=== PATIENT | female | born 1940 | race Two or more races ===

== ENCOUNTER 2017-12-07 19:03 | Inpatient (IN) | payer MEDICARE, MEDICAID ==
[~2017-12-07] VITALS: Ht 162.6 cm; Wt 59.0 kg
[~2017-12-07 19:03] MED LIST: CARVEDILOL3.125 MG ORAL; FUROSEMIDE20 M1 ORAL; GLIPIZIDE5 MG ORAL
[2017-12-07 19:20] VITALS: BP 110/51
[2017-12-07] MEDS ORDERED: D5NS 1,000 ML IV SCH (19:30)
[2017-12-07 20:34] LABS: HEMATOCRIT 32.3 % (37.0-47.0); HEMOGLOBIN 10.1 G/DL (12.0-16.0); MEAN CORPUSCULAR VOLUME 85 FL (80-99); PLATELET COUNT 178 K/UL (150-450); RED BLOOD COUNT 3.79 M/UL (4.20-5.40); WHITE BLOOD COUNT 10.1 K/UL (4.8-10.8)
[2017-12-07 20:54] LABS: APPEARANCE,URINE CLEAR; BILIRUBIN, URINE NEGATIVE (NEGATIVE); GLUCOSE, URINE (UA) NEGATIVE (NEGATIVE); KETONES,URINE NEGATIVE (NEGATIVE); LEUKOCYTE ESTERASE ,URINE 2+ (NEGATIVE); NITRITE,URINE POSITIVE (NEGATIVE); PH,URINE 5 (4.5-8.0); PROTEIN,URINE 2+ (NEGATIVE); UROBILINOGEN,URINE NORMAL MG/DL (0.0-1.0)
[2017-12-07 20:57] LABS: ANION GAP 8 mmol/L (5-15); BLOOD UREA NITROGEN 48 mg/dL (7-18); CALCIUM 8.5 MG/DL (8.5-10.1); CARBON DIOXIDE 26 MMOL/L (21-32); CHLORIDE 105 MMOL/L (98-107); CREATININE 2.2 MG/DL (0.55-1.30); POTASSIUM 5.8 MMOL/L (3.5-5.1); SODIUM 138 MMOL/L (136-145)
[2017-12-07 21:00] LABS: COLOR,URINE YELLOW
[2017-12-07 21:05] VITALS: BP 118/71
[2017-12-07 21:09] LABS: ALANINE AMINOTRANSFERASE 41 U/L (12-78); ALBUMIN 2.4 G/DL (3.4-5.0); ALBUMIN/GLOBULIN RATIO 0.7 (1.0-2.7); ALKALINE PHOSPHATASE 217 U/L (46-116); ASPARTATE AMINO TRANSFERASE 36 U/L (15-37); BILIRUBIN,TOTAL 1.3 MG/DL (0.2-1.0)
[2017-12-07 21:10] LABS: BILIRUBIN,DIRECT 0.4 MG/DL (0.0-0.3); CKMB 2.2 NG/ML (0.0-3.6)
[2017-12-07] MEDS ORDERED: D5 1/2NS 1,000 ML IV SCH (22:00)
[2017-12-07] MEDS ORDERED: Sodium Polystyrene Sulfonate 15gm Powder ORAL ONE (22:00)
[2017-12-07] MEDS ORDERED: Morphine Sulfate 2mg/ml Inj IVP PRN (22:00)
[2017-12-07] MEDS ORDERED: Nitroglycerin Subl 0.4mg tab SL PRN (22:00)
[2017-12-07] MEDS ORDERED: Albuterol/Ipratropium 3ml neb HHN PRN (22:00)
[2017-12-07] MEDS ORDERED: Enalaprilat 2.5mg/2ml Inj IV PRN (22:00)
[2017-12-07] MEDS ORDERED: dilTIAZem HCl 25mg/5ml Inj IV PRN (22:00)
[2017-12-07] MEDS ORDERED: Miralax 17gm pkt ORAL PRN (22:00)
--- NOTE | 2017-12-07 22:34 | Emergency Room Report ---
History of Present Illness General Chief Complaint: Altered Level of Consciousness Source: Patient Present Illness HPI 77-year-old female presents ED for evaluation. Patient brought in by EMS. Noted to be altered 1 day. Accu-Chek was low. Given glucose in the field. Patient is a diabetic. Accu-Chek in triage improved. Patient also noted have crackles and rales. Notes cough productive with yellowish phlegm. Denies chest pain or shortness of breath. Denies fevers or chills. No other aggravating or relieving factors. Denies any other associated symptoms Allergies: Coded Allergies: No Known Allergies (Unverified , 12/07/17) Patient History Past Medical History: DM, HTN, CAD Past Surgical History: none Pertinent Family History: none Social History: Denies: smoking, alcohol use, drug use Last Menstrual Period: n/a Now: No Immunizations: UTD Reviewed Nursing Documentation: PMH: Agreed, PSxH: Agreed Nursing Documentation-PMH Hx Cardiac Problems: Yes - 5 bypass surgeries Hx Hypertension: Yes Hx Diabetes: Yes Review of Systems All Other Systems: negative except mentioned in HPI Physical Exam Vital Signs Date Time Temp Pulse Resp B/P (MAP) Pulse Ox O2 Delivery O2 Flow Rate FiO2 12/07/17 18:57 97.5 67 18 103/29 85 Room Air 97.5 12/07/17 19:20 3.0 Sp02 EP Interpretation: reviewed, normal General Appearance: no apparent distress, alert, GCS 15, non-toxic, thin Head: normocephalic, atraumatic Eyes: bilateral eye normal inspection, bilateral eye PERRL ENT: hearing grossly normal, normal pharynx, no angioedema, normal voice Neck: full range of motion, supple/symm/no masses Respiratory: chest non-tender, crackles, speaking full sentences Cardiovascular #1: regular rate, rhythm, no edema Cardiovascular #2: 2+ carotid (R), 2+ carotid (L), 2+ radial (R), 2+ radial (L) , 2+ dorsalis pedis (R), 2+ dorsalis pedis (L) Gastrointestinal: normal bowel sounds, non tender, soft, non-distended, no guarding, no rebound Rectal: deferred Genitourinary: normal inspection, no CVA tenderness Musculoskeletal: back normal, gait/station normal, normal range of motion, non- tender Neurologic: alert, oriented x3, responsive, motor strength/tone normal, sensory intact, speech normal Psychiatric: judgement/insight normal, memory normal, mood/affect normal, no suicidal/homicidal ideation Reflexes: 3+ bicep (R), 3+ bicep (L), 3+ tricep (R), 3+ tricep (L), 3+ knee (R) , 3+ knee (L) Skin: normal color, no rash, warm/dry, well hydrated Lymphatic: no adenopathy Medical Decision Making Diagnostic Impression: Primary Impression: Pneumonia Qualified Codes: J18.1 - Lobar pneumonia, unspecified organism Additional Impressions: CHF (congestive heart failure) Qualified Codes: I50.9 - Heart failure, unspecified Hypoglycemia Renal insufficiency UTI (urinary tract infection) Qualified Codes: N39.0 - Urinary tract infection, site not specified ER Course Hospital Course 77-year-old F presenting to ED with respiratory distress, cough and crackles, accucheck low in field Differential diagnoses include: Pneumonia, CHF exacerbation, pneumothorax, fluid overload Clinical course Patient placed on stretcher. On secured entrance monitor. After initial history and physical, I ordered labs, IV fluids, EKG, chest x-ray, blood cultures, UA. Patient placed on nasal cannula with O2 saturation improving Labs -no leukocytosis, hemoglobin/hematocrit stable, BUN/Cr elevated, K 5.8, BNP elevated, trop minimally elevated UA + bacteria EKG - NSR, no acute ischemic changes interpreted by me CXR - cardiomegaly, chf, LLL infiltrate Patient on D5 IV fluids. Given Lasix. given kayexelate Given antibiotics. Case discussed with Dr. Peralta and he agreed to the patient to his service for further care and support I feel this is a highly complex case requiring extensive working including EKG/ Rhythm strip, Xray/CT/US, Blood/urine lab work, repeat exams while in ED, and administration of strong opiates/narcotics for pain control, admission to hospital or close patient follow up. Diagnosis - pneumonia, CHF, hypoglycemia, renal insufficiency, UTI Patient admitted to telemetry in serious condition Labs Test 12/07/17 19:38 12/07/17 20:30 White Blood Count 10.1 K/UL (4.8-10.8) Red Blood Count 3.79 M/UL (4.20-5.40) Hemoglobin 10.1 G/DL (12.0-16.0) Hematocrit 32.3 % (37.0-47.0) Mean Corpuscular Volume 85 FL (80-99) Mean Corpuscular Hemoglobin 26.6 PG (27.0-31.0) Mean Corpuscular Hemoglobin Concent 31.2 G/DL (32.0-36.0) Red Cell Distribution Width 16.0 % (11.6-14.8) Platelet Count 178 K/UL (150-450) Mean Platelet Volume 7.8 FL (6.5-10.1) Neutrophils (%) (Auto) % (45.0-75.0) Lymphocytes (%) (Auto) % (20.0-45.0) Monocytes (%) (Auto) % (1.0-10.0) Eosinophils (%) (Auto) % (0.0-3.0) Basophils (%) (Auto) % (0.0-2.0) Differential Total Cells Counted 100 Neutrophils % (Manual) 89 % (45-75) Lymphocytes % (Manual) 3 % (20-45) Monocytes % (Manual) 7 % (1-10) Eosinophils % (Manual) 0 % (0-3) Basophils % (Manual) 0 % (0-2) Band Neutrophils 1 % (0-8) Platelet Estimate Adequate Platelet Morphology Normal Hypochromasia 1+ Anisocytosis 1+ Sodium Level 138 MMOL/L (136-145) Potassium Level 5.8 MMOL/L (3.5-5.1) Chloride Level 105 MMOL/L (98-107) Carbon Dioxide Level 26 MMOL/L (21-32) Anion Gap 8 mmol/L (5-15) Blood Urea Nitrogen 48 mg/dL (7-18) Creatinine 2.2 MG/DL (0.55-1.30) Estimat Glomerular Filtration Rate mL/min (>60) Glucose Level 112 MG/DL (74-106) Lactic Acid Level 1.40 mmol/L (0.66-2.22) Calcium Level 8.5 MG/DL (8.5-10.1) Magnesium Level 2.2 MG/DL (1.8-2.4) Total Bilirubin 1.3 MG/DL (0.2-1.0) Direct Bilirubin 0.4 MG/DL (0.0-0.3) Aspartate Amino Transf (AST/SGOT) 36 U/L (15-37) Alanine Aminotransferase (ALT/SGPT) 41 U/L (12-78) Alkaline Phosphatase 217 U/L (46-116) Total Creatine Kinase 77 U/L (26-308) Creatine Kinase MB 2.2 NG/ML (0.0-3.6) Creatine Kinase MB Relative Index 2.8 Troponin I 0.154 ng/mL (0.000-0.056) Pro-B-Type Natriuretic Peptide 84640 pg/mL (0-125) Total Protein 5.9 G/DL (6.4-8.2) Albumin 2.4 G/DL (3.4-5.0) Globulin 3.5 g/dL Albumin/Globulin Ratio 0.7 (1.0-2.7) Acetone Level Negative (NEGATIVE) Urine Color Yellow Urine Appearance Clear Urine pH 5 (4.5-8.0) Urine Specific [place] 1.015 (1.005-1.035) Urine Protein 2+ (NEGATIVE) Urine Glucose (UA) Negative (NEGATIVE) Urine Ketones Negative (NEGATIVE) Urine Occult Blood 2+ (NEGATIVE) Urine Nitrite Positive (NEGATIVE) Urine Bilirubin Negative (NEGATIVE) Urine Urobilinogen Normal MG/DL (0.0-1.0) Urine Leukocyte Esterase 2+ (NEGATIVE) Urine RBC 5-10 /HPF (0 - 2) Urine WBC 2-4 /HPF (0 - 2) Urine Squamous Epithelial Cells Few /LPF (NONE/OCC) Urine Transitional Epithelial Cells /LPF (NONE) Urine Amorphous Sediment Few /LPF (NONE) Urine Bacteria Few /HPF (NONE) EKG Diagnostic Results Rate: normal Rhythm: NSR ST Segments: no acute changes ASA given to the pt in ED: Yes Rhythm Strip Diag. Results EP Interpretation: yes Rhythm: NSR, no PVC's, no ectopy Chest X-Ray Diagnostic Results Chest X-Ray Diagnostic Results : Chest X-Ray Ordered: Yes # of Views/Limited/Complete: 1 View Indication: Shortness of Breath EP Interpretation: Yes Interpretation: no pneumothorax, other - cardiomegaly. sternotomy wires. LLL infiltrate Impression: Other - chf/pna Electronically Signed by: Electronically signed by Boaz Nance MD Last Vital Signs Date Time Temp Pulse Resp B/P (MAP) Pulse Ox O2 Delivery O2 Flow Rate FiO2 12/07/17 19:20 97.6 70 17 110/51 94 Nasal Cannula 3.0 97.6 Status: improved Disposition: ADMITTED INPATIENT Condition: Serious Referrals: NOT CHOSEN JULIANO/,REFERRING (PCP) BOAZ NANCE M.D. Dec 07, 2017 22:34
[2017-12-07] MEDS ORDERED: Aspirin Baby 81mg ORAL ONE (22:45)
[2017-12-07 23:10] VITALS: BP 115/72
[2017-12-08] VITALS (7 sets, daily range): BP systolic 99–152; BP diastolic 52–71
[2017-12-08] MEDS ORDERED: Aspirin Baby 81mg ONE (00:42)
[2017-12-08] MEDS: NovoLOG Insulin Flexpen SUBQ SCH ×4 (06:30→21:00)
[2017-12-08] MEDS ORDERED: Aspirin Baby 81mg ORAL SCH (09:00)
[2017-12-08] MEDS ORDERED: Heparin 5000 units/ml inj SUBQ SCH (09:00)
[2017-12-08 10:15] LABS: HEMATOCRIT 29.1 % (37.0-47.0); HEMOGLOBIN 9.2 G/DL (12.0-16.0); MEAN CORPUSCULAR VOLUME 84 FL (80-99); PLATELET COUNT 175 K/UL (150-450); RED BLOOD COUNT 3.47 M/UL (4.20-5.40); RED CELL DISTRIBUTION WIDTH 15.7 % (11.6-14.8); WHITE BLOOD COUNT 11.2 K/UL (4.8-10.8)
--- NOTE | 2017-12-08 10:33 | Diagnostic Imaging Report ---
Indication: Cough Technique: One view of the chest Comparison: none Findings: Dense consolidation is seen in the left midlung. There is probably some pleural fluid on the left. There is generalized interstitial congestion. There is probably a small right pleural effusion. The heart is borderline enlarged. There are median sternotomy sutures and a valve prosthesis Impression: Dense left midlung consolidation and probable pleural fluid Generalized interstitial congestion Probable small right pleural effusion Cardiomegaly Other findings as noted
[2017-12-08 10:34] LABS: INR 1.1 (0.9-1.1)
[2017-12-08 10:45] LABS: CHOLESTEROL 71 MG/DL (< 200); HDL CHOLESTEROL 43 MG/DL (40-60); LACTATE DEHYDROGENASE 227 U/L (81-234); TRIGLYCERIDES 33 MG/DL (30-150)
[2017-12-08 11:04] LABS: % IRON SATURATION 5 % (15-50); IRON 13 ug/dL (50-175); TOTAL IRON BINDING CAPACITY 256 ug/dL (250-450)
[2017-12-08] MEDS ORDERED: Promethazine/Codeine 5ml UD ORAL PRN ×2 (11:30→23:30)
--- NOTE | 2017-12-08 11:34 | History and Physical ---
History of Present Illness General Date patient seen: Dec 08, 2017 Reason for Hospitalization: Altered Level of Consciousness Present Illness HPI 77-year-old female with hx of CAD, Dementia, DM presented ED for evaluation of being altered 1 day. Pts accu-Chek was low. She was giiven glucose in the field. .Patient also noted have crackles and rales during evaluation in ER. She also has cough productive with yellowish phlegm. Her CXR showed large LLL infiltrate. Denies chest pain or shortness of breath. Denies fevers or chills. No other aggravating or relieving factors. Denies any other associated symptoms. She is admitted to telemetry for acute encephalopathy most likely caused by Glipizide and concurrent bronchitis. Allergies: Coded Allergies: No Known Allergies (Unverified , 12/07/17) Medication History Scheduled Carvedilol* (Carvedilol*), 3.125 MG ORAL EVERY 12 HOURS, (Reported) Furosemide* (Lasix*), Unknown Dose ORAL DAILY, (Reported) Glipizide* (Glipizide*), 5 MG ORAL BIDAC, (Reported) Patient History Healthcare decision maker Resuscitation status Full Code Advanced Directive on File No Past Medical/Surgical History Past Medical/Surgical History: (1) Diabetes mellitus Review of Systems All Other Systems: negative except mentioned in HPI Physical Exam General Appearance: cachetic Lines, tubes and drains: peripheral HEENT: normocephalic Neck: non-tender Respiratory/Chest: chest wall non-tender, rhonchi - left, rhonchi - right Breasts: no masses Cardiovascular/Chest: normal rate Abdomen: normal bowel sounds, non tender Genitourinary/Rectal: normal genital exam Extremities: normal range of motion 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0 97.6 12/07/17 18:57 97.5 67 18 103/29 85 Room Air 97.5 Intake and Output 12/07/17 12/08/17 19:00 07:00 Intake Total 700 ml Output Total 8 ml Balance 692 ml IV Total 700 ml Stool Total 8 ml # Voids 2 # Bowel Movements 2 Laboratory Tests Test 12/07/17 19:38 12/07/17 20:30 12/08/17 02:30 12/08/17 09:55 White Blood Count 10.1 K/UL (4.8-10.8) 11.2 K/UL (4.8-10.8) H Red Blood Count 3.79 M/UL (4.20-5.40) L 3.47 M/UL (4.20-5.40) L Hemoglobin 10.1 G/DL (12.0-16.0) L 9.2 G/DL (12.0-16.0) L Hematocrit 32.3 % (37.0-47.0) L 29.1 % (37.0-47.0) L Mean Corpuscular Volume 85 FL (80-99) 84 FL (80-99) Mean Corpuscular Hemoglobin 26.6 PG (27.0-31.0) L 26.5 PG (27.0-31.0) L Mean Corpuscular Hemoglobin Concent 31.2 G/DL (32.0-36.0) L 31.5 G/DL (32.0-36.0) L Red Cell Distribution Width 16.0 % (11.6-14.8) H 15.7 % (11.6-14.8) H Platelet Count 178 K/UL (150-450) 175 K/UL (150-450) Mean Platelet Volume 7.8 FL (6.5-10.1) 8.6 FL (6.5-10.1) Neutrophils (%) (Auto) % (45.0-75.0) % (45.0-75.0) Lymphocytes (%) (Auto) % (20.0-45.0) % (20.0-45.0) Monocytes (%) (Auto) % (1.0-10.0) % (1.0-10.0) Eosinophils (%) (Auto) % (0.0-3.0) % (0.0-3.0) Basophils (%) (Auto) % (0.0-2.0) % (0.0-2.0) Differential Total Cells Counted 100 100 Neutrophils % (Manual) 89 % (45-75) H 88 % (45-75) H Lymphocytes % (Manual) 3 % (20-45) L 5 % (20-45) L Monocytes % (Manual) 7 % (1-10) 5 % (1-10) Eosinophils % (Manual) 0 % (0-3) 0 % (0-3) Basophils % (Manual) 0 % (0-2) 0 % (0-2) Band Neutrophils 1 % (0-8) 2 % (0-8) Platelet Estimate Adequate Adequate Platelet Morphology Normal Normal Hypochromasia 1+ 1+ Anisocytosis 1+ 1+ Sodium Level 138 MMOL/L (136-145) Potassium Level 5.8 MMOL/L (3.5-5.1) H Chloride Level 105 MMOL/L (98-107) Carbon Dioxide Level 26 MMOL/L (21-32) Anion Gap 8 mmol/L (5-15) Blood Urea Nitrogen 48 mg/dL (7-18) H Creatinine 2.2 MG/DL (0.55-1.30) H Estimat Glomerular Filtration Rate mL/min (>60) Glucose Level 112 MG/DL (74-106) H Lactic Acid Level 1.40 mmol/L (0.66-2.22) Calcium Level 8.5 MG/DL (8.5-10.1) Magnesium Level 2.2 MG/DL (1.8-2.4) Total Bilirubin 1.3 MG/DL (0.2-1.0) H Direct Bilirubin 0.4 MG/DL (0.0-0.3) H Aspartate Amino Transf (AST/SGOT) 36 U/L (15-37) Alanine Aminotransferase (ALT/SGPT) 41 U/L (12-78) Alkaline Phosphatase 217 U/L (46-116) H Total Creatine Kinase 77 U/L (26-308) Creatine Kinase MB 2.2 NG/ML (0.0-3.6) Creatine Kinase MB Relative Index 2.8 Troponin I 0.154 ng/mL (0.000-0.056) 0.108 ng/mL (0.000-0.056) Pro-B-Type Natriuretic Peptide 05982 pg/mL (0-125) H Total Protein 5.9 G/DL (6.4-8.2) L Albumin 2.4 G/DL (3.4-5.0) L Globulin 3.5 g/dL Albumin/Globulin Ratio 0.7 (1.0-2.7) L Acetone Level Negative (NEGATIVE) Urine Color Yellow Urine Appearance Clear Urine pH 5 (4.5-8.0) Urine Specific [place] 1.015 (1.005-1.035) Urine Protein 2+ (NEGATIVE) H Urine Glucose (UA) Negative (NEGATIVE) Urine Ketones Negative (NEGATIVE) Urine Occult Blood 2+ (NEGATIVE) H Urine Nitrite Positive (NEGATIVE) H Urine Bilirubin Negative (NEGATIVE) Urine Urobilinogen Normal MG/DL (0.0-1.0) Urine Leukocyte Esterase 2+ (NEGATIVE) H Urine RBC 5-10 /HPF (0 - 2) H Urine WBC 2-4 /HPF (0 - 2) Urine Squamous Epithelial Cells Few /LPF (NONE/OCC) Urine Transitional Epithelial Cells /LPF (NONE) Urine Amorphous Sediment Few /LPF (NONE) H Urine Bacteria Few /HPF (NONE) Stool Occult Blood Pending Erythrocyte Sedimentation Rate 41 MM/HR (0-30) H Reticulocyte Count Pending Prothrombin Time 11.7 SEC (9.30-11.50) H Prothromb Time International Ratio 1.1 (0.9-1.1) Activated Partial Thromboplast Time 29 SEC (23-33) Iron Level 13 ug/dL (50-175) L Total Iron Binding Capacity 256 ug/dL (250-450) Percent Iron Saturation 5 % (15-50) L Unsaturated Iron Binding 243 ug/dL (112-346) Lactate Dehydrogenase 227 U/L (81-234) C-Reactive Protein, Quantitative 10.8 mg/dL (0.00-0.90) H Triglycerides Level 33 MG/DL (30-150) Cholesterol Level 71 MG/DL (< 200) LDL Cholesterol 29 mg/dL (<100) HDL Cholesterol 43 MG/DL (40-60) Cholesterol/HDL Ratio 1.7 (3.3-4.4) L Vitamin B12 Level 669 PG/ML (193-986) Folate 14.5 NG/ML (8.6-58.9) Thyroid Stimulating Hormone (TSH) 4.045 uiU/mL (0.358-3.740) Microbiology Date/Time Source Procedure Growth Status 12/07/17 20:25 Nasal Nares Influenza Types A,B Antigen (ROYA) - Final Complete Height (Feet): 5 Height (Inches): 4.00 Weight (Pounds): 136 Medications Current Medications Medications (Trade) Dose Ordered Sig/Maribel Route PRN Reason Start Time Stop Time Status Last Admin Dose Admin Acetaminophen (Tylenol) 650 mg Q4H PRN ORAL T>100.5 12/07/17 22:00 01/06/18 21:59 Albuterol/ Ipratropium (Albuterol/ Ipratropium) 3 ml Q4H PRN HHN Shortness of Breath 12/07/17 22:00 12/12/17 21:59 Aspirin (ASA) 162 mg DAILY ORAL 12/08/17 09:00 01/07/18 08:59 12/08/17 09:54 Carvedilol (Coreg) 3.125 mg EVERY 12 HOURS ORAL 12/08/17 09:00 01/07/18 08:59 12/08/17 09:54 Dextrose (Dextrose 50%) STAT PRN IV Hypoglycemia 12/07/17 22:00 01/06/18 21:59 Dextrose/Sodium Chloride 1,000 ml @ 50 mls/hr Q20H IV 12/07/17 22:00 01/06/18 21:59 12/08/17 01:24 Diltiazem HCl (Cardizem) 10 mg EVERY HOUR PRN IV heart rate more than 120, 12/07/17 22:00 01/06/18 21:59 Enalaprilat (Vasotec) 2.5 mg EVERY 6 HOURS PRN IV sbp more than 160 12/07/17 22:00 01/06/18 21:59 Heparin Sodium (Porcine) (Heparin 5000 units/ml) 5,000 units EVERY 12 HOURS SUBQ 12/08/17 09:00 01/07/18 08:59 12/08/17 09:58 Insulin Aspart (NovoLOG) BEFORE MEALS AND HS SUBQ 12/08/17 06:30 01/07/18 06:29 Morphine Sulfate (Morphine Sulfate) 2 mg Q4H PRN IVP severe Pain (Pain Scale 7-10) 12/07/17 22:00 12/14/17 21:59 Nitroglycerin (Ntg) 0.4 mg Q5MIN X 3 DOSES PRN SL Prn Chest Pain 12/07/17 22:00 01/06/18 21:59 Ondansetron HCl (Zofran) 4 mg Q6H PRN IVP Nausea & Vomiting 12/07/17 22:00 01/06/18 21:59 12/08/17 10:39 Polyethylene Glycol (Miralax) 17 gm DAILYPRN PRN ORAL Constipation 12/07/17 22:00 01/06/18 21:59 Temazepam (Restoril) 15 mg HSPRN PRN ORAL Insomnia 12/07/17 22:00 12/14/17 21:59 Assessment/Plan Problem List: (1) Encephalopathy acute ICD Codes: G93.40 - Encephalopathy, unspecified SNOMED: 76593406, 344621243 (2) Pneumonia ICD Codes: J18.9 - Pneumonia, unspecified organism SNOMED: 655312949, [id number] Qualifiers: Qualified Codes: J18.1 - Lobar pneumonia, unspecified organism (3) Hypoglycemia ICD Codes: E16.2 - Hypoglycemia, unspecified SNOMED: 668678617 (4) Diabetes mellitus ICD Codes: E11.9 - Type 2 diabetes mellitus without complications SNOMED: 32609090 Assessment/Plan iv abx check sputum cxr in a few days sliding scale endo to see the pt hold glipizide chest pt titrate fio2 to sat of 92%. Jessica Peralta MD Dec 08, 2017 11:34
[2017-12-08 12:27] LABS: ANION GAP 8 mmol/L (5-15); BLOOD UREA NITROGEN 53 mg/dL (7-18); CALCIUM 8.1 MG/DL (8.5-10.1); CARBON DIOXIDE 26 MMOL/L (21-32); CHLORIDE 105 MMOL/L (98-107); CREATININE 2.2 MG/DL (0.55-1.30); POTASSIUM 4.3 MMOL/L (3.5-5.1); SODIUM 139 MMOL/L (136-145)
--- NOTE | 2017-12-08 13:05 | Cardiology Progress Note ---
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 Cassidy serial enzyme and ekg echo diuretic resume recent med form [facility] restart on eliquis for strok prevention bp med was on diovan 160 mg dialy resuem if ok with renal old cxr show lll at [facility] as well as pelurual effusion bilat ecotrin statin [id number] Objective Last 24 Hour Vital Signs Date Time Temp Pulse Resp B/P (MAP) Pulse Ox O2 Delivery O2 Flow Rate FiO2 12/08/17 12:00 98.1 72 20 111/60 95 Nasal Cannula 3.0 98.1 12/08/17 09:54 73 152/54 12/08/17 08:00 73 12/08/17 08:00 97.0 71 22 152/54 95 Nasal Cannula 3.0 97.0 12/08/17 04:00 64 12/08/17 04:00 96.6 67 22 130/59 98 Nasal Cannula 3.0 96.6 12/08/17 02:15 97.8 68 16 116/71 100 Nasal Cannula 3.0 97.8 12/08/17 01:15 97.8 68 16 116/71 100 Nasal Cannula 3.0 97.8 12/07/17 23:10 97.6 72 17 115/72 100 Nasal Cannula 3.0 97.6 12/07/17 21:05 97.8 69 16 118/71 99 Nasal Cannula 3.0 97.8 12/07/17 19:20 97.6 70 17 110/51 94 Nasal Cannula 3.0 97.6 12/07/17 18:57 97.5 67 18 103/29 85 Room Air 97.5 Intake and Output 12/07/17 12/08/17 19:00 07:00 Intake Total 700 ml Output Total 8 ml Balance 692 ml IV Total 700 ml Stool Total 8 ml # Voids 2 # Bowel Movements 2 Laboratory Tests Test 12/07/17 19:38 12/07/17 20:30 12/08/17 02:30 12/08/17 09:55 White Blood Count 10.1 K/UL (4.8-10.8) 11.2 K/UL (4.8-10.8) H Red Blood Count 3.79 M/UL (4.20-5.40) L 3.47 M/UL (4.20-5.40) L Hemoglobin 10.1 G/DL (12.0-16.0) L 9.2 G/DL (12.0-16.0) L Hematocrit 32.3 % (37.0-47.0) L 29.1 % (37.0-47.0) L Mean Corpuscular Volume 85 FL (80-99) 84 FL (80-99) Mean Corpuscular Hemoglobin 26.6 PG (27.0-31.0) L 26.5 PG (27.0-31.0) L Mean Corpuscular Hemoglobin Concent 31.2 G/DL (32.0-36.0) L 31.5 G/DL (32.0-36.0) L Red Cell Distribution Width 16.0 % (11.6-14.8) H 15.7 % (11.6-14.8) H Platelet Count 178 K/UL (150-450) 175 K/UL (150-450) Mean Platelet Volume 7.8 FL (6.5-10.1) 8.6 FL (6.5-10.1) Neutrophils (%) (Auto) % (45.0-75.0) % (45.0-75.0) Lymphocytes (%) (Auto) % (20.0-45.0) % (20.0-45.0) Monocytes (%) (Auto) % (1.0-10.0) % (1.0-10.0) Eosinophils (%) (Auto) % (0.0-3.0) % (0.0-3.0) Basophils (%) (Auto) % (0.0-2.0) % (0.0-2.0) Differential Total Cells Counted 100 100 Neutrophils % (Manual) 89 % (45-75) H 88 % (45-75) H Lymphocytes % (Manual) 3 % (20-45) L 5 % (20-45) L Monocytes % (Manual) 7 % (1-10) 5 % (1-10) Eosinophils % (Manual) 0 % (0-3) 0 % (0-3) Basophils % (Manual) 0 % (0-2) 0 % (0-2) Band Neutrophils 1 % (0-8) 2 % (0-8) Platelet Estimate Adequate Adequate Platelet Morphology Normal Normal Hypochromasia 1+ 1+ Anisocytosis 1+ 1+ Sodium Level 138 MMOL/L (136-145) 139 MMOL/L (136-145) Potassium Level 5.8 MMOL/L (3.5-5.1) H 4.3 MMOL/L (3.5-5.1) Chloride Level 105 MMOL/L (98-107) 105 MMOL/L (98-107) Carbon Dioxide Level 26 MMOL/L (21-32) 26 MMOL/L (21-32) Anion Gap 8 mmol/L (5-15) 8 mmol/L (5-15) Blood Urea Nitrogen 48 mg/dL (7-18) H 53 mg/dL (7-18) H Creatinine 2.2 MG/DL (0.55-1.30) H 2.2 MG/DL (0.55-1.30) H Estimat Glomerular Filtration Rate mL/min (>60) mL/min (>60) Glucose Level 112 MG/DL (74-106) H 87 MG/DL (74-106) Lactic Acid Level 1.40 mmol/L (0.66-2.22) Calcium Level 8.5 MG/DL (8.5-10.1) 8.1 MG/DL (8.5-10.1) L Magnesium Level 2.2 MG/DL (1.8-2.4) Total Bilirubin 1.3 MG/DL (0.2-1.0) H Direct Bilirubin 0.4 MG/DL (0.0-0.3) H Aspartate Amino Transf (AST/SGOT) 36 U/L (15-37) Alanine Aminotransferase (ALT/SGPT) 41 U/L (12-78) Alkaline Phosphatase 217 U/L (46-116) H Total Creatine Kinase 77 U/L (26-308) Creatine Kinase MB 2.2 NG/ML (0.0-3.6) Creatine Kinase MB Relative Index 2.8 Troponin I 0.154 ng/mL (0.000-0.056) 0.108 ng/mL (0.000-0.056) Pro-B-Type Natriuretic Peptide 24161 pg/mL (0-125) H Total Protein 5.9 G/DL (6.4-8.2) L Albumin 2.4 G/DL (3.4-5.0) L Globulin 3.5 g/dL Albumin/Globulin Ratio 0.7 (1.0-2.7) L Acetone Level Negative (NEGATIVE) Urine Color Yellow Urine Appearance Clear Urine pH 5 (4.5-8.0) Urine Specific [place] 1.015 (1.005-1.035) Urine Protein 2+ (NEGATIVE) H Urine Glucose (UA) Negative (NEGATIVE) Urine Ketones Negative (NEGATIVE) Urine Occult Blood 2+ (NEGATIVE) H Urine Nitrite Positive (NEGATIVE) H Urine Bilirubin Negative (NEGATIVE) Urine Urobilinogen Normal MG/DL (0.0-1.0) Urine Leukocyte Esterase 2+ (NEGATIVE) H Urine RBC 5-10 /HPF (0 - 2) H Urine WBC 2-4 /HPF (0 - 2) Urine Squamous Epithelial Cells Few /LPF (NONE/OCC) Urine Transitional Epithelial Cells /LPF (NONE) Urine Amorphous Sediment Few /LPF (NONE) H Urine Bacteria Few /HPF (NONE) Stool Occult Blood Negative (NEGATIVE) Erythrocyte Sedimentation Rate 41 MM/HR (0-30) H Reticulocyte Count 1.7 % (0.0-2.0) Prothrombin Time 11.7 SEC (9.30-11.50) H Prothromb Time International Ratio 1.1 (0.9-1.1) Activated Partial Thromboplast Time 29 SEC (23-33) Iron Level 13 ug/dL (50-175) L Total Iron Binding Capacity 256 ug/dL (250-450) Percent Iron Saturation 5 % (15-50) L Unsaturated Iron Binding 243 ug/dL (112-346) Lactate Dehydrogenase 227 U/L (81-234) C-Reactive Protein, Quantitative 10.8 mg/dL (0.00-0.90) H Triglycerides Level 33 MG/DL (30-150) Cholesterol Level 71 MG/DL (< 200) LDL Cholesterol 29 mg/dL (<100) HDL Cholesterol 43 MG/DL (40-60) Cholesterol/HDL Ratio 1.7 (3.3-4.4) L Vitamin B12 Level 669 PG/ML (193-986) Folate 14.5 NG/ML (8.6-58.9) Thyroid Stimulating Hormone (TSH) 4.045 uiU/mL (0.358-3.740) Microbiology Date/Time Source Procedure Growth Status 12/07/17 20:25 Nasal Nares Influenza Types A,B Antigen (ROYA) - Final Complete YESICA MEDRANO Dec 08, 2017 13:05
[2017-12-08] MEDS ORDERED: Eliquis 2.5mg tablet ORAL SCH (14:30)
--- NOTE | 2017-12-08 14:57 | Cardiology Report ---
APPROVED REPORT EXAM: Two-dimensional and M-mode echocardiogram with Doppler and color Doppler. INDICATION LV function M-Mode DIMENSIONS IVSd1.4 (0.7-1.1cm)Left Atrium (MM)3.8 (1.6-4.0cm) LVDd3.7 (3.5-5.6cm)Aortic Root2.9 (2.0-3.7cm) PWd1.7 (0.7-1.1cm)Aortic Cusp Exc.1.9 (1.5-2.0cm) LVDs2.2 (2.5-4.0cm) PWs2.0 cm Normal left ventricular chamber size, systolic function and wall motion. Left ventricular ejection fraction estimated to be 55 %. Moderate left ventricular hypertrophy by 2-D. Diastolic septal flattening suggests RV volume overload. Trivial posterior pericardial effusion. Large posterior pleural effusion. Mild bi-atrial enlargement. Moderate right ventricular enlargement. Moderate focal aortic valve sclerosis with adequate cusp excursion. Heavily thickened mitral valve leaflets with reduced excursion suggestive of Mitral stenosis. Heavy mitral annulus and aortic root calcification. Pulmonic valve not well visualized. Normal tricuspid valve structure. IVC dilated at 2.6 cm without physiologic collapse suggestive of RA pressure 20 mmHg. A color flow and spectral Doppler study was performed and revealed: Mild aortic regurgitation. Mild mitral regurgitation. Mitral P1/2 time of 98 cm/s is compatible with a mitral valve area of 2.2 cm2 suggestive of moderate mitral stenosis. Peak mitral valve diastolic gradient of 18 mmHg and a mean gradient of 5 mmHg. Mitral inflow velocities indicates possible pseudo normalization pattern implying moderately elevated left atrial pressure (Grade II ). Moderate tricuspid regurgitation. Tricuspid systolic velocities suggests peak right ventricular systolic pressure of 72 mmHg, consistent with severe pulmonary hypertension. Moderate pulmonic regurgitation present.
[2017-12-08] MEDS: Eliquis 2.5mg tablet ORAL SCH ×2 (15:04→21:14)
--- NOTE | 2017-12-08 15:16 | Diagnostic Imaging Report ---
Clinical Indication: Cough Technique: Spiral acquisitions obtained through the chest. No IV contrast utilized, for referring physician request. Multiplanar reconstructions generated. Total dose length product 659.06 mGycm. CTDIvol(s) 19 mGy. Dose reduction achieved using automated exposure control Comparison: Chest radiograph dated 12/07/2017. No comparison chest CTs Findings: There is a large right pleural effusion. There is compressive atelectasis of much of the inferior right lower lobe. A cystic space is seen in the right upper lobe. There is thickening of versus fluid within the inferior major fissure on the right. The right middle lobe is unremarkable except for minimal atelectasis adjacent to the major fissure. There is a moderate-sized left pleural effusion. There is compressive atelectasis of much of the left lower lobe, particularly in the hilar region. There is also some perihilar consolidation. Fluid is seen within the major fissure. There is compressive atelectasis of much of the inferior lingula. There is a 7 mm masslike opacity in the left upper lobe the level of the aortic arch, image 14 series 5. There is mild interstitial congestion within the left upper lobe. The heart is enlarged. No definite pericardial effusion. There is evidence of prior CABG. There is also a mitral valve prosthesis. No mediastinal or hilar mass or adenopathy. No axillary or chest wall mass or adenopathy. Visualized portions of the thyroid appear unremarkable. There is generalized edema of the chest wall and especially the upper abdominal wall, less extensive edema of the mediastinum Included upper abdominal anatomy demonstrates hepatomegaly. There is a small amount of ascites fluid. There is a compression fracture deformity of the T10 vertebral body, mostly involving the inferior endplate but also the anterior wall Impression: Large right pleural effusion. Resultant compressive atelectasis of much of the right lower lobe Moderate left-sided pleural effusion, with compressive atelectasis of portions of the left lower lobe. There is also perihilar consolidation which may indicate pneumonia. There is also compressive atelectasis of much of the inferior lingula Mild interstitial congestion in the left upper lobe 7 mm masslike opacity in the left upper lobe at the level of the aortic arch. Most likely some focal edema or consolidation, but neoplasm also a possibility. Cardiomegaly. Evidence of prior CABG and mitral valve repair Evidence of anasarca elsewhere, with chest and abdominal wall edema, small amount of ascites T10 vertebral body compression fracture deformity. Age indeterminate. Consider MRI for further evaluation if this is considered clinically significant Hepatomegaly The CT scanner at [facility] is accredited by the [employer] and the scans are performed using protocols designed to limit radiation exposure to as low as reasonably achievable to attain images of sufficient resolution adequate for diagnostic evaluation.
--- NOTE | 2017-12-08 17:38 | Cardiology Report ---
APPROVED REPORT EKG Measurement Heart [id number] Normal sinus rhythm Right bundle branch block T wave abnormality, consider inferior ischemia Abnormal ECG
[2017-12-08] MEDS ORDERED: Haloperidol 5mg/ml Inj IM PRN (19:00)
--- NOTE | 2017-12-08 19:45 | Consultation ---
DATE OF CONSULTATION: 12/08/2017 CARDIOLOGY CONSULTATION CONSULTING PHYSICIAN: Elliott Vasquez M.D. REFERRING PHYSICIAN: Abiola Peralta M.D. REASON FOR REFERRAL: Possible congestive heart failure. HISTORY OF PRESENT ILLNESS: This is a 77-year-old female, who is usually followed at [facility], whose records I have had a chance to review. The information is obtained from the patient directly as well as those records reviewed. She indicates she has been having some shortness of breath and her legs have been bleeding and is the reason why she came into the hospital. She has had shortness of breath for some time now. She has had leg swelling for approximately two months. She has shortness of breath on exertion especially when she climbs her stairs, she has to stop three times in the middle of the stairway because of the shortness of breath. She has been coughing and causing some sputum production. There is no PND. She uses one pillow. She states she is not dizzy or lightheaded on standing and she denies any palpitations. She denies any pain, pressure or tightness in her chest. PAST MEDICAL HISTORY: Obtained from review of the [facility] data indicate that she has a history of possible upper GI bleeding, anemia, hypertension, atrial flutter on chronic anticoagulation with Eliquis, history of CVA, coronary artery disease status post coronary bypass grafting x5, and diabetes mellitus. [facility] chart also indicates hyperlipidemia, hypertension, sarcoidosis, liver disease, mitral valve replacement with closure left atrial appendage in 2010 by for severe mitral regurgitation. ALLERGIES: Levaquin as well as sulfa. SOCIAL HISTORY: She denies any smoking or drinking alcoholic beverages. She lives at home. REVIEW OF SYSTEMS: GASTROINTESTINAL: She has had some diarrhea, otherwise negative. GENITOURINARY: Negative. PULMONARY: Positive coughing and sputum production. CONSTITUTIONAL: Negative. NEUROLOGIC: She denies. PHYSICAL EXAMINATION: GENERAL: Shows to be elderly female, hard of hearing. NECK: Supple. There is jugular venous distention. No abdominojugular reflux. LUNGS: Noted bilateral crackles. CARDIAC: Regular rate and rhythm. No heaves or thrills. There is a faint holosystolic regurgitant murmur noted. ABDOMEN: Soft, obese. Positive bowel sounds. EXTREMITIES: There is 2+ to 3+ edema of the lower extremities noted bilaterally. NEUROLOGICAL: She is awake, alert, responsive, and in no apparent respiratory distress. LABORATORY AND DIAGNOSTIC DATA: She has got a white count of 11.2 with hemoglobin 9.2 and platelet count of 175. Sodium is 139, potassium 4.3, chloride 105, bicarbonate 26, BUN of 53, creatinine 2.2 and a glucose of 87. Calcium 8.1. Troponin 0.154, subsequent 0.108. CRP is 10. Total cholesterol is 71 with a LDL of 43. TSH of 4.045. B12 of 612. Her INR is 1.1 and a PTT of 29. Urinalysis is positive for nitrites, 2 to 4 wbc's. Toxicology screen, acetone level is negative. Influenza negative titers. A chest x-ray performed shows a dense right left middle lung consolidation, probable pleural effusion, generalized interstitial congestion, probable small right pleural effusion and cardiomegaly. EKG shows basically right bundle-branch conduction defect with secondary T-wave abnormalities in V1 through V4 and in direct comparison with the EKG performed last at [facility] on 09/17/2017 appears relatively unchanged. She appears to be in sinus at this time. ASSESSMENT AND PLAN: 1. Left lower lobe consolidation. 2. Chronic renal insufficiency. 3. Coronary artery disease status post coronary bypass grafting. 4. Diabetes mellitus. 5. Hypertension. 6. Hyperlipidemia. 7. History of cerebrovascular accident. 8. Reported history of sarcoidosis. 9. History of liver disease. 10. History of severe mitral regurgitation status post mitral valve repair and left atrial appendage closure by in 2015. This patient was seen in cardiac consultation. The patient does indicate, she has some sputum, so there is probably an element of infection because of her lung findings. She has had a chest x-ray that was performed last in 08/2017 at [facility] that showed bilateral pleural effusions and left lung atelectasis or infiltrate being noted at that time. So the question is whether this is the same process atelectasis or infection or something other than that. I would continue her on diuretics. She was on aspirin as well as Eliquis 2.5 mg twice a day as well as Coreg 25 mg twice a day back in August when she was last at [facility] and she was taken off of Lasix at that time. Elliott Vasquez M.D. DR: SOULEYMANE JOB#: [id number] CC:
[2017-12-08] MEDS ORDERED: Carvedilol 12.5mg tab ORAL SCH (21:00)
[2017-12-08] MEDS ORDERED: Atorvastatin 80mg tab ORAL SCH (21:00)
[2017-12-08] MEDS ORDERED: Theophylline ER 100mg ORAL SCH (21:00)
[2017-12-08] MEDS ORDERED: Nitroglycerin Subl 0.4mg tab SL PRN (23:30)
[2017-12-09] VITALS (24 sets, daily range): BP systolic 91–126; BP diastolic 42–65
[2017-12-09] MEDS ORDERED: Enalaprilat 2.5mg/2ml Inj IV PRN
[2017-12-09] MEDS ORDERED: dilTIAZem HCl 25mg/5ml Inj IV PRN
[2017-12-09] MEDS: Morphine Sulfate 2mg/ml Inj IVP PRN ×2 (01:30→06:21)
[2017-12-09] MEDS ORDERED: Albuterol/Ipratropium 3ml neb HHN PRN (02:00)
[2017-12-09 04:19] LABS: HEMATOCRIT 26.3 % (37.0-47.0); HEMOGLOBIN 8.5 G/DL (12.0-16.0); MEAN CORPUSCULAR VOLUME 84 FL (80-99); PLATELET COUNT 157 K/UL (150-450); RED BLOOD COUNT 3.13 M/UL (4.20-5.40); RED CELL DISTRIBUTION WIDTH 15.6 % (11.6-14.8); WHITE BLOOD COUNT 6.4 K/UL (4.8-10.8)
[2017-12-09 05:09] LABS: ALANINE AMINOTRANSFERASE 53 U/L (12-78); ALBUMIN 1.8 G/DL (3.4-5.0); ALBUMIN/GLOBULIN RATIO 0.6 (1.0-2.7); ALKALINE PHOSPHATASE 218 U/L (46-116); ANION GAP 12 mmol/L (5-15); ASPARTATE AMINO TRANSFERASE 58 U/L (15-37); BILIRUBIN,TOTAL 0.9 MG/DL (0.2-1.0); BLOOD UREA NITROGEN 59 mg/dL (7-18); CALCIUM 7.5 MG/DL (8.5-10.1); CARBON DIOXIDE 24 MMOL/L (21-32); CHLORIDE 102 MMOL/L (98-107); CREATININE 2.6 MG/DL (0.55-1.30); PHOSPHORUS 6.7 MG/DL (2.5-4.9); POTASSIUM 4.1 MMOL/L (3.5-5.1); SODIUM 138 MMOL/L (136-145)
[2017-12-09] MEDS: NovoLOG Insulin Flexpen SUBQ SCH ×4 (06:30→21:00)
[2017-12-09] MEDS: Eliquis 2.5mg tablet ORAL SCH ×2 (09:00→11:13)
[2017-12-09] MEDS: Theophylline ER 100mg ORAL SCH ×2 (09:00→21:50)
[2017-12-09] MEDS: Aspirin Baby 81mg ORAL SCH (09:00)
[2017-12-09] MEDS ORDERED: Carvedilol 12.5mg tab ORAL SCH (09:00)
[2017-12-09] MEDS ORDERED: Aspirin Baby 81mg ORAL SCH (09:00)
--- NOTE | 2017-12-09 09:47 | Diagnostic Imaging Report ---
Indication: Abnormal renal function tests Technique: Grayscale and duplex images of the kidneys, retroperitoneum, and bladder were obtained. Comparison: none Findings: Right kidney measures 10.6 cm in length. Left kidney measures 10.3 cm in length. Both kidneys demonstrate normal echogenicity. No hydronephrosis. In the interpolar region of the right kidney, there is a nonshadowing 8 x 14 mm echogenic structure. The left kidney demonstrates a 7 mm lower pole cyst. Normal inferior vena cava. Bladder demonstrates a volume of 192 mL. Patient was unable to void. There is a small amount of ascites fluid. There is also a right pleural effusion Impression: Negative for hydronephrosis Echogenic lesion in the interpolar region of the right kidney. 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 Consider CT for further evaluation Incidental findings small left renal cyst Note the patient was unable to void at a bladder volume of 192 mL.
--- NOTE | 2017-12-09 10:25 | Pulmonolgy Critical Care Note ---
Critical Care - Asmt/Plan Problems: (1) Acute respiratory failure (2) Pleural effusion Assessment/Plan: will get US of chest for paracentesis, neuro evaluation. 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 - Objective Last 24 Hour Vital Signs Date Time Temp Pulse Resp B/P (MAP) Pulse Ox O2 Delivery O2 Flow Rate FiO2 12/09/17 10:00 66 20 116/55 95 Bi-pap 30 12/09/17 09:16 61 20 95 Facial 30 12/09/17 09:00 90 111/51 12/09/17 09:00 65 20 111/51 95 Bi-pap 35 12/09/17 08:00 62 12/09/17 08:00 99.0 62 19 102/49 96 Bi-pap 35 99.0 12/09/17 07:00 62 21 109/49 95 Bi-pap 40 12/09/17 06:58 99.0 12/09/17 06:40 Bi-pap 35 12/09/17 06:40 63 20 96 Facial 35 12/09/17 06:40 98 Bi-pap 35 12/09/17 06:21 99.0 12/09/17 06:00 62 21 111/60 95 Bi-pap 40 12/09/17 05:10 90 14 98 Facial 40 12/09/17 05:00 91 21 115/54 97 Bi-pap 40 12/09/17 04:00 96 12/09/17 04:00 99.0 96 21 110/57 97 Bi-pap 40 99.0 12/09/17 03:30 96 19 92 Facial 40 12/09/17 03:00 96 21 103/55 97 Bi-pap 40 12/09/17 02:00 65 23 100/45 99 Bi-pap 40 12/09/17 01:30 99.5 12/09/17 01:30 64 25 92 Facial 40 12/09/17 01:00 67 25 123/61 98 Bi-pap 40 12/09/17 00:02 66 28 98 Facial 40 12/09/17 00:00 67 25 103/55 98 Bi-pap 12/09/17 00:00 64 12/08/17 23:00 99.0 67 25 99/52 90 Venturi Mask 15.0 100 99.0 12/08/17 23:00 67 12/08/17 21:14 78 121/65 12/08/17 20:00 99.5 131 24 119/62 97 Room Air 99.5 12/08/17 20:00 82 12/08/17 16:00 78 12/08/17 15:45 97.3 76 20 121/65 94 Nasal Cannula 3.0 97.3 12/08/17 12:00 98.1 72 20 111/60 95 Nasal Cannula 3.0 98.1 12/08/17 12:00 71 Status: somnolent Condition: critical HEENT: atraumatic Lungs: rales, rhonchi Heart: HR/BP stable, HR/BP unstable Abdomen: non-tender, active bowel sounds Extremities: no C/C/E, edema Micro: Microbiology Date/Time Source Procedure Growth Status 12/07/17 19:55 Blood Blood Culture - Preliminary NO GROWTH AFTER 24 HOURS Resulted 12/07/17 19:40 Blood Blood Culture - Preliminary NO GROWTH AFTER 24 HOURS Resulted 12/07/17 20:25 Nasal Nares Influenza Types A,B Antigen (ROYA) - Final Complete Accucheck: 87 Critical Care - Subjective ICU Day: 2 Interval Events: pt transferred to icu b/o respiratory failure last night. she was started on BIPAP. she has been confused and lethargic. FI02: 30 Sputum Amount: Small I&O: Intake and Output 12/08/17 12/09/17 19:00 07:00 Intake Total 420 ml Output Total 450 ml 410 ml Balance -30 ml -410 ml Intake Oral 120 ml IV Total 300 ml Output Urine Total 450 ml 410 ml # Bowel Movements 2 CXR: pending Labs: Laboratory Tests Test 12/08/17 22:06 12/09/17 01:30 12/09/17 03:40 Arterial Blood pH 7.272 (7.350-7.450) Arterial Blood Partial Pressure CO2 56.2 mmHg (35.0-45.0) *H Arterial Blood Partial Pressure O2 189.2 mmHg (75.0-100.0) H Arterial Blood HCO3 25.3 mmol/L (22.0-26.0) Arterial Blood Oxygen Saturation 98.3 % (92.0-98.0) H Arterial Blood Base Excess -1.9 [place] Test Positive Urine Eosinophils None seen Urine Random Sodium 32 mmol/L (20-110) Urine Potassium Timed 45 mmol/L (12-62) White Blood Count 6.4 K/UL (4.8-10.8) Red Blood Count 3.13 M/UL (4.20-5.40) L Hemoglobin 8.5 G/DL (12.0-16.0) L Hematocrit 26.3 % (37.0-47.0) L Mean Corpuscular Volume 84 FL (80-99) Mean Corpuscular Hemoglobin 27.2 PG (27.0-31.0) Mean Corpuscular Hemoglobin Concent 32.4 G/DL (32.0-36.0) Red Cell Distribution Width 15.6 % (11.6-14.8) H Platelet Count 157 K/UL (150-450) Mean Platelet Volume 8.3 FL (6.5-10.1) Neutrophils (%) (Auto) % (45.0-75.0) Lymphocytes (%) (Auto) % (20.0-45.0) Monocytes (%) (Auto) % (1.0-10.0) Eosinophils (%) (Auto) % (0.0-3.0) Basophils (%) (Auto) % (0.0-2.0) Differential Total Cells Counted 100 Neutrophils % (Manual) 81 % (45-75) H Lymphocytes % (Manual) 14 % (20-45) L Monocytes % (Manual) 5 % (1-10) Eosinophils % (Manual) 0 % (0-3) Basophils % (Manual) 0 % (0-2) Band Neutrophils 0 % (0-8) Platelet Estimate Adequate Platelet Morphology Normal Hypochromasia 1+ Anisocytosis 1+ Erythrocyte Sedimentation Rate 26 MM/HR (0-30) Sodium Level 138 MMOL/L (136-145) Potassium Level 4.1 MMOL/L (3.5-5.1) Chloride Level 102 MMOL/L (98-107) Carbon Dioxide Level 24 MMOL/L (21-32) Anion Gap 12 mmol/L (5-15) Blood Urea Nitrogen 59 mg/dL (7-18) H Creatinine 2.6 MG/DL (0.55-1.30) H Estimat Glomerular Filtration Rate mL/min (>60) Glucose Level 53 MG/DL (74-106) L Calcium Level 7.5 MG/DL (8.5-10.1) L Phosphorus Level 6.7 MG/DL (2.5-4.9) H Magnesium Level 2.0 MG/DL (1.8-2.4) Total Bilirubin 0.9 MG/DL (0.2-1.0) Aspartate Amino Transf (AST/SGOT) 58 U/L (15-37) H Alanine Aminotransferase (ALT/SGPT) 53 U/L (12-78) Alkaline Phosphatase 218 U/L (46-116) H Troponin I 0.382 ng/mL (0.000-0.056) Total Protein 5.0 G/DL (6.4-8.2) L Albumin 1.8 G/DL (3.4-5.0) L Globulin 3.2 g/dL Albumin/Globulin Ratio 0.6 (1.0-2.7) L Jessica Peralta MD Dec 09, 2017 10:25
--- NOTE | 2017-12-09 11:26 | Consultation ---
History of Present Illness General Date patient seen: Dec 09, 2017 Time patient seen: 10:48 Chief Complaint: Altered Level of Consciousness Present Illness HPI 77 y/o F with hx of CVA, HTN, sarcoidosis, severe MR s/p MVR w/ left atrial appendage closure 2010, liver disease, GIB, Aflutter on Eliquis, Dm2, CAD s/p CABG x5, HLD presents to ED on 12/07 with SOB, Leg edema, MORAN, productive cough. EMS noted patient to have hypoglycemia and given glucose in the field. Denies PND, CP, dizziness/lightheadeness, f/c Patient intially admitted for CHF. while in hospital she decompensated and need to be transferred to the ICU and found to have Large pleural effusion. she has been afebrile, no leukocytosis. Allergies: Coded Allergies: LEVOFLOXACIN (Verified Allergy, Unknown, 12/09/17) SULFA (SULFONAMIDE ANTIBIOTICS) (Verified Allergy, Unknown, 12/09/17) Medication History Scheduled Carvedilol* (Carvedilol*), 3.125 MG ORAL EVERY 12 HOURS, (Reported) Furosemide* (Lasix*), Unknown Dose ORAL DAILY, (Reported) Glipizide* (Glipizide*), 5 MG ORAL BIDAC, (Reported) Patient History Healthcare decision maker Resuscitation status Full Code Advanced Directive on File No Patient History Narrative Pmhx: as above Shx: She denies any smoking or drinking alcoholic beverages. She lives at home. Fhx: non contributory Review of Systems ROS Narrative unable to obtain given mentation Physical Exam Physical Exam Narrative HEENT: atraumatic Lungs: rales, rhonchi Heart: HR/BP stable, HR/BP unstable Abdomen: non-tender, active bowel sounds Extremities: no C/C/E, edema Last 24 Hour Vital Signs Date Time Temp Pulse Resp B/P (MAP) Pulse Ox O2 Delivery O2 Flow Rate FiO2 12/09/17 10:00 66 20 116/55 95 Bi-pap 30 12/09/17 09:16 61 20 95 Facial 30 12/09/17 09:00 90 111/51 12/09/17 09:00 65 20 111/51 95 Bi-pap 35 12/09/17 08:00 62 12/09/17 08:00 99.0 62 19 102/49 96 Bi-pap 35 99.0 12/09/17 07:00 62 21 109/49 95 Bi-pap 40 12/09/17 06:58 99.0 12/09/17 06:40 Bi-pap 35 12/09/17 06:40 63 20 96 Facial 35 12/09/17 06:40 98 Bi-pap 35 12/09/17 06:21 99.0 12/09/17 06:00 62 21 111/60 95 Bi-pap 40 12/09/17 05:10 90 14 98 Facial 40 12/09/17 05:00 91 21 115/54 97 Bi-pap 40 12/09/17 04:00 96 12/09/17 04:00 99.0 96 21 110/57 97 Bi-pap 40 99.0 12/09/17 03:30 96 19 92 Facial 40 12/09/17 03:00 96 21 103/55 97 Bi-pap 40 12/09/17 02:00 65 23 100/45 99 Bi-pap 40 12/09/17 01:30 99.5 12/09/17 01:30 64 25 92 Facial 40 12/09/17 01:00 67 25 123/61 98 Bi-pap 40 12/09/17 00:02 66 28 98 Facial 40 12/09/17 00:00 67 25 103/55 98 Bi-pap 12/09/17 00:00 64 12/08/17 23:00 99.0 67 25 99/52 90 Venturi Mask 15.0 100 99.0 12/08/17 23:00 67 12/08/17 21:14 78 121/65 12/08/17 20:00 99.5 131 24 119/62 97 Room Air 99.5 12/08/17 20:00 82 12/08/17 16:00 78 12/08/17 15:45 97.3 76 20 121/65 94 Nasal Cannula 3.0 97.3 12/08/17 12:00 98.1 72 20 111/60 95 Nasal Cannula 3.0 98.1 12/08/17 12:00 71 Intake and Output 12/08/17 12/09/17 19:00 07:00 Intake Total 420 ml Output Total 450 ml 410 ml Balance -30 ml -410 ml Intake Oral 120 ml IV Total 300 ml Output Urine Total 450 ml 410 ml # Bowel Movements 2 Laboratory Tests Test 12/08/17 22:06 12/09/17 01:30 12/09/17 03:40 12/09/17 09:48 Arterial Blood pH 7.272 (7.350-7.450) 7.338 (7.350-7.450) Arterial Blood Partial Pressure CO2 56.2 mmHg (35.0-45.0) *H 46.9 mmHg (35.0-45.0) H Arterial Blood Partial Pressure O2 189.2 mmHg (75.0-100.0) H 70.3 mmHg (75.0-100.0) L Arterial Blood HCO3 25.3 mmol/L (22.0-26.0) 24.6 mmol/L (22.0-26.0) Arterial Blood Oxygen Saturation 98.3 % (92.0-98.0) H 91.6 % (92.0-98.0) L Arterial Blood Base Excess -1.9 -1.3 [place] Test Positive Positive Urine Eosinophils None seen Urine Random Sodium 32 mmol/L (20-110) Urine Potassium Timed 45 mmol/L (12-62) White Blood Count 6.4 K/UL (4.8-10.8) Red Blood Count 3.13 M/UL (4.20-5.40) L Hemoglobin 8.5 G/DL (12.0-16.0) L Hematocrit 26.3 % (37.0-47.0) L Mean Corpuscular Volume 84 FL (80-99) Mean Corpuscular Hemoglobin 27.2 PG (27.0-31.0) Mean Corpuscular Hemoglobin Concent 32.4 G/DL (32.0-36.0) Red Cell Distribution Width 15.6 % (11.6-14.8) H Platelet Count 157 K/UL (150-450) Mean Platelet Volume 8.3 FL (6.5-10.1) Neutrophils (%) (Auto) % (45.0-75.0) Lymphocytes (%) (Auto) % (20.0-45.0) Monocytes (%) (Auto) % (1.0-10.0) Eosinophils (%) (Auto) % (0.0-3.0) Basophils (%) (Auto) % (0.0-2.0) Differential Total Cells Counted 100 Neutrophils % (Manual) 81 % (45-75) H Lymphocytes % (Manual) 14 % (20-45) L Monocytes % (Manual) 5 % (1-10) Eosinophils % (Manual) 0 % (0-3) Basophils % (Manual) 0 % (0-2) Band Neutrophils 0 % (0-8) Platelet Estimate Adequate Platelet Morphology Normal Hypochromasia 1+ Anisocytosis 1+ Erythrocyte Sedimentation Rate 26 MM/HR (0-30) Sodium Level 138 MMOL/L (136-145) Potassium Level 4.1 MMOL/L (3.5-5.1) Chloride Level 102 MMOL/L (98-107) Carbon Dioxide Level 24 MMOL/L (21-32) Anion Gap 12 mmol/L (5-15) Blood Urea Nitrogen 59 mg/dL (7-18) H Creatinine 2.6 MG/DL (0.55-1.30) H Estimat Glomerular Filtration Rate mL/min (>60) Glucose Level 53 MG/DL (74-106) L Calcium Level 7.5 MG/DL (8.5-10.1) L Phosphorus Level 6.7 MG/DL (2.5-4.9) H Magnesium Level 2.0 MG/DL (1.8-2.4) Total Bilirubin 0.9 MG/DL (0.2-1.0) Aspartate Amino Transf (AST/SGOT) 58 U/L (15-37) H Alanine Aminotransferase (ALT/SGPT) 53 U/L (12-78) Alkaline Phosphatase 218 U/L (46-116) H Troponin I 0.382 ng/mL (0.000-0.056) Total Protein 5.0 G/DL (6.4-8.2) L Albumin 1.8 G/DL (3.4-5.0) L Globulin 3.2 g/dL Albumin/Globulin Ratio 0.6 (1.0-2.7) L Height (Feet): 5 Height (Inches): 4.00 Weight (Pounds): 138 Medications Current Medications Medications (Trade) Dose Ordered Sig/Maribel Route PRN Reason Start Time Stop Time Status Last Admin Dose Admin Acetaminophen (Tylenol) 650 mg Q4H PRN ORAL T>100.5 12/09/17 02:00 01/06/18 21:59 Albuterol/ Ipratropium (Albuterol/ Ipratropium) 3 ml Q4H PRN HHN Shortness of Breath 12/09/17 02:00 12/12/17 21:59 Apixaban (Eliquis) 2.5 mg BID ORAL 12/09/17 09:00 01/07/18 14:29 Aspirin (ASA) 81 mg DAILY ORAL 12/09/17 09:00 01/08/18 08:59 Atorvastatin Calcium (Lipitor) 80 mg BEDTIME ORAL 12/09/17 21:00 01/07/18 20:59 Carvedilol (Coreg) 25 mg EVERY 12 HOURS ORAL 12/09/17 09:00 01/07/18 20:59 Dextrose (Dextrose 50%) STAT PRN IV Hypoglycemia 12/09/17 22:00 01/06/18 21:59 Diltiazem HCl (Cardizem) 10 mg EVERY HOUR PRN IV heart rate more than 120, 12/09/17 00:00 01/06/18 21:59 Enalaprilat (Vasotec) 2.5 mg EVERY 6 HOURS PRN IV sbp more than 160 12/09/17 00:00 01/06/18 21:59 Ferrous Sulfate (Feosol) 325 mg Q12HR ORAL 12/09/17 09:00 01/08/18 08:59 Insulin Aspart (NovoLOG) BEFORE MEALS AND HS SUBQ 12/09/17 06:30 01/07/18 06:29 Morphine Sulfate (Morphine Sulfate) 2 mg Q4H PRN IVP severe Pain (Pain Scale 7-10) 12/09/17 02:00 12/14/17 21:59 12/09/17 06:21 Nitroglycerin (Ntg) 0.4 mg Q5MIN X 3 DOSES PRN SL Prn Chest Pain 12/08/17 23:30 01/06/18 21:59 Ondansetron HCl (Zofran) 4 mg Q6H PRN IVP Nausea & Vomiting 12/09/17 04:00 01/06/18 21:59 Polyethylene Glycol (Miralax) 17 gm DAILYPRN PRN ORAL Constipation 12/09/17 22:00 01/06/18 21:59 Promethazine HCl/ Codeine (Phenergan with Codeine) 5 ml Q4H PRN ORAL For Cough 12/08/17 23:30 01/07/18 11:29 Risperidone (RisperDAL) 1 mg Q6H PRN ORAL Agitation 12/09/17 01:00 01/07/18 18:59 Temazepam (Restoril) 15 mg HSPRN PRN ORAL Insomnia 12/09/17 22:00 12/14/17 21:59 Theophylline (Howie-Dur) 100 mg EVERY 12 HOURS ORAL 12/09/17 09:00 01/07/18 20:59 Assessment/Plan Assessment/Plan Abx: Levaquin 12/08 x1 Assessment: Acute hypoxic/hypercapenic respiratory failure- on Bipap R>L pleural effusion- possibly multifactorial due to CHF and PNA -CT chest: Large right pleural effusion. Resultant compressive atelectasis of much of the right lower lobe. Moderate left-sided pleural effusion, with compressive atelectasis of portions of the left lower lobe. There is also perihilar consolidation which may indicate pneumonia. There is also compressive atelectasis of much of the inferior lingula. Mild interstitial congestion in the left upper lobe. 7 mm masslike opacity in the left upper lobe at the level of the aortic arch. Most likely some focal edema or consolidation, but neoplasm also a possibility. Cardiomegaly. Evidence of prior CABG and mitral valve repair. Evidence of anasarca elsewhere, with chest and abdominal wall edema, small amount of ascites. T10 vertebral body compression fracture deformity. Age indeterminate. Consider MRI for further evaluation if this is considered clinically significant. Hepatomegaly -CXR 12/07: Dense left midlung consolidation and probable pleural fluid. Generalized interstitial congestion. Probable small right pleural effusion. Cardiomegaly -Influenza sc neg -Bcx NTD -sp cx p -CRP 10.8 Leukocytosis, resolved -afebrile Renal insufficiency -REnal US: Negative for hydronephrosis. Echogenic lesion in the interpolar region of the right kidney. 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 Consider CT for further evaluation CVA HTN sarcoidosis severe MR s/p MVR w/ left atrial appendage closure 2010 liver disease GIB Aflutter on Eliquis Dm2 CAD s/p CABG x5 HLD Plan: -Start empiric IV Vanco and Unasyn pending cultures -For thoracentesis -fluid analysis, fungal, AFB, bacterial MTP PCR -obtain sputum cx, COcci ab, CrAg, 1,3b-d glucan, legionella ag urine -f/u cx -Monitor CBC/CMP, temperatures Thank you for this consultation. Will continue to follow along with you. Discussed with Leatha Funez M.D. Dec 09, 2017 11:26
[2017-12-09 11:36] LABS: INR 1.1 (0.9-1.1)
--- NOTE | 2017-12-09 12:22 | Diagnostic Imaging Report ---
Indication: Dyspnea Technique: One view of the chest Comparison: 12/07/2017 Findings: The heart remains enlarged. Extensive consolidation and pleural fluid are again demonstrated in the left mid and lower lung, unchanged or perhaps slightly increased. Small amount of pleural fluid is seen at the right lung base. There is generalized interstitial congestion which appears similar. There is evidence for prior CABG and valve repair Impression: Stable slightly worse left mid and lower lung infiltrates, atelectasis, and pleural fluid Stable probable small right pleural effusion Stable interstitial edema Other findings as noted
--- NOTE | 2017-12-09 12:44 | Consultation ---
History of Present Illness General Date patient seen: Dec 08, 2017 Chief Complaint: Altered Level of Consciousness Present Illness HPI 77-year-old female with hx of CAD, Dementia, DM presented ED for evaluation of being altered. the pt was seen on 12/08 and was agitated injection was ordered and the pt was disorganized and confused. the pt attempting to come out of bed and was not re-directable. Allergies: Coded Allergies: LEVOFLOXACIN (Verified Allergy, Unknown, 12/09/17) SULFA (SULFONAMIDE ANTIBIOTICS) (Verified Allergy, Unknown, 12/09/17) Medication History Scheduled Carvedilol* (Carvedilol*), 3.125 MG ORAL EVERY 12 HOURS, (Reported) Furosemide* (Lasix*), Unknown Dose ORAL DAILY, (Reported) Glipizide* (Glipizide*), 5 MG ORAL BIDAC, (Reported) Patient History Healthcare decision maker Resuscitation status Full Code Advanced Directive on File No Physical Exam Last 24 Hour Vital Signs Date Time Temp Pulse Resp B/P (MAP) Pulse Ox O2 Delivery O2 Flow Rate FiO2 12/09/17 11:00 96 19 116/59 96 Bi-pap 30 12/09/17 10:00 66 20 116/55 95 Bi-pap 30 12/09/17 09:16 61 20 95 Facial 30 12/09/17 09:00 90 111/51 12/09/17 09:00 65 20 111/51 95 Bi-pap 35 12/09/17 08:00 62 12/09/17 08:00 99.0 62 19 102/49 96 Bi-pap 35 99.0 12/09/17 07:00 62 21 109/49 95 Bi-pap 40 12/09/17 06:58 99.0 12/09/17 06:40 Bi-pap 35 12/09/17 06:40 63 20 96 Facial 35 12/09/17 06:40 98 Bi-pap 35 12/09/17 06:21 99.0 12/09/17 06:00 62 21 111/60 95 Bi-pap 40 12/09/17 05:10 90 14 98 Facial 40 12/09/17 05:00 91 21 115/54 97 Bi-pap 40 12/09/17 04:00 96 12/09/17 04:00 99.0 96 21 110/57 97 Bi-pap 40 99.0 12/09/17 03:30 96 19 92 Facial 40 12/09/17 03:00 96 21 103/55 97 Bi-pap 40 12/09/17 02:00 65 23 100/45 99 Bi-pap 40 12/09/17 01:30 99.5 12/09/17 01:30 64 25 92 Facial 40 12/09/17 01:00 67 25 123/61 98 Bi-pap 40 12/09/17 00:02 66 28 98 Facial 40 12/09/17 00:00 67 25 103/55 98 Bi-pap 12/09/17 00:00 64 12/08/17 23:00 99.0 67 25 99/52 90 Venturi Mask 15.0 100 99.0 12/08/17 23:00 67 12/08/17 21:14 78 121/65 12/08/17 20:00 99.5 131 24 119/62 97 Room Air 99.5 12/08/17 20:00 82 12/08/17 16:00 78 12/08/17 15:45 97.3 76 20 121/65 94 Nasal Cannula 3.0 97.3 Intake and Output 12/08/17 12/09/17 19:00 07:00 Intake Total 420 ml Output Total 450 ml 410 ml Balance -30 ml -410 ml Intake Oral 120 ml IV Total 300 ml Output Urine Total 450 ml 410 ml # Bowel Movements 2 Laboratory Tests Test 12/08/17 22:06 12/09/17 01:30 12/09/17 03:40 12/09/17 09:48 Arterial Blood pH 7.272 (7.350-7.450) 7.338 (7.350-7.450) Arterial Blood Partial Pressure CO2 56.2 mmHg (35.0-45.0) *H 46.9 mmHg (35.0-45.0) H Arterial Blood Partial Pressure O2 189.2 mmHg (75.0-100.0) H 70.3 mmHg (75.0-100.0) L Arterial Blood HCO3 25.3 mmol/L (22.0-26.0) 24.6 mmol/L (22.0-26.0) Arterial Blood Oxygen Saturation 98.3 % (92.0-98.0) H 91.6 % (92.0-98.0) L Arterial Blood Base Excess -1.9 -1.3 [place] Test Positive Positive Urine Eosinophils None seen Urine Random Sodium 32 mmol/L (20-110) Urine Potassium Timed 45 mmol/L (12-62) White Blood Count 6.4 K/UL (4.8-10.8) Red Blood Count 3.13 M/UL (4.20-5.40) L Hemoglobin 8.5 G/DL (12.0-16.0) L Hematocrit 26.3 % (37.0-47.0) L Mean Corpuscular Volume 84 FL (80-99) Mean Corpuscular Hemoglobin 27.2 PG (27.0-31.0) Mean Corpuscular Hemoglobin Concent 32.4 G/DL (32.0-36.0) Red Cell Distribution Width 15.6 % (11.6-14.8) H Platelet Count 157 K/UL (150-450) Mean Platelet Volume 8.3 FL (6.5-10.1) Neutrophils (%) (Auto) % (45.0-75.0) Lymphocytes (%) (Auto) % (20.0-45.0) Monocytes (%) (Auto) % (1.0-10.0) Eosinophils (%) (Auto) % (0.0-3.0) Basophils (%) (Auto) % (0.0-2.0) Differential Total Cells Counted 100 Neutrophils % (Manual) 81 % (45-75) H Lymphocytes % (Manual) 14 % (20-45) L Monocytes % (Manual) 5 % (1-10) Eosinophils % (Manual) 0 % (0-3) Basophils % (Manual) 0 % (0-2) Band Neutrophils 0 % (0-8) Platelet Estimate Adequate Platelet Morphology Normal Hypochromasia 1+ Anisocytosis 1+ Erythrocyte Sedimentation Rate 26 MM/HR (0-30) Sodium Level 138 MMOL/L (136-145) Potassium Level 4.1 MMOL/L (3.5-5.1) Chloride Level 102 MMOL/L (98-107) Carbon Dioxide Level 24 MMOL/L (21-32) Anion Gap 12 mmol/L (5-15) Blood Urea Nitrogen 59 mg/dL (7-18) H Creatinine 2.6 MG/DL (0.55-1.30) H Estimat Glomerular Filtration Rate mL/min (>60) Glucose Level 53 MG/DL (74-106) L Calcium Level 7.5 MG/DL (8.5-10.1) L Phosphorus Level 6.7 MG/DL (2.5-4.9) H Magnesium Level 2.0 MG/DL (1.8-2.4) Total Bilirubin 0.9 MG/DL (0.2-1.0) Aspartate Amino Transf (AST/SGOT) 58 U/L (15-37) H Alanine Aminotransferase (ALT/SGPT) 53 U/L (12-78) Alkaline Phosphatase 218 U/L (46-116) H Troponin I 0.382 ng/mL (0.000-0.056) Total Protein 5.0 G/DL (6.4-8.2) L Albumin 1.8 G/DL (3.4-5.0) L Globulin 3.2 g/dL Albumin/Globulin Ratio 0.6 (1.0-2.7) L Test 12/09/17 10:50 Prothrombin Time 11.5 SEC (9.30-11.50) Prothromb Time International Ratio 1.1 (0.9-1.1) Activated Partial Thromboplast Time 34 SEC (23-33) H Height (Feet): 5 Height (Inches): 4.00 Weight (Pounds): 138 Medications Current Medications Medications (Trade) Dose Ordered Sig/Maribel Route PRN Reason Start Time Stop Time Status Last Admin Dose Admin Acetaminophen (Tylenol) 650 mg Q4H PRN ORAL T>100.5 12/09/17 02:00 01/06/18 21:59 Albuterol/ Ipratropium (Albuterol/ Ipratropium) 3 ml Q4H PRN HHN Shortness of Breath 12/09/17 02:00 12/12/17 21:59 Ampicillin Sodium/ Sulbactam Sodium 3 gm/Sodium Chloride 110 ml @ 220 mls/hr Q12HR IVPB 12/09/17 13:00 12/16/17 12:59 Apixaban (Eliquis) 2.5 mg BID ORAL 12/09/17 09:00 01/07/18 14:29 Aspirin (ASA) 81 mg DAILY ORAL 12/09/17 09:00 01/08/18 08:59 Atorvastatin Calcium (Lipitor) 80 mg BEDTIME ORAL 12/09/17 21:00 01/07/18 20:59 Carvedilol (Coreg) 25 mg EVERY 12 HOURS ORAL 12/09/17 09:00 01/07/18 20:59 Dextrose (Dextrose 50%) STAT PRN IV Hypoglycemia 12/09/17 22:00 01/06/18 21:59 Diltiazem HCl (Cardizem) 10 mg EVERY HOUR PRN IV heart rate more than 120, 12/09/17 00:00 01/06/18 21:59 Enalaprilat (Vasotec) 2.5 mg EVERY 6 HOURS PRN IV sbp more than 160 12/09/17 00:00 01/06/18 21:59 Ferrous Sulfate (Feosol) 325 mg Q12HR ORAL 12/09/17 09:00 01/08/18 08:59 Insulin Aspart (NovoLOG) BEFORE MEALS AND HS SUBQ 12/09/17 06:30 01/07/18 06:29 Morphine Sulfate (Morphine Sulfate) 2 mg Q4H PRN IVP severe Pain (Pain Scale 7-10) 12/09/17 02:00 12/14/17 21:59 12/09/17 06:21 Nitroglycerin (Ntg) 0.4 mg Q5MIN X 3 DOSES PRN SL Prn Chest Pain 12/08/17 23:30 01/06/18 21:59 Ondansetron HCl (Zofran) 4 mg Q6H PRN IVP Nausea & Vomiting 12/09/17 04:00 01/06/18 21:59 Polyethylene Glycol (Miralax) 17 gm DAILYPRN PRN ORAL Constipation 12/09/17 22:00 01/06/18 21:59 Promethazine HCl/ Codeine (Phenergan with Codeine) 5 ml Q4H PRN ORAL For Cough 12/08/17 23:30 01/07/18 11:29 Risperidone (RisperDAL) 1 mg Q6H PRN ORAL Agitation 12/09/17 01:00 01/07/18 18:59 Temazepam (Restoril) 15 mg HSPRN PRN ORAL Insomnia 12/09/17 22:00 12/14/17 21:59 Theophylline (Howie-Dur) 100 mg EVERY 12 HOURS ORAL 12/09/17 09:00 01/07/18 20:59 Vancomycin HCl (Vanco rx to dose) 1 ea DAILY PRN MISC Per rx protocol 12/09/17 11:30 01/08/18 11:29 Vancomycin HCl/ Dextrose 250 ml @ 166.667 mls/hr ONCE ONCE IVPB 12/09/17 13:30 12/09/17 14:59 Zaynab Araya M.D. Dec 09, 2017 12:44
[2017-12-09] MEDS ORDERED: Vancomycin 1250mg/D5W 250ml IVPB ONE (13:30)
[2017-12-09] MEDS: Ampicillin/Sulbactam Sod 3 GM in NS 110 ML IVPB SCH ×2 (13:52→21:49)
--- NOTE | 2017-12-09 14:15 | Consultation ---
DATE OF CONSULTATION: 12/08/2017 NOTE: POOR AUDIO HEMATOLOGY/ONCOLOGY CONSULTATION CONSULTING PHYSICIAN: Abdirashid Solorzano M.D. REQUESTING PHYSICIAN: Jessica Peralta M.D. REASON FOR CONSULTATION: Evaluation of anemia. IDENTIFYING DATA: Dear Dr. Peralta, The patient is a pleasant 77-year-old female with past medical history significant for dementia, diabetes mellitus, CAD, presents altered mental status . Accu-Cheks noted to be low. The patient was noted to have crackles and rales on exam with cough productive of yellowish phlegm. Chest x-ray showed left lower lobe pneumonia, infiltrate. The patient was started on antibiotics. ID Service has been consulted as well as Cardiology team for possible CHF. The patient has a history of anemia, history of CVA, atrial fibrillation, on chronic anticoagulation with Eliquis with CABG grafting, history of . Hematology was consulted for further evaluation of the patient's anemia. At this time, B12 is 669. Workup ordered as well. TIBC 256. INR of 1. PAST MEDICAL HISTORY: Possible upper GI bleeding, anemia, hypertension, chronic anticoagulation with Eliquis, atrial flutter, CVA, coronary artery disease, status post CABG grafting x5. [facility] chart reviewed by Dr. Vasquez, hypertension with closure of left atrial appendage in 2010. ALLERGIES: No known allergies. MEDICATIONS: , Lipitor, Isordil, apixaban, , and albuterol. SOCIAL HISTORY: No alcohol, tobacco, or illicit drug use. REVIEW OF SYSTEMS: CONSTITUTIONAL: No fevers, chills, or night sweats. SKIN: No rashes, bumps, or itching. HEENT: No headache, hearing or vision changes. BREASTS: No lumps, pain, or discharge. PULMONARY: cough, sputum, and shortness of breath. GASTROINTESTINAL: No nausea, vomiting, or diarrhea. GENITOURINARY: No dysuria, frequency, or urgency. MUSCULOSKELETAL: No joint swelling, muscle pain, or trauma. PHYSICAL EXAMINATION: VITAL SIGNS: Reviewed. GENERAL: No distress. PULMONARY: Decreased breath sounds. Some crackles heard. CARDIOVASCULAR: Regular rate. A 2 to 3 holosystolic murmur. ABDOMEN: Soft, nontender, and nondistended. EXTREMITIES: Show 2 to 3+ edema. NEUROLOGIC: Basically nonfocal, responsive. LABORATORY AND DIAGNOSTIC DATA: WBC 11.2, hemoglobin 9.2, hematocrit 29, and platelet count 175,000. Chemistry, BUN of 53, creatinine 2.2. TIBC of 256. Troponin 0.108. ASSESSMENT AND RECOMMENDATION: 1. Anemia due to underlying chronic disease. Continue to closely monitor for improvement. The patient may have evidence of iron deficiency and at this time . 2. Anemia of iron deficiency. TIBC is elevated. Begin the patient on ferrous sulfate. Evaluated the patient 3. Anemia due to gastrointestinal bleed GI Service as needed. 4. Severe mitral regurgitation, status post mitral valve repair in 2015. Continue the patient on Eliquis. as well as Coreg as needed. 5. ____04:18 continue to closely monitor. 6. Leukocytosis, likely secondary to infectious process. ESR 41. Continue to closely monitor. 7. Prothrombin time coagulopathy. Closely monitor for improvement and currently prothrombin time elevated, on Eliquis. Continue at this time. 8. Hypoglycemia . sugar, found unresponsive at home. D10 given. I appreciate the consultation. Abdirashid Solorzano M.D. DR: TIESHA JOB#: [id number] CC:
--- NOTE | 2017-12-09 15:01 | Consultation ---
Consult Note Consult Note asked to eval for renal failure 77-year-old female presents ED for evaluation. Patient brought in by EMS. Noted to be altered 1 day. Accu-Chek was low. Given glucose in the field. Patient is a diabetic. Accu-Chek in triage improved. Patient also noted have crackles and rales. Notes cough productive with yellowish phlegm. Denies chest pain or shortness of breath. Denies fevers or chills. No other aggravating or relieving factors. Denies any other associated symptoms Past Medical History: DM, HTN, CAD Hx Cardiac Problems: Yes - 5 bypass surgeries Hx Hypertension: Yes Hx Diabetes: Yes currently in ICU on BIPAP Assessment/Plan CKD with acute component : Cr up to 2.6 CABG X 5 DMII Hyperlipidemia HTN CVA Sarcoidosis Liver disease, HypoAlbuminemia Anemia hs of Severe MR s/p mitral valve repair with FIONA closure [address] Cassidy Plan: Avoid Nephrotoxics- Optimize cardiac status Monitor renal parameters Urine for eos 24 h urine protein DANIAL PA Dec 09, 2017 15:01
--- NOTE | 2017-12-09 15:07 | Cardiology Report ---
APPROVED REPORT EKG Measurement Heart [id number] Suspect arm lead reversal, interpretation assumes no reversal Sinus rhythm with 1st degree AV block Right bundle branch block T wave abnormality, consider inferior ischemia Abnormal ECG
[2017-12-09] MEDS ORDERED: Morphine Sulfate 2mg/ml Inj IVP PRN (15:15)
[2017-12-09] MEDS ORDERED: Iron Sucrose 200 MG in NS 50 ML IV ONE (16:30)
[2017-12-09] MEDS ORDERED: Iron Sucrose 200 MG in NS 110 ML IV ONE (16:30)
--- NOTE | 2017-12-09 19:55 | Cardiology Progress Note ---
Assessment/Plan Assessment/Plan 1. Left lower lobe consolidation. 2. Chronic renal insufficiency. 3. Coronary artery disease status post coronary bypass grafting. 4. Diabetes mellitus. 5. Hypertension. 6. Hyperlipidemia. 7. History of cerebrovascular accident. 8. Reported history of sarcoidosis. 9. History of liver disease. 10. History of severe mitral regurgitation status post mitral valve repair and left atrial appendage closure by Dr. martinez in 2016. 11. Moderte mitral stenosis adn mitral regurgitation 12. Moderate TR 13. Significant pulm htn 14. diastolic heart failure ? move to icu due to ams adn respiratory issues bs was now maintain on bipap until just now had pleural effusion on her echo yest diuretic given bp borderline will dc any antihypertensive for now ef has been normal venous dupelx of le d/w rn on several occasions diurtic as bp and renal fucntion allow cxr noted ekg noted Subjective Cardiovascular: Denies: chest pain, lightheadedness, palpitations Respiratory: Reports: cough, shortness of breath Gastrointestinal/Abdominal: Denies: abdominal pain Genitourinary: Denies: burning Objective Last 24 Hour Vital Signs Date Time Temp Pulse Resp B/P (MAP) Pulse Ox O2 Delivery O2 Flow Rate FiO2 12/09/17 19:02 63 18 94 10.0 45 12/09/17 19:00 68 20 110/52 93 Venturi Mask 10.0 45 12/09/17 18:59 Venturi Mask 10.0 45 12/09/17 18:58 95 Venturi Mask 10.0 45 12/09/17 18:00 66 20 91/42 92 Venturi Mask 10.0 45 12/09/17 17:00 65 18 99/50 96 Venturi Mask 10.0 45 12/09/17 16:41 66 16 98 10.0 45 12/09/17 16:00 97.8 62 18 122/58 96 Venturi Mask 10.0 45 97.8 12/09/17 16:00 72 12/09/17 15:00 66 19 126/58 96 Venturi Mask 10.0 45 12/09/17 14:36 64 20 97 10.0 45 12/09/17 14:00 64 19 110/54 96 Venturi Mask 10.0 45 12/09/17 13:00 65 20 115/54 96 Bi-pap 30 12/09/17 12:46 89 20 95 10.0 45 12/09/17 12:00 96 12/09/17 12:00 97.8 64 20 119/65 97 Venturi Mask 45 97.8 12/09/17 11:00 96 19 116/59 96 Bi-pap 30 12/09/17 10:36 70 20 96 10.0 45 12/09/17 10:00 66 20 116/55 95 Bi-pap 30 12/09/17 09:16 61 20 95 Facial 30 12/09/17 09:00 90 111/51 12/09/17 09:00 65 20 111/51 95 Bi-pap 35 12/09/17 08:00 62 12/09/17 08:00 99.0 62 19 102/49 96 Bi-pap 35 99.0 12/09/17 07:00 62 21 109/49 95 Bi-pap 40 12/09/17 06:58 99.0 12/09/17 06:40 Bi-pap 35 12/09/17 06:40 63 20 96 Facial 35 12/09/17 06:40 98 Bi-pap 35 12/09/17 06:21 99.0 12/09/17 06:00 62 21 111/60 95 Bi-pap 40 12/09/17 05:10 90 14 98 Facial 40 12/09/17 05:00 91 21 115/54 97 Bi-pap 40 12/09/17 04:00 96 12/09/17 04:00 99.0 96 21 110/57 97 Bi-pap 40 99.0 12/09/17 03:30 96 19 92 Facial 40 12/09/17 03:00 96 21 103/55 97 Bi-pap 40 12/09/17 02:00 65 23 100/45 99 Bi-pap 40 12/09/17 01:30 99.5 12/09/17 01:30 64 25 92 Facial 40 12/09/17 01:00 67 25 123/61 98 Bi-pap 40 12/09/17 00:02 66 28 98 Facial 40 12/09/17 00:00 67 25 103/55 98 Bi-pap 12/09/17 00:00 64 12/08/17 23:00 99.0 67 25 99/52 90 Venturi Mask 15.0 100 99.0 12/08/17 23:00 67 12/08/17 21:14 78 121/65 12/08/17 20:00 99.5 131 24 119/62 97 Room Air 99.5 12/08/17 20:00 82 General Appearance: other - arousable Cardiovascular: normal rate Respiratory/Chest: crackles/rales Abdomen: normal bowel sounds, non tender, soft Extremities: no swelling Intake and Output 12/08/17 12/09/17 19:00 07:00 Intake Total 420 ml Output Total 450 ml 410 ml Balance -30 ml -410 ml Intake Oral 120 ml IV Total 300 ml Output Urine Total 450 ml 410 ml # Bowel Movements 2 Laboratory Tests Test 12/08/17 22:06 12/09/17 01:30 12/09/17 03:40 12/09/17 09:48 Arterial Blood pH 7.272 (7.350-7.450) 7.338 (7.350-7.450) Arterial Blood Partial Pressure CO2 56.2 mmHg (35.0-45.0) *H 46.9 mmHg (35.0-45.0) H Arterial Blood Partial Pressure O2 189.2 mmHg (75.0-100.0) H 70.3 mmHg (75.0-100.0) L Arterial Blood HCO3 25.3 mmol/L (22.0-26.0) 24.6 mmol/L (22.0-26.0) Arterial Blood Oxygen Saturation 98.3 % (92.0-98.0) H 91.6 % (92.0-98.0) L Arterial Blood Base Excess -1.9 -1.3 [place] Test Positive Positive Urine Eosinophils None seen Urine Random Sodium 32 mmol/L (20-110) Urine Potassium Timed 45 mmol/L (12-62) White Blood Count 6.4 K/UL (4.8-10.8) Red Blood Count 3.13 M/UL (4.20-5.40) L Hemoglobin 8.5 G/DL (12.0-16.0) L Hematocrit 26.3 % (37.0-47.0) L Mean Corpuscular Volume 84 FL (80-99) Mean Corpuscular Hemoglobin 27.2 PG (27.0-31.0) Mean Corpuscular Hemoglobin Concent 32.4 G/DL (32.0-36.0) Red Cell Distribution Width 15.6 % (11.6-14.8) H Platelet Count 157 K/UL (150-450) Mean Platelet Volume 8.3 FL (6.5-10.1) Neutrophils (%) (Auto) % (45.0-75.0) Lymphocytes (%) (Auto) % (20.0-45.0) Monocytes (%) (Auto) % (1.0-10.0) Eosinophils (%) (Auto) % (0.0-3.0) Basophils (%) (Auto) % (0.0-2.0) Differential Total Cells Counted 100 Neutrophils % (Manual) 81 % (45-75) H Lymphocytes % (Manual) 14 % (20-45) L Monocytes % (Manual) 5 % (1-10) Eosinophils % (Manual) 0 % (0-3) Basophils % (Manual) 0 % (0-2) Band Neutrophils 0 % (0-8) Platelet Estimate Adequate Platelet Morphology Normal Hypochromasia 1+ Anisocytosis 1+ Erythrocyte Sedimentation Rate 26 MM/HR (0-30) Sodium Level 138 MMOL/L (136-145) Potassium Level 4.1 MMOL/L (3.5-5.1) Chloride Level 102 MMOL/L (98-107) Carbon Dioxide Level 24 MMOL/L (21-32) Anion Gap 12 mmol/L (5-15) Blood Urea Nitrogen 59 mg/dL (7-18) H Creatinine 2.6 MG/DL (0.55-1.30) H Estimat Glomerular Filtration Rate mL/min (>60) Glucose Level 53 MG/DL (74-106) L Hemoglobin A1c 8.8 % (4.3-6.0) H Calcium Level 7.5 MG/DL (8.5-10.1) L Phosphorus Level 6.7 MG/DL (2.5-4.9) H Magnesium Level 2.0 MG/DL (1.8-2.4) Ferritin 131 NG/ML (8-388) Total Bilirubin 0.9 MG/DL (0.2-1.0) Aspartate Amino Transf (AST/SGOT) 58 U/L (15-37) H Alanine Aminotransferase (ALT/SGPT) 53 U/L (12-78) Alkaline Phosphatase 218 U/L (46-116) H Troponin I 0.382 ng/mL (0.000-0.056) Total Protein 5.0 G/DL (6.4-8.2) L Albumin 1.8 G/DL (3.4-5.0) L Globulin 3.2 g/dL Albumin/Globulin Ratio 0.6 (1.0-2.7) L Test 12/09/17 10:50 Prothrombin Time 11.5 SEC (9.30-11.50) Prothromb Time International Ratio 1.1 (0.9-1.1) Activated Partial Thromboplast Time 34 SEC (23-33) H Microbiology Date/Time Source Procedure Growth Status 12/07/17 19:55 Blood Blood Culture - Preliminary NO GROWTH AFTER 24 HOURS Resulted 12/07/17 19:40 Blood Blood Culture - Preliminary NO GROWTH AFTER 24 HOURS Resulted 12/07/17 20:25 Nasal Nares Influenza Types A,B Antigen (ROYA) - Final Complete YESICA MEDRANO Dec 09, 2017 19:55
[2017-12-09] MEDS ORDERED: Atorvastatin 80mg tab ORAL SCH (21:00)
[2017-12-09] MEDS ORDERED: Haloperidol 5mg/ml Inj IM PRN (21:30)
--- NOTE | 2017-12-09 21:30 | General Progress Note ---
Assessment/Plan Status: not improved, unchanged Assessment/Plan encephalopathy dementia with behavioural disturbance the pt lacks capacity to make decisions -seroquel -haldol prn Subjective Date patient seen: Dec 09, 2017 Neurologic/Psychiatric: Reports: anxiety Allergies: Coded Allergies: LEVOFLOXACIN (Verified Allergy, Unknown, 12/09/17) SULFA (SULFONAMIDE ANTIBIOTICS) (Verified Allergy, Unknown, 12/09/17) Subjective the pt is agitated and confused Objective Last 24 Hour Vital Signs Date Time Temp Pulse Resp B/P (MAP) Pulse Ox O2 Delivery O2 Flow Rate FiO2 12/09/17 21:12 67 17 95 Facial 30 12/09/17 21:08 63 24 94 10.0 45 12/09/17 20:00 98.1 99 20 95/48 93 Venturi Mask 10.0 45 98.1 12/09/17 19:02 63 18 94 10.0 45 12/09/17 19:00 68 20 110/52 93 Venturi Mask 10.0 45 12/09/17 18:59 Venturi Mask 10.0 45 12/09/17 18:58 95 Venturi Mask 10.0 45 12/09/17 18:00 66 20 91/42 92 Venturi Mask 10.0 45 12/09/17 17:00 65 18 99/50 96 Venturi Mask 10.0 45 12/09/17 16:41 66 16 98 10.0 45 12/09/17 16:00 97.8 62 18 122/58 96 Venturi Mask 10.0 45 97.8 12/09/17 16:00 72 12/09/17 15:00 66 19 126/58 96 Venturi Mask 10.0 45 12/09/17 14:36 64 20 97 10.0 45 12/09/17 14:00 64 19 110/54 96 Venturi Mask 10.0 45 12/09/17 13:00 65 20 115/54 96 Bi-pap 30 12/09/17 12:46 89 20 95 10.0 45 12/09/17 12:00 96 12/09/17 12:00 97.8 64 20 119/65 97 Venturi Mask 45 97.8 12/09/17 11:00 96 19 116/59 96 Bi-pap 30 12/09/17 10:36 70 20 96 10.0 45 12/09/17 10:00 66 20 116/55 95 Bi-pap 30 12/09/17 09:16 61 20 95 Facial 30 12/09/17 09:00 90 111/51 12/09/17 09:00 65 20 111/51 95 Bi-pap 35 12/09/17 08:00 62 12/09/17 08:00 99.0 62 19 102/49 96 Bi-pap 35 99.0 12/09/17 07:00 62 21 109/49 95 Bi-pap 40 12/09/17 06:58 99.0 12/09/17 06:40 Bi-pap 35 12/09/17 06:40 63 20 96 Facial 35 12/09/17 06:40 98 Bi-pap 35 12/09/17 06:21 99.0 12/09/17 06:00 62 21 111/60 95 Bi-pap 40 12/09/17 05:10 90 14 98 Facial 40 12/09/17 05:00 91 21 115/54 97 Bi-pap 40 12/09/17 04:00 96 12/09/17 04:00 99.0 96 21 110/57 97 Bi-pap 40 99.0 12/09/17 03:30 96 19 92 Facial 40 12/09/17 03:00 96 21 103/55 97 Bi-pap 40 12/09/17 02:00 65 23 100/45 99 Bi-pap 40 12/09/17 01:30 99.5 12/09/17 01:30 64 25 92 Facial 40 12/09/17 01:00 67 25 123/61 98 Bi-pap 40 12/09/17 00:02 66 28 98 Facial 40 12/09/17 00:00 67 25 103/55 98 Bi-pap 12/09/17 00:00 64 12/08/17 23:00 99.0 67 25 99/52 90 Venturi Mask 15.0 100 99.0 12/08/17 23:00 67 Intake and Output 12/08/17 12/09/17 19:00 07:00 Intake Total 420 ml Output Total 450 ml 410 ml Balance -30 ml -410 ml Intake Oral 120 ml IV Total 300 ml Output Urine Total 450 ml 410 ml # Bowel Movements 2 Laboratory Tests 12/08/17 22:06: Arterial Blood pH 7.272L, Arterial Blood Partial Pressure CO2 56.2*H, Arterial Blood Partial Pressure O2 189.2H, Arterial Blood HCO3 25.3, Arterial Blood Oxygen Saturation 98.3H, Arterial Blood Base Excess -1.9, [place] Test Positive 12/09/17 01:30: Urine Eosinophils None seen, Urine Random Sodium 32, Urine Potassium Timed 45 12/09/17 03:40: White Blood Count 6.4, Red Blood Count 3.13L, Hemoglobin 8.5L, Hematocrit 26.3L , Mean Corpuscular Volume 84, Mean Corpuscular Hemoglobin 27.2, Mean Corpuscular Hemoglobin Concent 32.4, Red Cell Distribution Width 15.6H, Platelet Count 157, Mean Platelet Volume 8.3, Neutrophils (%) (Auto) , Lymphocytes (%) (Auto) , Monocytes (%) (Auto) , Eosinophils (%) (Auto) , Basophils (%) (Auto) , Differential Total Cells Counted 100, Neutrophils % ( Manual) 81H, Lymphocytes % (Manual) 14L, Monocytes % (Manual) 5, Eosinophils % ( Manual) 0, Basophils % (Manual) 0, Band Neutrophils 0, Platelet Estimate Adequate, Platelet Morphology Normal, Hypochromasia 1+, Anisocytosis 1+, Erythrocyte Sedimentation Rate 26, Sodium Level 138, Potassium Level 4.1, Chloride Level 102, Carbon Dioxide Level 24, Anion Gap 12, Blood Urea Nitrogen 59H, Creatinine 2.6H, Estimat Glomerular Filtration Rate , Glucose Level 53L, Hemoglobin A1c 8.8H, Calcium Level 7.5L, Phosphorus Level 6.7H, Magnesium Level 2.0, Ferritin 131, Total Bilirubin 0.9, Aspartate Amino Transf (AST/SGOT) 58H, Alanine Aminotransferase (ALT/SGPT) 53, Alkaline Phosphatase 218H, Troponin I 0.382H, Total Protein 5.0L, Albumin 1.8L, Globulin 3.2, Albumin/Globulin Ratio 0.6L 12/09/17 09:48: Arterial Blood pH 7.338L, Arterial Blood Partial Pressure CO2 46.9H, Arterial Blood Partial Pressure O2 70.3L, Arterial Blood HCO3 24.6, Arterial Blood Oxygen Saturation 91.6L, Arterial Blood Base Excess -1.3, [place] Test Positive 12/09/17 10:50: Prothrombin Time 11.5, Prothromb Time International Ratio 1.1, Activated Partial Thromboplast Time 34H Height (Feet): 5 Height (Inches): 4.00 Weight (Pounds): 138 General Appearance: WD/WN, no apparent distress, alert, confused, agitated Zaynab Araya M.D. Dec 09, 2017 21:30
[2017-12-09] MEDS ORDERED: Miralax 17gm pkt ORAL PRN (22:00)
[2017-12-10] VITALS (24 sets, daily range): BP systolic 88–134; BP diastolic 39–97
[2017-12-10 04:35] LABS: HEMATOCRIT 27.5 % (37.0-47.0); HEMOGLOBIN 8.8 G/DL (12.0-16.0); MEAN CORPUSCULAR VOLUME 84 FL (80-99); PLATELET COUNT 164 K/UL (150-450); RED BLOOD COUNT 3.26 M/UL (4.20-5.40); RED CELL DISTRIBUTION WIDTH 15.7 % (11.6-14.8); WHITE BLOOD COUNT 8.6 K/UL (4.8-10.8)
[2017-12-10 04:57] LABS: INR 1.1 (0.9-1.1)
[2017-12-10 05:12] LABS: ALANINE AMINOTRANSFERASE 47 U/L (12-78); ALBUMIN 1.6 G/DL (3.4-5.0); ALBUMIN/GLOBULIN RATIO 0.5 (1.0-2.7); ALKALINE PHOSPHATASE 171 U/L (46-116); ANION GAP 11 mmol/L (5-15); ASPARTATE AMINO TRANSFERASE 45 U/L (15-37); BILIRUBIN,TOTAL 0.8 MG/DL (0.2-1.0); BLOOD UREA NITROGEN 68 mg/dL (7-18); CALCIUM 6.9 MG/DL (8.5-10.1); CARBON DIOXIDE 26 MMOL/L (21-32); CHLORIDE 103 MMOL/L (98-107); PHOSPHORUS 7.4 MG/DL (2.5-4.9); SODIUM 140 MMOL/L (136-145)
[2017-12-10 05:55] LABS: % IRON SATURATION 32 % (15-50); IRON 66 ug/dL (50-175); TOTAL IRON BINDING CAPACITY 205 ug/dL (250-450)
[2017-12-10 05:57] LABS: LACTATE DEHYDROGENASE 276 U/L (81-234)
[2017-12-10] MEDS: NovoLOG Insulin Flexpen SUBQ SCH ×4 (06:30→21:55)
--- NOTE | 2017-12-10 07:43 | Wound Care Consultation ---
Wound Assessment Wound Assessment #1: Wound Number: 1 Wound Present on Admission: Yes New Wound: No Status Change of Wound: No Wound Location Body Site Modif: left, lower, posterior Wound Location Body Site: leg Wound Type: lesion-etiology unknown Mell Test: Does not Mell Wound Thickness: Full Thickness Wound Length: 7.5 Wound Width: 6.5 Wound Depth: utd Percent of Wound Black/Brown: 100 Wound Drainage Description: Serosanguineous Wound Drainage Amount: Moderate Wound Drainage Odor: Mild Odor Tissue Surrounding Wound: Indurated - erythemic Wound General Appearance: Blackened, Necrotic Wound Assessment #2: Wound Number: 2 Wound Present on Admission: Yes New Wound: No Status Change of Wound: No Wound Location Body Site Modif: right, lateral Wound Location Body Site: leg Wound Type: lesion-etiology unknown - scattered Mell Test: Does not Mell Wound Thickness: Full Thickness Percent of Wound Black/Brown: 100 Wound Drainage Description: Serosanguineous Wound Drainage Amount: Moderate Wound Drainage Odor: None/Absent Tissue Surrounding Wound: Indurated - erythemic Wound General Appearance: Blackened, Necrotic Wound Comment #1 Left posterior lower leg and right lateral lower leg with necrotic open wound. Etiology unknown. Recommendation -Local wound care as ordered -Keep clean and dry -Offload both heels -Heel protector on both heels -Optimize nutrition -Arterial/venous duplex study -Assess and f/u with MD for any changes KIRK HUA RN Dec 10, 2017 07:43
[2017-12-10] MEDS: Aspirin Baby 81mg ORAL SCH (08:20)
[2017-12-10] MEDS: Eliquis 2.5mg tablet ORAL SCH ×2 (08:21→17:30)
[2017-12-10] MEDS: Theophylline ER 100mg ORAL SCH (08:35)
[2017-12-10] MEDS: Ampicillin/Sulbactam Sod 3 GM in NS 110 ML IVPB SCH ×2 (08:39→21:53)
--- NOTE | 2017-12-10 09:04 | Diagnostic Imaging Report ---
Indication: Dyspnea Technique: One view of the chest Comparison: 12/09/2017 Findings: Interstitial and airspace edema versus infiltrate appear slightly increased the previous study. Left-sided pleural fluid persists. The heart remains enlarged. Postsurgical changes of the chest are again noted Impression: Increasing bilateral interstitial and airspace edema versus infiltrates, over one day
--- NOTE | 2017-12-10 11:10 | Infectious Diseases Prog Note ---
Assessment/Plan Assessment/Plan Assessment: Acute hypoxic/hypercapenic respiratory failure- on Bipap R>L pleural effusion- possibly multifactorial due to CHF and PNA -CT chest: Large right pleural effusion. Resultant compressive atelectasis of much of the right lower lobe. Moderate left-sided pleural effusion, with compressive atelectasis of portions of the left lower lobe. There is also perihilar consolidation which may indicate pneumonia. There is also compressive atelectasis of much of the inferior lingula. Mild interstitial congestion in the left upper lobe. 7 mm masslike opacity in the left upper lobe at the level of the aortic arch. Most likely some focal edema or consolidation, but neoplasm also a possibility. Cardiomegaly. Evidence of prior CABG and mitral valve repair. Evidence of anasarca elsewhere, with chest and abdominal wall edema, small amount of ascites. T10 vertebral body compression fracture deformity. Age indeterminate. Consider MRI for further evaluation if this is considered clinically significant. Hepatomegaly -CXR 12/07: Dense left midlung consolidation and probable pleural fluid. Generalized interstitial congestion. Probable small right pleural effusion. Cardiomegaly -Influenza sc neg -Bcx NTD -sp cx p -CRP 10.8 Leukocytosis, resolved -afebrile Renal insufficiency, worsening -REnal US: Negative for hydronephrosis. Echogenic lesion in the interpolar region of the right kidney. 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 Consider CT for further evaluation Prolonged QTc CVA HTN sarcoidosis severe MR s/p MVR w/ left atrial appendage closure 2010 liver disease GIB Aflutter on Eliquis Dm2 CAD s/p CABG x5 HLD Plan: -Continue empiric IV Vanco and Unasyn #2 pending cultures -12/08 SP Levaquin x1 -For thoracentesis -fluid analysis, fungal, AFB, bacterial MTP PCR -f/u sputum cx, COcci ab, CrAg, 1,3b-d glucan, legionella ag urine -f/u cx -Monitor CBC/CMP, temperatures Thank you for this consultation. Will continue to follow along with you. Discussed with RN. Subjective Allergies: Coded Allergies: LEVOFLOXACIN (Verified Allergy, Unknown, 12/09/17) SULFA (SULFONAMIDE ANTIBIOTICS) (Verified Allergy, Unknown, 12/09/17) Subjective afebrile no leukocytosis remains on bipap US pending for thoracentesis Objective Vital Signs Last 24 Hour Vital Signs Date Time Temp Pulse Resp B/P (MAP) Pulse Ox O2 Delivery O2 Flow Rate FiO2 12/10/17 09:08 67 16 97 30 12/10/17 09:00 66 16 114/46 98 Bi-pap 30 12/10/17 08:00 98.0 65 16 112/45 98 Bi-pap 30 98.0 12/10/17 08:00 66 12/10/17 07:10 Bi-pap 30 12/10/17 07:10 97 Bi-pap 30 12/10/17 07:10 71 22 98 Facial 30 12/10/17 07:00 65 16 100/45 98 Bi-pap 30 12/10/17 06:00 65 16 104/41 98 Bi-pap 30 12/10/17 05:28 65 17 98 Facial 30 12/10/17 05:00 64 13 98/42 96 Bi-pap 30 12/10/17 04:00 66 12/10/17 04:00 97.8 64 19 100/39 95 Bi-pap 30 97.8 12/10/17 03:42 62 19 97 Facial 30 12/10/17 03:00 63 21 96/41 97 Bi-pap 30 12/10/17 02:00 64 19 88/47 94 Bi-pap 30 12/10/17 01:00 66 18 92/45 95 Bi-pap 30 12/10/17 00:48 67 17 100 Facial 30 12/10/17 00:00 64 18 97/54 95 Bi-pap 30 12/10/17 00:00 66 12/09/17 23:22 66 14 94 Facial 30 12/09/17 23:00 67 18 100/54 97 Bi-pap 30 12/09/17 22:00 65 18 91/47 95 Bi-pap 30 12/09/17 21:12 67 17 95 Facial 30 12/09/17 21:08 63 24 94 10.0 45 12/09/17 21:00 63 20 98/44 93 Venturi Mask 10.0 45 12/09/17 20:00 65 12/09/17 20:00 98.1 99 20 95/48 93 Venturi Mask 10.0 45 98.1 12/09/17 19:02 63 18 94 10.0 45 12/09/17 19:00 68 20 110/52 93 Venturi Mask 10.0 45 12/09/17 18:59 Venturi Mask 10.0 45 12/09/17 18:58 95 Venturi Mask 10.0 45 12/09/17 18:00 66 20 91/42 92 Venturi Mask 10.0 45 12/09/17 17:00 65 18 99/50 96 Venturi Mask 10.0 45 12/09/17 16:41 66 16 98 10.0 45 12/09/17 16:00 97.8 62 18 122/58 96 Venturi Mask 10.0 45 97.8 12/09/17 16:00 72 12/09/17 15:00 66 19 126/58 96 Venturi Mask 10.0 45 12/09/17 14:36 64 20 97 10.0 45 12/09/17 14:00 64 19 110/54 96 Venturi Mask 10.0 45 12/09/17 13:00 65 20 115/54 96 Bi-pap 30 12/09/17 12:46 89 20 95 10.0 45 12/09/17 12:00 96 12/09/17 12:00 97.8 64 20 119/65 97 Venturi Mask 45 97.8 Height (Feet): 5 Height (Inches): 4.00 Weight (Pounds): 137 Objective HEENT: atraumatic Lungs: rales, rhonchi Heart: HR/BP stable, HR/BP unstable Abdomen: non-tender, active bowel sounds Extremities: no C/C/E, edema Microbiology Date/Time Source Procedure Growth Status 12/07/17 19:55 Blood Blood Culture - Preliminary NO GROWTH AFTER 48 HOURS Resulted 12/07/17 19:40 Blood Blood Culture - Preliminary NO GROWTH AFTER 48 HOURS Resulted 12/07/17 20:25 Nasal Nares Influenza Types A,B Antigen (ROYA) - Final Complete Laboratory Tests Test 12/10/17 04:00 12/10/17 04:15 Arterial Blood pH 7.322 (7.350-7.450) Arterial Blood Partial Pressure CO2 51.4 mmHg (35.0-45.0) H Arterial Blood Partial Pressure O2 87.0 mmHg (75.0-100.0) Arterial Blood HCO3 26.0 mmol/L (22.0-26.0) Arterial Blood Oxygen Saturation 95.3 % (92.0-98.0) Arterial Blood Base Excess -0.4 [place] Test Positive White Blood Count 8.6 K/UL (4.8-10.8) Red Blood Count 3.26 M/UL (4.20-5.40) L Hemoglobin 8.8 G/DL (12.0-16.0) L Hematocrit 27.5 % (37.0-47.0) L Mean Corpuscular Volume 84 FL (80-99) Mean Corpuscular Hemoglobin 26.9 PG (27.0-31.0) L Mean Corpuscular Hemoglobin Concent 31.9 G/DL (32.0-36.0) L Red Cell Distribution Width 15.7 % (11.6-14.8) H Platelet Count 164 K/UL (150-450) Mean Platelet Volume 7.4 FL (6.5-10.1) Neutrophils (%) (Auto) % (45.0-75.0) Lymphocytes (%) (Auto) % (20.0-45.0) Monocytes (%) (Auto) % (1.0-10.0) Eosinophils (%) (Auto) % (0.0-3.0) Basophils (%) (Auto) % (0.0-2.0) Differential Total Cells Counted 100 Neutrophils % (Manual) 93 % (45-75) H Lymphocytes % (Manual) 5 % (20-45) L Monocytes % (Manual) 2 % (1-10) Eosinophils % (Manual) 0 % (0-3) Basophils % (Manual) 0 % (0-2) Band Neutrophils 0 % (0-8) Platelet Estimate Adequate Platelet Morphology Normal Hypochromasia 1+ Anisocytosis 1+ Erythrocyte Sedimentation Rate 24 MM/HR (0-30) Reticulocyte Count 0.4 % (0.0-2.0) Prothrombin Time 11.5 SEC (9.30-11.50) Prothromb Time International Ratio 1.1 (0.9-1.1) Activated Partial Thromboplast Time 38 SEC (23-33) H Sodium Level 140 MMOL/L (136-145) Potassium Level 4.0 MMOL/L (3.5-5.1) Chloride Level 103 MMOL/L (98-107) Carbon Dioxide Level 26 MMOL/L (21-32) Anion Gap 11 mmol/L (5-15) Blood Urea Nitrogen 68 mg/dL (7-18) H Creatinine 3.0 MG/DL (0.55-1.30) H Estimat Glomerular Filtration Rate mL/min (>60) Glucose Level 52 MG/DL (74-106) L Uric Acid 9.1 MG/DL (2.6-7.2) H Calcium Level 6.9 MG/DL (8.5-10.1) L Phosphorus Level 7.4 MG/DL (2.5-4.9) H Magnesium Level 2.0 MG/DL (1.8-2.4) Iron Level 66 ug/dL (50-175) Total Iron Binding Capacity 205 ug/dL (250-450) L Percent Iron Saturation 32 % (15-50) Unsaturated Iron Binding 139 ug/dL (112-346) Total Bilirubin 0.8 MG/DL (0.2-1.0) Aspartate Amino Transf (AST/SGOT) 45 U/L (15-37) H Alanine Aminotransferase (ALT/SGPT) 47 U/L (12-78) Alkaline Phosphatase 171 U/L (46-116) H Lactate Dehydrogenase 276 U/L (81-234) H C-Reactive Protein, Quantitative 11.6 mg/dL (0.00-0.90) H Pro-B-Type Natriuretic Peptide 96094 pg/mL (0-125) H Total Protein 5.0 G/DL (6.4-8.2) L Albumin 1.6 G/DL (3.4-5.0) L Globulin 3.4 g/dL Albumin/Globulin Ratio 0.5 (1.0-2.7) L Vitamin B12 Level 637 PG/ML (193-986) Folate 13.2 NG/ML (8.6-58.9) Coccidioides Antibody (Comp Fix) Pending Cryptococcus Antigen Pending Current Medications Medications (Trade) Dose Ordered Sig/Maribel Route PRN Reason Start Time Stop Time Status Last Admin Dose Admin Acetaminophen (Tylenol) 650 mg Q4H PRN ORAL T>100.5 12/09/17 02:00 01/06/18 21:59 Albuterol/ Ipratropium (Albuterol/ Ipratropium) 3 ml Q4H PRN HHN Shortness of Breath 12/09/17 02:00 12/12/17 21:59 Ampicillin Sodium/ Sulbactam Sodium 3 gm/Sodium Chloride 110 ml @ 220 mls/hr Q12HR IVPB 12/09/17 13:00 12/16/17 12:59 12/10/17 08:39 Apixaban (Eliquis) 2.5 mg BID ORAL 12/09/17 09:00 01/07/18 14:29 Aspirin (ASA) 81 mg DAILY ORAL 12/09/17 09:00 01/08/18 08:59 Atorvastatin Calcium (Lipitor) 80 mg BEDTIME ORAL 12/09/17 21:00 01/07/18 20:59 12/09/17 21:49 Dextrose (Dextrose 50%) STAT PRN IV Hypoglycemia 12/09/17 12:55 01/08/18 12:54 12/10/17 05:40 Diltiazem HCl (Cardizem) 10 mg EVERY HOUR PRN IV heart rate more than 120, 12/09/17 00:00 01/06/18 21:59 Haloperidol Lactate (Haldol) 5 mg Q6H PRN IM Agitation 12/09/17 21:30 01/08/18 21:29 Insulin Aspart (NovoLOG) BEFORE MEALS AND HS SUBQ 12/09/17 06:30 01/07/18 06:29 Morphine Sulfate (Morphine Sulfate) 1 mg Q4H PRN IVP PAIN 4-10 12/09/17 15:15 12/16/17 15:14 12/09/17 15:27 Nitroglycerin (Ntg) 0.4 mg Q5MIN X 3 DOSES PRN SL Prn Chest Pain 12/08/17 23:30 01/06/18 21:59 Ondansetron HCl (Zofran) 4 mg Q6H PRN IVP Nausea & Vomiting 12/09/17 04:00 01/06/18 21:59 Pantoprazole (Protonix) 40 mg DAILY ORAL 12/09/17 15:15 01/08/18 15:14 12/10/17 08:35 Polyethylene Glycol (Miralax) 17 gm DAILYPRN PRN ORAL Constipation 12/09/17 22:00 01/06/18 21:59 Promethazine HCl/ Codeine (Phenergan with Codeine) 5 ml Q4H PRN ORAL For Cough 12/08/17 23:30 01/07/18 11:29 Quetiapine Fumarate (SEROquel) 25 mg Q4H PRN ORAL For Anxiety 12/09/17 21:30 01/08/18 21:29 Temazepam (Restoril) 15 mg HSPRN PRN ORAL Insomnia 12/09/17 22:00 12/14/17 21:59 Theophylline (Howie-Dur) 100 mg EVERY 12 HOURS ORAL 12/09/17 09:00 01/07/18 20:59 12/10/17 08:35 Vancomycin HCl (Vanco rx to dose) 1 ea DAILY PRN MISC Per rx protocol 12/09/17 11:30 01/08/18 11:29 Leatha Sanchez M.D. Dec 10, 2017 11:10
--- NOTE | 2017-12-10 11:10 | Pulmonolgy Critical Care Note ---
Critical Care - Asmt/Plan Problems: (1) Acute respiratory failure (2) Pleural effusion (3) ATN (acute tubular necrosis) (4) CAD (coronary artery disease) (5) S/P CABG x 5 Assessment/Plan: will get US of chest for paracentesis, neuro evaluation. Respiratory: monitor respiratory rate, adjust FIO2, CXR Cardiac: other - start lasix drip and later dopamin drip when picc line is available Infectious Disease: check cultures, continue antibiotics Gastrointestinal: continue feedings/current rate Endocrine: monitor blood sugar, continue sliding scale insulin Hematologic: monitor H/H, transfuse if hgb<8.5 Neurologic: PRN Ativan, PRN Morphine, keep patient comfortable Affect: PRN ativan Prophylaxis: Protonix Disposition: keep in ICU Notes Reviewed: program support clerk, renal Discussed with: nurses, consultants, protective services case workermanager inspection - Objective Last 24 Hour Vital Signs Date Time Temp Pulse Resp B/P (MAP) Pulse Ox O2 Delivery O2 Flow Rate FiO2 12/10/17 09:08 67 16 97 30 12/10/17 09:00 66 16 114/46 98 Bi-pap 30 12/10/17 08:00 98.0 65 16 112/45 98 Bi-pap 30 98.0 12/10/17 08:00 66 12/10/17 07:10 Bi-pap 30 12/10/17 07:10 97 Bi-pap 30 12/10/17 07:10 71 22 98 Facial 30 12/10/17 07:00 65 16 100/45 98 Bi-pap 30 12/10/17 06:00 65 16 104/41 98 Bi-pap 30 12/10/17 05:28 65 17 98 Facial 30 12/10/17 05:00 64 13 98/42 96 Bi-pap 30 12/10/17 04:00 66 12/10/17 04:00 97.8 64 19 100/39 95 Bi-pap 30 97.8 12/10/17 03:42 62 19 97 Facial 30 12/10/17 03:00 63 21 96/41 97 Bi-pap 30 12/10/17 02:00 64 19 88/47 94 Bi-pap 30 12/10/17 01:00 66 18 92/45 95 Bi-pap 30 12/10/17 00:48 67 17 100 Facial 30 12/10/17 00:00 64 18 97/54 95 Bi-pap 30 12/10/17 00:00 66 12/09/17 23:22 66 14 94 Facial 30 12/09/17 23:00 67 18 100/54 97 Bi-pap 30 12/09/17 22:00 65 18 91/47 95 Bi-pap 30 12/09/17 21:12 67 17 95 Facial 30 12/09/17 21:08 63 24 94 10.0 45 12/09/17 21:00 63 20 98/44 93 Venturi Mask 10.0 45 12/09/17 20:00 65 12/09/17 20:00 98.1 99 20 95/48 93 Venturi Mask 10.0 45 98.1 12/09/17 19:02 63 18 94 10.0 45 12/09/17 19:00 68 20 110/52 93 Venturi Mask 10.0 45 12/09/17 18:59 Venturi Mask 10.0 45 12/09/17 18:58 95 Venturi Mask 10.0 45 12/09/17 18:00 66 20 91/42 92 Venturi Mask 10.0 45 12/09/17 17:00 65 18 99/50 96 Venturi Mask 10.0 45 12/09/17 16:41 66 16 98 10.0 45 12/09/17 16:00 97.8 62 18 122/58 96 Venturi Mask 10.0 45 97.8 12/09/17 16:00 72 12/09/17 15:00 66 19 126/58 96 Venturi Mask 10.0 45 12/09/17 14:36 64 20 97 10.0 45 12/09/17 14:00 64 19 110/54 96 Venturi Mask 10.0 45 12/09/17 13:00 65 20 115/54 96 Bi-pap 30 12/09/17 12:46 89 20 95 10.0 45 12/09/17 12:00 96 12/09/17 12:00 97.8 64 20 119/65 97 Venturi Mask 45 97.8 Status: awake Condition: grave Neck: full ROM Lungs: rales, rhonchi Heart: HR/BP stable Abdomen: soft, non-tender Extremities: no C/C/E Decubiti: location, stage Micro: Microbiology Date/Time Source Procedure Growth Status 12/07/17 19:55 Blood Blood Culture - Preliminary NO GROWTH AFTER 48 HOURS Resulted 12/07/17 19:40 Blood Blood Culture - Preliminary NO GROWTH AFTER 48 HOURS Resulted 12/07/17 20:25 Nasal Nares Influenza Types A,B Antigen (ROYA) - Final Complete Accucheck: 58 Critical Care - Subjective ROS Limited/Unobtainable: Yes ICU Day: 3 Intubation Day: on BIPAP Condition: critical EKG Rhythm: Sinus Rhythm FI02: 30 Sputum Amount: Small Fluids: KVO I&O: Intake and Output 12/09/17 12/10/17 19:00 07:00 Intake Total 110 ml Output Total 410 ml 760 ml Balance -410 ml -650 ml IV Total 110 ml Output Urine Total 410 ml 760 ml CXR: pulmonary edema Labs: Laboratory Tests Test 12/10/17 04:00 12/10/17 04:15 Arterial Blood pH 7.322 (7.350-7.450) Arterial Blood Partial Pressure CO2 51.4 mmHg (35.0-45.0) H Arterial Blood Partial Pressure O2 87.0 mmHg (75.0-100.0) Arterial Blood HCO3 26.0 mmol/L (22.0-26.0) Arterial Blood Oxygen Saturation 95.3 % (92.0-98.0) Arterial Blood Base Excess -0.4 [place] Test Positive White Blood Count 8.6 K/UL (4.8-10.8) Red Blood Count 3.26 M/UL (4.20-5.40) L Hemoglobin 8.8 G/DL (12.0-16.0) L Hematocrit 27.5 % (37.0-47.0) L Mean Corpuscular Volume 84 FL (80-99) Mean Corpuscular Hemoglobin 26.9 PG (27.0-31.0) L Mean Corpuscular Hemoglobin Concent 31.9 G/DL (32.0-36.0) L Red Cell Distribution Width 15.7 % (11.6-14.8) H Platelet Count 164 K/UL (150-450) Mean Platelet Volume 7.4 FL (6.5-10.1) Neutrophils (%) (Auto) % (45.0-75.0) Lymphocytes (%) (Auto) % (20.0-45.0) Monocytes (%) (Auto) % (1.0-10.0) Eosinophils (%) (Auto) % (0.0-3.0) Basophils (%) (Auto) % (0.0-2.0) Differential Total Cells Counted 100 Neutrophils % (Manual) 93 % (45-75) H Lymphocytes % (Manual) 5 % (20-45) L Monocytes % (Manual) 2 % (1-10) Eosinophils % (Manual) 0 % (0-3) Basophils % (Manual) 0 % (0-2) Band Neutrophils 0 % (0-8) Platelet Estimate Adequate Platelet Morphology Normal Hypochromasia 1+ Anisocytosis 1+ Erythrocyte Sedimentation Rate 24 MM/HR (0-30) Reticulocyte Count 0.4 % (0.0-2.0) Prothrombin Time 11.5 SEC (9.30-11.50) Prothromb Time International Ratio 1.1 (0.9-1.1) Activated Partial Thromboplast Time 38 SEC (23-33) H Sodium Level 140 MMOL/L (136-145) Potassium Level 4.0 MMOL/L (3.5-5.1) Chloride Level 103 MMOL/L (98-107) Carbon Dioxide Level 26 MMOL/L (21-32) Anion Gap 11 mmol/L (5-15) Blood Urea Nitrogen 68 mg/dL (7-18) H Creatinine 3.0 MG/DL (0.55-1.30) H Estimat Glomerular Filtration Rate mL/min (>60) Glucose Level 52 MG/DL (74-106) L Uric Acid 9.1 MG/DL (2.6-7.2) H Calcium Level 6.9 MG/DL (8.5-10.1) L Phosphorus Level 7.4 MG/DL (2.5-4.9) H Magnesium Level 2.0 MG/DL (1.8-2.4) Iron Level 66 ug/dL (50-175) Total Iron Binding Capacity 205 ug/dL (250-450) L Percent Iron Saturation 32 % (15-50) Unsaturated Iron Binding 139 ug/dL (112-346) Total Bilirubin 0.8 MG/DL (0.2-1.0) Aspartate Amino Transf (AST/SGOT) 45 U/L (15-37) H Alanine Aminotransferase (ALT/SGPT) 47 U/L (12-78) Alkaline Phosphatase 171 U/L (46-116) H Lactate Dehydrogenase 276 U/L (81-234) H C-Reactive Protein, Quantitative 11.6 mg/dL (0.00-0.90) H Pro-B-Type Natriuretic Peptide 66557 pg/mL (0-125) H Total Protein 5.0 G/DL (6.4-8.2) L Albumin 1.6 G/DL (3.4-5.0) L Globulin 3.4 g/dL Albumin/Globulin Ratio 0.5 (1.0-2.7) L Vitamin B12 Level 637 PG/ML (193-986) Folate 13.2 NG/ML (8.6-58.9) Coccidioides Antibody (Comp Fix) Pending Cryptococcus Antigen Pending Jessica Peralta MD Dec 10, 2017 11:09
[2017-12-10] MEDS ORDERED: DOPamine 400mg/250ml 250 ML IV SCH (11:15)
--- NOTE | 2017-12-10 11:49 | General Progress Note ---
Assessment/Plan Status: stable Assessment/Plan encephalopathy dementia with behavioral disturbance the pt lacks capacity to make decisions -seroquel -haldol prn Subjective Date patient seen: Dec 10, 2017 Neurologic/Psychiatric: Reports: anxiety, depressed, emotional problems Allergies: Coded Allergies: LEVOFLOXACIN (Verified Allergy, Unknown, 12/09/17) SULFA (SULFONAMIDE ANTIBIOTICS) (Verified Allergy, Unknown, 12/09/17) Subjective the pt is calmer and less agitated. No behavioral issues. Objective Last 24 Hour Vital Signs Date Time Temp Pulse Resp B/P (MAP) Pulse Ox O2 Delivery O2 Flow Rate FiO2 12/10/17 11:09 68 20 98 10.0 45 12/10/17 11:00 67 16 120/50 98 Bi-pap 30 12/10/17 10:00 68 16 116/48 98 Bi-pap 30 12/10/17 09:08 67 16 97 30 12/10/17 09:00 66 16 114/46 98 Bi-pap 30 12/10/17 08:00 98.0 65 16 112/45 98 Bi-pap 30 98.0 12/10/17 08:00 66 12/10/17 07:10 Bi-pap 30 12/10/17 07:10 97 Bi-pap 30 12/10/17 07:10 71 22 98 Facial 30 12/10/17 07:00 65 16 100/45 98 Bi-pap 30 12/10/17 06:00 65 16 104/41 98 Bi-pap 30 12/10/17 05:28 65 17 98 Facial 30 12/10/17 05:00 64 13 98/42 96 Bi-pap 30 12/10/17 04:00 66 12/10/17 04:00 97.8 64 19 100/39 95 Bi-pap 30 97.8 12/10/17 03:42 62 19 97 Facial 30 12/10/17 03:00 63 21 96/41 97 Bi-pap 30 12/10/17 02:00 64 19 88/47 94 Bi-pap 30 12/10/17 01:00 66 18 92/45 95 Bi-pap 30 12/10/17 00:48 67 17 100 Facial 30 12/10/17 00:00 64 18 97/54 95 Bi-pap 30 12/10/17 00:00 66 12/09/17 23:22 66 14 94 Facial 30 12/09/17 23:00 67 18 100/54 97 Bi-pap 30 12/09/17 22:00 65 18 91/47 95 Bi-pap 30 12/09/17 21:12 67 17 95 Facial 30 12/09/17 21:08 63 24 94 10.0 45 12/09/17 21:00 63 20 98/44 93 Venturi Mask 10.0 45 12/09/17 20:00 65 12/09/17 20:00 98.1 99 20 95/48 93 Venturi Mask 10.0 45 98.1 12/09/17 19:02 63 18 94 10.0 45 12/09/17 19:00 68 20 110/52 93 Venturi Mask 10.0 45 12/09/17 18:59 Venturi Mask 10.0 45 12/09/17 18:58 95 Venturi Mask 10.0 45 12/09/17 18:00 66 20 91/42 92 Venturi Mask 10.0 45 12/09/17 17:00 65 18 99/50 96 Venturi Mask 10.0 45 12/09/17 16:41 66 16 98 10.0 45 12/09/17 16:00 97.8 62 18 122/58 96 Venturi Mask 10.0 45 97.8 12/09/17 16:00 72 12/09/17 15:00 66 19 126/58 96 Venturi Mask 10.0 45 12/09/17 14:36 64 20 97 10.0 45 12/09/17 14:00 64 19 110/54 96 Venturi Mask 10.0 45 12/09/17 13:00 65 20 115/54 96 Bi-pap 30 12/09/17 12:46 89 20 95 10.0 45 12/09/17 12:00 96 12/09/17 12:00 97.8 64 20 119/65 97 Venturi Mask 45 97.8 Intake and Output 12/09/17 12/10/17 19:00 07:00 Intake Total 110 ml Output Total 410 ml 760 ml Balance -410 ml -650 ml IV Total 110 ml Output Urine Total 410 ml 760 ml Laboratory Tests 12/10/17 04:00: Arterial Blood pH 7.322L, Arterial Blood Partial Pressure CO2 51.4H, Arterial Blood Partial Pressure O2 87.0, Arterial Blood HCO3 26.0, Arterial Blood Oxygen Saturation 95.3, Arterial Blood Base Excess -0.4, [place] Test Positive 12/10/17 04:15: White Blood Count 8.6, Red Blood Count 3.26L, Hemoglobin 8.8L, Hematocrit 27.5L , Mean Corpuscular Volume 84, Mean Corpuscular Hemoglobin 26.9L, Mean Corpuscular Hemoglobin Concent 31.9L, Red Cell Distribution Width 15.7H, Platelet Count 164, Mean Platelet Volume 7.4, Neutrophils (%) (Auto) , Lymphocytes (%) (Auto) , Monocytes (%) (Auto) , Eosinophils (%) (Auto) , Basophils (%) (Auto) , Differential Total Cells Counted 100, Neutrophils % ( Manual) 93H, Lymphocytes % (Manual) 5L, Monocytes % (Manual) 2, Eosinophils % ( Manual) 0, Basophils % (Manual) 0, Band Neutrophils 0, Platelet Estimate Adequate, Platelet Morphology Normal, Hypochromasia 1+, Anisocytosis 1+, Erythrocyte Sedimentation Rate 24, Reticulocyte Count 0.4, Prothrombin Time 11.5 , Prothromb Time International Ratio 1.1, Activated Partial Thromboplast Time 38H, Sodium Level 140, Potassium Level 4.0, Chloride Level 103, Carbon Dioxide Level 26, Anion Gap 11, Blood Urea Nitrogen 68H, Creatinine 3.0H, Estimat Glomerular Filtration Rate , Glucose Level 52L, Uric Acid 9.1H, Calcium Level 6.9L, Phosphorus Level 7.4H, Magnesium Level 2.0, Iron Level 66, Total Iron Binding Capacity 205L, Percent Iron Saturation 32, Unsaturated Iron Binding 139 , Total Bilirubin 0.8, Aspartate Amino Transf (AST/SGOT) 45H, Alanine Aminotransferase (ALT/SGPT) 47, Alkaline Phosphatase 171H, Lactate Dehydrogenase 276H, C-Reactive Protein, Quantitative 11.6H, Pro-B-Type Natriuretic Peptide 64178D, Total Protein 5.0L, Albumin 1.6L, Globulin 3.4, Albumin/Globulin Ratio 0.5L, Vitamin B12 Level 637, Folate 13.2, Coccidioides Antibody (Comp Fix) [Pending], Cryptococcus Antigen [Pending] Height (Feet): 5 Height (Inches): 4.00 Weight (Pounds): 137 General Appearance: no apparent distress, lethargic, confused - the pts behaviors more managable Zaynab Araya M.D. Dec 10, 2017 11:49
--- NOTE | 2017-12-10 12:06 | Nephrology Progress Note ---
Assessment/Plan Problem List: (1) Acute respiratory failure (2) ATN (acute tubular necrosis) (3) CAD (coronary artery disease) (4) Pleural effusion (5) Diabetes mellitus Assessment CKD with acute component : Cr up to 3 Acute respiratory failure CABG X 5 DMII Hyperlipidemia HTN CVA Sarcoidosis Liver disease, HypoAlbuminemia Anemia hs of Severe MR s/p mitral valve repair with FIONA closure [address] Cassidy Plan Plan: Avoid Nephrotoxics- Optimize cardiac & Pulmonary status Monitor renal parameters Urine for eos 24 h urine protein discussed with RN Subjective ROS Limited/Unobtainable: No Constitutional: Reports: malaise, weakness Objective Objective Last 24 Hour Vital Signs Date Time Temp Pulse Resp B/P (MAP) Pulse Ox O2 Delivery O2 Flow Rate FiO2 12/10/17 11:09 68 20 98 10.0 45 12/10/17 11:00 67 16 120/50 98 Bi-pap 30 12/10/17 10:00 68 16 116/48 98 Bi-pap 30 12/10/17 09:08 67 16 97 30 12/10/17 09:00 66 16 114/46 98 Bi-pap 30 12/10/17 08:00 98.0 65 16 112/45 98 Bi-pap 30 98.0 12/10/17 08:00 66 12/10/17 07:10 Bi-pap 30 12/10/17 07:10 97 Bi-pap 30 12/10/17 07:10 71 22 98 Facial 30 12/10/17 07:00 65 16 100/45 98 Bi-pap 30 12/10/17 06:00 65 16 104/41 98 Bi-pap 30 12/10/17 05:28 65 17 98 Facial 30 12/10/17 05:00 64 13 98/42 96 Bi-pap 30 12/10/17 04:00 66 12/10/17 04:00 97.8 64 19 100/39 95 Bi-pap 30 97.8 12/10/17 03:42 62 19 97 Facial 30 12/10/17 03:00 63 21 96/41 97 Bi-pap 30 12/10/17 02:00 64 19 88/47 94 Bi-pap 30 12/10/17 01:00 66 18 92/45 95 Bi-pap 30 12/10/17 00:48 67 17 100 Facial 30 3/15/18 00:00 64 18 97/54 95 Bi-pap 30 12/10/17 00:00 66 12/09/17 23:22 66 14 94 Facial 30 12/09/17 23:00 67 18 100/54 97 Bi-pap 30 12/09/17 22:00 65 18 91/47 95 Bi-pap 30 12/09/17 21:12 67 17 95 Facial 30 12/09/17 21:08 63 24 94 10.0 45 12/09/17 21:00 63 20 98/44 93 Venturi Mask 10.0 45 12/09/17 20:00 65 12/09/17 20:00 98.1 99 20 95/48 93 Venturi Mask 10.0 45 98.1 12/09/17 19:02 63 18 94 10.0 45 12/09/17 19:00 68 20 110/52 93 Venturi Mask 10.0 45 12/09/17 18:59 Venturi Mask 10.0 45 12/09/17 18:58 95 Venturi Mask 10.0 45 12/09/17 18:00 66 20 91/42 92 Venturi Mask 10.0 45 12/09/17 17:00 65 18 99/50 96 Venturi Mask 10.0 45 12/09/17 16:41 66 16 98 10.0 45 12/09/17 16:00 97.8 62 18 122/58 96 Venturi Mask 10.0 45 97.8 12/09/17 16:00 72 12/09/17 15:00 66 19 126/58 96 Venturi Mask 10.0 45 12/09/17 14:36 64 20 97 10.0 45 12/09/17 14:00 64 19 110/54 96 Venturi Mask 10.0 45 12/09/17 13:00 65 20 115/54 96 Bi-pap 30 12/09/17 12:46 89 20 95 10.0 45 Intake and Output 12/09/17 12/10/17 19:00 07:00 Intake Total 110 ml Output Total 410 ml 760 ml Balance -410 ml -650 ml IV Total 110 ml Output Urine Total 410 ml 760 ml Laboratory Tests 12/10/17 04:00: Arterial Blood pH 7.322L, Arterial Blood Partial Pressure CO2 51.4H, Arterial Blood Partial Pressure O2 87.0, Arterial Blood HCO3 26.0, Arterial Blood Oxygen Saturation 95.3, Arterial Blood Base Excess -0.4, [place] Test Positive 12/10/17 04:15: White Blood Count 8.6, Red Blood Count 3.26L, Hemoglobin 8.8L, Hematocrit 27.5L , Mean Corpuscular Volume 84, Mean Corpuscular Hemoglobin 26.9L, Mean Corpuscular Hemoglobin Concent 31.9L, Red Cell Distribution Width 15.7H, Platelet Count 164, Mean Platelet Volume 7.4, Neutrophils (%) (Auto) , Lymphocytes (%) (Auto) , Monocytes (%) (Auto) , Eosinophils (%) (Auto) , Basophils (%) (Auto) , Differential Total Cells Counted 100, Neutrophils % ( Manual) 93H, Lymphocytes % (Manual) 5L, Monocytes % (Manual) 2, Eosinophils % ( Manual) 0, Basophils % (Manual) 0, Band Neutrophils 0, Platelet Estimate Adequate, Platelet Morphology Normal, Hypochromasia 1+, Anisocytosis 1+, Erythrocyte Sedimentation Rate 24, Reticulocyte Count 0.4, Prothrombin Time 11.5 , Prothromb Time International Ratio 1.1, Activated Partial Thromboplast Time 38H, Sodium Level 140, Potassium Level 4.0, Chloride Level 103, Carbon Dioxide Level 26, Anion Gap 11, Blood Urea Nitrogen 68H, Creatinine 3.0H, Estimat Glomerular Filtration Rate , Glucose Level 52L, Uric Acid 9.1H, Calcium Level 6.9L, Phosphorus Level 7.4H, Magnesium Level 2.0, Iron Level 66, Total Iron Binding Capacity 205L, Percent Iron Saturation 32, Unsaturated Iron Binding 139 , Total Bilirubin 0.8, Aspartate Amino Transf (AST/SGOT) 45H, Alanine Aminotransferase (ALT/SGPT) 47, Alkaline Phosphatase 171H, Lactate Dehydrogenase 276H, C-Reactive Protein, Quantitative 11.6H, Pro-B-Type Natriuretic Peptide 07392I, Total Protein 5.0L, Albumin 1.6L, Globulin 3.4, Albumin/Globulin Ratio 0.5L, Vitamin B12 Level 637, Folate 13.2, Coccidioides Antibody (Comp Fix) [Pending], Cryptococcus Antigen [Pending] Height (Feet): 5 Height (Inches): 4.00 Weight (Pounds): 137 General Appearance: mild distress EENT: other - on BIPAP Cardiovascular: normal rate Respiratory/Chest: decreased breath sounds Abdomen: distended FOULADIAN,DANIAL Dec 10, 2017 12:06
--- NOTE | 2017-12-10 13:32 | General Progress Note ---
Assessment/Plan Assessment/Plan #. Anemia due to underlying chronic disease. --> Continue to closely monitor for improvement. The patient may have evidence of iron deficiency and at this time --> Anemia workup reviewed. Iron 66, TIBC 306, Ferritin 131, Vit B12 637, Folate 13.2 #. Anemia of iron deficiency. TIBC is elevated. Begin the patient on ferrous sulfate. #. Anemia due to gastrointestinal bleed consider GI Service as needed. #. Severe mitral regurgitation, status post mitral valve repair in 2016. --> Continue the patient on Eliquis. as well as Coreg as needed. #. Leukocytosis, likely secondary to infectious process. ESR 41. --> Continue to closely monitor. #. Prothrombin time coagulopathy. --> Closely monitor for improvement and currently prothrombin time elevated, on Eliquis. Continue at this time. 3. Hypoglycemia. Low blood sugar, found unresponsive at home. D10 given. Subjective Date patient seen: Dec 09, 2017 Constitutional: Denies: no symptoms, chills, diaphoresis, fever, malaise, weakness, other HEENT: Denies: no symptoms, eye pain, blurred vision, tearing, double vision, ear pain, ear discharge, nose pain, nose congestion, throat pain, throat swelling, mouth pain, mouth swelling, other Cardiovascular: Denies: no symptoms, chest pain, edema, irregular heart rate, lightheadedness, palpitations, syncope, other Respiratory: Denies: no symptoms, cough, orthopnea, shortness of breath, SOB with excertion, SOB at rest, sputum, stridor, wheezing, other Gastrointestinal/Abdominal: Denies: no symptoms, abdomen distended, abdominal pain, black stools, tarry stools, blood in stool, constipated, diarrhea, difficulty swallowing, nausea, poor appetite, poor fluid intake, rectal bleeding , vomiting, other Genitourinary: Denies: no symptoms, burning, discharge, frequency, flank pain, hematuria, incontinence, pain, urgency, other Neurologic/Psychiatric: Denies: no symptoms, anxiety, depressed, emotional problems, headache, numbness, paresthesia, pre-existing deficit, seizure, tingling, tremors, weakness, other Hematologic/Lymphatic: Reports: anemia Allergies: Coded Allergies: LEVOFLOXACIN (Verified Allergy, Unknown, 12/09/17) SULFA (SULFONAMIDE ANTIBIOTICS) (Verified Allergy, Unknown, 12/09/17) Subjective NAD. No fever or chills. Objective Last 24 Hour Vital Signs Date Time Temp Pulse Resp B/P (MAP) Pulse Ox O2 Delivery O2 Flow Rate FiO2 12/10/17 11:09 68 20 98 10.0 45 12/10/17 11:00 67 16 120/50 98 Bi-pap 30 12/10/17 10:00 68 16 116/48 98 Bi-pap 30 12/10/17 09:08 67 16 97 30 12/10/17 09:00 66 16 114/46 98 Bi-pap 30 12/10/17 08:00 98.0 65 16 112/45 98 Bi-pap 30 98.0 12/10/17 08:00 66 12/10/17 07:10 Bi-pap 30 12/10/17 07:10 97 Bi-pap 30 12/10/17 07:10 71 22 98 Facial 30 12/10/17 07:00 65 16 100/45 98 Bi-pap 30 12/10/17 06:00 65 16 104/41 98 Bi-pap 30 12/10/17 05:28 65 17 98 Facial 30 12/10/17 05:00 64 13 98/42 96 Bi-pap 30 12/10/17 04:00 66 12/10/17 04:00 97.8 64 19 100/39 95 Bi-pap 30 97.8 12/10/17 03:42 62 19 97 Facial 30 12/10/17 03:00 63 21 96/41 97 Bi-pap 30 12/10/17 02:00 64 19 88/47 94 Bi-pap 30 12/10/17 01:00 66 18 92/45 95 Bi-pap 30 12/10/17 00:48 67 17 100 Facial 30 12/10/17 00:00 64 18 97/54 95 Bi-pap 30 12/10/17 00:00 66 12/09/17 23:22 66 14 94 Facial 30 12/09/17 23:00 67 18 100/54 97 Bi-pap 30 12/09/17 22:00 65 18 91/47 95 Bi-pap 30 12/09/17 21:12 67 17 95 Facial 30 12/09/17 21:08 63 24 94 10.0 45 12/09/17 21:00 63 20 98/44 93 Venturi Mask 10.0 45 12/09/17 20:00 65 12/09/17 20:00 98.1 99 20 95/48 93 Venturi Mask 10.0 45 98.1 12/09/17 19:02 63 18 94 10.0 45 12/09/17 19:00 68 20 110/52 93 Venturi Mask 10.0 45 12/09/17 18:59 Venturi Mask 10.0 45 12/09/17 18:58 95 Venturi Mask 10.0 45 12/09/17 18:00 66 20 91/42 92 Venturi Mask 10.0 45 12/09/17 17:00 65 18 99/50 96 Venturi Mask 10.0 45 12/09/17 16:41 66 16 98 10.0 45 12/09/17 16:00 97.8 62 18 122/58 96 Venturi Mask 10.0 45 97.8 12/09/17 16:00 72 12/09/17 15:00 66 19 126/58 96 Venturi Mask 10.0 45 12/09/17 14:36 64 20 97 10.0 45 12/09/17 14:00 64 19 110/54 96 Venturi Mask 10.0 45 Intake and Output 12/09/17 12/10/17 19:00 07:00 Intake Total 110 ml Output Total 410 ml 760 ml Balance -410 ml -650 ml IV Total 110 ml Output Urine Total 410 ml 760 ml Laboratory Tests 12/10/17 04:00: Arterial Blood pH 7.322L, Arterial Blood Partial Pressure CO2 51.4H, Arterial Blood Partial Pressure O2 87.0, Arterial Blood HCO3 26.0, Arterial Blood Oxygen Saturation 95.3, Arterial Blood Base Excess -0.4, [place] Test Positive 12/10/17 04:15: White Blood Count 8.6, Red Blood Count 3.26L, Hemoglobin 8.8L, Hematocrit 27.5L , Mean Corpuscular Volume 84, Mean Corpuscular Hemoglobin 26.9L, Mean Corpuscular Hemoglobin Concent 31.9L, Red Cell Distribution Width 15.7H, Platelet Count 164, Mean Platelet Volume 7.4, Neutrophils (%) (Auto) , Lymphocytes (%) (Auto) , Monocytes (%) (Auto) , Eosinophils (%) (Auto) , Basophils (%) (Auto) , Differential Total Cells Counted 100, Neutrophils % ( Manual) 93H, Lymphocytes % (Manual) 5L, Monocytes % (Manual) 2, Eosinophils % ( Manual) 0, Basophils % (Manual) 0, Band Neutrophils 0, Other Cell Type Pathologist comment, Platelet Estimate Adequate, Platelet Morphology Normal, Hypochromasia 1+, Anisocytosis 1+, Erythrocyte Sedimentation Rate 24, Reticulocyte Count 0.4, Prothrombin Time 11.5, Prothromb Time International Ratio 1.1, Activated Partial Thromboplast Time 38H, Sodium Level 140, Potassium Level 4.0, Chloride Level 103, Carbon Dioxide Level 26, Anion Gap 11, Blood Urea Nitrogen 68H, Creatinine 3.0H, Estimat Glomerular Filtration Rate , Glucose Level 52L, Uric Acid 9.1H, Calcium Level 6.9L, Phosphorus Level 7.4H, Magnesium Level 2.0, Iron Level 66, Total Iron Binding Capacity 205L, Percent Iron Saturation 32, Unsaturated Iron Binding 139, Total Bilirubin 0.8, Aspartate Amino Transf (AST/SGOT) 45H, Alanine Aminotransferase (ALT/SGPT) 47, Alkaline Phosphatase 171H, Lactate Dehydrogenase 276H, C-Reactive Protein, Quantitative 11.8H, Pro-B-Type Natriuretic Peptide 62385R, Total Protein 5.0L, Albumin 1.6L, Globulin 3.4, Albumin/Globulin Ratio 0.5L, Vitamin B12 Level 637, Folate 13.2, Coccidioides Antibody (Comp Fix) [Pending], Cryptococcus Antigen [ Pending] Height (Feet): 5 Height (Inches): 4.00 Weight (Pounds): 137 Abdirashid Solorzano Dec 10, 2017 13:32
[2017-12-10] MEDS ORDERED: Heparin 2000 units/Ns 1000ml IV PRN (14:15)
[2017-12-10] MEDS ORDERED: Lidocaine 1% Plain 30 ml INJ PRN (14:15)
--- NOTE | 2017-12-10 15:17 | Diagnostic Imaging Report ---
Indication: Status post thoracentesis Technique: One view of the chest Comparison: 4 hours earlier Findings: Improved aeration of the right lung status post thoracentesis. No evidence of residual pleural fluid. No evidence of pneumothorax. Left pleural effusion/thickening persists. Interstitial congestive changes persist. The heart is upper limits normal size. Again demonstrated is evidence of prior cardiac surgery Impression: Resolved right pleural effusion, postthoracentesis. No radiographically evident complication
--- NOTE | 2017-12-10 15:19 | Diagnostic Imaging Report ---
Indications: Pleural effusion Technique: Procedure performed at bedside. Ultrasound used to localize optimal puncture site. Sterile prepping and draping right chest. Local anesthesia with 1% lidocaine. Under real-time ultrasound guidance, puncture pleural space using thoracentesis needle. Stylet removed. Catheter placed to vacuum bottle suction. Total 500 milliliters of blood-tinged fluid aspirated. Patient tolerated procedure well, without immediate complication. Findings: Followup sonography demonstrates complete resolution of pleural fluid. Impression: Successful ultrasound-guided thoracentesis, yielding 500 milliliters of blood-tinged fluid
--- NOTE | 2017-12-10 18:37 | Cardiology Progress Note ---
Assessment/Plan Assessment/Plan 1. Left lower lobe consolidation. 2. Chronic renal insufficiency. 3. Coronary artery disease status post coronary bypass grafting. 4. Diabetes mellitus. 5. Hypertension. 6. Hyperlipidemia. 7. History of cerebrovascular accident. 8. Reported history of sarcoidosis. 9. History of liver disease. 10. History of severe mitral regurgitation status post mitral valve repair and left atrial appendage closure by Dr. martinez in 2016. 11. Moderte mitral stenosis adn mitral regurgitation 12. Moderate TR 13. Significant pulm htn 14. diastolic heart failure ? still in icu due to ams adn res maintain on bipap as needed had pleural effusion on her echo yest s/p thoracenteiss diuretic iv bp better will dc any antihypertensive for now ef has been normal venous dupelx of le d/w rn diurtic as bp and renal fucntion allow cxr noted improved effusion ekg noted Subjective Cardiovascular: Denies: chest pain, lightheadedness, syncope Respiratory: Reports: shortness of breath Gastrointestinal/Abdominal: Denies: abdominal pain Genitourinary: Denies: burning Objective Last 24 Hour Vital Signs Date Time Temp Pulse Resp B/P (MAP) Pulse Ox O2 Delivery O2 Flow Rate FiO2 12/10/17 17:00 82 20 123/55 96 Nasal Cannula 3.0 12/10/17 16:34 80 18 97 3.0 12/10/17 16:00 80 12/10/17 16:00 97.2 81 19 111/97 98 Nasal Cannula 3.0 97.2 12/10/17 15:00 76 23 121/44 98 Nasal Cannula 3.0 12/10/17 15:00 77 18 93/44 98 Nasal Cannula 3.0 12/10/17 14:58 68 18 95 3.0 12/10/17 14:00 76 23 121/44 98 Nasal Cannula 3.0 12/10/17 13:28 66 20 98 3.0 12/10/17 13:00 77 20 134/66 98 Nasal Cannula 3.0 12/10/17 12:00 75 12/10/17 12:00 97.5 72 24 125/47 98 Nasal Cannula 3.0 97.5 12/10/17 12:00 72 12/10/17 11:15 120/56 12/10/17 11:09 68 20 98 10.0 45 12/10/17 11:00 67 16 120/50 98 Bi-pap 30 12/10/17 10:00 68 16 116/48 98 Bi-pap 30 12/10/17 09:08 67 16 97 30 12/10/17 09:00 66 16 114/46 98 Bi-pap 30 12/10/17 08:00 98.0 65 16 112/45 98 Bi-pap 30 98.0 12/10/17 08:00 66 12/10/17 07:10 Bi-pap 30 12/10/17 07:10 97 Bi-pap 30 12/10/17 07:10 71 22 98 Facial 30 12/10/17 07:00 65 16 100/45 98 Bi-pap 30 12/10/17 06:00 65 16 104/41 98 Bi-pap 30 12/10/17 05:28 65 17 98 Facial 30 12/10/17 05:00 64 13 98/42 96 Bi-pap 30 12/10/17 04:00 66 12/10/17 04:00 97.8 64 19 100/39 95 Bi-pap 30 97.8 12/10/17 03:42 62 19 97 Facial 30 12/10/17 03:00 63 21 96/41 97 Bi-pap 30 12/10/17 02:00 64 19 88/47 94 Bi-pap 30 12/10/17 01:00 66 18 92/45 95 Bi-pap 30 12/10/17 00:48 67 17 100 Facial 30 12/10/17 00:00 64 18 97/54 95 Bi-pap 30 12/10/17 00:00 66 12/09/17 23:22 66 14 94 Facial 30 12/09/17 23:00 67 18 100/54 97 Bi-pap 30 12/09/17 22:00 65 18 91/47 95 Bi-pap 30 12/09/17 21:12 67 17 95 Facial 30 12/09/17 21:08 63 24 94 10.0 45 12/09/17 21:00 63 20 98/44 93 Venturi Mask 10.0 45 12/09/17 20:00 65 12/09/17 20:00 98.1 99 20 95/48 93 Venturi Mask 10.0 45 98.1 12/09/17 19:02 63 18 94 10.0 45 12/09/17 19:00 68 20 110/52 93 Venturi Mask 10.0 45 12/09/17 18:59 Venturi Mask 10.0 45 12/09/17 18:58 95 Venturi Mask 10.0 45 General Appearance: no apparent distress Cardiovascular: normal rate, tachycardia Respiratory/Chest: lungs clear Abdomen: normal bowel sounds, non tender Extremities: no swelling Intake and Output 12/09/17 12/10/17 19:00 07:00 Intake Total 110 ml Output Total 410 ml 760 ml Balance -410 ml -650 ml IV Total 110 ml Output Urine Total 410 ml 760 ml Laboratory Tests Test 12/10/17 04:00 12/10/17 04:15 12/10/17 12:00 Arterial Blood pH 7.322 (7.350-7.450) Arterial Blood Partial Pressure CO2 51.4 mmHg (35.0-45.0) H Arterial Blood Partial Pressure O2 87.0 mmHg (75.0-100.0) Arterial Blood HCO3 26.0 mmol/L (22.0-26.0) Arterial Blood Oxygen Saturation 95.3 % (92.0-98.0) Arterial Blood Base Excess -0.4 [place] Test Positive White Blood Count 8.6 K/UL (4.8-10.8) Red Blood Count 3.26 M/UL (4.20-5.40) L Hemoglobin 8.8 G/DL (12.0-16.0) L Hematocrit 27.5 % (37.0-47.0) L Mean Corpuscular Volume 84 FL (80-99) Mean Corpuscular Hemoglobin 26.9 PG (27.0-31.0) L Mean Corpuscular Hemoglobin Concent 31.9 G/DL (32.0-36.0) L Red Cell Distribution Width 15.7 % (11.6-14.8) H Platelet Count 164 K/UL (150-450) Mean Platelet Volume 7.4 FL (6.5-10.1) Neutrophils (%) (Auto) % (45.0-75.0) Lymphocytes (%) (Auto) % (20.0-45.0) Monocytes (%) (Auto) % (1.0-10.0) Eosinophils (%) (Auto) % (0.0-3.0) Basophils (%) (Auto) % (0.0-2.0) Differential Total Cells Counted 100 Neutrophils % (Manual) 93 % (45-75) H Lymphocytes % (Manual) 5 % (20-45) L Monocytes % (Manual) 2 % (1-10) Eosinophils % (Manual) 0 % (0-3) Basophils % (Manual) 0 % (0-2) Band Neutrophils 0 % (0-8) Other Cell Type Pathologist comment Platelet Estimate Adequate Platelet Morphology Normal Hypochromasia 1+ Anisocytosis 1+ Erythrocyte Sedimentation Rate 24 MM/HR (0-30) Reticulocyte Count 0.4 % (0.0-2.0) Prothrombin Time 11.5 SEC (9.30-11.50) Prothromb Time International Ratio 1.1 (0.9-1.1) Activated Partial Thromboplast Time 38 SEC (23-33) H Sodium Level 140 MMOL/L (136-145) Potassium Level 4.0 MMOL/L (3.5-5.1) Chloride Level 103 MMOL/L (98-107) Carbon Dioxide Level 26 MMOL/L (21-32) Anion Gap 11 mmol/L (5-15) Blood Urea Nitrogen 68 mg/dL (7-18) H Creatinine 3.0 MG/DL (0.55-1.30) H Estimat Glomerular Filtration Rate mL/min (>60) Glucose Level 52 MG/DL (74-106) L Uric Acid 9.1 MG/DL (2.6-7.2) H Calcium Level 6.9 MG/DL (8.5-10.1) L Phosphorus Level 7.4 MG/DL (2.5-4.9) H Magnesium Level 2.0 MG/DL (1.8-2.4) Iron Level 66 ug/dL (50-175) Total Iron Binding Capacity 205 ug/dL (250-450) L Percent Iron Saturation 32 % (15-50) Unsaturated Iron Binding 139 ug/dL (112-346) Total Bilirubin 0.8 MG/DL (0.2-1.0) Aspartate Amino Transf (AST/SGOT) 45 U/L (15-37) H Alanine Aminotransferase (ALT/SGPT) 47 U/L (12-78) Alkaline Phosphatase 171 U/L (46-116) H Lactate Dehydrogenase 276 U/L (81-234) H C-Reactive Protein, Quantitative 11.8 mg/dL (0.00-0.90) H Pro-B-Type Natriuretic Peptide 00877 pg/mL (0-125) H Total Protein 5.0 G/DL (6.4-8.2) L Albumin 1.6 G/DL (3.4-5.0) L Globulin 3.4 g/dL Albumin/Globulin Ratio 0.5 (1.0-2.7) L Vitamin B12 Level 637 PG/ML (193-986) Folate 13.2 NG/ML (8.6-58.9) Coccidioides Antibody (Comp Fix) Pending Cryptococcus Antigen Pending Body Fluid Source Pending Body Fluid Volume Pending Body Fluid Appearance Pending Body Fluid RBC Pending Body Fluid Total Nucleated Cells Pending Body Fluid Polynuclear WBCs (%) Pending Body Fluid Mononuclear WBCs (%) Pending Body Fluid Mesothelial Cells (%) Pending Microbiology Date/Time Source Procedure Growth Status 12/07/17 19:55 Blood Blood Culture - Preliminary NO GROWTH AFTER 48 HOURS Resulted 12/07/17 19:40 Blood Blood Culture - Preliminary NO GROWTH AFTER 48 HOURS Resulted 12/09/17 05:30 Sputum Gram Stain - Final Resulted 12/09/17 05:30 Sputum Sputum Culture Pending Resulted 12/07/17 20:25 Nasal Nares Influenza Types A,B Antigen (ROYA) - Final Complete YESICA MEDRANO Dec 10, 2017 18:36
[2017-12-11] VITALS (12 sets, daily range): BP systolic 103–154; BP diastolic 47–82
[2017-12-11] MEDS: NovoLOG Insulin Flexpen SUBQ SCH ×4 (05:09→20:57)
[2017-12-11 06:05] LABS: HEMATOCRIT 26.3 % (37.0-47.0); HEMOGLOBIN 8.6 G/DL (12.0-16.0); MEAN CORPUSCULAR VOLUME 83 FL (80-99); PLATELET COUNT 156 K/UL (150-450); RED BLOOD COUNT 3.17 M/UL (4.20-5.40); RED CELL DISTRIBUTION WIDTH 15.5 % (11.6-14.8); WHITE BLOOD COUNT 6.6 K/UL (4.8-10.8)
[2017-12-11 06:27] LABS: ALANINE AMINOTRANSFERASE 44 U/L (12-78); ALBUMIN 1.7 G/DL (3.4-5.0); ALBUMIN/GLOBULIN RATIO 0.5 (1.0-2.7); ALKALINE PHOSPHATASE 170 U/L (46-116); ANION GAP 11 mmol/L (5-15); ASPARTATE AMINO TRANSFERASE 43 U/L (15-37); BILIRUBIN,TOTAL 0.7 MG/DL (0.2-1.0); BLOOD UREA NITROGEN 70 mg/dL (7-18); CALCIUM 6.8 MG/DL (8.5-10.1); CARBON DIOXIDE 25 MMOL/L (21-32); CHLORIDE 102 MMOL/L (98-107); CREATININE 3.3 MG/DL (0.55-1.30); POTASSIUM 3.8 MMOL/L (3.5-5.1); SODIUM 138 MMOL/L (136-145)
[2017-12-11 06:28] LABS: PHOSPHORUS 5.5 MG/DL (2.5-4.9)
--- NOTE | 2017-12-11 07:00 | General Progress Note ---
Assessment/Plan Problem List: (1) Diabetes mellitus ICD Codes: E11.9 - Type 2 diabetes mellitus without complications SNOMED: 54983779 (2) Encephalopathy acute ICD Codes: G93.40 - Encephalopathy, unspecified SNOMED: 49911222, 211222772 (3) Renal insufficiency ICD Codes: N28.9 - Disorder of kidney and ureter, unspecified SNOMED: 285341929, 884550141 (4) CHF (congestive heart failure) ICD Codes: I50.9 - Heart failure, unspecified SNOMED: 41647596 Qualifiers: Qualified Codes: I50.9 - Heart failure, unspecified (5) Pleural effusion ICD Codes: J90 - Pleural effusion, not elsewhere classified SNOMED: 51884201 Assessment/Plan hypoglycemia due to Glipizide - a long acting JEONG BG values improving continue supportive care - BG monitoring w/o insulin coverage Subjective ROS Limited/Unobtainable: Yes Allergies: Coded Allergies: LEVOFLOXACIN (Verified Allergy, Unknown, 12/09/17) SULFA (SULFONAMIDE ANTIBIOTICS) (Verified Allergy, Unknown, 12/09/17) Subjective events noted interval notes reviewed Objective Last 24 Hour Vital Signs Date Time Temp Pulse Resp B/P (MAP) Pulse Ox O2 Delivery O2 Flow Rate FiO2 12/11/17 06:00 69 26 117/57 99 Nasal Cannula 3.0 12/11/17 05:16 70 20 97 3.0 12/11/17 05:00 92 23 125/55 97 Nasal Cannula 3.0 12/11/17 04:00 98.5 68 21 133/61 92 Nasal Cannula 3.0 98.5 12/11/17 04:00 70 12/11/17 03:13 71 21 96 3.0 12/11/17 03:00 69 20 119/54 95 Nasal Cannula 3.0 12/11/17 02:00 74 26 115/52 96 Nasal Cannula 3.0 12/11/17 01:09 99.2 12/11/17 01:00 78 27 103/47 96 Nasal Cannula 3.0 12/11/17 00:57 100 24 95 3.0 12/11/17 00:00 82 12/11/17 00:00 72 23 105/49 95 Nasal Cannula 3.0 12/10/17 23:47 99.9 12/10/17 23:04 86 22 95 3.0 12/10/17 23:00 101 23 117/55 95 Nasal Cannula 3.0 12/10/17 22:00 82 23 110/48 95 Nasal Cannula 3.0 12/10/17 21:00 82 23 110/48 95 Nasal Cannula 3.0 12/10/17 20:49 84 20 96 3.0 12/10/17 20:00 99.3 82 27 126/51 96 Nasal Cannula 3.0 99.3 12/10/17 20:00 82 12/10/17 19:29 84 22 Nasal Cannula 3.0 32 12/10/17 19:28 Nasal Cannula 3.0 32 12/10/17 19:27 94 Nasal Cannula 3.0 32 12/10/17 19:00 85 23 116/46 95 Nasal Cannula 3.0 12/10/17 18:00 84 25 125/47 95 Nasal Cannula 3.0 12/10/17 17:00 82 20 123/55 96 Nasal Cannula 3.0 12/10/17 16:34 80 18 97 3.0 12/10/17 16:00 80 12/10/17 16:00 97.2 81 19 111/97 98 Nasal Cannula 3.0 97.2 12/10/17 15:00 76 23 121/44 98 Nasal Cannula 3.0 12/10/17 15:00 77 18 93/44 98 Nasal Cannula 3.0 12/10/17 14:58 68 18 95 3.0 12/10/17 14:00 76 23 121/44 98 Nasal Cannula 3.0 12/10/17 13:28 66 20 98 3.0 12/10/17 13:00 77 20 134/66 98 Nasal Cannula 3.0 12/10/17 12:00 75 12/10/17 12:00 97.5 72 24 125/47 98 Nasal Cannula 3.0 97.5 12/10/17 12:00 72 12/10/17 11:15 120/56 12/10/17 11:09 68 20 98 10.0 45 12/10/17 11:00 67 16 120/50 98 Bi-pap 30 12/10/17 10:00 68 16 116/48 98 Bi-pap 30 12/10/17 09:08 67 16 97 30 12/10/17 09:00 66 16 114/46 98 Bi-pap 30 12/10/17 08:00 98.0 65 16 112/45 98 Bi-pap 30 98.0 12/10/17 08:00 66 12/10/17 07:10 Bi-pap 30 12/10/17 07:10 97 Bi-pap 30 12/10/17 07:10 71 22 98 Facial 30 12/10/17 07:00 65 16 100/45 98 Bi-pap 30 Intake and Output 12/10/17 12/11/17 19:00 07:00 Intake Total 622 ml 331 ml Output Total 4360 ml 2150 ml Balance -3738 ml -1819 ml Intake Oral 600 ml 100 ml IV Total 22 ml 231 ml Output Urine Total 310 ml 350 ml Other 4050 ml 1800 ml # Bowel Movements 7 Laboratory Tests 12/10/17 12:00: Body Fluid Source Thoracentesis, Body Fluid Volume 28, Body Fluid Appearance Bloody, Body Fl[place] [address], Body Fluid Total Nucleated Cells 123, Body Fluid Polynuclear WBCs (%) 10, Body Fluid Mononuclear WBCs (%) 78, Body Fluid Mesothelial Cells (%) 12 12/11/17 00:00: Stool Occult Blood [Pending] 12/11/17 04:05: White Blood Count 6.6, Red Blood Count 3.17L, Hemoglobin 8.6L, Hematocrit 26.3L , Mean Corpuscular Volume 83, Mean Corpuscular Hemoglobin 27.1, Mean Corpuscular Hemoglobin Concent 32.6, Red Cell Distribution Width 15.5H, Platelet Count 156, Mean Platelet Volume 7.6, Neutrophils (%) (Auto) , Lymphocytes (%) (Auto) , Monocytes (%) (Auto) , Eosinophils (%) (Auto) , Basophils (%) (Auto) , Sodium Level 138, Potassium Level 3.8, Chloride Level 102 , Carbon Dioxide Level 25, Anion Gap 11, Blood Urea Nitrogen 70H, Creatinine 3.3H, Estimat Glomerular Filtration Rate , Glucose Level 148H, Uric Acid [ Pending], Calcium Level 6.8L, Phosphorus Level 5.5H, Magnesium Level 2.1, Total Bilirubin 0.7, Aspartate Amino Transf (AST/SGOT) 43H, Alanine Aminotransferase ( ALT/SGPT) 44, Alkaline Phosphatase 170H, Pro-B-Type Natriuretic Peptide [Pending ], Total Protein 5.3L, Albumin 1.7L, Globulin 3.6, Albumin/Globulin Ratio 0.5L, Random Vancomycin Level 11.9 Height (Feet): 5 Height (Inches): 4.00 Weight (Pounds): 125 General Appearance: lethargic Neck: normal alignment Cardiovascular: normal rate Respiratory/Chest: lungs clear Abdomen: normal bowel sounds Objective Current Medications Medications (Trade) Dose Ordered Sig/Maribel Route PRN Reason Start Time Stop Time Status Last Admin Dose Admin Acetaminophen (Tylenol) 650 mg Q4H PRN ORAL T>100.5 12/09/17 02:00 01/06/18 21:59 12/10/17 23:47 Albuterol/ Ipratropium (Albuterol/ Ipratropium) 3 ml Q4H PRN HHN Shortness of Breath 12/09/17 02:00 12/12/17 21:59 Ampicillin Sodium/ Sulbactam Sodium 3 gm/Sodium Chloride 110 ml @ 220 mls/hr Q12HR IVPB 12/09/17 13:00 12/16/17 12:59 12/10/17 21:53 Apixaban (Eliquis) 2.5 mg BID ORAL 12/09/17 09:00 01/07/18 14:29 12/10/17 17:30 Aspirin (ASA) 81 mg DAILY ORAL 12/09/17 09:00 01/08/18 08:59 Dextrose (Dextrose 50%) STAT PRN IV Hypoglycemia 12/09/17 12:55 01/08/18 12:54 12/10/17 05:40 Diltiazem HCl (Cardizem) 10 mg EVERY HOUR PRN IV heart rate more than 120, 12/09/17 00:00 01/06/18 21:59 Dopamine HCl/ Dextrose 250 ml @ 0 mls/hr Q24H IV 12/10/17 11:15 01/09/18 11:14 Furosemide 100 mg/ Dextrose 110 ml @ 11 mls/hr Q10H IV 12/10/17 12:30 01/09/18 12:29 12/10/17 22:56 Haloperidol Lactate (Haldol) 5 mg Q6H PRN IM Agitation 12/09/17 21:30 01/08/18 21:29 Insulin Aspart (NovoLOG) BEFORE MEALS AND HS SUBQ 12/09/17 06:30 01/07/18 06:29 12/11/17 05:09 Morphine Sulfate (Morphine Sulfate) 1 mg Q4H PRN IVP PAIN 4-10 12/09/17 15:15 12/16/17 15:14 12/09/17 15:27 Nitroglycerin (Ntg) 0.4 mg Q5MIN X 3 DOSES PRN SL Prn Chest Pain 12/08/17 23:30 01/06/18 21:59 Ondansetron HCl (Zofran) 4 mg Q6H PRN IVP Nausea & Vomiting 12/09/17 04:00 01/06/18 21:59 Pantoprazole (Protonix) 40 mg DAILY ORAL 12/09/17 15:15 01/08/18 15:14 12/10/17 08:35 Polyethylene Glycol (Miralax) 17 gm DAILYPRN PRN ORAL Constipation 12/09/17 22:00 01/06/18 21:59 Promethazine HCl/ Codeine (Phenergan with Codeine) 5 ml Q4H PRN ORAL For Cough 12/08/17 23:30 01/07/18 11:29 Quetiapine Fumarate (SEROquel) 25 mg Q4H PRN ORAL For Anxiety 12/09/17 21:30 01/08/18 21:29 Temazepam (Restoril) 15 mg HSPRN PRN ORAL Insomnia 12/09/17 22:00 12/14/17 21:59 Vancomycin HCl (Vanco rx to dose) 1 ea DAILY PRN MISC Per rx protocol 12/09/17 11:30 01/08/18 11:29 Item Value Date Time Bedside Blood Glucose 163 mg/dl H 12/11/17 0630 Bedside Blood Glucose 178 mg/dl H 12/10/17 2155 Bedside Blood Glucose 186 mg/dl H 12/10/17 1728 Bedside Blood Glucose 88 mg/dl 12/10/17 1200 Bedside Blood Glucose 58 mg/dl L 12/10/17 0630 GRAHAM CASE 16, 2018 06:59
[2017-12-11] MEDS ORDERED: Promethazine/Codeine 5ml UD ORAL PRN (08:00)
[2017-12-11] MEDS ORDERED: Miralax 17gm pkt ORAL PRN (08:00)
[2017-12-11] MEDS ORDERED: Morphine Sulfate 2mg/ml Inj IVP PRN (08:00)
[2017-12-11] MEDS ORDERED: Albuterol/Ipratropium 3ml neb HHN PRN (08:00)
[2017-12-11] MEDS ORDERED: dilTIAZem HCl 25mg/5ml Inj IV PRN (08:00)
[2017-12-11] MEDS ORDERED: Nitroglycerin Subl 0.4mg tab SL PRN (08:00)
[2017-12-11] MEDS: Eliquis 2.5mg tablet ORAL SCH ×2 (08:56→18:00)
[2017-12-11] MEDS: Aspirin Baby 81mg ORAL SCH (08:56)
[2017-12-11] MEDS ORDERED: Ampicillin/Sulbactam Sod 3 GM in NS 110 ML IVPB SCH (09:00)
[2017-12-11] MEDS ORDERED: Vancomycin 750mg/NS 250ml IVPB ONE (09:30)
[2017-12-11] MEDS ORDERED: Vancomycin 750mg/NS 250ml 250 ML IVPB ONE (09:30)
--- NOTE | 2017-12-11 10:33 | Diagnostic Imaging Report ---
Indication: Shortness of breath Technique: One view of the chest Comparison: 12/10/2017 Findings: Slightly less optimal inspiration currently. Left pleural effusion and bilateral generalized interstitial edema persist. The heart remains enlarged. Impression: Essentially unchanged over one day, findings as noted
[2017-12-11] MEDS ORDERED: DOPamine 400mg/250ml 250 ML IV SCH (11:15)
--- NOTE | 2017-12-11 12:13 | Pulmonology Progress Note ---
Assessment/Plan Problems: (1) Encephalopathy acute (2) Pneumonia (3) Hypoglycemia (4) Diabetes mellitus (5) Lung mass (6) S/P CABG x 5 Assessment/Plan dc lasix drip hold off to dopamin drip thoracentesis, removed 500 cc/ bloody effusion, continue abx check cultures check electroltyes Subjective ROS Limited/Unobtainable: No Constitutional: Reports: no symptoms HEENT: Repors: no symptoms Allergies: Coded Allergies: LEVOFLOXACIN (Verified Allergy, Unknown, 12/09/17) SULFA (SULFONAMIDE ANTIBIOTICS) (Verified Allergy, Unknown, 12/09/17) Objective Last 24 Hour Vital Signs Date Time Temp Pulse Resp B/P (MAP) Pulse Ox O2 Delivery O2 Flow Rate FiO2 12/11/17 09:46 95 3.0 12/11/17 07:59 74 12/11/17 07:40 98.7 69 21 124/69 95 Nasal Cannula 3.0 98.7 12/11/17 07:24 74 18 94 3.0 12/11/17 07:24 Nasal Cannula 3.0 32 12/11/17 07:24 94 Nasal Cannula 3.0 32 12/11/17 07:00 70 23 105/61 97 Nasal Cannula 3.0 12/11/17 06:00 69 26 117/57 99 Nasal Cannula 3.0 12/11/17 05:16 70 20 97 3.0 12/11/17 05:00 92 23 125/55 97 Nasal Cannula 3.0 12/11/17 04:00 98.5 68 21 133/61 92 Nasal Cannula 3.0 98.5 12/11/17 04:00 70 12/11/17 03:13 71 21 96 3.0 12/11/17 03:00 69 20 119/54 95 Nasal Cannula 3.0 12/11/17 02:00 74 26 115/52 96 Nasal Cannula 3.0 12/11/17 01:09 99.2 12/11/17 01:00 78 27 103/47 96 Nasal Cannula 3.0 12/11/17 00:57 100 24 95 3.0 12/11/17 00:00 82 12/11/17 00:00 72 23 105/49 95 Nasal Cannula 3.0 12/10/17 23:47 99.9 12/10/17 23:04 86 22 95 3.0 12/10/17 23:00 101 23 117/55 95 Nasal Cannula 3.0 12/10/17 22:00 82 23 110/48 95 Nasal Cannula 3.0 12/10/17 21:00 82 23 110/48 95 Nasal Cannula 3.0 12/10/17 20:49 84 20 96 3.0 12/10/17 20:00 99.3 82 27 126/51 96 Nasal Cannula 3.0 99.3 12/10/17 20:00 82 12/10/17 19:29 84 22 Nasal Cannula 3.0 32 12/10/17 19:28 Nasal Cannula 3.0 32 12/10/17 19:27 94 Nasal Cannula 3.0 32 12/10/17 19:00 85 23 116/46 95 Nasal Cannula 3.0 12/10/17 18:00 84 25 125/47 95 Nasal Cannula 3.0 12/10/17 17:00 82 20 123/55 96 Nasal Cannula 3.0 12/10/17 16:34 80 18 97 3.0 12/10/17 16:00 80 12/10/17 16:00 97.2 81 19 111/97 98 Nasal Cannula 3.0 97.2 12/10/17 15:00 76 23 121/44 98 Nasal Cannula 3.0 12/10/17 15:00 77 18 93/44 98 Nasal Cannula 3.0 12/10/17 14:58 68 18 95 3.0 12/10/17 14:00 76 23 121/44 98 Nasal Cannula 3.0 12/10/17 13:28 66 20 98 3.0 12/10/17 13:00 77 20 134/66 98 Nasal Cannula 3.0 Intake and Output 12/10/17 12/11/17 19:00 07:00 Intake Total 622 ml 342 ml Output Total 4360 ml 2180 ml Balance -3738 ml -1838 ml Intake Oral 600 ml 100 ml IV Total 22 ml 242 ml Output Urine Total 310 ml 380 ml Other 4050 ml 1800 ml # Bowel Movements 7 General Appearance: WD/WN HEENT: normocephalic, atraumatic Respiratory/Chest: chest wall non-tender, lungs clear Breasts: no masses Cardiovascular: normal peripheral pulses, regular rhythm, regularly irregular Abdomen: normal bowel sounds, no organomegaly Genitourinary: normal external genitalia Extremities: no clubbing Skin: no rash, no lesions Neurologic/Psychiatric: no motor/sensory deficits, abnormal gait Microbiology Date/Time Source Procedure Growth Status 12/10/17 12:00 Ascities Fluid Gram Stain Pending Resulted 12/10/17 12:00 Ascities Fluid Body Fluid Culture - Preliminary NO GROWTH Resulted 12/09/17 05:30 Sputum Gram Stain - Final Complete 12/09/17 05:30 Sputum Sputum Culture - Final NORMAL UPPER RESPIRATORY MONCHO PRESENT Complete Laboratory Tests 12/11/17 00:00: Stool Occult Blood [Pending] 12/11/17 04:00: Arterial Blood pH 7.366, Arterial Blood Partial Pressure CO2 41.8, Arterial Blood Partial Pressure O2 90.4, Arterial Blood HCO3 23.4, Arterial Blood Oxygen Saturation 95.9, Arterial Blood Base Excess -1.8, [place] Test Positive 12/11/17 04:05: White Blood Count 6.6, Red Blood Count 3.17L, Hemoglobin 8.6L, Hematocrit 26.3L , Mean Corpuscular Volume 83, Mean Corpuscular Hemoglobin 27.1, Mean Corpuscular Hemoglobin Concent 32.6, Red Cell Distribution Width 15.5H, Platelet Count 156, Mean Platelet Volume 7.6, Neutrophils (%) (Auto) , Lymphocytes (%) (Auto) , Monocytes (%) (Auto) , Eosinophils (%) (Auto) , Basophils (%) (Auto) , Sodium Level 138, Potassium Level 3.8, Chloride Level 102 , Carbon Dioxide Level 25, Anion Gap 11, Blood Urea Nitrogen 70H, Creatinine 3.3H, Estimat Glomerular Filtration Rate , Glucose Level 148H, Uric Acid 9.9H, Calcium Level 6.8L, Phosphorus Level 5.5H, Magnesium Level 2.1, Total Bilirubin 0.7, Aspartate Amino Transf (AST/SGOT) 43H, Alanine Aminotransferase (ALT/SGPT) 44, Alkaline Phosphatase 170H, Pro-B-Type Natriuretic Peptide > 84211M, Total Protein 5.3L, Albumin 1.7L, Globulin 3.6, Albumin/Globulin Ratio 0.5L, Random Vancomycin Level 11.9 Current Medications Medications (Trade) Dose Ordered Sig/Maribel Route PRN Reason Start Time Stop Time Status Last Admin Dose Admin Acetaminophen (Tylenol) 650 mg Q4H PRN ORAL T>100.5 12/11/17 08:00 01/06/18 07:59 Albuterol/ Ipratropium (Albuterol/ Ipratropium) 3 ml Q4H PRN HHN Shortness of Breath 12/11/17 08:00 12/12/17 07:59 Ampicillin Sodium/ Sulbactam Sodium 3 gm/Sodium Chloride 110 ml @ 220 mls/hr Q12HR IVPB 12/11/17 09:00 12/16/17 12:59 12/11/17 08:55 Apixaban (Eliquis) 2.5 mg BID ORAL 12/11/17 09:00 01/07/18 14:29 12/11/17 08:56 Aspirin (ASA) 81 mg DAILY ORAL 12/11/17 09:00 01/08/18 08:59 12/11/17 08:56 Dextrose (Dextrose 50%) STAT PRN IV Hypoglycemia 12/11/17 08:00 01/08/18 07:59 Diltiazem HCl (Cardizem) 10 mg EVERY HOUR PRN IV heart rate more than 120 BPM 12/11/17 08:00 01/06/18 21:59 Furosemide 100 mg/ Dextrose 110 ml @ 11 mls/hr Q10H IV 12/11/17 09:00 01/09/18 08:59 12/11/17 09:35 Haloperidol Lactate (Haldol) 5 mg Q6H PRN IM Agitation 12/11/17 08:00 01/08/18 07:59 Insulin Aspart (NovoLOG) BEFORE MEALS AND HS SUBQ 12/11/17 11:30 01/07/18 06:29 12/11/17 11:45 Morphine Sulfate (Morphine Sulfate) 1 mg Q4H PRN IVP PAIN 4-10 12/11/17 08:00 12/16/17 07:59 Nitroglycerin (Ntg) 0.4 mg Q5MIN X 3 DOSES PRN SL Prn Chest Pain 12/11/17 08:00 01/06/18 07:59 Ondansetron HCl (Zofran) 4 mg Q6H PRN IVP Nausea & Vomiting 12/11/17 08:00 01/06/18 07:59 Pantoprazole (Protonix) 40 mg DAILY ORAL 12/11/17 09:00 01/08/18 15:14 12/11/17 08:56 Polyethylene Glycol (Miralax) 17 gm DAILYPRN PRN ORAL Constipation 12/11/17 08:00 01/06/18 07:59 Promethazine HCl/ Codeine (Phenergan with Codeine) 5 ml Q4H PRN ORAL For Cough 12/11/17 08:00 01/07/18 07:59 Quetiapine Fumarate (SEROquel) 25 mg Q4H PRN ORAL For Anxiety 12/11/17 08:00 01/08/18 07:59 12/11/17 11:57 Temazepam (Restoril) 15 mg HSPRN PRN ORAL Insomnia 12/11/17 21:00 12/14/17 20:59 Vancomycin HCl (Vanco rx to dose) 1 ea DAILY PRN MISC Per rx protocol 12/11/17 08:00 01/10/18 07:59 Jessica Peralta MD Dec 11, 2017 12:13
--- NOTE | 2017-12-11 13:08 | General Progress Note ---
Assessment/Plan Assessment/Plan #. Anemia due to underlying chronic disease. --> Continue to closely monitor for improvement. The patient may have evidence of iron deficiency and at this time --> Anemia workup reviewed. Iron 66, TIBC 306, Ferritin 131, Vit B12 637, Folate 13.2 --> Transfuse if hgb <7, prbc not needed at this time. #. Anemia of iron deficiency. --> TIBC is elevated. Begin the patient on ferrous sulfate. --> Monitor. #. Anemia due to gastrointestinal bleed consider GI Service as needed. #. Severe mitral regurgitation, status post mitral valve repair in 2016. --> Continue the patient on Eliquis. as well as Coreg as needed. #. Leukocytosis, likely secondary to infectious process. ESR 41. --> Continue to closely monitor. #. Prothrombin time coagulopathy. --> Closely monitor for improvement and currently prothrombin time elevated, on Eliquis. Continue at this time. 3. Hypoglycemia. Low blood sugar, found unresponsive at home. D10 given. Subjective Date patient seen: Dec 10, 2017 Constitutional: Denies: no symptoms, chills, diaphoresis, fever, malaise, weakness, other HEENT: Denies: no symptoms, eye pain, blurred vision, tearing, double vision, ear pain, ear discharge, nose pain, nose congestion, throat pain, throat swelling, mouth pain, mouth swelling, other Cardiovascular: Denies: no symptoms, chest pain, edema, irregular heart rate, lightheadedness, palpitations, syncope, other Respiratory: Denies: no symptoms, cough, orthopnea, shortness of breath, SOB with excertion, SOB at rest, sputum, stridor, wheezing, other Gastrointestinal/Abdominal: Denies: no symptoms, abdomen distended, abdominal pain, black stools, tarry stools, blood in stool, constipated, diarrhea, difficulty swallowing, nausea, poor appetite, poor fluid intake, rectal bleeding , vomiting, other Genitourinary: Denies: no symptoms, burning, discharge, frequency, flank pain, hematuria, incontinence, pain, urgency, other Neurologic/Psychiatric: Denies: no symptoms, anxiety, depressed, emotional problems, headache, numbness, paresthesia, pre-existing deficit, seizure, tingling, tremors, weakness, other Hematologic/Lymphatic: Reports: anemia Allergies: Coded Allergies: LEVOFLOXACIN (Verified Allergy, Unknown, 12/09/17) SULFA (SULFONAMIDE ANTIBIOTICS) (Verified Allergy, Unknown, 12/09/17) Subjective NAD. No major events overnight. Objective Last 24 Hour Vital Signs Date Time Temp Pulse Resp B/P (MAP) Pulse Ox O2 Delivery O2 Flow Rate FiO2 12/11/17 12:00 97.0 72 18 136/69 97 Nasal Cannula 3.0 97.0 12/11/17 11:58 73 12/11/17 09:46 95 3.0 12/11/17 07:59 74 12/11/17 07:40 98.7 69 21 124/69 95 Nasal Cannula 3.0 98.7 12/11/17 07:24 74 18 94 3.0 12/11/17 07:24 Nasal Cannula 3.0 32 12/11/17 07:24 94 Nasal Cannula 3.0 32 12/11/17 07:00 70 23 105/61 97 Nasal Cannula 3.0 12/11/17 06:00 69 26 117/57 99 Nasal Cannula 3.0 12/11/17 05:16 70 20 97 3.0 12/11/17 05:00 92 23 125/55 97 Nasal Cannula 3.0 12/11/17 04:00 98.5 68 21 133/61 92 Nasal Cannula 3.0 98.5 12/11/17 04:00 70 12/11/17 03:13 71 21 96 3.0 12/11/17 03:00 69 20 119/54 95 Nasal Cannula 3.0 12/11/17 02:00 74 26 115/52 96 Nasal Cannula 3.0 12/11/17 01:09 99.2 12/11/17 01:00 78 27 103/47 96 Nasal Cannula 3.0 12/11/17 00:57 100 24 95 3.0 12/11/17 00:00 82 12/11/17 00:00 72 23 105/49 95 Nasal Cannula 3.0 12/10/17 23:47 99.9 12/10/17 23:04 86 22 95 3.0 12/10/17 23:00 101 23 117/55 95 Nasal Cannula 3.0 12/10/17 22:00 82 23 110/48 95 Nasal Cannula 3.0 12/10/17 21:00 82 23 110/48 95 Nasal Cannula 3.0 12/10/17 20:49 84 20 96 3.0 12/10/17 20:00 99.3 82 27 126/51 96 Nasal Cannula 3.0 99.3 12/10/17 20:00 82 12/10/17 19:29 84 22 Nasal Cannula 3.0 32 12/10/17 19:28 Nasal Cannula 3.0 32 12/10/17 19:27 94 Nasal Cannula 3.0 32 12/10/17 19:00 85 23 116/46 95 Nasal Cannula 3.0 12/10/17 18:00 84 25 125/47 95 Nasal Cannula 3.0 12/10/17 17:00 82 20 123/55 96 Nasal Cannula 3.0 12/10/17 16:34 80 18 97 3.0 12/10/17 16:00 80 12/10/17 16:00 97.2 81 19 111/97 98 Nasal Cannula 3.0 97.2 12/10/17 15:00 76 23 121/44 98 Nasal Cannula 3.0 12/10/17 15:00 77 18 93/44 98 Nasal Cannula 3.0 12/10/17 14:58 68 18 95 3.0 12/10/17 14:00 76 23 121/44 98 Nasal Cannula 3.0 12/10/17 13:28 66 20 98 3.0 Intake and Output 12/10/17 12/11/17 19:00 07:00 Intake Total 622 ml 342 ml Output Total 4360 ml 2180 ml Balance -3738 ml -1838 ml Intake Oral 600 ml 100 ml IV Total 22 ml 242 ml Output Urine Total 310 ml 380 ml Other 4050 ml 1800 ml # Bowel Movements 7 Laboratory Tests 12/11/17 00:00: Stool Occult Blood Positive 12/11/17 04:00: Arterial Blood pH 7.366, Arterial Blood Partial Pressure CO2 41.8, Arterial Blood Partial Pressure O2 90.4, Arterial Blood HCO3 23.4, Arterial Blood Oxygen Saturation 95.9, Arterial Blood Base Excess -1.8, [place] Test Positive 12/11/17 04:05: White Blood Count 6.6, Red Blood Count 3.17L, Hemoglobin 8.6L, Hematocrit 26.3L , Mean Corpuscular Volume 83, Mean Corpuscular Hemoglobin 27.1, Mean Corpuscular Hemoglobin Concent 32.6, Red Cell Distribution Width 15.5H, Platelet Count 156, Mean Platelet Volume 7.6, Neutrophils (%) (Auto) , Lymphocytes (%) (Auto) , Monocytes (%) (Auto) , Eosinophils (%) (Auto) , Basophils (%) (Auto) , Sodium Level 138, Potassium Level 3.8, Chloride Level 102 , Carbon Dioxide Level 25, Anion Gap 11, Blood Urea Nitrogen 70H, Creatinine 3.3H, Estimat Glomerular Filtration Rate , Glucose Level 148H, Uric Acid 9.9H, Calcium Level 6.8L, Phosphorus Level 5.5H, Magnesium Level 2.1, Total Bilirubin 0.7, Aspartate Amino Transf (AST/SGOT) 43H, Alanine Aminotransferase (ALT/SGPT) 44, Alkaline Phosphatase 170H, Pro-B-Type Natriuretic Peptide > 60946S, Total Protein 5.3L, Albumin 1.7L, Globulin 3.6, Albumin/Globulin Ratio 0.5L, Random Vancomycin Level 11.9 Height (Feet): 5 Height (Inches): 4.00 Weight (Pounds): 125 General Appearance: no apparent distress Abdirashid Solorzano MD Dec 11, 2017 13:07
--- NOTE | 2017-12-11 13:14 | Infectious Diseases Prog Note ---
Assessment/Plan Assessment/Plan Assessment: Acute hypoxic/hypercapenic respiratory failure- off Bipap now > NC R>L pleural effusion- possibly multifactorial due to CHF and PNA -s/p Thoracentesis removal of 500cc blood tinge fluid -WBC 123 (L 10, M 78); cx NTD; LDH protien, pH pending -CT chest: Large right pleural effusion. Resultant compressive atelectasis of much of the right lower lobe. Moderate left-sided pleural effusion, with compressive atelectasis of portions of the left lower lobe. There is also perihilar consolidation which may indicate pneumonia. There is also compressive atelectasis of much of the inferior lingula. Mild interstitial congestion in the left upper lobe. 7 mm masslike opacity in the left upper lobe at the level of the aortic arch. Most likely some focal edema or consolidation, but neoplasm also a possibility. Cardiomegaly. Evidence of prior CABG and mitral valve repair. Evidence of anasarca elsewhere, with chest and abdominal wall edema, small amount of ascites. T10 vertebral body compression fracture deformity. Age indeterminate. Consider MRI for further evaluation if this is considered clinically significant. Hepatomegaly -CXR 12/07: Dense left midlung consolidation and probable pleural fluid. Generalized interstitial congestion. Probable small right pleural effusion. Cardiomegaly -Influenza sc neg -Bcx NTD -sp cx normal malika to date -CRP 10.8 Leukocytosis, resolved -afebrile Renal insufficiency, worsening -REnal US: Negative for hydronephrosis. Echogenic lesion in the interpolar region of the right kidney. 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 Consider CT for further evaluation Prolonged QTc CVA HTN sarcoidosis severe MR s/p MVR w/ left atrial appendage closure 2010 liver disease GIB Aflutter on Eliquis Dm2 CAD s/p CABG x5 HLD Plan: -Continue empiric IV Vanco and Unasyn #3 pending cultures -12/08 SP Levaquin x1 -f/u pleural fluid -fluid analysis, fungal, AFB, bacterial MTB PCR -f/u sputum cx, COcci ab, CrAg, 1,3b-d glucan, legionella ag urine -f/u cx -Monitor CBC/CMP, temperatures Thank you for this consultation. Will continue to follow along with you. Discussed with RN. Subjective Allergies: Coded Allergies: LEVOFLOXACIN (Verified Allergy, Unknown, 12/09/17) SULFA (SULFONAMIDE ANTIBIOTICS) (Verified Allergy, Unknown, 12/09/17) Subjective afebrile no leukocytosis s/p thoracentesis yesterday now on 3l NC Objective Vital Signs Last 24 Hour Vital Signs Date Time Temp Pulse Resp B/P (MAP) Pulse Ox O2 Delivery O2 Flow Rate FiO2 12/11/17 12:00 97.0 72 18 136/69 97 Nasal Cannula 3.0 97.0 12/11/17 11:58 73 12/11/17 09:46 95 3.0 12/11/17 07:59 74 12/11/17 07:40 98.7 69 21 124/69 95 Nasal Cannula 3.0 98.7 12/11/17 07:24 74 18 94 3.0 12/11/17 07:24 Nasal Cannula 3.0 32 12/11/17 07:24 94 Nasal Cannula 3.0 32 12/11/17 07:00 70 23 105/61 97 Nasal Cannula 3.0 12/11/17 06:00 69 26 117/57 99 Nasal Cannula 3.0 12/11/17 05:16 70 20 97 3.0 12/11/17 05:00 92 23 125/55 97 Nasal Cannula 3.0 12/11/17 04:00 98.5 68 21 133/61 92 Nasal Cannula 3.0 98.5 12/11/17 04:00 70 12/11/17 03:13 71 21 96 3.0 12/11/17 03:00 69 20 119/54 95 Nasal Cannula 3.0 12/11/17 02:00 74 26 115/52 96 Nasal Cannula 3.0 12/11/17 01:09 99.2 12/11/17 01:00 78 27 103/47 96 Nasal Cannula 3.0 12/11/17 00:57 100 24 95 3.0 12/11/17 00:00 82 12/11/17 00:00 72 23 105/49 95 Nasal Cannula 3.0 12/10/17 23:47 99.9 12/10/17 23:04 86 22 95 3.0 12/10/17 23:00 101 23 117/55 95 Nasal Cannula 3.0 12/10/17 22:00 82 23 110/48 95 Nasal Cannula 3.0 12/10/17 21:00 82 23 110/48 95 Nasal Cannula 3.0 12/10/17 20:49 84 20 96 3.0 12/10/17 20:00 99.3 82 27 126/51 96 Nasal Cannula 3.0 99.3 12/10/17 20:00 82 12/10/17 19:29 84 22 Nasal Cannula 3.0 32 12/10/17 19:28 Nasal Cannula 3.0 32 12/10/17 19:27 94 Nasal Cannula 3.0 32 12/10/17 19:00 85 23 116/46 95 Nasal Cannula 3.0 12/10/17 18:00 84 25 125/47 95 Nasal Cannula 3.0 12/10/17 17:00 82 20 123/55 96 Nasal Cannula 3.0 12/10/17 16:34 80 18 97 3.0 12/10/17 16:00 80 12/10/17 16:00 97.2 81 19 111/97 98 Nasal Cannula 3.0 97.2 12/10/17 15:00 76 23 121/44 98 Nasal Cannula 3.0 12/10/17 15:00 77 18 93/44 98 Nasal Cannula 3.0 12/10/17 14:58 68 18 95 3.0 12/10/17 14:00 76 23 121/44 98 Nasal Cannula 3.0 12/10/17 13:28 66 20 98 3.0 Height (Feet): 5 Height (Inches): 4.00 Weight (Pounds): 125 Objective HEENT: atraumatic Lungs: rales, rhonchi Heart: HR/BP stable, HR/BP unstable Abdomen: non-tender, active bowel sounds Extremities: no C/C/E, edema Microbiology Date/Time Source Procedure Growth Status 12/10/17 12:00 Ascities Fluid Gram Stain Pending Resulted 12/10/17 12:00 Ascities Fluid Body Fluid Culture - Preliminary NO GROWTH Resulted 12/09/17 05:30 Sputum Gram Stain - Final Complete 12/09/17 05:30 Sputum Sputum Culture - Final NORMAL UPPER RESPIRATORY MALIKA PRESENT Complete Laboratory Tests Test 12/11/17 00:00 12/11/17 04:00 12/11/17 04:05 Stool Occult Blood Positive (NEGATIVE) Arterial Blood pH 7.366 (7.350-7.450) Arterial Blood Partial Pressure CO2 41.8 mmHg (35.0-45.0) Arterial Blood Partial Pressure O2 90.4 mmHg (75.0-100.0) Arterial Blood HCO3 23.4 mmol/L (22.0-26.0) Arterial Blood Oxygen Saturation 95.9 % (92.0-98.0) Arterial Blood Base Excess -1.8 [place] Test Positive White Blood Count 6.6 K/UL (4.8-10.8) Red Blood Count 3.17 M/UL (4.20-5.40) L Hemoglobin 8.6 G/DL (12.0-16.0) L Hematocrit 26.3 % (37.0-47.0) L Mean Corpuscular Volume 83 FL (80-99) Mean Corpuscular Hemoglobin 27.1 PG (27.0-31.0) Mean Corpuscular Hemoglobin Concent 32.6 G/DL (32.0-36.0) Red Cell Distribution Width 15.5 % (11.6-14.8) H Platelet Count 156 K/UL (150-450) Mean Platelet Volume 7.6 FL (6.5-10.1) Neutrophils (%) (Auto) % (45.0-75.0) Lymphocytes (%) (Auto) % (20.0-45.0) Monocytes (%) (Auto) % (1.0-10.0) Eosinophils (%) (Auto) % (0.0-3.0) Basophils (%) (Auto) % (0.0-2.0) Sodium Level 138 MMOL/L (136-145) Potassium Level 3.8 MMOL/L (3.5-5.1) Chloride Level 102 MMOL/L (98-107) Carbon Dioxide Level 25 MMOL/L (21-32) Anion Gap 11 mmol/L (5-15) Blood Urea Nitrogen 70 mg/dL (7-18) H Creatinine 3.3 MG/DL (0.55-1.30) H Estimat Glomerular Filtration Rate mL/min (>60) Glucose Level 148 MG/DL (74-106) H Uric Acid 9.9 MG/DL (2.6-7.2) H Calcium Level 6.8 MG/DL (8.5-10.1) L Phosphorus Level 5.5 MG/DL (2.5-4.9) H Magnesium Level 2.1 MG/DL (1.8-2.4) Total Bilirubin 0.7 MG/DL (0.2-1.0) Aspartate Amino Transf (AST/SGOT) 43 U/L (15-37) H Alanine Aminotransferase (ALT/SGPT) 44 U/L (12-78) Alkaline Phosphatase 170 U/L (46-116) H Pro-B-Type Natriuretic Peptide > 60853 pg/mL (0-125) H Total Protein 5.3 G/DL (6.4-8.2) L Albumin 1.7 G/DL (3.4-5.0) L Globulin 3.6 g/dL Albumin/Globulin Ratio 0.5 (1.0-2.7) L Random Vancomycin Level 11.9 ug/mL Current Medications Medications (Trade) Dose Ordered Sig/Maribel Route PRN Reason Start Time Stop Time Status Last Admin Dose Admin Acetaminophen (Tylenol) 650 mg Q4H PRN ORAL T>100.5 12/11/17 08:00 01/06/18 07:59 Albuterol/ Ipratropium (Albuterol/ Ipratropium) 3 ml Q4H PRN HHN Shortness of Breath 12/11/17 08:00 12/12/17 07:59 Ampicillin Sodium/ Sulbactam Sodium 3 gm/Sodium Chloride 110 ml @ 220 mls/hr Q12HR IVPB 12/11/17 09:00 12/16/17 12:59 12/11/17 08:55 Apixaban (Eliquis) 2.5 mg BID ORAL 12/11/17 09:00 01/07/18 14:29 12/11/17 08:56 Aspirin (ASA) 81 mg DAILY ORAL 12/11/17 09:00 01/08/18 08:59 12/11/17 08:56 Dextrose (Dextrose 50%) STAT PRN IV Hypoglycemia 12/11/17 08:00 01/08/18 07:59 Diltiazem HCl (Cardizem) 10 mg EVERY HOUR PRN IV heart rate more than 120 BPM 12/11/17 08:00 01/06/18 21:59 Haloperidol Lactate (Haldol) 5 mg Q6H PRN IM Agitation 12/11/17 08:00 01/08/18 07:59 Insulin Aspart (NovoLOG) BEFORE MEALS AND HS SUBQ 12/11/17 11:30 01/07/18 06:29 12/11/17 11:45 Morphine Sulfate (Morphine Sulfate) 1 mg Q4H PRN IVP PAIN 4-10 12/11/17 08:00 12/16/17 07:59 Nitroglycerin (Ntg) 0.4 mg Q5MIN X 3 DOSES PRN SL Prn Chest Pain 12/11/17 08:00 01/06/18 07:59 Ondansetron HCl (Zofran) 4 mg Q6H PRN IVP Nausea & Vomiting 12/11/17 08:00 01/06/18 07:59 Pantoprazole (Protonix) 40 mg DAILY ORAL 12/11/17 09:00 01/08/18 15:14 12/11/17 08:56 Polyethylene Glycol (Miralax) 17 gm DAILYPRN PRN ORAL Constipation 12/11/17 08:00 01/06/18 07:59 Promethazine HCl/ Codeine (Phenergan with Codeine) 5 ml Q4H PRN ORAL For Cough 12/11/17 08:00 01/07/18 07:59 Quetiapine Fumarate (SEROquel) 25 mg Q4H PRN ORAL For Anxiety 12/11/17 08:00 01/08/18 07:59 12/11/17 11:57 Temazepam (Restoril) 15 mg HSPRN PRN ORAL Insomnia 12/11/17 21:00 12/14/17 20:59 Vancomycin HCl (Vanco rx to dose) 1 ea DAILY PRN MISC Per rx protocol 12/11/17 08:00 01/10/18 07:59 Leatha Sanchez M.D. Dec 11, 2017 13:14
--- NOTE | 2017-12-11 17:07 | Nephrology Progress Note ---
Assessment/Plan Problem List: (1) Acute respiratory failure (2) ATN (acute tubular necrosis) (3) CAD (coronary artery disease) (4) Pleural effusion (5) Diabetes mellitus Assessment CKD with acute component : Cr up to 3.3 Acute respiratory failure CABG X 5 DMII Hyperlipidemia HTN CVA Sarcoidosis Liver disease, HypoAlbuminemia Anemia hs of Severe MR s/p mitral valve repair with FIONA closure [address] Cassidy Plan Plan: Avoid Nephrotoxics- Optimize cardiac & Pulmonary status Monitor renal parameters Urine for eos 24 h urine protein discussed with RN Subjective ROS Limited/Unobtainable: No Objective Objective Last 24 Hour Vital Signs Date Time Temp Pulse Resp B/P (MAP) Pulse Ox O2 Delivery O2 Flow Rate FiO2 12/11/17 16:50 18 96 Nasal Cannula 2.0 12/11/17 16:00 97.5 71 18 137/67 98 Nasal Cannula 3.0 97.5 12/11/17 15:35 71 12/11/17 12:00 97.0 72 18 136/69 97 Nasal Cannula 3.0 97.0 12/11/17 11:58 73 12/11/17 09:46 95 3.0 12/11/17 07:59 74 12/11/17 07:40 98.7 69 21 124/69 95 Nasal Cannula 3.0 98.7 12/11/17 07:24 74 18 94 3.0 12/11/17 07:24 Nasal Cannula 3.0 32 12/11/17 07:24 94 Nasal Cannula 3.0 32 12/11/17 07:00 70 23 105/61 97 Nasal Cannula 3.0 12/11/17 06:00 69 26 117/57 99 Nasal Cannula 3.0 12/11/17 05:16 70 20 97 3.0 12/11/17 05:00 92 23 125/55 97 Nasal Cannula 3.0 12/11/17 04:00 98.5 68 21 133/61 92 Nasal Cannula 3.0 98.5 12/11/17 04:00 70 12/11/17 03:13 71 21 96 3.0 12/11/17 03:00 69 20 119/54 95 Nasal Cannula 3.0 12/11/17 02:00 74 26 115/52 96 Nasal Cannula 3.0 12/11/17 01:09 99.2 12/11/17 01:00 78 27 103/47 96 Nasal Cannula 3.0 12/11/17 00:57 100 24 95 3.0 12/11/17 00:00 82 12/11/17 00:00 72 23 105/49 95 Nasal Cannula 3.0 12/10/17 23:47 99.9 12/10/17 23:04 86 22 95 3.0 12/10/17 23:00 101 23 117/55 95 Nasal Cannula 3.0 12/10/17 22:00 82 23 110/48 95 Nasal Cannula 3.0 12/10/17 21:00 82 23 110/48 95 Nasal Cannula 3.0 12/10/17 20:49 84 20 96 3.0 12/10/17 20:00 99.3 82 27 126/51 96 Nasal Cannula 3.0 99.3 12/10/17 20:00 82 12/10/17 19:29 84 22 Nasal Cannula 3.0 32 12/10/17 19:28 Nasal Cannula 3.0 32 12/10/17 19:27 94 Nasal Cannula 3.0 32 12/10/17 19:00 85 23 116/46 95 Nasal Cannula 3.0 12/10/17 18:00 84 25 125/47 95 Nasal Cannula 3.0 Intake and Output 12/10/17 12/11/17 19:00 07:00 Intake Total 622 ml 342 ml Output Total 4360 ml 2180 ml Balance -3738 ml -1838 ml Intake Oral 600 ml 100 ml IV Total 22 ml 242 ml Output Urine Total 310 ml 380 ml Other 4050 ml 1800 ml # Bowel Movements 7 Laboratory Tests 12/11/17 00:00: Stool Occult Blood Positive 12/11/17 04:00: Arterial Blood pH 7.366, Arterial Blood Partial Pressure CO2 41.8, Arterial Blood Partial Pressure O2 90.4, Arterial Blood HCO3 23.4, Arterial Blood Oxygen Saturation 95.9, Arterial Blood Base Excess -1.8, [place] Test Positive 12/11/17 04:05: White Blood Count 6.6, Red Blood Count 3.17L, Hemoglobin 8.6L, Hematocrit 26.3L , Mean Corpuscular Volume 83, Mean Corpuscular Hemoglobin 27.1, Mean Corpuscular Hemoglobin Concent 32.6, Red Cell Distribution Width 15.5H, Platelet Count 156, Mean Platelet Volume 7.6, Neutrophils (%) (Auto) , Lymphocytes (%) (Auto) , Monocytes (%) (Auto) , Eosinophils (%) (Auto) , Basophils (%) (Auto) , Sodium Level 138, Potassium Level 3.8, Chloride Level 102 , Carbon Dioxide Level 25, Anion Gap 11, Blood Urea Nitrogen 70H, Creatinine 3.3H, Estimat Glomerular Filtration Rate , Glucose Level 148H, Uric Acid 9.9H, Calcium Level 6.8L, Phosphorus Level 5.5H, Magnesium Level 2.1, Total Bilirubin 0.7, Aspartate Amino Transf (AST/SGOT) 43H, Alanine Aminotransferase (ALT/SGPT) 44, Alkaline Phosphatase 170H, Pro-B-Type Natriuretic Peptide > 29282D, Total Protein 5.3L, Albumin 1.7L, Globulin 3.6, Albumin/Globulin Ratio 0.5L, Random Vancomycin Level 11.9 12/11/17 12:00: Body Fluid Source [Pending], Body Fluid Volume [Pending], Body Fluid pH 8, Body Fluid Total Protein [Pending], Body Fluid Lactate Dehydrogenase [Pending] Height (Feet): 5 Height (Inches): 4.00 Weight (Pounds): 125 General Appearance: no apparent distress, lethargic Cardiovascular: normal rate Respiratory/Chest: decreased breath sounds Abdomen: soft DANIAL PA Dec 11, 2017 17:06
--- NOTE | 2017-12-11 17:11 | Cardiology Progress Note ---
Assessment/Plan Assessment/Plan 1. Left lower lobe consolidation. 2. Chronic renal insufficiency. 3. Coronary artery disease status post coronary bypass grafting. 4. Diabetes mellitus. 5. Hypertension. 6. Hyperlipidemia. 7. History of cerebrovascular accident. 8. Reported history of sarcoidosis. 9. History of liver disease. 10. History of severe mitral regurgitation status post mitral valve repair and left atrial appendage closure by Dr. martinez in 2016. 11. Moderte mitral stenosis adn mitral regurgitation on recent echo 12. Moderate TR 13. Significant pulm htn 14. diastolic heart failure ? on tele s/p thoracentesis diuretic prn bp better off antihypertensive for now ef has been normal venous dupelx of le cxr personally reviewed tele reviewed has left sided crackles specially anteriorly needs a sitter as confused intermittently and tries to get out o bed Subjective Cardiovascular: Denies: chest pain, irregular heart rate, lightheadedness Respiratory: Denies: cough, shortness of breath Gastrointestinal/Abdominal: Denies: abdominal pain Genitourinary: Denies: burning Objective Last 24 Hour Vital Signs Date Time Temp Pulse Resp B/P (MAP) Pulse Ox O2 Delivery O2 Flow Rate FiO2 12/11/17 16:50 18 96 Nasal Cannula 2.0 12/11/17 16:00 97.5 71 18 137/67 98 Nasal Cannula 3.0 97.5 12/11/17 15:35 71 12/11/17 12:00 97.0 72 18 136/69 97 Nasal Cannula 3.0 97.0 12/11/17 11:58 73 12/11/17 09:46 95 3.0 12/11/17 07:59 74 12/11/17 07:40 98.7 69 21 124/69 95 Nasal Cannula 3.0 98.7 12/11/17 07:24 74 18 94 3.0 12/11/17 07:24 Nasal Cannula 3.0 32 12/11/17 07:24 94 Nasal Cannula 3.0 32 12/11/17 07:00 70 23 105/61 97 Nasal Cannula 3.0 12/11/17 06:00 69 26 117/57 99 Nasal Cannula 3.0 12/11/17 05:16 70 20 97 3.0 12/11/17 05:00 92 23 125/55 97 Nasal Cannula 3.0 12/11/17 04:00 98.5 68 21 133/61 92 Nasal Cannula 3.0 98.5 12/11/17 04:00 70 12/11/17 03:13 71 21 96 3.0 12/11/17 03:00 69 20 119/54 95 Nasal Cannula 3.0 12/11/17 02:00 74 26 115/52 96 Nasal Cannula 3.0 12/11/17 01:09 99.2 12/11/17 01:00 78 27 103/47 96 Nasal Cannula 3.0 12/11/17 00:57 100 24 95 3.0 12/11/17 00:00 82 12/11/17 00:00 72 23 105/49 95 Nasal Cannula 3.0 12/10/17 23:47 99.9 12/10/17 23:04 86 22 95 3.0 12/10/17 23:00 101 23 117/55 95 Nasal Cannula 3.0 12/10/17 22:00 82 23 110/48 95 Nasal Cannula 3.0 12/10/17 21:00 82 23 110/48 95 Nasal Cannula 3.0 12/10/17 20:49 84 20 96 3.0 12/10/17 20:00 99.3 82 27 126/51 96 Nasal Cannula 3.0 99.3 12/10/17 20:00 82 12/10/17 19:29 84 22 Nasal Cannula 3.0 32 12/10/17 19:28 Nasal Cannula 3.0 32 12/10/17 19:27 94 Nasal Cannula 3.0 32 12/10/17 19:00 85 23 116/46 95 Nasal Cannula 3.0 12/10/17 18:00 84 25 125/47 95 Nasal Cannula 3.0 General Appearance: alert Neck: supple Cardiovascular: normal rate, regular rhythm Respiratory/Chest: crackles/rales Abdomen: normal bowel sounds, non tender, soft Extremities: trace edema Intake and Output 12/10/17 12/11/17 19:00 07:00 Intake Total 622 ml 342 ml Output Total 4360 ml 2180 ml Balance -3738 ml -1838 ml Intake Oral 600 ml 100 ml IV Total 22 ml 242 ml Output Urine Total 310 ml 380 ml Other 4050 ml 1800 ml # Bowel Movements 7 Laboratory Tests Test 12/11/17 00:00 12/11/17 04:00 12/11/17 04:05 12/11/17 12:00 Stool Occult Blood Positive (NEGATIVE) Arterial Blood pH 7.366 (7.350-7.450) Arterial Blood Partial Pressure CO2 41.8 mmHg (35.0-45.0) Arterial Blood Partial Pressure O2 90.4 mmHg (75.0-100.0) Arterial Blood HCO3 23.4 mmol/L (22.0-26.0) Arterial Blood Oxygen Saturation 95.9 % (92.0-98.0) Arterial Blood Base Excess -1.8 [place] Test Positive White Blood Count 6.6 K/UL (4.8-10.8) Red Blood Count 3.17 M/UL (4.20-5.40) L Hemoglobin 8.6 G/DL (12.0-16.0) L Hematocrit 26.3 % (37.0-47.0) L Mean Corpuscular Volume 83 FL (80-99) Mean Corpuscular Hemoglobin 27.1 PG (27.0-31.0) Mean Corpuscular Hemoglobin Concent 32.6 G/DL (32.0-36.0) Red Cell Distribution Width 15.5 % (11.6-14.8) H Platelet Count 156 K/UL (150-450) Mean Platelet Volume 7.6 FL (6.5-10.1) Neutrophils (%) (Auto) % (45.0-75.0) Lymphocytes (%) (Auto) % (20.0-45.0) Monocytes (%) (Auto) % (1.0-10.0) Eosinophils (%) (Auto) % (0.0-3.0) Basophils (%) (Auto) % (0.0-2.0) Sodium Level 138 MMOL/L (136-145) Potassium Level 3.8 MMOL/L (3.5-5.1) Chloride Level 102 MMOL/L (98-107) Carbon Dioxide Level 25 MMOL/L (21-32) Anion Gap 11 mmol/L (5-15) Blood Urea Nitrogen 70 mg/dL (7-18) H Creatinine 3.3 MG/DL (0.55-1.30) H Estimat Glomerular Filtration Rate mL/min (>60) Glucose Level 148 MG/DL (74-106) H Uric Acid 9.9 MG/DL (2.6-7.2) H Calcium Level 6.8 MG/DL (8.5-10.1) L Phosphorus Level 5.5 MG/DL (2.5-4.9) H Magnesium Level 2.1 MG/DL (1.8-2.4) Total Bilirubin 0.7 MG/DL (0.2-1.0) Aspartate Amino Transf (AST/SGOT) 43 U/L (15-37) H Alanine Aminotransferase (ALT/SGPT) 44 U/L (12-78) Alkaline Phosphatase 170 U/L (46-116) H Pro-B-Type Natriuretic Peptide > 42358 pg/mL (0-125) H Total Protein 5.3 G/DL (6.4-8.2) L Albumin 1.7 G/DL (3.4-5.0) L Globulin 3.6 g/dL Albumin/Globulin Ratio 0.5 (1.0-2.7) L Random Vancomycin Level 11.9 ug/mL Body Fluid Source Pending Body Fluid Volume Pending Body Fluid pH 8 Body Fluid Total Protein Pending Body Fluid Lactate Dehydrogenase Pending Microbiology Date/Time Source Procedure Growth Status 12/10/17 12:00 Ascities Fluid Gram Stain - Final Resulted 12/10/17 12:00 Ascities Fluid Body Fluid Culture - Preliminary NO GROWTH Resulted 12/09/17 05:30 Sputum Gram Stain - Final Complete 12/09/17 05:30 Sputum Sputum Culture - Final NORMAL UPPER RESPIRATORY MONCHO PRESENT Complete YESICA MEDRANO 16, 2018 17:11
--- NOTE | 2017-12-11 17:30 | Cardiology Report ---
APPROVED REPORT EKG Measurement Heart [id number] Normal sinus rhythm Right bundle branch block Possible Lateral infarct, age undetermined Abnormal ECG
--- NOTE | 2017-12-11 21:06 | General Progress Note ---
Assessment/Plan Status: unchanged Assessment/Plan encephalopathy dementia with behavioral disturbance the pt lacks capacity to make decisions -zyprexa -haldol prn Subjective Neurologic/Psychiatric: Reports: anxiety, depressed, emotional problems Allergies: Coded Allergies: LEVOFLOXACIN (Verified Allergy, Unknown, 12/09/17) SULFA (SULFONAMIDE ANTIBIOTICS) (Verified Allergy, Unknown, 12/09/17) Subjective the pt is calmer and less agitated. Objective Last 24 Hour Vital Signs Date Time Temp Pulse Resp B/P (MAP) Pulse Ox O2 Delivery O2 Flow Rate FiO2 12/11/17 20:06 96 Nasal Cannula 3.0 32 12/11/17 20:06 Nasal Cannula 3.0 32 12/11/17 16:50 18 96 Nasal Cannula 2.0 12/11/17 16:00 97.5 71 18 137/67 98 Nasal Cannula 3.0 97.5 12/11/17 15:35 71 12/11/17 12:00 97.0 72 18 136/69 97 Nasal Cannula 3.0 97.0 12/11/17 11:58 73 12/11/17 09:46 95 3.0 12/11/17 07:59 74 12/11/17 07:40 98.7 69 21 124/69 95 Nasal Cannula 3.0 98.7 12/11/17 07:24 74 18 94 3.0 12/11/17 07:24 Nasal Cannula 3.0 32 12/11/17 07:24 94 Nasal Cannula 3.0 32 12/11/17 07:00 70 23 105/61 97 Nasal Cannula 3.0 12/11/17 06:00 69 26 117/57 99 Nasal Cannula 3.0 12/11/17 05:16 70 20 97 3.0 12/11/17 05:00 92 23 125/55 97 Nasal Cannula 3.0 12/11/17 04:00 98.5 68 21 133/61 92 Nasal Cannula 3.0 98.5 12/11/17 04:00 70 12/11/17 03:13 71 21 96 3.0 12/11/17 03:00 69 20 119/54 95 Nasal Cannula 3.0 12/11/17 02:00 74 26 115/52 96 Nasal Cannula 3.0 12/11/17 01:09 99.2 12/11/17 01:00 78 27 103/47 96 Nasal Cannula 3.0 12/11/17 00:57 100 24 95 3.0 12/11/17 00:00 82 12/11/17 00:00 72 23 105/49 95 Nasal Cannula 3.0 12/10/17 23:47 99.9 12/10/17 23:04 86 22 95 3.0 12/10/17 23:00 101 23 117/55 95 Nasal Cannula 3.0 12/10/17 22:00 82 23 110/48 95 Nasal Cannula 3.0 Intake and Output 12/10/17 12/11/17 19:00 07:00 Intake Total 622 ml 342 ml Output Total 4360 ml 2180 ml Balance -3738 ml -1838 ml Intake Oral 600 ml 100 ml IV Total 22 ml 242 ml Output Urine Total 310 ml 380 ml Other 4050 ml 1800 ml # Bowel Movements 7 Laboratory Tests 12/11/17 00:00: Stool Occult Blood Positive 12/11/17 04:00: Arterial Blood pH 7.366, Arterial Blood Partial Pressure CO2 41.8, Arterial Blood Partial Pressure O2 90.4, Arterial Blood HCO3 23.4, Arterial Blood Oxygen Saturation 95.9, Arterial Blood Base Excess -1.8, [place] Test Positive 12/11/17 04:05: White Blood Count 6.6, Red Blood Count 3.17L, Hemoglobin 8.6L, Hematocrit 26.3L , Mean Corpuscular Volume 83, Mean Corpuscular Hemoglobin 27.1, Mean Corpuscular Hemoglobin Concent 32.6, Red Cell Distribution Width 15.5H, Platelet Count 156, Mean Platelet Volume 7.6, Neutrophils (%) (Auto) , Lymphocytes (%) (Auto) , Monocytes (%) (Auto) , Eosinophils (%) (Auto) , Basophils (%) (Auto) , Sodium Level 138, Potassium Level 3.8, Chloride Level 102 , Carbon Dioxide Level 25, Anion Gap 11, Blood Urea Nitrogen 70H, Creatinine 3.3H, Estimat Glomerular Filtration Rate , Glucose Level 148H, Uric Acid 9.9H, Calcium Level 6.8L, Phosphorus Level 5.5H, Magnesium Level 2.1, Total Bilirubin 0.7, Aspartate Amino Transf (AST/SGOT) 43H, Alanine Aminotransferase (ALT/SGPT) 44, Alkaline Phosphatase 170H, Pro-B-Type Natriuretic Peptide > 46936T, Total Protein 5.3L, Albumin 1.7L, Globulin 3.6, Albumin/Globulin Ratio 0.5L, Random Vancomycin Level 11.9 12/11/17 12:00: Body Fluid Source [Pending], Body Fluid Volume [Pending], Body Fluid pH 8, Body Fluid Total Protein [Pending], Body Fluid Lactate Dehydrogenase [Pending] Height (Feet): 5 Height (Inches): 4.00 Weight (Pounds): 125 General Appearance: no apparent distress, alert, confused, agitated Zaynab Araya M.D. Dec 11, 2017 21:06
[2017-12-11] MEDS: Haloperidol 5mg/ml Inj IM PRN (21:55)
[2017-12-12] VITALS (7 sets, daily range): BP systolic 130–166; BP diastolic 65–85
[2017-12-12] MEDS: NovoLOG Insulin Flexpen SUBQ SCH ×4 (06:45→20:55)
[2017-12-12] MEDS: Aspirin Baby 81mg ORAL SCH (08:58)
[2017-12-12] MEDS: OLANZapine 2.5mg tab ORAL SCH ×2 (08:58→17:19)
[2017-12-12] MEDS: Eliquis 2.5mg tablet ORAL SCH ×2 (08:58→17:18)
[2017-12-12] MEDS: Ampicillin/Sulbactam Sod 3 GM in NS 110 ML IVPB SCH (08:58)
[2017-12-12] MEDS ORDERED: NS 275ml ONE (11:25)
--- NOTE | 2017-12-12 12:00 | Nephrology Progress Note ---
Assessment/Plan Problem List: (1) Acute respiratory failure (2) ATN (acute tubular necrosis) (3) CAD (coronary artery disease) (4) Pleural effusion (5) Diabetes mellitus Assessment CKD with acute component : Cr up to 3.3 Acute respiratory failure CABG X 5 DMII Hyperlipidemia HTN CVA Sarcoidosis Liver disease, HypoAlbuminemia Anemia hs of Severe MR s/p mitral valve repair with FIONA closure [address] Cassidy Plan Plan: No labs today Avoid Nephrotoxics- Optimize cardiac & Pulmonary status Monitor renal parameters Urine for eos 24 h urine protein discussed with RN Subjective ROS Limited/Unobtainable: No Constitutional: Reports: malaise, weakness Objective Objective Last 24 Hour Vital Signs Date Time Temp Pulse Resp B/P (MAP) Pulse Ox O2 Delivery O2 Flow Rate FiO2 12/12/17 11:57 97.2 66 22 130/65 96 Nasal Cannula 4.0 97.2 12/12/17 08:55 82 20 Nasal Cannula 4.0 36 12/12/17 08:55 70 134/65 12/12/17 08:55 Nasal Cannula 4.0 36 12/12/17 08:55 95 Nasal Cannula 4.0 36 12/12/17 08:03 97.6 71 22 166/72 92 Nasal Cannula 4.0 97.6 12/12/17 08:00 72 12/12/17 04:33 71 12/12/17 04:00 97.4 102 24 150/85 97 Nasal Cannula 4.0 97.4 12/12/17 00:00 97.6 78 24 138/69 98 Nasal Cannula 4.0 97.6 12/11/17 23:37 77 12/11/17 20:06 96 Nasal Cannula 3.0 32 12/11/17 20:06 78 12/11/17 20:06 Nasal Cannula 3.0 32 12/11/17 20:00 97.7 81 24 154/82 96 Nasal Cannula 3.0 97.7 12/11/17 19:20 87 22 Nasal Cannula 3.0 32 12/11/17 16:50 18 96 Nasal Cannula 2.0 12/11/17 16:00 97.5 71 18 137/67 98 Nasal Cannula 3.0 97.5 12/11/17 15:35 71 12/11/17 12:00 97.0 72 18 136/69 97 Nasal Cannula 3.0 97.0 Intake and Output 3/16/18 3/17/18 19:00 07:00 Intake Total 502.000 ml 50 ml Output Total 750 ml 450 ml Balance -248.000 ml -400 ml Intake Oral 120 ml 50 ml IV Total 382.000 ml Output Urine Total 750 ml 450 ml # Bowel Movements 5 1 Laboratory Tests 12/11/17 12:00: Body Fluid Source [Pending], Body Fluid Volume [Pending], Body Fluid pH 8, Body Fluid Total Protein [Pending], Body Fluid Lactate Dehydrogenase [Pending] Height (Feet): 5 Height (Inches): 4.00 Weight (Pounds): 134 General Appearance: no apparent distress, lethargic Cardiovascular: tachycardia Respiratory/Chest: decreased breath sounds Abdomen: distended DANIAL PA Dec 12, 2017 12:00
--- NOTE | 2017-12-12 12:11 | General Progress Note ---
Assessment/Plan Assessment/Plan #. Anemia due to underlying chronic disease. --> Continue to closely monitor for improvement. The patient may have evidence of iron deficiency and at this time --> Anemia workup reviewed. Iron 66, TIBC 306, Ferritin 131, Vit B12 637, Folate 13.2 --> Transfuse if hgb <7, prbc not needed at this time. Hgb has been stable. #. Anemia of iron deficiency. --> TIBC is elevated. Begin the patient on ferrous sulfate. --> Monitor. #. Anemia due to gastrointestinal bleed consider GI Service as needed. #. Severe mitral regurgitation, status post mitral valve repair in 2016. --> Continue the patient on Eliquis. as well as Coreg as needed. #. Leukocytosis, likely secondary to infectious process. ESR 41. --> Continue to closely monitor. #. Prothrombin time coagulopathy. --> Closely monitor for improvement and currently prothrombin time elevated, on Eliquis. Continue at this time. #. Hypoglycemia. Low blood sugar, found unresponsive at home. D10 given. #. Encephalopathy. Subjective Date patient seen: Dec 11, 2017 Constitutional: Denies: no symptoms, chills, diaphoresis, fever, malaise, weakness, other HEENT: Denies: no symptoms, eye pain, blurred vision, tearing, double vision, ear pain, ear discharge, nose pain, nose congestion, throat pain, throat swelling, mouth pain, mouth swelling, other Cardiovascular: Denies: no symptoms, chest pain, edema, irregular heart rate, lightheadedness, palpitations, syncope, other Respiratory: Denies: no symptoms, cough, orthopnea, shortness of breath, SOB with excertion, SOB at rest, sputum, stridor, wheezing, other Gastrointestinal/Abdominal: Denies: no symptoms, abdomen distended, abdominal pain, black stools, tarry stools, blood in stool, constipated, diarrhea, difficulty swallowing, nausea, poor appetite, poor fluid intake, rectal bleeding , vomiting, other Genitourinary: Denies: no symptoms, burning, discharge, frequency, flank pain, hematuria, incontinence, pain, urgency, other Neurologic/Psychiatric: Denies: no symptoms, anxiety, depressed, emotional problems, headache, numbness, paresthesia, pre-existing deficit, seizure, tingling, tremors, weakness, other Hematologic/Lymphatic: Reports: anemia Allergies: Coded Allergies: LEVOFLOXACIN (Verified Allergy, Unknown, 12/09/17) SULFA (SULFONAMIDE ANTIBIOTICS) (Verified Allergy, Unknown, 12/09/17) Subjective Encephalopathic. No fever or chills. Objective Last 24 Hour Vital Signs Date Time Temp Pulse Resp B/P (MAP) Pulse Ox O2 Delivery O2 Flow Rate FiO2 12/12/17 11:57 97.2 66 22 130/65 96 Nasal Cannula 4.0 97.2 12/12/17 08:55 82 20 Nasal Cannula 4.0 36 12/12/17 08:55 70 134/65 12/12/17 08:55 Nasal Cannula 4.0 36 12/12/17 08:55 95 Nasal Cannula 4.0 36 12/12/17 08:03 97.6 71 22 166/72 92 Nasal Cannula 4.0 97.6 12/12/17 08:00 72 12/12/17 04:33 71 12/12/17 04:00 97.4 102 24 150/85 97 Nasal Cannula 4.0 97.4 12/12/17 00:00 97.6 78 24 138/69 98 Nasal Cannula 4.0 97.6 12/11/17 23:37 77 12/11/17 20:06 96 Nasal Cannula 3.0 32 12/11/17 20:06 78 12/11/17 20:06 Nasal Cannula 3.0 32 12/11/17 20:00 97.7 81 24 154/82 96 Nasal Cannula 3.0 97.7 12/11/17 19:20 87 22 Nasal Cannula 3.0 32 12/11/17 16:50 18 96 Nasal Cannula 2.0 12/11/17 16:00 97.5 71 18 137/67 98 Nasal Cannula 3.0 97.5 12/11/17 15:35 71 Intake and Output 12/11/17 12/12/17 19:00 07:00 Intake Total 502.000 ml 50 ml Output Total 750 ml 450 ml Balance -248.000 ml -400 ml Intake Oral 120 ml 50 ml IV Total 382.000 ml Output Urine Total 750 ml 450 ml # Bowel Movements 5 1 Height (Feet): 5 Height (Inches): 4.00 Weight (Pounds): 134 General Appearance: no apparent distress Respiratory/Chest: decreased breath sounds Abdomen: soft Kleynberg,Abdirashid L. MD Dec 12, 2017 12:11
--- NOTE | 2017-12-12 12:47 | Infectious Diseases Prog Note ---
Assessment/Plan Assessment/Plan A: Acute hypoxic/hypercapenic respiratory failure- off Bipap now > NC R>L pleural effusion- possibly multifactorial due to CHF and PNA -s/p Thoracentesis removal of 500cc blood tinge fluid -WBC 123 (L 10, M 78); cx NTD; LDH protien: 1.3, PH: 8 -CT chest: Large right pleural effusion. Resultant compressive atelectasis of much of the right lower lobe. Moderate left-sided pleural effusion, with compressive atelectasis of portions of the left lower lobe. There is also perihilar consolidation which may indicate pneumonia. There is also compressive atelectasis of much of the inferior lingula. Mild interstitial congestion in the left upper lobe. 7 mm masslike opacity in the left upper lobe at the level of the aortic arch. Most likely some focal edema or consolidation, but neoplasm also a possibility. Cardiomegaly. Evidence of prior CABG and mitral valve repair. Evidence of anasarca elsewhere, with chest and abdominal wall edema, small amount of ascites. T10 vertebral body compression fracture deformity. Age indeterminate. Consider MRI for further evaluation if this is considered clinically significant. Hepatomegaly -CXR 12/07: Dense left midlung consolidation and probable pleural fluid. Generalized interstitial congestion. Probable small right pleural effusion. Cardiomegaly -Influenza sc neg -Bcx NTD -sp cx normal malika to date -CRP 10.8 Leukocytosis, resolved -afebrile Neg : CrAg, Renal insufficiency, worsening -REnal US: Negative for hydronephrosis. Echogenic lesion in the interpolar region of the right kidney. 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 Consider CT for further evaluation Prolonged QTc CVA HTN sarcoidosis severe MR s/p MVR w/ left atrial appendage closure 2010 liver disease GIB Aflutter on Eliquis Dm2 CAD s/p CABG x5 HLD Plan: -Continue empiric IV Vanco and Unasyn # 4 pending cultures -12/08 SP Levaquin x1 -f/u pleural fluid fungal, AFB, bacterial MTB PCR -f/u sputum cx, COcci ab, 1,3b-d glucan, legionella ag urine -f/u cx -Monitor CBC/CMP, temperatures Subjective Allergies: Coded Allergies: LEVOFLOXACIN (Verified Allergy, Unknown, 12/09/17) SULFA (SULFONAMIDE ANTIBIOTICS) (Verified Allergy, Unknown, 12/09/17) Subjective afebrile Objective Vital Signs Last 24 Hour Vital Signs Date Time Temp Pulse Resp B/P (MAP) Pulse Ox O2 Delivery O2 Flow Rate FiO2 12/12/17 11:57 97.2 66 22 130/65 96 Nasal Cannula 4.0 97.2 12/12/17 08:55 82 20 Nasal Cannula 4.0 36 12/12/17 08:55 70 134/65 12/12/17 08:55 Nasal Cannula 4.0 36 12/12/17 08:55 95 Nasal Cannula 4.0 36 12/12/17 08:03 97.6 71 22 166/72 92 Nasal Cannula 4.0 97.6 12/12/17 08:00 72 12/12/17 04:33 71 12/12/17 04:00 97.4 102 24 150/85 97 Nasal Cannula 4.0 97.4 12/12/17 00:00 97.6 78 24 138/69 98 Nasal Cannula 4.0 97.6 12/11/17 23:37 77 12/11/17 20:06 96 Nasal Cannula 3.0 32 12/11/17 20:06 78 12/11/17 20:06 Nasal Cannula 3.0 32 12/11/17 20:00 97.7 81 24 154/82 96 Nasal Cannula 3.0 97.7 12/11/17 19:20 87 22 Nasal Cannula 3.0 32 12/11/17 16:50 18 96 Nasal Cannula 2.0 12/11/17 16:00 97.5 71 18 137/67 98 Nasal Cannula 3.0 97.5 12/11/17 15:35 71 Height (Feet): 5 Height (Inches): 4.00 Weight (Pounds): 134 HEENT: anicteric Respiratory/Chest: no accessory muscle use Cardiovascular: no gallop/murmur Abdomen: no organomegaly Microbiology Date/Time Source Procedure Growth Status 12/10/17 12:00 Ascities Fluid Gram Stain - Final Resulted 12/10/17 12:00 Ascities Fluid Body Fluid Culture - Preliminary NO GROWTH AFTER 48 HOURS Resulted Current Medications Medications (Trade) Dose Ordered Sig/Maribel Route PRN Reason Start Time Stop Time Status Last Admin Dose Admin Acetaminophen (Tylenol) 650 mg Q4H PRN ORAL T>100.5 12/11/17 08:00 01/06/18 07:59 Ampicillin Sodium/ Sulbactam Sodium 3 gm/Sodium Chloride 110 ml @ 220 mls/hr DAILY IVPB 12/12/17 09:00 12/19/17 08:59 12/12/17 08:58 Apixaban (Eliquis) 2.5 mg BID ORAL 12/11/17 09:00 01/07/18 14:29 12/12/17 08:58 Aspirin (ASA) 81 mg DAILY ORAL 12/11/17 09:00 01/08/18 08:59 12/12/17 08:58 Dextrose (Dextrose 50%) STAT PRN IV Hypoglycemia 12/11/17 08:00 01/08/18 07:59 Diltiazem HCl (Cardizem) 10 mg EVERY HOUR PRN IV heart rate more than 120 BPM 12/11/17 08:00 01/06/18 21:59 Haloperidol Lactate (Haldol) 5 mg Q6H PRN IM Agitation 12/11/17 08:00 01/08/18 07:59 12/11/17 21:55 Insulin Aspart (NovoLOG) BEFORE MEALS AND HS SUBQ 12/11/17 11:30 01/07/18 06:29 12/12/17 06:45 Morphine Sulfate (Morphine Sulfate) 1 mg Q4H PRN IVP PAIN 4-10 12/11/17 08:00 12/16/17 07:59 Nitroglycerin (Ntg) 0.4 mg Q5MIN X 3 DOSES PRN SL Prn Chest Pain 12/11/17 08:00 01/06/18 07:59 Olanzapine (ZyPREXA) 2.5 mg BID ORAL 12/12/17 09:00 01/11/18 08:59 12/12/17 08:58 Ondansetron HCl (Zofran) 4 mg Q6H PRN IVP Nausea & Vomiting 12/11/17 08:00 01/06/18 07:59 Pantoprazole (Protonix) 40 mg DAILY ORAL 12/11/17 09:00 01/08/18 15:14 12/12/17 08:58 Polyethylene Glycol (Miralax) 17 gm DAILYPRN PRN ORAL Constipation 12/11/17 08:00 01/06/18 07:59 Promethazine HCl/ Codeine (Phenergan with Codeine) 5 ml Q4H PRN ORAL For Cough 12/11/17 08:00 01/07/18 07:59 Temazepam (Restoril) 15 mg HSPRN PRN ORAL Insomnia 12/11/17 21:00 12/14/17 20:59 12/11/17 21:55 Vancomycin HCl (Vanco rx to dose) 1 ea DAILY PRN MISC Per rx protocol 12/11/17 08:00 01/10/18 07:59 NATALIE DUDLEY M.D. Dec 12, 2017 12:47
--- NOTE | 2017-12-12 14:06 | Pulmonology Progress Note ---
Assessment/Plan Problems: (1) Encephalopathy acute (2) Pneumonia (3) Hypoglycemia (4) Diabetes mellitus (5) Lung mass (6) S/P CABG x 5 Assessment/Plan dc lasix drip hold off to dopamin drip thoracentesis, removed 500 cc/ bloody effusion, creatinine rising continue abx check cultures check electroltyes awaiting pathology of pleural fluid Subjective ROS Limited/Unobtainable: No Constitutional: Reports: no symptoms Respiratory: Reports: no symptoms Allergies: Coded Allergies: LEVOFLOXACIN (Verified Allergy, Unknown, 12/09/17) SULFA (SULFONAMIDE ANTIBIOTICS) (Verified Allergy, Unknown, 12/09/17) Objective Last 24 Hour Vital Signs Date Time Temp Pulse Resp B/P (MAP) Pulse Ox O2 Delivery O2 Flow Rate FiO2 12/12/17 11:57 97.2 66 22 130/65 96 Nasal Cannula 4.0 97.2 12/12/17 11:51 73 12/12/17 08:55 82 20 Nasal Cannula 4.0 36 12/12/17 08:55 70 134/65 12/12/17 08:55 Nasal Cannula 4.0 36 12/12/17 08:55 95 Nasal Cannula 4.0 36 12/12/17 08:03 97.6 71 22 166/72 92 Nasal Cannula 4.0 97.6 12/12/17 08:00 72 12/12/17 04:33 71 12/12/17 04:00 97.4 102 24 150/85 97 Nasal Cannula 4.0 97.4 12/12/17 00:00 97.6 78 24 138/69 98 Nasal Cannula 4.0 97.6 12/11/17 23:37 77 12/11/17 20:06 96 Nasal Cannula 3.0 32 12/11/17 20:06 78 12/11/17 20:06 Nasal Cannula 3.0 32 12/11/17 20:00 97.7 81 24 154/82 96 Nasal Cannula 3.0 97.7 12/11/17 19:20 87 22 Nasal Cannula 3.0 32 12/11/17 16:50 18 96 Nasal Cannula 2.0 12/11/17 16:00 97.5 71 18 137/67 98 Nasal Cannula 3.0 97.5 12/11/17 15:35 71 Intake and Output 12/11/17 12/12/17 19:00 07:00 Intake Total 502.000 ml 50 ml Output Total 750 ml 450 ml Balance -248.000 ml -400 ml Intake Oral 120 ml 50 ml IV Total 382.000 ml Output Urine Total 750 ml 450 ml # Bowel Movements 5 1 Objective General Appearance: cachectic HEENT: normocephalic, atraumatic Respiratory/Chest: chest wall non-tender, + rhonchi Cardiovascular: normal peripheral pulses, normal rate, regular rhythm Abdomen: normal bowel sounds, soft, non tender, no organomegaly Genitourinary: normal external genitalia Extremities: no clubbing Skin: no rash 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 Lymphatic: no neck adenopathy Microbiology Date/Time Source Procedure Growth Status 12/10/17 12:00 Ascities Fluid Gram Stain - Final Resulted 12/10/17 12:00 Ascities Fluid Body Fluid Culture - Preliminary NO GROWTH AFTER 48 HOURS Resulted Current Medications Medications (Trade) Dose Ordered Sig/Maribel Route PRN Reason Start Time Stop Time Status Last Admin Dose Admin Acetaminophen (Tylenol) 650 mg Q4H PRN ORAL T>100.5 12/11/17 08:00 01/06/18 07:59 Ampicillin Sodium/ Sulbactam Sodium 3 gm/Sodium Chloride 110 ml @ 220 mls/hr DAILY IVPB 12/12/17 09:00 12/19/17 08:59 12/12/17 08:58 Apixaban (Eliquis) 2.5 mg BID ORAL 12/11/17 09:00 01/07/18 14:29 12/12/17 08:58 Aspirin (ASA) 81 mg DAILY ORAL 12/11/17 09:00 01/08/18 08:59 12/12/17 08:58 Dextrose (Dextrose 50%) STAT PRN IV Hypoglycemia 12/11/17 08:00 01/08/18 07:59 Diltiazem HCl (Cardizem) 10 mg EVERY HOUR PRN IV heart rate more than 120 BPM 12/11/17 08:00 01/06/18 21:59 Haloperidol Lactate (Haldol) 5 mg Q6H PRN IM Agitation 12/11/17 08:00 01/08/18 07:59 12/11/17 21:55 Insulin Aspart (NovoLOG) BEFORE MEALS AND HS SUBQ 12/11/17 11:30 01/07/18 06:29 12/12/17 06:45 Morphine Sulfate (Morphine Sulfate) 1 mg Q4H PRN IVP PAIN 4-10 12/11/17 08:00 12/16/17 07:59 Nitroglycerin (Ntg) 0.4 mg Q5MIN X 3 DOSES PRN SL Prn Chest Pain 12/11/17 08:00 01/06/18 07:59 Olanzapine (ZyPREXA) 2.5 mg BID ORAL 12/12/17 09:00 01/11/18 08:59 12/12/17 08:58 Ondansetron HCl (Zofran) 4 mg Q6H PRN IVP Nausea & Vomiting 12/11/17 08:00 01/06/18 07:59 Pantoprazole (Protonix) 40 mg DAILY ORAL 12/11/17 09:00 01/08/18 15:14 12/12/17 08:58 Polyethylene Glycol (Miralax) 17 gm DAILYPRN PRN ORAL Constipation 12/11/17 08:00 01/06/18 07:59 Promethazine HCl/ Codeine (Phenergan with Codeine) 5 ml Q4H PRN ORAL For Cough 12/11/17 08:00 01/07/18 07:59 Temazepam (Restoril) 15 mg HSPRN PRN ORAL Insomnia 12/11/17 21:00 12/14/17 20:59 12/11/17 21:55 Vancomycin HCl (Vanco rx to dose) 1 ea DAILY PRN MISC Per rx protocol 12/11/17 08:00 01/10/18 07:59 Jessica Peralta MD Dec 12, 2017 14:06
--- NOTE | 2017-12-12 15:32 | Cardiology Progress Note ---
Assessment/Plan Assessment/Plan respiratory distress, combination of pneumonia, CHF and pulmonary emboli will give Lasix and reassess Subjective Subjective the patient is lethargic, resting in bed, opens her eyes and confused she report feeling better Objective Last 24 Hour Vital Signs Date Time Temp Pulse Resp B/P (MAP) Pulse Ox O2 Delivery O2 Flow Rate FiO2 12/12/17 11:57 97.2 66 22 130/65 96 Nasal Cannula 4.0 97.2 12/12/17 11:51 73 12/12/17 08:55 82 20 Nasal Cannula 4.0 36 12/12/17 08:55 70 134/65 12/12/17 08:55 Nasal Cannula 4.0 36 12/12/17 08:55 95 Nasal Cannula 4.0 36 12/12/17 08:03 97.6 71 22 166/72 92 Nasal Cannula 4.0 97.6 12/12/17 08:00 72 12/12/17 04:33 71 12/12/17 04:00 97.4 102 24 150/85 97 Nasal Cannula 4.0 97.4 12/12/17 00:00 97.6 78 24 138/69 98 Nasal Cannula 4.0 97.6 12/11/17 23:37 77 12/11/17 20:06 96 Nasal Cannula 3.0 32 12/11/17 20:06 78 12/11/17 20:06 Nasal Cannula 3.0 32 12/11/17 20:00 97.7 81 24 154/82 96 Nasal Cannula 3.0 97.7 12/11/17 19:20 87 22 Nasal Cannula 3.0 32 12/11/17 16:50 18 96 Nasal Cannula 2.0 12/11/17 16:00 97.5 71 18 137/67 98 Nasal Cannula 3.0 97.5 12/11/17 15:35 71 General Appearance: moderate distress, lethargic EENT: PERRL/EOMI Neck: JVD Rhythm: NSR Cardiovascular: regularly irregular Respiratory/Chest: crackles/rales - anterioirly, rhonchi - bilaterally Abdomen: non tender, no mass Extremities: other - dfressing over both legs Neurologic: disoriented Intake and Output 12/11/17 12/12/17 19:00 07:00 Intake Total 502.000 ml 50 ml Output Total 750 ml 450 ml Balance -248.000 ml -400 ml Intake Oral 120 ml 50 ml IV Total 382.000 ml Output Urine Total 750 ml 450 ml # Bowel Movements 5 1 Microbiology Date/Time Source Procedure Growth Status 12/10/17 12:00 Ascities Fluid Gram Stain - Final Resulted 12/10/17 12:00 Ascities Fluid Body Fluid Culture - Preliminary NO GROWTH AFTER 48 HOURS Resulted AMINA PINEDA Dec 12, 2017 15:32
[2017-12-13] VITALS (7 sets, daily range): BP systolic 96–149; BP diastolic 49–78
[2017-12-13] MEDS: Haloperidol 5mg/ml Inj IM PRN (00:25)
[2017-12-13 04:25] LABS: BASOPHILS % (AUTO) 0.3 % (0.0-2.0); EOSINOPHILS % (AUTO) 2.4 % (0.0-3.0); HEMATOCRIT 28.7 % (37.0-47.0); HEMOGLOBIN 9.2 G/DL (12.0-16.0); LYMPHOCYTES % (AUTO) 9.7 % (20.0-45.0); MEAN CORPUSCULAR VOLUME 83 FL (80-99); NEUTROPHILS % (AUTO) 83.7 % (45.0-75.0); PLATELET COUNT 163 K/UL (150-450); RED BLOOD COUNT 3.44 M/UL (4.20-5.40); RED CELL DISTRIBUTION WIDTH 15.9 % (11.6-14.8); WHITE BLOOD COUNT 7.1 K/UL (4.8-10.8)
[2017-12-13 04:37] LABS: ALANINE AMINOTRANSFERASE 40 U/L (12-78); ALBUMIN 1.8 G/DL (3.4-5.0); ALBUMIN/GLOBULIN RATIO 0.5 (1.0-2.7); ALKALINE PHOSPHATASE 166 U/L (46-116); ANION GAP 10 mmol/L (5-15); ASPARTATE AMINO TRANSFERASE 34 U/L (15-37); BILIRUBIN,TOTAL 0.6 MG/DL (0.2-1.0); BLOOD UREA NITROGEN 81 mg/dL (7-18); CALCIUM 7.8 MG/DL (8.5-10.1); CARBON DIOXIDE 27 MMOL/L (21-32); CHLORIDE 106 MMOL/L (98-107); CREATININE 4.3 MG/DL (0.55-1.30); POTASSIUM 4.1 MMOL/L (3.5-5.1); SODIUM 142 MMOL/L (136-145)
[2017-12-13 05:11] LABS: PHOSPHORUS 6.7 MG/DL (2.5-4.9)
--- NOTE | 2017-12-13 05:15 | Geriatric Medicine Prog Note ---
DATE: 12/12/2017 LOCATION: 243, bed 2. SUBJECTIVE: The patent feels comfortable her breathing mask. OBJECTIVE: VITAL SIGNS: Blood pressure 144/75, pulse 80, respirations 20, . . Álvaro Corral M.D. DR: GUILLERMINA JOB#: [id number] CC:
[2017-12-13] MEDS: NovoLOG Insulin Flexpen SUBQ SCH ×4 (06:30→21:00)
[2017-12-13] MEDS ORDERED: Vancomycin 750mg/NS 250ml IVPB ONE (08:00)
[2017-12-13] MEDS: Ampicillin/Sulbactam Sod 3 GM in NS 110 ML IVPB SCH (08:18)
[2017-12-13] MEDS: OLANZapine 2.5mg tab ORAL SCH ×2 (08:18→17:23)
[2017-12-13] MEDS: Aspirin Baby 81mg ORAL SCH (08:18)
[2017-12-13] MEDS: Eliquis 2.5mg tablet ORAL SCH (08:18)
--- NOTE | 2017-12-13 10:04 | Diagnostic Imaging Report ---
Indication: Reason For Exam: ABN CHST Technique: Portable AP view of the chest Comparison: 12/11/2018 Findings: Stable cardiomegaly. There is overall worsening of aeration with increasing interstitial opacification/edema and increasing bilateral airspace opacities, most pronounced in the left mid/lower lung. There is likely layering left pleural effusion. No definite pneumothorax is appreciated. Osseous structures appear stable. Impression: Overall worsening of aeration with increasing interstitial and bilateral airspace opacities. Probable increased layering left pleural effusion.
--- NOTE | 2017-12-13 12:13 | Pulmonology Progress Note ---
Assessment/Plan Problems: (1) Encephalopathy acute (2) Pneumonia (3) Hypoglycemia (4) Diabetes mellitus (5) Lung mass (6) S/P CABG x 5 Assessment/Plan start lasix drip of 10 mg/hour thoracentesis, removed 500 cc/ bloody effusion, creatinine rising continue abx check cultures check electroltyes awaiting pathology of pleural fluid Subjective ROS Limited/Unobtainable: No Interval Events: back on bipap Allergies: Coded Allergies: LEVOFLOXACIN (Verified Allergy, Unknown, 12/09/17) SULFA (SULFONAMIDE ANTIBIOTICS) (Verified Allergy, Unknown, 12/09/17) Objective Last 24 Hour Vital Signs Date Time Temp Pulse Resp B/P (MAP) Pulse Ox O2 Delivery O2 Flow Rate FiO2 12/13/17 10:59 65 21 100 Facial 30 12/13/17 09:39 75 16 96 Facial 30 12/13/17 08:00 97.7 78 23 149/76 94 97.7 12/13/17 08:00 77 12/13/17 07:53 76 16 96 Facial 30 12/13/17 07:51 86 20 Bi-pap 35 12/13/17 07:51 96 Bi-pap 35 12/13/17 07:51 Bi-pap 35 12/13/17 05:23 71 22 97 Facial 30 12/13/17 04:00 97.2 71 22 137/62 99 Bi-pap 32 97.2 12/13/17 03:36 71 12/13/17 03:29 76 21 98 Facial 30 12/13/17 01:05 77 22 96 Facial 30 12/13/17 00:00 97.3 83 24 140/78 97 Bi-pap 32 97.3 12/12/17 23:50 79 22 95 Facial 30 12/12/17 23:37 80 12/12/17 21:41 Venturi Mask 8.0 40 12/12/17 21:40 94 Venturi Mask 8.0 40 12/12/17 21:39 82 20 Venturi Mask 8.0 40 12/12/17 20:00 96.8 83 24 162/84 95 Nasal Cannula 4.0 96.8 12/12/17 19:40 83 12/12/17 16:00 96.8 71 22 144/75 92 Nasal Cannula 4.0 96.8 12/12/17 15:49 76 Intake and Output 12/12/17 12/13/17 19:00 07:00 Intake Total 590 ml 170 ml Output Total 300 ml 200 ml Balance 290 ml -30 ml Intake Oral 480 ml 170 ml IV Total 110 ml Output Urine Total 300 ml 200 ml Objective General Appearance: cachectic HEENT: normocephalic, atraumatic Respiratory/Chest: chest wall non-tender, + rhonchi ( loud) Cardiovascular: normal peripheral pulses, normal rate, regular rhythm Abdomen: normal bowel sounds, soft, non tender, no organomegaly Genitourinary: normal external genitalia Extremities: no clubbing Skin: no rash 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 Lymphatic: no neck adenopathy Laboratory Tests 12/13/17 03:35: White Blood Count 7.1, Red Blood Count 3.44L, Hemoglobin 9.2L, Hematocrit 28.7L , Mean Corpuscular Volume 83, Mean Corpuscular Hemoglobin 26.7L, Mean Corpuscular Hemoglobin Concent 32.0, Red Cell Distribution Width 15.9H, Platelet Count 163, Mean Platelet Volume 8.3, Neutrophils (%) (Auto) 83.7H, Lymphocytes (%) (Auto) 9.7L, Monocytes (%) (Auto) 4.0, Eosinophils (%) (Auto) 2.4, Basophils (%) (Auto) 0.3, Sodium Level 142, Potassium Level 4.1, Chloride Level 106, Carbon Dioxide Level 27, Anion Gap 10, Blood Urea Nitrogen 81H, Creatinine 4.3H, Estimat Glomerular Filtration Rate , Glucose Level 87, Calcium Level 7.8L, Phosphorus Level 6.7H, Magnesium Level 2.5H, Total Bilirubin 0.6, Aspartate Amino Transf (AST/SGOT) 34, Alanine Aminotransferase (ALT/SGPT) 40, Alkaline Phosphatase 166H, C-Reactive Protein, Quantitative 5.2H, Pro-B-Type Natriuretic Peptide > 00559C, Total Protein 5.6L, Albumin 1.8L, Globulin 3.8, Albumin/Globulin Ratio 0.5L, Random Vancomycin Level 17.8 12/13/17 09:49: Arterial Blood pH 7.201*L, Arterial Blood Partial Pressure CO2 66.7*H, Arterial Blood Partial Pressure O2 108.7H, Arterial Blood HCO3 25.5, Arterial Blood Oxygen Saturation 98.4H, Arterial Blood Base Excess -3.2, Estevan Test Positive Current Medications Medications (Trade) Dose Ordered Sig/Maribel Route PRN Reason Start Time Stop Time Status Last Admin Dose Admin Acetaminophen (Tylenol) 650 mg Q4H PRN ORAL T>100.5 12/11/17 08:00 01/06/18 07:59 Ampicillin Sodium/ Sulbactam Sodium 3 gm/Sodium Chloride 110 ml @ 220 mls/hr DAILY IVPB 12/12/17 09:00 12/19/17 08:59 12/13/17 08:18 Apixaban (Eliquis) 2.5 mg BID ORAL 12/11/17 09:00 01/07/18 14:29 12/13/17 08:18 Aspirin (ASA) 81 mg DAILY ORAL 12/11/17 09:00 01/08/18 08:59 12/13/17 08:18 Dextrose (Dextrose 50%) STAT PRN IV Hypoglycemia 12/11/17 08:00 01/08/18 07:59 Diltiazem HCl (Cardizem) 10 mg EVERY HOUR PRN IV heart rate more than 120 BPM 12/11/17 08:00 01/06/18 21:59 Haloperidol Lactate (Haldol) 5 mg Q6H PRN IM Agitation 12/11/17 08:00 01/08/18 07:59 12/13/17 00:25 Insulin Aspart (NovoLOG) BEFORE MEALS AND HS SUBQ 12/11/17 11:30 01/07/18 06:29 12/12/17 20:55 Morphine Sulfate (Morphine Sulfate) 1 mg Q4H PRN IVP PAIN 4-10 12/11/17 08:00 12/16/17 07:59 Nitroglycerin (Ntg) 0.4 mg Q5MIN X 3 DOSES PRN SL Prn Chest Pain 12/11/17 08:00 01/06/18 07:59 Olanzapine (ZyPREXA) 2.5 mg BID ORAL 12/12/17 09:00 01/11/18 08:59 12/13/17 08:18 Ondansetron HCl (Zofran) 4 mg Q6H PRN IVP Nausea & Vomiting 12/11/17 08:00 01/06/18 07:59 Pantoprazole (Protonix) 40 mg DAILY ORAL 12/11/17 09:00 4/13/18 15:14 12/13/17 08:18 Polyethylene Glycol (Miralax) 17 gm DAILYPRN PRN ORAL Constipation 12/11/17 08:00 01/06/18 07:59 Promethazine HCl/ Codeine (Phenergan with Codeine) 5 ml Q4H PRN ORAL For Cough 12/11/17 08:00 01/07/18 07:59 12/13/17 08:18 Temazepam (Restoril) 15 mg HSPRN PRN ORAL Insomnia 12/11/17 21:00 12/14/17 20:59 12/12/17 21:59 Vancomycin HCl (Vanco rx to dose) 1 ea DAILY PRN MISC Per rx protocol 12/11/17 08:00 01/10/18 07:59 Jessica Peralta MD Dec 13, 2017 12:13
--- NOTE | 2017-12-13 13:03 | General Progress Note ---
Assessment/Plan Assessment/Plan #. Anemia due to underlying chronic disease. --> Continue to closely monitor for improvement. The patient may have evidence of iron deficiency and at this time --> Anemia workup reviewed. Iron 66, TIBC 306, Ferritin 131, Vit B12 637, Folate 13.2 --> Transfuse if hgb <7, prbc not needed at this time. Hgb has been stable. #. Anemia of iron deficiency. --> TIBC is elevated. Begin the patient on ferrous sulfate. --> Monitor. #. Anemia due to gastrointestinal bleed consider GI Service as needed. --> Trend cbc #. Severe mitral regurgitation, status post mitral valve repair in 2016. --> Continue the patient on Eliquis. as well as Coreg as needed. #. Leukocytosis, likely secondary to infectious process. ESR 41. --> Continue to closely monitor. --> Improved #. Prothrombin time coagulopathy. --> Closely monitor for improvement and currently prothrombin time elevated, on Eliquis. Continue at this time. #. Hypoglycemia. Low blood sugar, found unresponsive at home. D10 given. #. Encephalopathy. Subjective Date patient seen: Dec 12, 2017 Constitutional: Denies: no symptoms, chills, diaphoresis, fever, malaise, weakness, other HEENT: Denies: no symptoms, eye pain, blurred vision, tearing, double vision, ear pain, ear discharge, nose pain, nose congestion, throat pain, throat swelling, mouth pain, mouth swelling, other Cardiovascular: Denies: no symptoms, chest pain, edema, irregular heart rate, lightheadedness, palpitations, syncope, other Respiratory: Denies: no symptoms, cough, orthopnea, shortness of breath, SOB with excertion, SOB at rest, sputum, stridor, wheezing, other Gastrointestinal/Abdominal: Denies: no symptoms, abdomen distended, abdominal pain, black stools, tarry stools, blood in stool, constipated, diarrhea, difficulty swallowing, nausea, poor appetite, poor fluid intake, rectal bleeding , vomiting, other Genitourinary: Denies: no symptoms, burning, discharge, frequency, flank pain, hematuria, incontinence, pain, urgency, other Neurologic/Psychiatric: Denies: no symptoms, anxiety, depressed, emotional problems, headache, numbness, paresthesia, pre-existing deficit, seizure, tingling, tremors, weakness, other Hematologic/Lymphatic: Reports: anemia Allergies: Coded Allergies: LEVOFLOXACIN (Verified Allergy, Unknown, 12/09/17) SULFA (SULFONAMIDE ANTIBIOTICS) (Verified Allergy, Unknown, 12/09/17) Subjective Encephalopathic. Resting in bed. No new events. Objective Last 24 Hour Vital Signs Date Time Temp Pulse Resp B/P (MAP) Pulse Ox O2 Delivery O2 Flow Rate FiO2 12/13/17 12:34 66 17 100 Facial 30 12/13/17 12:00 98.0 68 18 124/63 100 98.0 12/13/17 10:59 65 21 100 Facial 30 12/13/17 09:39 75 16 96 Facial 30 12/13/17 08:00 97.7 78 23 149/76 94 97.7 12/13/17 08:00 77 12/13/17 07:53 76 16 96 Facial 30 12/13/17 07:51 86 20 Bi-pap 35 12/13/17 07:51 96 Bi-pap 35 12/13/17 07:51 Bi-pap 35 12/13/17 05:23 71 22 97 Facial 30 12/13/17 04:00 97.2 71 22 137/62 99 Bi-pap 32 97.2 12/13/17 03:36 71 12/13/17 03:29 76 21 98 Facial 30 12/13/17 01:05 77 22 96 Facial 30 12/13/17 00:00 97.3 83 24 140/78 97 Bi-pap 32 97.3 12/12/17 23:50 79 22 95 Facial 30 12/12/17 23:37 80 12/12/17 21:41 Venturi Mask 8.0 40 12/12/17 21:40 94 Venturi Mask 8.0 40 12/12/17 21:39 82 20 Venturi Mask 8.0 40 12/12/17 20:00 96.8 83 24 162/84 95 Nasal Cannula 4.0 96.8 12/12/17 19:40 83 12/12/17 16:00 96.8 71 22 144/75 92 Nasal Cannula 4.0 96.8 12/12/17 15:49 76 Intake and Output 12/12/17 12/13/17 19:00 07:00 Intake Total 590 ml 170 ml Output Total 300 ml 200 ml Balance 290 ml -30 ml Intake Oral 480 ml 170 ml IV Total 110 ml Output Urine Total 300 ml 200 ml Laboratory Tests 12/13/17 03:35: White Blood Count 7.1, Red Blood Count 3.44L, Hemoglobin 9.2L, Hematocrit 28.7L , Mean Corpuscular Volume 83, Mean Corpuscular Hemoglobin 26.7L, Mean Corpuscular Hemoglobin Concent 32.0, Red Cell Distribution Width 15.9H, Platelet Count 163, Mean Platelet Volume 8.3, Neutrophils (%) (Auto) 83.7H, Lymphocytes (%) (Auto) 9.7L, Monocytes (%) (Auto) 4.0, Eosinophils (%) (Auto) 2.4, Basophils (%) (Auto) 0.3, Sodium Level 142, Potassium Level 4.1, Chloride Level 106, Carbon Dioxide Level 27, Anion Gap 10, Blood Urea Nitrogen 81H, Creatinine 4.3H, Estimat Glomerular Filtration Rate , Glucose Level 87, Calcium Level 7.8L, Phosphorus Level 6.7H, Magnesium Level 2.5H, Total Bilirubin 0.6, Aspartate Amino Transf (AST/SGOT) 34, Alanine Aminotransferase (ALT/SGPT) 40, Alkaline Phosphatase 166H, C-Reactive Protein, Quantitative 5.2H, Pro-B-Type Natriuretic Peptide > 26373P, Total Protein 5.6L, Albumin 1.8L, Globulin 3.8, Albumin/Globulin Ratio 0.5L, Random Vancomycin Level 17.8 12/13/17 09:49: Arterial Blood pH 7.201*L, Arterial Blood Partial Pressure CO2 66.7*H, Arterial Blood Partial Pressure O2 108.7H, Arterial Blood HCO3 25.5, Arterial Blood Oxygen Saturation 98.4H, Arterial Blood Base Excess -3.2, Estevan Test Positive Height (Feet): 5 Height (Inches): 4.00 Weight (Pounds): 136 General Appearance: no apparent distress Respiratory/Chest: decreased breath sounds Abdomen: soft Abdirashid Solorzano MD Dec 13, 2017 13:03
--- NOTE | 2017-12-13 17:28 | Nephrology Progress Note ---
Assessment/Plan Problem List: (1) Acute respiratory failure (2) ATN (acute tubular necrosis) (3) CAD (coronary artery disease) (4) Pleural effusion (5) Diabetes mellitus Assessment CKD with acute component : Cr up to 4.3 Acute respiratory failure CABG X 5 DMII Hyperlipidemia HTN CVA Sarcoidosis Liver disease, HypoAlbuminemia Anemia hs of Severe MR s/p mitral valve repair with FIONA closure [address] Cassidy Plan Plan: likely need dialysis soon will discuss with DPOA Avoid Nephrotoxics- Optimize cardiac & Pulmonary status Monitor renal parameters Urine for eos 24 h urine protein discussed with RN message left for Son [phone] Subjective ROS Limited/Unobtainable: No Constitutional: Reports: malaise, weakness Objective Objective Last 24 Hour Vital Signs Date Time Temp Pulse Resp B/P (MAP) Pulse Ox O2 Delivery O2 Flow Rate FiO2 12/13/17 16:55 69 25 97 Facial 35 12/13/17 16:00 61 12/13/17 15:58 97.4 61 18 109/56 95 97.4 12/13/17 15:00 35 12/13/17 14:42 70 17 95 Facial 35 12/13/17 12:34 66 17 100 Facial 80 12/13/17 12:00 65 12/13/17 12:00 98.0 68 18 124/63 100 98.0 12/13/17 11:00 80 12/13/17 10:59 65 21 100 Facial 100 12/13/17 09:53 98 100 12/13/17 09:39 75 16 96 Facial 30 12/13/17 08:00 97.7 78 23 149/76 94 97.7 12/13/17 08:00 77 12/13/17 07:53 76 16 96 Facial 30 12/13/17 07:51 86 20 Bi-pap 35 12/13/17 07:51 96 Bi-pap 35 12/13/17 07:51 Bi-pap 35 12/13/17 05:23 71 22 97 Facial 30 12/13/17 04:00 97.2 71 22 137/62 99 Bi-pap 32 97.2 12/13/17 03:36 71 12/13/17 03:29 76 21 98 Facial 30 12/13/17 01:05 77 22 96 Facial 30 12/13/17 00:00 97.3 83 24 140/78 97 Bi-pap 32 97.3 12/12/17 23:50 79 22 95 Facial 30 12/12/17 23:37 80 12/12/17 21:41 Venturi Mask 8.0 40 12/12/17 21:40 94 Venturi Mask 8.0 40 12/12/17 21:39 82 20 Venturi Mask 8.0 40 12/12/17 20:00 96.8 83 24 162/84 95 Nasal Cannula 4.0 96.8 12/12/17 19:40 83 Intake and Output 12/12/17 12/13/17 19:00 07:00 Intake Total 590 ml 170 ml Output Total 300 ml 200 ml Balance 290 ml -30 ml Intake Oral 480 ml 170 ml IV Total 110 ml Output Urine Total 300 ml 200 ml Laboratory Tests 12/13/17 03:35: White Blood Count 7.1, Red Blood Count 3.44L, Hemoglobin 9.2L, Hematocrit 28.7L , Mean Corpuscular Volume 83, Mean Corpuscular Hemoglobin 26.7L, Mean Corpuscular Hemoglobin Concent 32.0, Red Cell Distribution Width 15.9H, Platelet Count 163, Mean Platelet Volume 8.3, Neutrophils (%) (Auto) 83.7H, Lymphocytes (%) (Auto) 9.7L, Monocytes (%) (Auto) 4.0, Eosinophils (%) (Auto) 2.4, Basophils (%) (Auto) 0.3, Sodium Level 142, Potassium Level 4.1, Chloride Level 106, Carbon Dioxide Level 27, Anion Gap 10, Blood Urea Nitrogen 81H, Creatinine 4.3H, Estimat Glomerular Filtration Rate , Glucose Level 87, Calcium Level 7.8L, Phosphorus Level 6.7H, Magnesium Level 2.5H, Total Bilirubin 0.6, Aspartate Amino Transf (AST/SGOT) 34, Alanine Aminotransferase (ALT/SGPT) 40, Alkaline Phosphatase 166H, C-Reactive Protein, Quantitative 5.2H, Pro-B-Type Natriuretic Peptide > 26446L, Total Protein 5.6L, Albumin 1.8L, Globulin 3.8, Albumin/Globulin Ratio 0.5L, Random Vancomycin Level 17.8 12/13/17 09:49: Arterial Blood pH 7.201*L, Arterial Blood Partial Pressure CO2 66.7*H, Arterial Blood Partial Pressure O2 108.7H, Arterial Blood HCO3 25.5, Arterial Blood Oxygen Saturation 98.4H, Arterial Blood Base Excess -3.2, [place] Test Positive Height (Feet): 5 Height (Inches): 4.00 Weight (Pounds): 136 EENT: other - BIPAP Cardiovascular: normal rate Respiratory/Chest: decreased breath sounds Abdomen: distended DANIAL PA 18, 2018 17:28
[2017-12-13] MEDS ORDERED: D5 1/2NS 1,000 ML IV SCH (21:00)
--- NOTE | 2017-12-13 21:19 | Cardiology Progress Note ---
Assessment/Plan Assessment/Plan respiratory distress, combination of pneumonia, CHF and pulmonary emboli did not respond to lasix, very concnerning Subjective Subjective tlethargic and restrless, dyspneic Objective Last 24 Hour Vital Signs Date Time Temp Pulse Resp B/P (MAP) Pulse Ox O2 Delivery O2 Flow Rate FiO2 12/13/17 19:27 Bi-pap 35 12/13/17 19:27 95 Bi-pap 35 12/13/17 19:27 85 22 Bi-pap 35 12/13/17 19:01 81 24 98 Facial 35 12/13/17 16:55 69 25 97 Facial 35 12/13/17 16:00 61 12/13/17 15:58 97.4 61 18 109/56 95 97.4 12/13/17 15:00 35 12/13/17 14:42 70 17 95 Facial 35 12/13/17 12:34 66 17 100 Facial 80 12/13/17 12:00 65 12/13/17 12:00 98.0 68 18 124/63 100 98.0 12/13/17 11:00 80 12/13/17 10:59 65 21 100 Facial 100 12/13/17 09:53 98 100 12/13/17 09:39 75 16 96 Facial 30 12/13/17 08:00 97.7 78 23 149/76 94 97.7 12/13/17 08:00 77 12/13/17 07:53 76 16 96 Facial 30 12/13/17 07:51 86 20 Bi-pap 35 12/13/17 07:51 96 Bi-pap 35 12/13/17 07:51 Bi-pap 35 12/13/17 05:23 71 22 97 Facial 30 12/13/17 04:00 97.2 71 22 137/62 99 Bi-pap 32 97.2 12/13/17 03:36 71 12/13/17 03:29 76 21 98 Facial 30 12/13/17 01:05 77 22 96 Facial 30 12/13/17 00:00 97.3 83 24 140/78 97 Bi-pap 32 97.3 12/12/17 23:50 79 22 95 Facial 30 12/12/17 23:37 80 12/12/17 21:41 Venturi Mask 8.0 40 12/12/17 21:40 94 Venturi Mask 8.0 40 12/12/17 21:39 82 20 Venturi Mask 8.0 40 General Appearance: moderate distress, lethargic EENT: PERRL/EOMI Neck: JVD Rhythm: ST Cardiovascular: regular rhythm Respiratory/Chest: crackles/rales - extensive, anterioirly and psoterioirly Abdomen: distended Extremities: other - skin changes Intake and Output 12/12/17 12/13/17 19:00 07:00 Intake Total 590 ml 170 ml Output Total 300 ml 200 ml Balance 290 ml -30 ml Intake Oral 480 ml 170 ml IV Total 110 ml Output Urine Total 300 ml 200 ml Laboratory Tests Test 12/13/17 03:35 12/13/17 09:49 White Blood Count 7.1 K/UL (4.8-10.8) Red Blood Count 3.44 M/UL (4.20-5.40) L Hemoglobin 9.2 G/DL (12.0-16.0) L Hematocrit 28.7 % (37.0-47.0) L Mean Corpuscular Volume 83 FL (80-99) Mean Corpuscular Hemoglobin 26.7 PG (27.0-31.0) L Mean Corpuscular Hemoglobin Concent 32.0 G/DL (32.0-36.0) Red Cell Distribution Width 15.9 % (11.6-14.8) H Platelet Count 163 K/UL (150-450) Mean Platelet Volume 8.3 FL (6.5-10.1) Neutrophils (%) (Auto) 83.7 % (45.0-75.0) H Lymphocytes (%) (Auto) 9.7 % (20.0-45.0) L Monocytes (%) (Auto) 4.0 % (1.0-10.0) Eosinophils (%) (Auto) 2.4 % (0.0-3.0) Basophils (%) (Auto) 0.3 % (0.0-2.0) Sodium Level 142 MMOL/L (136-145) Potassium Level 4.1 MMOL/L (3.5-5.1) Chloride Level 106 MMOL/L (98-107) Carbon Dioxide Level 27 MMOL/L (21-32) Anion Gap 10 mmol/L (5-15) Blood Urea Nitrogen 81 mg/dL (7-18) H Creatinine 4.3 MG/DL (0.55-1.30) H Estimat Glomerular Filtration Rate mL/min (>60) Glucose Level 87 MG/DL (74-106) Calcium Level 7.8 MG/DL (8.5-10.1) L Phosphorus Level 6.7 MG/DL (2.5-4.9) H Magnesium Level 2.5 MG/DL (1.8-2.4) H Total Bilirubin 0.6 MG/DL (0.2-1.0) Aspartate Amino Transf (AST/SGOT) 34 U/L (15-37) Alanine Aminotransferase (ALT/SGPT) 40 U/L (12-78) Alkaline Phosphatase 166 U/L (46-116) H C-Reactive Protein, Quantitative 5.2 mg/dL (0.00-0.90) H Pro-B-Type Natriuretic Peptide > 30974 pg/mL (0-125) H Total Protein 5.6 G/DL (6.4-8.2) L Albumin 1.8 G/DL (3.4-5.0) L Globulin 3.8 g/dL Albumin/Globulin Ratio 0.5 (1.0-2.7) L Random Vancomycin Level 17.8 ug/mL Arterial Blood pH 7.201 (7.350-7.450) Arterial Blood Partial Pressure CO2 66.7 mmHg (35.0-45.0) *H Arterial Blood Partial Pressure O2 108.7 mmHg (75.0-100.0) H Arterial Blood HCO3 25.5 mmol/L (22.0-26.0) Arterial Blood Oxygen Saturation 98.4 % (92.0-98.0) H Arterial Blood Base Excess -3.2 Estevan Test Positive AMINA PINEDA Dec 13, 2017 21:19
--- NOTE | 2017-12-13 22:03 | General Progress Note ---
Assessment/Plan Assessment/Plan encephalopathy dementia with behavioral disturbance the pt lacks capacity to make decisions -zyprexa -haldol prn Subjective Date patient seen: Dec 13, 2017 Allergies: Coded Allergies: LEVOFLOXACIN (Verified Allergy, Unknown, 12/09/17) SULFA (SULFONAMIDE ANTIBIOTICS) (Verified Allergy, Unknown, 12/09/17) Subjective the pt is calmer and less agitated. didnt eat Objective Last 24 Hour Vital Signs Date Time Temp Pulse Resp B/P (MAP) Pulse Ox O2 Delivery O2 Flow Rate FiO2 12/13/17 21:11 72 22 100 Facial 35 12/13/17 19:27 Bi-pap 35 12/13/17 19:27 95 Bi-pap 35 12/13/17 19:27 85 22 Bi-pap 35 12/13/17 19:01 81 24 98 Facial 35 12/13/17 16:55 69 25 97 Facial 35 12/13/17 16:00 61 12/13/17 15:58 97.4 61 18 109/56 95 97.4 12/13/17 15:00 35 12/13/17 14:42 70 17 95 Facial 35 12/13/17 12:34 66 17 100 Facial 80 12/13/17 12:00 65 12/13/17 12:00 98.0 68 18 124/63 100 98.0 12/13/17 11:00 80 12/13/17 10:59 65 21 100 Facial 100 12/13/17 09:53 98 100 12/13/17 09:39 75 16 96 Facial 30 12/13/17 08:00 97.7 78 23 149/76 94 97.7 12/13/17 08:00 77 12/13/17 07:53 76 16 96 Facial 30 12/13/17 07:51 86 20 Bi-pap 35 12/13/17 07:51 96 Bi-pap 35 12/13/17 07:51 Bi-pap 35 12/13/17 05:23 71 22 97 Facial 30 12/13/17 04:00 97.2 71 22 137/62 99 Bi-pap 32 97.2 12/13/17 03:36 71 12/13/17 03:29 76 21 98 Facial 30 12/13/17 01:05 77 22 96 Facial 30 12/13/17 00:00 97.3 83 24 140/78 97 Bi-pap 32 97.3 12/12/17 23:50 79 22 95 Facial 30 12/12/17 23:37 80 Intake and Output 12/12/17 12/13/17 19:00 07:00 Intake Total 590 ml 170 ml Output Total 300 ml 200 ml Balance 290 ml -30 ml Intake Oral 480 ml 170 ml IV Total 110 ml Output Urine Total 300 ml 200 ml Laboratory Tests 12/13/17 03:35: White Blood Count 7.1, Red Blood Count 3.44L, Hemoglobin 9.2L, Hematocrit 28.7L , Mean Corpuscular Volume 83, Mean Corpuscular Hemoglobin 26.7L, Mean Corpuscular Hemoglobin Concent 32.0, Red Cell Distribution Width 15.9H, Platelet Count 163, Mean Platelet Volume 8.3, Neutrophils (%) (Auto) 83.7H, Lymphocytes (%) (Auto) 9.7L, Monocytes (%) (Auto) 4.0, Eosinophils (%) (Auto) 2.4, Basophils (%) (Auto) 0.3, Sodium Level 142, Potassium Level 4.1, Chloride Level 106, Carbon Dioxide Level 27, Anion Gap 10, Blood Urea Nitrogen 81H, Creatinine 4.3H, Estimat Glomerular Filtration Rate , Glucose Level 87, Calcium Level 7.8L, Phosphorus Level 6.7H, Magnesium Level 2.5H, Total Bilirubin 0.6, Aspartate Amino Transf (AST/SGOT) 34, Alanine Aminotransferase (ALT/SGPT) 40, Alkaline Phosphatase 166H, C-Reactive Protein, Quantitative 5.2H, Pro-B-Type Natriuretic Peptide > 89559I, Total Protein 5.6L, Albumin 1.8L, Globulin 3.8, Albumin/Globulin Ratio 0.5L, Random Vancomycin Level 17.8 12/13/17 09:49: Arterial Blood pH 7.201*L, Arterial Blood Partial Pressure CO2 66.7*H, Arterial Blood Partial Pressure O2 108.7H, Arterial Blood HCO3 25.5, Arterial Blood Oxygen Saturation 98.4H, Arterial Blood Base Excess -3.2, Estevan Test Positive Height (Feet): 5 Height (Inches): 4.00 Weight (Pounds): 136 Zaynab Araya M.D. Dec 13, 2017 22:03
--- NOTE | 2017-12-13 22:03 | Psych Consult Progress Note ---
Psych Consult Progress Note Consult 12/12/17 encephalopathy dementia with behavioral disturbance the pt lacks capacity to make decisions -zyprexa -haldol prn Vital Signs Last 24 Hour Vital Signs Date Time Temp Pulse Resp B/P (MAP) Pulse Ox O2 Delivery O2 Flow Rate FiO2 12/13/17 21:11 72 22 100 Facial 35 12/13/17 19:27 Bi-pap 35 12/13/17 19:27 95 Bi-pap 35 12/13/17 19:27 85 22 Bi-pap 35 12/13/17 19:01 81 24 98 Facial 35 12/13/17 16:55 69 25 97 Facial 35 12/13/17 16:00 61 12/13/17 15:58 97.4 61 18 109/56 95 97.4 12/13/17 15:00 35 12/13/17 14:42 70 17 95 Facial 35 12/13/17 12:34 66 17 100 Facial 80 12/13/17 12:00 65 12/13/17 12:00 98.0 68 18 124/63 100 98.0 12/13/17 11:00 80 12/13/17 10:59 65 21 100 Facial 100 12/13/17 09:53 98 100 12/13/17 09:39 75 16 96 Facial 30 12/13/17 08:00 97.7 78 23 149/76 94 97.7 12/13/17 08:00 77 12/13/17 07:53 76 16 96 Facial 30 12/13/17 07:51 86 20 Bi-pap 35 12/13/17 07:51 96 Bi-pap 35 12/13/17 07:51 Bi-pap 35 12/13/17 05:23 71 22 97 Facial 30 12/13/17 04:00 97.2 71 22 137/62 99 Bi-pap 32 97.2 12/13/17 03:36 71 12/13/17 03:29 76 21 98 Facial 30 12/13/17 01:05 77 22 96 Facial 30 12/13/17 00:00 97.3 83 24 140/78 97 Bi-pap 32 97.3 12/12/17 23:50 79 22 95 Facial 30 12/12/17 23:37 80 Labs Laboratory Tests Test 12/13/17 03:35 12/13/17 09:49 White Blood Count 7.1 K/UL (4.8-10.8) Red Blood Count 3.44 M/UL (4.20-5.40) L Hemoglobin 9.2 G/DL (12.0-16.0) L Hematocrit 28.7 % (37.0-47.0) L Mean Corpuscular Volume 83 FL (80-99) Mean Corpuscular Hemoglobin 26.7 PG (27.0-31.0) L Mean Corpuscular Hemoglobin Concent 32.0 G/DL (32.0-36.0) Red Cell Distribution Width 15.9 % (11.6-14.8) H Platelet Count 163 K/UL (150-450) Mean Platelet Volume 8.3 FL (6.5-10.1) Neutrophils (%) (Auto) 83.7 % (45.0-75.0) H Lymphocytes (%) (Auto) 9.7 % (20.0-45.0) L Monocytes (%) (Auto) 4.0 % (1.0-10.0) Eosinophils (%) (Auto) 2.4 % (0.0-3.0) Basophils (%) (Auto) 0.3 % (0.0-2.0) Sodium Level 142 MMOL/L (136-145) Potassium Level 4.1 MMOL/L (3.5-5.1) Chloride Level 106 MMOL/L (98-107) Carbon Dioxide Level 27 MMOL/L (21-32) Anion Gap 10 mmol/L (5-15) Blood Urea Nitrogen 81 mg/dL (7-18) H Creatinine 4.3 MG/DL (0.55-1.30) H Estimat Glomerular Filtration Rate mL/min (>60) Glucose Level 87 MG/DL (74-106) Calcium Level 7.8 MG/DL (8.5-10.1) L Phosphorus Level 6.7 MG/DL (2.5-4.9) H Magnesium Level 2.5 MG/DL (1.8-2.4) H Total Bilirubin 0.6 MG/DL (0.2-1.0) Aspartate Amino Transf (AST/SGOT) 34 U/L (15-37) Alanine Aminotransferase (ALT/SGPT) 40 U/L (12-78) Alkaline Phosphatase 166 U/L (46-116) H C-Reactive Protein, Quantitative 5.2 mg/dL (0.00-0.90) H Pro-B-Type Natriuretic Peptide > 07921 pg/mL (0-125) H Total Protein 5.6 G/DL (6.4-8.2) L Albumin 1.8 G/DL (3.4-5.0) L Globulin 3.8 g/dL Albumin/Globulin Ratio 0.5 (1.0-2.7) L Random Vancomycin Level 17.8 ug/mL Arterial Blood pH 7.201 (7.350-7.450) Arterial Blood Partial Pressure CO2 66.7 mmHg (35.0-45.0) *H Arterial Blood Partial Pressure O2 108.7 mmHg (75.0-100.0) H Arterial Blood HCO3 25.5 mmol/L (22.0-26.0) Arterial Blood Oxygen Saturation 98.4 % (92.0-98.0) H Arterial Blood Base Excess -3.2 [place]an Test Positive Medications Current Medications Medications (Trade) Dose Ordered Sig/Maribel Route PRN Reason Start Time Stop Time Status Last Admin Dose Admin Acetaminophen (Tylenol) 650 mg Q4H PRN ORAL T>100.5 12/11/17 08:00 01/06/18 07:59 Dextrose (Dextrose 50%) STAT PRN IV Hypoglycemia 12/11/17 08:00 01/08/18 07:59 Dextrose/Sodium Chloride 1,000 ml @ 40 mls/hr Q24H IV 12/13/17 21:00 01/12/18 20:59 12/13/17 21:05 Diltiazem HCl (Cardizem) 10 mg EVERY HOUR PRN IV heart rate more than 120 BPM 12/11/17 08:00 01/06/18 21:59 Furosemide 100 mg/ Dextrose 100 ml @ 10 mls/hr Q10H IV 12/13/17 13:00 01/12/18 12:59 12/13/17 13:11 Haloperidol Lactate (Haldol) 5 mg Q6H PRN IM Agitation 12/11/17 08:00 01/08/18 07:59 12/13/17 00:25 Insulin Aspart (NovoLOG) BEFORE MEALS AND HS SUBQ 12/11/17 11:30 01/07/18 06:29 12/12/17 20:55 Metolazone (Zaroxolyn) 5 mg DAILY ORAL 12/13/17 13:00 01/12/18 12:59 Morphine Sulfate (Morphine Sulfate) 1 mg Q4H PRN IVP PAIN 4-10 12/11/17 08:00 12/16/17 07:59 Nitroglycerin (Ntg) 0.4 mg Q5MIN X 3 DOSES PRN SL Prn Chest Pain 12/11/17 08:00 01/06/18 07:59 Olanzapine (ZyPREXA) 2.5 mg BID ORAL 12/12/17 09:00 01/11/18 08:59 12/13/17 08:18 Ondansetron HCl (Zofran) 4 mg Q6H PRN IVP Nausea & Vomiting 12/11/17 08:00 01/06/18 07:59 Pantoprazole (Protonix) 40 mg DAILY ORAL 12/11/17 09:00 01/08/18 15:14 12/13/17 08:18 Polyethylene Glycol (Miralax) 17 gm DAILYPRN PRN ORAL Constipation 12/11/17 08:00 01/06/18 07:59 Promethazine HCl/ Codeine (Phenergan with Codeine) 5 ml Q4H PRN ORAL For Cough 12/11/17 08:00 01/07/18 07:59 12/13/17 08:18 Temazepam (Restoril) 15 mg HSPRN PRN ORAL Insomnia 12/11/17 21:00 12/14/17 20:59 12/12/17 21:59 Problems: Zaynab Araya M.D. Dec 13, 2017 22:03
--- NOTE | 2017-12-13 23:33 | General Progress Note ---
Assessment/Plan Assessment/Plan #. Anemia due to underlying chronic disease. --> Continue to closely monitor for improvement. The patient may have evidence of iron deficiency and at this time --> Anemia workup reviewed. Iron 66, TIBC 306, Ferritin 131, Vit B12 637, Folate 13.2 --> Transfuse if hgb <7, prbc not needed at this time. --> Hemoglobin improved from yesterday. #. Anemia of iron deficiency. --> TIBC is elevated. Begin the patient on ferrous sulfate. --> Monitor. #. Anemia due to gastrointestinal bleed consider GI Service as needed. --> Trend cbc. Hemoglobin has improved. #. Severe mitral regurgitation, status post mitral valve repair in 2016. --> Continue the patient on Eliquis. as well as Coreg as needed. #. Leukocytosis, likely secondary to infectious process. ESR 41. --> Continue to closely monitor. --> Improved #. Prothrombin time coagulopathy. --> Closely monitor for improvement and currently prothrombin time elevated, on Eliquis. Continue at this time. #. Hypoglycemia. Low blood sugar, found unresponsive at home. D10 given. #. Encephalopathy. Subjective Date patient seen: Dec 13, 2017 Constitutional: Denies: no symptoms, chills, diaphoresis, fever, malaise, weakness, other HEENT: Denies: no symptoms, eye pain, blurred vision, tearing, double vision, ear pain, ear discharge, nose pain, nose congestion, throat pain, throat swelling, mouth pain, mouth swelling, other Cardiovascular: Denies: no symptoms, chest pain, edema, irregular heart rate, lightheadedness, palpitations, syncope, other Respiratory: Denies: no symptoms, cough, orthopnea, shortness of breath, SOB with excertion, SOB at rest, sputum, stridor, wheezing, other Gastrointestinal/Abdominal: Denies: no symptoms, abdomen distended, abdominal pain, black stools, tarry stools, blood in stool, constipated, diarrhea, difficulty swallowing, nausea, poor appetite, poor fluid intake, rectal bleeding , vomiting, other Genitourinary: Denies: no symptoms, burning, discharge, frequency, flank pain, hematuria, incontinence, pain, urgency, other Neurologic/Psychiatric: Denies: no symptoms, anxiety, depressed, emotional problems, headache, numbness, paresthesia, pre-existing deficit, seizure, tingling, tremors, weakness, other Hematologic/Lymphatic: Reports: anemia Allergies: Coded Allergies: LEVOFLOXACIN (Verified Allergy, Unknown, 12/09/17) SULFA (SULFONAMIDE ANTIBIOTICS) (Verified Allergy, Unknown, 12/09/17) Subjective Encephalopathic. Hemoglobin improved. On bipap. Objective Last 24 Hour Vital Signs Date Time Temp Pulse Resp B/P (MAP) Pulse Ox O2 Delivery O2 Flow Rate FiO2 12/13/17 21:11 72 22 100 Facial 35 12/13/17 20:00 65 12/13/17 20:00 97.3 65 18 144/72 99 97.3 12/13/17 19:27 Bi-pap 35 12/13/17 19:27 95 Bi-pap 35 12/13/17 19:27 85 22 Bi-pap 35 12/13/17 19:01 81 24 98 Facial 35 12/13/17 16:55 69 25 97 Facial 35 12/13/17 16:00 61 12/13/17 15:58 97.4 61 18 109/56 95 97.4 12/13/17 15:00 35 12/13/17 14:42 70 17 95 Facial 35 12/13/17 12:34 66 17 100 Facial 80 12/13/17 12:00 65 12/13/17 12:00 98.0 68 18 124/63 100 98.0 12/13/17 11:00 80 12/13/17 10:59 65 21 100 Facial 100 12/13/17 09:53 98 100 12/13/17 09:39 75 16 96 Facial 30 12/13/17 08:00 97.7 78 23 149/76 94 97.7 12/13/17 08:00 77 12/13/17 07:53 76 16 96 Facial 30 12/13/17 07:51 86 20 Bi-pap 35 12/13/17 07:51 96 Bi-pap 35 12/13/17 07:51 Bi-pap 35 12/13/17 05:23 71 22 97 Facial 30 12/13/17 04:00 97.2 71 22 137/62 99 Bi-pap 32 97.2 12/13/17 03:36 71 12/13/17 03:29 76 21 98 Facial 30 12/13/17 01:05 77 22 96 Facial 30 12/13/17 00:00 97.3 83 24 140/78 97 Bi-pap 32 97.3 12/12/17 23:50 79 22 95 Facial 30 12/12/17 23:37 80 Intake and Output 12/12/17 12/13/17 19:00 07:00 Intake Total 590 ml 170 ml Output Total 300 ml 200 ml Balance 290 ml -30 ml Intake Oral 480 ml 170 ml IV Total 110 ml Output Urine Total 300 ml 200 ml Laboratory Tests 12/13/17 03:35: White Blood Count 7.1, Red Blood Count 3.44L, Hemoglobin 9.2L, Hematocrit 28.7L , Mean Corpuscular Volume 83, Mean Corpuscular Hemoglobin 26.7L, Mean Corpuscular Hemoglobin Concent 32.0, Red Cell Distribution Width 15.9H, Platelet Count 163, Mean Platelet Volume 8.3, Neutrophils (%) (Auto) 83.7H, Lymphocytes (%) (Auto) 9.7L, Monocytes (%) (Auto) 4.0, Eosinophils (%) (Auto) 2.4, Basophils (%) (Auto) 0.3, Sodium Level 142, Potassium Level 4.1, Chloride Level 106, Carbon Dioxide Level 27, Anion Gap 10, Blood Urea Nitrogen 81H, Creatinine 4.3H, Estimat Glomerular Filtration Rate , Glucose Level 87, Calcium Level 7.8L, Phosphorus Level 6.7H, Magnesium Level 2.5H, Total Bilirubin 0.6, Aspartate Amino Transf (AST/SGOT) 34, Alanine Aminotransferase (ALT/SGPT) 40, Alkaline Phosphatase 166H, C-Reactive Protein, Quantitative 5.2H, Pro-B-Type Natriuretic Peptide > 74026K, Total Protein 5.6L, Albumin 1.8L, Globulin 3.8, Albumin/Globulin Ratio 0.5L, Random Vancomycin Level 17.8 12/13/17 09:49: Arterial Blood pH 7.201*L, Arterial Blood Partial Pressure CO2 66.7*H, Arterial Blood Partial Pressure O2 108.7H, Arterial Blood HCO3 25.5, Arterial Blood Oxygen Saturation 98.4H, Arterial Blood Base Excess -3.2, Estevan Test Positive Height (Feet): 5 Height (Inches): 4.00 Weight (Pounds): 136 General Appearance: no apparent distress Respiratory/Chest: decreased breath sounds Abdomen: soft Abdirashid Solorzano MD Dec 13, 2017 23:33
[2017-12-14] VITALS: BP_SYST 110; BP_SYST 136; BP_DIAS 66; BP_DIAS 70
[2017-12-14] MEDS: Haloperidol 5mg/ml Inj IM PRN (00:10)
[2017-12-14 04:00] VITALS: BP 137/66
[2017-12-14 04:40] LABS: HEMATOCRIT 30.4 % (37.0-47.0); HEMOGLOBIN 9.6 G/DL (12.0-16.0); MEAN CORPUSCULAR VOLUME 84 FL (80-99); PLATELET COUNT 157 K/UL (150-450); RED BLOOD COUNT 3.61 M/UL (4.20-5.40); WHITE BLOOD COUNT 8.2 K/UL (4.8-10.8)
[2017-12-14 04:48] LABS: INR 1.1 (0.9-1.1)
[2017-12-14 04:54] LABS: PHOSPHORUS 7.2 MG/DL (2.5-4.9)
[2017-12-14 04:58] LABS: ALANINE AMINOTRANSFERASE 33 U/L (12-78); ALBUMIN 1.6 G/DL (3.4-5.0); ALBUMIN/GLOBULIN RATIO 0.4 (1.0-2.7); ALKALINE PHOSPHATASE 155 U/L (46-116); ANION GAP 12 mmol/L (5-15); ASPARTATE AMINO TRANSFERASE 25 U/L (15-37); BILIRUBIN,TOTAL 0.7 MG/DL (0.2-1.0); BLOOD UREA NITROGEN 88 mg/dL (7-18); CALCIUM 7.7 MG/DL (8.5-10.1); CARBON DIOXIDE 23 MMOL/L (21-32); CHLORIDE 106 MMOL/L (98-107); CREATININE 4.7 MG/DL (0.55-1.30); POTASSIUM 4.3 MMOL/L (3.5-5.1); SODIUM 141 MMOL/L (136-145)
[2017-12-14] MEDS: NovoLOG Insulin Flexpen SUBQ SCH ×4 (05:14→21:34)
--- NOTE | 2017-12-14 07:13 | General Progress Note ---
Assessment/Plan Problem List: (1) Diabetes mellitus ICD Codes: E11.9 - Type 2 diabetes mellitus without complications SNOMED: 28981179 (2) Encephalopathy acute ICD Codes: G93.40 - Encephalopathy, unspecified SNOMED: 17885937, 979435655 (3) Renal insufficiency ICD Codes: N28.9 - Disorder of kidney and ureter, unspecified SNOMED: 126230538, 241198509 (4) CHF (congestive heart failure) ICD Codes: I50.9 - Heart failure, unspecified SNOMED: 73682548 Qualifiers: Qualified Codes: I50.9 - Heart failure, unspecified (5) Pleural effusion ICD Codes: J90 - Pleural effusion, not elsewhere classified SNOMED: 92441733 Assessment/Plan hypoglycemia due to Glipizide - a long acting JEONG BG values improved - on low normal side continue BG monitoring w/o insulin coverage Subjective ROS Limited/Unobtainable: Yes Allergies: Coded Allergies: LEVOFLOXACIN (Verified Allergy, Unknown, 12/09/17) SULFA (SULFONAMIDE ANTIBIOTICS) (Verified Allergy, Unknown, 12/09/17) Subjective events noted interval notes reviewed on BiPAP sitter at bedside Objective Last 24 Hour Vital Signs Date Time Temp Pulse Resp B/P (MAP) Pulse Ox O2 Delivery O2 Flow Rate FiO2 12/14/17 05:28 71 18 98 Facial 35 12/14/17 04:00 74 12/14/17 04:00 97.0 75 18 137/66 100 97.0 12/14/17 03:16 78 18 97 Facial 35 12/14/17 01:09 74 20 99 Facial 35 12/14/17 00:00 77 12/14/17 00:00 97.0 70 18 136/66 99 97.0 12/13/17 23:14 67 18 98 Facial 35 12/13/17 21:11 72 22 100 Facial 35 12/13/17 20:00 65 12/13/17 20:00 97.3 65 18 144/72 99 97.3 12/13/17 19:27 Bi-pap 35 12/13/17 19:27 95 Bi-pap 35 12/13/17 19:27 85 22 Bi-pap 35 12/13/17 19:01 81 24 98 Facial 35 12/13/17 16:55 69 25 97 Facial 35 12/13/17 16:00 61 12/13/17 15:58 97.4 61 18 109/56 95 97.4 12/13/17 15:00 35 12/13/17 14:42 70 17 95 Facial 35 12/13/17 12:34 66 17 100 Facial 80 12/13/17 12:00 65 12/13/17 12:00 98.0 68 18 124/63 100 98.0 12/13/17 11:00 80 12/13/17 10:59 65 21 100 Facial 100 12/13/17 09:53 98 100 12/13/17 09:39 75 16 96 Facial 30 12/13/17 08:00 97.7 78 23 149/76 94 97.7 12/13/17 08:00 77 12/13/17 07:53 76 16 96 Facial 30 12/13/17 07:51 86 20 Bi-pap 35 12/13/17 07:51 96 Bi-pap 35 12/13/17 07:51 Bi-pap 35 Intake and Output 12/13/17 12/14/17 19:00 07:00 Intake Total 438.000 ml 570 ml Output Total 200 ml 350 ml Balance 238.000 ml 220 ml Intake Oral 20 ml 100 ml IV Total 418.000 ml 470 ml Output Urine Total 200 ml 350 ml # Bowel Movements 1 Laboratory Tests 12/13/17 09:49: Arterial Blood pH 7.201*L, Arterial Blood Partial Pressure CO2 66.7*H, Arterial Blood Partial Pressure O2 108.7H, Arterial Blood HCO3 25.5, Arterial Blood Oxygen Saturation 98.4H, Arterial Blood Base Excess -3.2, [place]ev[place] Test Positive 12/14/17 04:25: White Blood Count 8.2, Red Blood Count 3.61L, Hemoglobin 9.6L, Hematocrit 30.4L , Mean Corpuscular Volume 84, Mean Corpuscular Hemoglobin 26.5L, Mean Corpuscular Hemoglobin Concent 31.6L, Red Cell Distribution Width 16.0H, Platelet Count 157, Mean Platelet Volume 7.3, Neutrophils (%) (Auto) , Lymphocytes (%) (Auto) , Monocytes (%) (Auto) , Eosinophils (%) (Auto) , Basophils (%) (Auto) , Neutrophils % (Manual) [Pending], Lymphocytes % (Manual) [Pending], Platelet Estimate [Pending], Platelet Morphology [Pending], Prothrombin Time 11.4, Prothromb Time International Ratio 1.1, Activated Partial Thromboplast Time 35H, Sodium Level 141, Potassium Level 4.3, Chloride Level 106, Carbon Dioxide Level 23, Anion Gap 12, Blood Urea Nitrogen 88H, Creatinine 4.7H, Estimat Glomerular Filtration Rate , Glucose Level 114H, Uric Acid 11.4H, Calcium Level 7.7L, Phosphorus Level 7.2H, Magnesium Level 2.4, Total Bilirubin 0.7, Gamma Glutamyl Transpeptidase 102H, Aspartate Amino Transf (AST/SGOT) 25, Alanine Aminotransferase (ALT/SGPT) 33, Alkaline Phosphatase 155H , C-Reactive Protein, Quantitative 10.6H, Pro-B-Type Natriuretic Peptide > 63458B, Total Protein 5.5L, Albumin 1.6L, Globulin 3.9, Albumin/Globulin Ratio 0.4L Height (Feet): 5 Height (Inches): 4.00 Weight (Pounds): 147 General Appearance: no apparent distress Neck: normal alignment Cardiovascular: normal rate Respiratory/Chest: lungs clear Abdomen: normal bowel sounds Objective Current Medications Medications (Trade) Dose Ordered Sig/Maribel Route PRN Reason Start Time Stop Time Status Last Admin Dose Admin Acetaminophen (Tylenol) 650 mg Q4H PRN ORAL T>100.5 12/09/17 02:00 01/06/18 21:59 12/10/17 23:47 Albuterol/ Ipratropium (Albuterol/ Ipratropium) 3 ml Q4H PRN HHN Shortness of Breath 12/09/17 02:00 12/12/17 21:59 Ampicillin Sodium/ Sulbactam Sodium 3 gm/Sodium Chloride 110 ml @ 220 mls/hr Q12HR IVPB 12/09/17 13:00 12/16/17 12:59 12/10/17 21:53 Apixaban (Eliquis) 2.5 mg BID ORAL 12/09/17 09:00 01/07/18 14:29 12/10/17 17:30 Aspirin (ASA) 81 mg DAILY ORAL 12/09/17 09:00 01/08/18 08:59 Dextrose (Dextrose 50%) STAT PRN IV Hypoglycemia 12/09/17 12:55 01/08/18 12:54 12/10/17 05:40 Diltiazem HCl (Cardizem) 10 mg EVERY HOUR PRN IV heart rate more than 120, 12/09/17 00:00 01/06/18 21:59 Dopamine HCl/ Dextrose 250 ml @ 0 mls/hr Q24H IV 12/10/17 11:15 01/09/18 11:14 Furosemide 100 mg/ Dextrose 110 ml @ 11 mls/hr Q10H IV 12/10/17 12:30 01/09/18 12:29 12/10/17 22:56 Haloperidol Lactate (Haldol) 5 mg Q6H PRN IM Agitation 12/09/17 21:30 01/08/18 21:29 Insulin Aspart (NovoLOG) BEFORE MEALS AND HS SUBQ 12/09/17 06:30 01/07/18 06:29 12/11/17 05:09 Morphine Sulfate (Morphine Sulfate) 1 mg Q4H PRN IVP PAIN 4-10 12/09/17 15:15 12/16/17 15:14 12/09/17 15:27 Nitroglycerin (Ntg) 0.4 mg Q5MIN X 3 DOSES PRN SL Prn Chest Pain 12/08/17 23:30 01/06/18 21:59 Ondansetron HCl (Zofran) 4 mg Q6H PRN IVP Nausea & Vomiting 12/09/17 04:00 01/06/18 21:59 Pantoprazole (Protonix) 40 mg DAILY ORAL 12/09/17 15:15 01/08/18 15:14 12/10/17 08:35 Polyethylene Glycol (Miralax) 17 gm DAILYPRN PRN ORAL Constipation 12/09/17 22:00 01/06/18 21:59 Promethazine HCl/ Codeine (Phenergan with Codeine) 5 ml Q4H PRN ORAL For Cough 12/08/17 23:30 01/07/18 11:29 Quetiapine Fumarate (SEROquel) 25 mg Q4H PRN ORAL For Anxiety 12/09/17 21:30 01/08/18 21:29 Temazepam (Restoril) 15 mg HSPRN PRN ORAL Insomnia 12/09/17 22:00 12/14/17 21:59 Vancomycin HCl (Vanco rx to dose) 1 ea DAILY PRN MISC Per rx protocol 12/09/17 11:30 01/08/18 11:29 Item Value Date Time Bedside Blood Glucose 163 mg/dl H 12/11/17 0630 Bedside Blood Glucose 178 mg/dl H 12/10/17 2155 Bedside Blood Glucose 186 mg/dl H 12/10/17 1728 Bedside Blood Glucose 88 mg/dl 12/10/17 1200 Bedside Blood Glucose 58 mg/dl L 12/10/17 0630 G[facility] CASE 19, 2018 07:13
[2017-12-14 08:00] VITALS: BP 139/79
[2017-12-14] MEDS: OLANZapine 2.5mg tab ORAL SCH ×2 (08:51→21:32)
--- NOTE | 2017-12-14 11:17 | Diagnostic Imaging Report ---
Indication: Dyspnea Technique: One view of the chest Comparison: 12/13/2017 Findings: Large left pleural effusion persists, unchanged. Bilateral diffuse interstitial and airspace opacities persist, stable or progressed minimally improved. Evidence of prior CABG again demonstrated Impression: Stable or perhaps minimally improved bilateral interstitial and airspace edema versus infiltrates Persistent large left pleural effusion
--- NOTE | 2017-12-14 11:56 | Pulmonology Progress Note ---
Assessment/Plan Problems: (1) Encephalopathy acute (2) Pneumonia (3) Hypoglycemia (4) Diabetes mellitus (5) Lung mass (6) S/P CABG x 5 Assessment/Plan on t lasix drip of 10 mg/hour thoracentesis, removed 500 cc/ bloody effusion, creatinine rising check cultures check electroltyes awaiting pathology of pleural fluid, according to pathologist, they have not received any specimen. But the fluid was bloody, which is seen mostly in malignancies. Subjective ROS Limited/Unobtainable: No Interval Events: off bipap, on face mask Constitutional: Reports: no symptoms HEENT: Repors: no symptoms Allergies: Coded Allergies: LEVOFLOXACIN (Verified Allergy, Unknown, 12/09/17) SULFA (SULFONAMIDE ANTIBIOTICS) (Verified Allergy, Unknown, 12/09/17) Objective Last 24 Hour Vital Signs Date Time Temp Pulse Resp B/P (MAP) Pulse Ox O2 Delivery O2 Flow Rate FiO2 12/14/17 09:15 93 Venturi Mask 8.0 40 12/14/17 09:15 Venturi Mask 8.0 40 12/14/17 08:24 148 139/79 12/14/17 08:00 99 12/14/17 08:00 96.3 109 21 139/79 99 Nasal Cannula 4.0 96.3 12/14/17 07:45 98 Bi-pap 35 12/14/17 07:45 78 22 Bi-pap 35 12/14/17 05:28 71 18 98 Facial 35 12/14/17 04:00 74 12/14/17 04:00 97.0 75 18 137/66 100 97.0 12/14/17 03:16 78 18 97 Facial 35 12/14/17 01:09 74 20 99 Facial 35 12/14/17 00:00 77 12/14/17 00:00 97.0 70 18 136/66 99 97.0 12/13/17 23:14 67 18 98 Facial 35 12/13/17 21:11 72 22 100 Facial 35 12/13/17 20:00 65 12/13/17 20:00 97.3 65 18 144/72 99 97.3 12/13/17 19:27 Bi-pap 35 12/13/17 19:27 95 Bi-pap 35 12/13/17 19:27 85 22 Bi-pap 35 12/13/17 19:01 81 24 98 Facial 35 12/13/17 16:55 69 25 97 Facial 35 12/13/17 16:00 61 12/13/17 15:58 97.4 61 18 109/56 95 97.4 12/13/17 15:00 35 12/13/17 14:42 70 17 95 Facial 35 12/13/17 12:34 66 17 100 Facial 80 12/13/17 12:00 65 12/13/17 12:00 98.0 68 18 124/63 100 98.0 Intake and Output 12/13/17 12/14/17 19:00 07:00 Intake Total 438.000 ml 570 ml Output Total 200 ml 350 ml Balance 238.000 ml 220 ml Intake Oral 20 ml 100 ml IV Total 418.000 ml 470 ml Output Urine Total 200 ml 350 ml # Bowel Movements 1 Objective General Appearance: cachectic HEENT: normocephalic, atraumatic Respiratory/Chest: chest wall non-tender, + rhonchi ( loud) Cardiovascular: normal peripheral pulses, normal rate, regular rhythm Abdomen: normal bowel sounds, soft, non tender, no organomegaly Genitourinary: normal external genitalia Extremities: no clubbing Skin: no rash 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 Lymphatic: no neck adenopathy Laboratory Tests 12/14/17 04:25: White Blood Count 8.2, Red Blood Count 3.61L, Hemoglobin 9.6L, Hematocrit 30.4L , Mean Corpuscular Volume 84, Mean Corpuscular Hemoglobin 26.5L, Mean Corpuscular Hemoglobin Concent 31.6L, Red Cell Distribution Width 16.0H, Platelet Count 157, Mean Platelet Volume 7.3, Neutrophils (%) (Auto) , Lymphocytes (%) (Auto) , Monocytes (%) (Auto) , Eosinophils (%) (Auto) , Basophils (%) (Auto) , Differential Total Cells Counted 100, Neutrophils % ( Manual) 90H, Lymphocytes % (Manual) 6L, Monocytes % (Manual) 3, Eosinophils % ( Manual) 1, Basophils % (Manual) 0, Band Neutrophils 0, Platelet Estimate Adequate, Platelet Morphology Normal, Hypochromasia 1+, Anisocytosis 1+, Prothrombin Time 11.4, Prothromb Time International Ratio 1.1, Activated Partial Thromboplast Time 35H, Sodium Level 141, Potassium Level 4.3, Chloride Level 106, Carbon Dioxide Level 23, Anion Gap 12, Blood Urea Nitrogen 88H, Creatinine 4.7H, Estimat Glomerular Filtration Rate , Glucose Level 114H, Uric Acid 11.4H, Calcium Level 7.7L, Phosphorus Level 7.2H, Magnesium Level 2.4, Total Bilirubin 0.7, Gamma Glutamyl Transpeptidase 102H, Aspartate Amino Transf (AST/SGOT) 25, Alanine Aminotransferase (ALT/SGPT) 33, Alkaline Phosphatase 155H , C-Reactive Protein, Quantitative 10.6H, Pro-B-Type Natriuretic Peptide > 66364T, Total Protein 5.5L, Albumin 1.6L, Globulin 3.9, Albumin/Globulin Ratio 0.4L Current Medications Medications (Trade) Dose Ordered Sig/Maribel Route PRN Reason Start Time Stop Time Status Last Admin Dose Admin Acetaminophen (Tylenol) 650 mg Q4H PRN ORAL T>100.5 12/11/17 08:00 01/06/18 07:59 Dextrose (Dextrose 50%) STAT PRN IV Hypoglycemia 12/11/17 08:00 01/08/18 07:59 Dextrose/Sodium Chloride 1,000 ml @ 40 mls/hr Q24H IV 12/13/17 21:00 01/12/18 20:59 12/13/17 21:05 Diltiazem HCl (Cardizem) 10 mg EVERY HOUR PRN IV heart rate more than 120 BPM 12/11/17 08:00 01/06/18 21:59 12/14/17 08:24 Furosemide 100 mg/ Dextrose 100 ml @ 10 mls/hr Q10H IV 12/13/17 13:00 01/12/18 12:59 12/14/17 09:07 Haloperidol Lactate (Haldol) 5 mg Q6H PRN IM Agitation 12/11/17 08:00 01/08/18 07:59 12/14/17 00:10 Insulin Aspart (NovoLOG) BEFORE MEALS AND HS SUBQ 12/11/17 11:30 01/07/18 06:29 12/12/17 20:55 Metolazone (Zaroxolyn) 5 mg DAILY ORAL 12/13/17 13:00 01/12/18 12:59 12/14/17 08:52 Morphine Sulfate (Morphine Sulfate) 1 mg Q4H PRN IVP PAIN 4-10 12/11/17 08:00 12/16/17 07:59 Nitroglycerin (Ntg) 0.4 mg Q5MIN X 3 DOSES PRN SL Prn Chest Pain 12/11/17 08:00 01/06/18 07:59 Olanzapine (ZyPREXA) 2.5 mg BID ORAL 12/12/17 09:00 01/11/18 08:59 12/14/17 08:51 Ondansetron HCl (Zofran) 4 mg Q6H PRN IVP Nausea & Vomiting 12/11/17 08:00 01/06/18 07:59 Pantoprazole (Protonix) 40 mg DAILY ORAL 12/11/17 09:00 01/08/18 15:14 12/14/17 08:51 Polyethylene Glycol (Miralax) 17 gm DAILYPRN PRN ORAL Constipation 12/11/17 08:00 01/06/18 07:59 Promethazine HCl/ Codeine (Phenergan with Codeine) 5 ml Q4H PRN ORAL For Cough 12/11/17 08:00 01/07/18 07:59 12/13/17 08:18 Temazepam (Restoril) 15 mg HSPRN PRN ORAL Insomnia 12/11/17 21:00 12/14/17 20:59 12/12/17 21:59 Jessica Peralta MD Dec 14, 2017 11:56
[2017-12-14 12:00] VITALS: BP 120/59
--- NOTE | 2017-12-14 15:28 | Nephrology Progress Note ---
Assessment/Plan Problem List: (1) Acute respiratory failure (2) ATN (acute tubular necrosis) (3) CAD (coronary artery disease) (4) Pleural effusion (5) Diabetes mellitus Assessment CKD with acute component : Cr up to 4.7 Acute respiratory failure CABG X 5 DMII Hyperlipidemia HTN CVA Sarcoidosis Liver disease, HypoAlbuminemia Anemia hs of Severe MR s/p mitral valve repair with FIONA closure [address] Cassidy Plan Plan: likely need dialysis soon will discuss with DPOA Avoid Nephrotoxics- Optimize cardiac & Pulmonary status Monitor renal parameters Urine for eos 24 h urine protein discussed with RN message left for Son [phone] Subjective ROS Limited/Unobtainable: No Constitutional: Reports: malaise Objective Objective Last 24 Hour Vital Signs Date Time Temp Pulse Resp B/P (MAP) Pulse Ox O2 Delivery O2 Flow Rate FiO2 12/14/17 12:00 77 12/14/17 12:00 4.0 12/14/17 12:00 96.1 80 20 120/59 99 Nasal Cannula 4.0 96.1 12/14/17 11:50 93 Nasal Cannula 5.0 40 12/14/17 09:15 93 Venturi Mask 8.0 40 12/14/17 09:15 Venturi Mask 8.0 40 12/14/17 08:24 148 139/79 12/14/17 08:00 99 12/14/17 08:00 96.3 109 21 139/79 99 Nasal Cannula 4.0 96.3 12/14/17 08:00 4.0 12/14/17 07:45 98 Bi-pap 35 12/14/17 07:45 78 22 Bi-pap 35 12/14/17 05:28 71 18 98 Facial 35 12/14/17 04:00 74 12/14/17 04:00 97.0 75 18 137/66 100 97.0 12/14/17 03:16 78 18 97 Facial 35 12/14/17 01:09 74 20 99 Facial 35 12/14/17 00:00 77 12/14/17 00:00 97.0 70 18 136/66 99 97.0 12/13/17 23:14 67 18 98 Facial 35 12/13/17 21:11 72 22 100 Facial 35 12/13/17 20:00 65 12/13/17 20:00 97.3 65 18 144/72 99 97.3 3/18/18 19:27 Bi-pap 35 12/13/17 19:27 95 Bi-pap 35 12/13/17 19:27 85 22 Bi-pap 35 12/13/17 19:01 81 24 98 Facial 35 12/13/17 16:55 69 25 97 Facial 35 12/13/17 16:00 61 12/13/17 15:58 97.4 61 18 109/56 95 97.4 Intake and Output 12/13/17 12/14/17 19:00 07:00 Intake Total 438.000 ml 620 ml Output Total 200 ml 350 ml Balance 238.000 ml 270 ml Intake Oral 20 ml 100 ml IV Total 418.000 ml 520 ml Output Urine Total 200 ml 350 ml # Bowel Movements 1 Laboratory Tests 12/14/17 04:25: White Blood Count 8.2, Red Blood Count 3.61L, Hemoglobin 9.6L, Hematocrit 30.4L , Mean Corpuscular Volume 84, Mean Corpuscular Hemoglobin 26.5L, Mean Corpuscular Hemoglobin Concent 31.6L, Red Cell Distribution Width 16.0H, Platelet Count 157, Mean Platelet Volume 7.3, Neutrophils (%) (Auto) , Lymphocytes (%) (Auto) , Monocytes (%) (Auto) , Eosinophils (%) (Auto) , Basophils (%) (Auto) , Differential Total Cells Counted 100, Neutrophils % ( Manual) 90H, Lymphocytes % (Manual) 6L, Monocytes % (Manual) 3, Eosinophils % ( Manual) 1, Basophils % (Manual) 0, Band Neutrophils 0, Platelet Estimate Adequate, Platelet Morphology Normal, Hypochromasia 1+, Anisocytosis 1+, Prothrombin Time 11.4, Prothromb Time International Ratio 1.1, Activated Partial Thromboplast Time 35H, Sodium Level 141, Potassium Level 4.3, Chloride Level 106, Carbon Dioxide Level 23, Anion Gap 12, Blood Urea Nitrogen 88H, Creatinine 4.7H, Estimat Glomerular Filtration Rate , Glucose Level 114H, Uric Acid 11.4H, Calcium Level 7.7L, Phosphorus Level 7.2H, Magnesium Level 2.4, Total Bilirubin 0.7, Gamma Glutamyl Transpeptidase 102H, Aspartate Amino Transf (AST/SGOT) 25, Alanine Aminotransferase (ALT/SGPT) 33, Alkaline Phosphatase 155H , C-Reactive Protein, Quantitative 10.6H, Pro-B-Type Natriuretic Peptide > 77232Y, Total Protein 5.5L, Albumin 1.6L, Globulin 3.9, Albumin/Globulin Ratio 0.4L Height (Feet): 5 Height (Inches): 4.00 Weight (Pounds): 147 General Appearance: mild distress Cardiovascular: arrhythmia Respiratory/Chest: decreased breath sounds Abdomen: distended DANIAL PA Dec 14, 2017 15:28
--- NOTE | 2017-12-14 15:35 | Infectious Diseases Prog Note ---
Assessment/Plan Assessment/Plan A: Acute hypoxic/hypercapenic respiratory failure- off Bipap now > NC R>L pleural effusion- possibly multifactorial due to CHF and possible PNA; ? lung mass -s/p Thoracentesis removal of 500cc blood tinge fluid, transudate , cx NTD -WBC 123 (L 10, M 78); cx NTD; LDH protien: 1.3, PH: 8 -CT chest: Large right pleural effusion. Resultant compressive atelectasis of much of the right lower lobe. Moderate left-sided pleural effusion, with compressive atelectasis of portions of the left lower lobe. There is also perihilar consolidation which may indicate pneumonia. There is also compressive atelectasis of much of the inferior lingula. Mild interstitial congestion in the left upper lobe. 7 mm masslike opacity in the left upper lobe at the level of the aortic arch. Most likely some focal edema or consolidation, but neoplasm also a possibility. Cardiomegaly. Evidence of prior CABG and mitral valve repair. Evidence of anasarca elsewhere, with chest and abdominal wall edema, small amount of ascites. T10 vertebral body compression fracture deformity. Age indeterminate. Consider MRI for further evaluation if this is considered clinically significant. Hepatomegaly -CXR 12/07: Dense left midlung consolidation and probable pleural fluid. Generalized interstitial congestion. Probable small right pleural effusion. Cardiomegaly -Influenza sc neg -Bcx NTD -sp cx normal malika -CRP 10.8 Leukocytosis, resolved -afebrile Neg : CrAg, Renal insufficiency, worsening -REnal US: Negative for hydronephrosis. Echogenic lesion in the interpolar region of the right kidney. 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 Consider CT for further evaluation Prolonged QTc CVA HTN sarcoidosis severe MR s/p MVR w/ left atrial appendage closure 2010 liver disease GIB Aflutter on Eliquis Dm2 CAD s/p CABG x5 HLD Plan: -d/c IV Vancomycn #6 and switch Unasyn #6/7 to PO Augmentin for possible PNA -Continue empiric IV Vanco and Unasyn # 6 pending cultures -12/08 SP Levaquin x1 -f/u pleural fluid cytology and cx -f/u COcci ab, 1,3b-d glucan, legionella ag urine -Monitor CBC/CMP, temperatures Subjective Allergies: Coded Allergies: LEVOFLOXACIN (Verified Allergy, Unknown, 12/09/17) SULFA (SULFONAMIDE ANTIBIOTICS) (Verified Allergy, Unknown, 12/09/17) Subjective afebrile no leukocytosis on 4l NC sp cx and pleural fluid cx NTD Objective Vital Signs Last 24 Hour Vital Signs Date Time Temp Pulse Resp B/P (MAP) Pulse Ox O2 Delivery O2 Flow Rate FiO2 12/14/17 12:00 77 12/14/17 12:00 4.0 12/14/17 12:00 96.1 80 20 120/59 99 Nasal Cannula 4.0 96.1 12/14/17 11:50 93 Nasal Cannula 5.0 40 12/14/17 09:15 93 Venturi Mask 8.0 40 12/14/17 09:15 Venturi Mask 8.0 40 12/14/17 08:24 148 139/79 12/14/17 08:00 99 12/14/17 08:00 96.3 109 21 139/79 99 Nasal Cannula 4.0 96.3 12/14/17 08:00 4.0 12/14/17 07:45 98 Bi-pap 35 12/14/17 07:45 78 22 Bi-pap 35 12/14/17 05:28 71 18 98 Facial 35 12/14/17 04:00 74 12/14/17 04:00 97.0 75 18 137/66 100 97.0 12/14/17 03:16 78 18 97 Facial 35 12/14/17 01:09 74 20 99 Facial 35 12/14/17 00:00 77 12/14/17 00:00 97.0 70 18 136/66 99 97.0 12/13/17 23:14 67 18 98 Facial 35 12/13/17 21:11 72 22 100 Facial 35 12/13/17 20:00 65 12/13/17 20:00 97.3 65 18 144/72 99 97.3 12/13/17 19:27 Bi-pap 35 12/13/17 19:27 95 Bi-pap 35 12/13/17 19:27 85 22 Bi-pap 35 12/13/17 19:01 81 24 98 Facial 35 12/13/17 16:55 69 25 97 Facial 35 12/13/17 16:00 61 12/13/17 15:58 97.4 61 18 109/56 95 97.4 Height (Feet): 5 Height (Inches): 4.00 Weight (Pounds): 147 Objective HEENT: atraumatic Lungs: rales, rhonchi Heart: HR/BP stable, HR/BP unstable Abdomen: non-tender, active bowel sounds Extremities: no C/C/E, edema Laboratory Tests Test 12/14/17 04:25 White Blood Count 8.2 K/UL (4.8-10.8) Red Blood Count 3.61 M/UL (4.20-5.40) L Hemoglobin 9.6 G/DL (12.0-16.0) L Hematocrit 30.4 % (37.0-47.0) L Mean Corpuscular Volume 84 FL (80-99) Mean Corpuscular Hemoglobin 26.5 PG (27.0-31.0) L Mean Corpuscular Hemoglobin Concent 31.6 G/DL (32.0-36.0) L Red Cell Distribution Width 16.0 % (11.6-14.8) H Platelet Count 157 K/UL (150-450) Mean Platelet Volume 7.3 FL (6.5-10.1) Neutrophils (%) (Auto) % (45.0-75.0) Lymphocytes (%) (Auto) % (20.0-45.0) Monocytes (%) (Auto) % (1.0-10.0) Eosinophils (%) (Auto) % (0.0-3.0) Basophils (%) (Auto) % (0.0-2.0) Differential Total Cells Counted 100 Neutrophils % (Manual) 90 % (45-75) H Lymphocytes % (Manual) 6 % (20-45) L Monocytes % (Manual) 3 % (1-10) Eosinophils % (Manual) 1 % (0-3) Basophils % (Manual) 0 % (0-2) Band Neutrophils 0 % (0-8) Platelet Estimate Adequate Platelet Morphology Normal Hypochromasia 1+ Anisocytosis 1+ Prothrombin Time 11.4 SEC (9.30-11.50) Prothromb Time International Ratio 1.1 (0.9-1.1) Activated Partial Thromboplast Time 35 SEC (23-33) H Sodium Level 141 MMOL/L (136-145) Potassium Level 4.3 MMOL/L (3.5-5.1) Chloride Level 106 MMOL/L (98-107) Carbon Dioxide Level 23 MMOL/L (21-32) Anion Gap 12 mmol/L (5-15) Blood Urea Nitrogen 88 mg/dL (7-18) H Creatinine 4.7 MG/DL (0.55-1.30) H Estimat Glomerular Filtration Rate mL/min (>60) Glucose Level 114 MG/DL (74-106) H Uric Acid 11.4 MG/DL (2.6-7.2) H Calcium Level 7.7 MG/DL (8.5-10.1) L Phosphorus Level 7.2 MG/DL (2.5-4.9) H Magnesium Level 2.4 MG/DL (1.8-2.4) Total Bilirubin 0.7 MG/DL (0.2-1.0) Gamma Glutamyl Transpeptidase 102 U/L (5-85) H Aspartate Amino Transf (AST/SGOT) 25 U/L (15-37) Alanine Aminotransferase (ALT/SGPT) 33 U/L (12-78) Alkaline Phosphatase 155 U/L (46-116) H C-Reactive Protein, Quantitative 10.6 mg/dL (0.00-0.90) H Pro-B-Type Natriuretic Peptide > 94655 pg/mL (0-125) H Total Protein 5.5 G/DL (6.4-8.2) L Albumin 1.6 G/DL (3.4-5.0) L Globulin 3.9 g/dL Albumin/Globulin Ratio 0.4 (1.0-2.7) L Current Medications Medications (Trade) Dose Ordered Sig/Maribel Route PRN Reason Start Time Stop Time Status Last Admin Dose Admin Acetaminophen (Tylenol) 650 mg Q4H PRN ORAL T>100.5 12/11/17 08:00 01/06/18 07:59 Dextrose (Dextrose 50%) STAT PRN IV Hypoglycemia 12/11/17 08:00 01/08/18 07:59 Diltiazem HCl (Cardizem) 10 mg EVERY HOUR PRN IV heart rate more than 120 BPM 12/11/17 08:00 01/06/18 21:59 12/14/17 08:24 Furosemide 100 mg/ Dextrose 100 ml @ 10 mls/hr Q10H IV 12/13/17 13:00 01/12/18 12:59 12/14/17 09:07 Haloperidol Lactate (Haldol) 5 mg Q6H PRN IM Agitation 12/11/17 08:00 01/08/18 07:59 12/14/17 00:10 Insulin Aspart (NovoLOG) BEFORE MEALS AND HS SUBQ 12/11/17 11:30 01/07/18 06:29 12/14/17 11:58 Metolazone (Zaroxolyn) 5 mg DAILY ORAL 12/13/17 13:00 01/12/18 12:59 12/14/17 08:52 Morphine Sulfate (Morphine Sulfate) 1 mg Q4H PRN IVP PAIN 4-10 12/11/17 08:00 12/16/17 07:59 Nitroglycerin (Ntg) 0.4 mg Q5MIN X 3 DOSES PRN SL Prn Chest Pain 12/11/17 08:00 01/06/18 07:59 Olanzapine (ZyPREXA) 2.5 mg BID ORAL 12/12/17 09:00 01/11/18 08:59 12/14/17 08:51 Ondansetron HCl (Zofran) 4 mg Q6H PRN IVP Nausea & Vomiting 12/11/17 08:00 01/06/18 07:59 Pantoprazole (Protonix) 40 mg DAILY ORAL 12/11/17 09:00 01/08/18 15:14 12/14/17 08:51 Polyethylene Glycol (Miralax) 17 gm DAILYPRN PRN ORAL Constipation 12/11/17 08:00 01/06/18 07:59 Promethazine HCl/ Codeine (Phenergan with Codeine) 5 ml Q4H PRN ORAL For Cough 12/11/17 08:00 01/07/18 07:59 12/13/17 08:18 Sevelamer Carbonate (Renvela) 1,600 mg THREE TIMES A DAY ORAL 12/14/17 18:00 01/13/18 17:59 UNV Temazepam (Restoril) 15 mg HSPRN PRN ORAL Insomnia 12/11/17 21:00 12/14/17 20:59 12/12/17 21:59 Leatha Sanchez M.D. Dec 14, 2017 15:35
--- NOTE | 2017-12-14 16:15 | Progress Note ---
DATE: 12/14/2017 SUBJECTIVE: The patient is calm, less agitated. The patient still has episodes of agitation, cognitive impairment, not engaged during the evaluation. MENTAL STATUS EXAMINATION: The patient is confused, hard of hearing. Mood is neutral during the evaluation. Affect is flat. Thought process, there is a paucity of thought content. Thought content, no suicidal or homicidal ideation. ASSESSMENT: 1. Encephalopathy. 2. Agitation. PLAN: 1. We will continue current medications. 2. Provide the patient with supportive therapy and reality orientation. Zaynab Araya M.D. DR: Ced JOB#: [id number] CC:
[2017-12-14 17:00] VITALS: BP 156/77
[2017-12-14] MEDS ORDERED: Augmentin 250mg tab ORAL SCH (17:00)
[2017-12-14] MEDS ORDERED: Nitroglycerin Subl 0.4mg tab SL PRN (17:15)
[2017-12-14] MEDS ORDERED: Promethazine/Codeine 5ml UD ORAL PRN (17:30)
[2017-12-14] MEDS ORDERED: Miralax 17gm pkt ORAL PRN (17:30)
[2017-12-14] MEDS ORDERED: Haloperidol 5mg/ml Inj IM PRN (17:30)
[2017-12-14] MEDS ORDERED: dilTIAZem HCl 25mg/5ml Inj IV PRN (18:00)
[2017-12-14] MEDS ORDERED: Morphine Sulfate 2mg/ml Inj IVP PRN (18:00)
--- NOTE | 2017-12-14 18:16 | Cardiology Progress Note ---
Assessment/Plan Assessment/Plan 1. Left lower lobe consolidation. 2. Chronic renal insufficiency. 3. Coronary artery disease status post coronary bypass grafting. 4. Diabetes mellitus. 5. Hypertension. 6. Hyperlipidemia. 7. History of cerebrovascular accident. 8. Reported history of sarcoidosis. 9. History of liver disease. 10. History of severe mitral regurgitation status post mitral valve repair and left atrial appendage closure by Dr. martinez in 2016. 11. Moderte mitral stenosis adn mitral regurgitation on recent echo 12. Moderate TR 13. Significant pulm htn 14. diastolic heart failure on tele diuretic lasix drip with metolazone bpstable off antihypertensive for now ef has been normal venous dupelx of le cxr personally reviewed improved tele reviewed worsened over chase week end improved on lasix drip cr increased Subjective Cardiovascular: Denies: chest pain, lightheadedness, palpitations Respiratory: Denies: shortness of breath Gastrointestinal/Abdominal: Denies: abdominal pain Genitourinary: Denies: discharge Objective Last 24 Hour Vital Signs Date Time Temp Pulse Resp B/P (MAP) Pulse Ox O2 Delivery O2 Flow Rate FiO2 12/14/17 16:00 4.0 12/14/17 16:00 88 12/14/17 12:00 77 12/14/17 12:00 4.0 12/14/17 12:00 96.1 80 20 120/59 99 Nasal Cannula 4.0 96.1 12/14/17 11:50 93 Nasal Cannula 5.0 40 12/14/17 09:15 93 Venturi Mask 8.0 40 12/14/17 09:15 Venturi Mask 8.0 40 12/14/17 08:24 148 139/79 12/14/17 08:00 99 12/14/17 08:00 96.3 109 21 139/79 99 Nasal Cannula 4.0 96.3 12/14/17 08:00 4.0 12/14/17 07:45 98 Bi-pap 35 12/14/17 07:45 78 22 Bi-pap 35 12/14/17 05:28 71 18 98 Facial 35 12/14/17 04:00 74 12/14/17 04:00 97.0 75 18 137/66 100 97.0 12/14/17 03:16 78 18 97 Facial 35 12/14/17 01:09 74 20 99 Facial 35 12/14/17 00:00 77 3/19/18 00:00 97.0 70 18 136/66 99 97.0 12/13/17 23:14 67 18 98 Facial 35 12/13/17 21:11 72 22 100 Facial 35 12/13/17 20:00 65 12/13/17 20:00 97.3 65 18 144/72 99 97.3 12/13/17 19:27 Bi-pap 35 12/13/17 19:27 95 Bi-pap 35 12/13/17 19:27 85 22 Bi-pap 35 12/13/17 19:01 81 24 98 Facial 35 General Appearance: alert Cardiovascular: normal rate Respiratory/Chest: crackles/rales Abdomen: normal bowel sounds, non tender, soft Extremities: no swelling Intake and Output 12/13/17 12/14/17 19:00 07:00 Intake Total 438.000 ml 620 ml Output Total 200 ml 350 ml Balance 238.000 ml 270 ml Intake Oral 20 ml 100 ml IV Total 418.000 ml 520 ml Output Urine Total 200 ml 350 ml # Bowel Movements 1 Laboratory Tests Test 12/14/17 04:25 White Blood Count 8.2 K/UL (4.8-10.8) Red Blood Count 3.61 M/UL (4.20-5.40) L Hemoglobin 9.6 G/DL (12.0-16.0) L Hematocrit 30.4 % (37.0-47.0) L Mean Corpuscular Volume 84 FL (80-99) Mean Corpuscular Hemoglobin 26.5 PG (27.0-31.0) L Mean Corpuscular Hemoglobin Concent 31.6 G/DL (32.0-36.0) L Red Cell Distribution Width 16.0 % (11.6-14.8) H Platelet Count 157 K/UL (150-450) Mean Platelet Volume 7.3 FL (6.5-10.1) Neutrophils (%) (Auto) % (45.0-75.0) Lymphocytes (%) (Auto) % (20.0-45.0) Monocytes (%) (Auto) % (1.0-10.0) Eosinophils (%) (Auto) % (0.0-3.0) Basophils (%) (Auto) % (0.0-2.0) Differential Total Cells Counted 100 Neutrophils % (Manual) 90 % (45-75) H Lymphocytes % (Manual) 6 % (20-45) L Monocytes % (Manual) 3 % (1-10) Eosinophils % (Manual) 1 % (0-3) Basophils % (Manual) 0 % (0-2) Band Neutrophils 0 % (0-8) Platelet Estimate Adequate Platelet Morphology Normal Hypochromasia 1+ Anisocytosis 1+ Prothrombin Time 11.4 SEC (9.30-11.50) Prothromb Time International Ratio 1.1 (0.9-1.1) Activated Partial Thromboplast Time 35 SEC (23-33) H Sodium Level 141 MMOL/L (136-145) Potassium Level 4.3 MMOL/L (3.5-5.1) Chloride Level 106 MMOL/L (98-107) Carbon Dioxide Level 23 MMOL/L (21-32) Anion Gap 12 mmol/L (5-15) Blood Urea Nitrogen 88 mg/dL (7-18) H Creatinine 4.7 MG/DL (0.55-1.30) H Estimat Glomerular Filtration Rate mL/min (>60) Glucose Level 114 MG/DL (74-106) H Uric Acid 11.4 MG/DL (2.6-7.2) H Calcium Level 7.7 MG/DL (8.5-10.1) L Phosphorus Level 7.2 MG/DL (2.5-4.9) H Magnesium Level 2.4 MG/DL (1.8-2.4) Total Bilirubin 0.7 MG/DL (0.2-1.0) Gamma Glutamyl Transpeptidase 102 U/L (5-85) H Aspartate Amino Transf (AST/SGOT) 25 U/L (15-37) Alanine Aminotransferase (ALT/SGPT) 33 U/L (12-78) Alkaline Phosphatase 155 U/L (46-116) H C-Reactive Protein, Quantitative 10.6 mg/dL (0.00-0.90) H Pro-B-Type Natriuretic Peptide > 90392 pg/mL (0-125) H Total Protein 5.5 G/DL (6.4-8.2) L Albumin 1.6 G/DL (3.4-5.0) L Globulin 3.9 g/dL Albumin/Globulin Ratio 0.4 (1.0-2.7) L YESICA MEDRANO 19, 2018 18:16
[2017-12-14 20:00] VITALS: BP 144/77
[2017-12-15] VITALS: BP 153/77
[2017-12-15 04:00] VITALS: BP 157/83
[2017-12-15] MEDS: NovoLOG Insulin Flexpen SUBQ SCH ×4 (06:23→21:51)
[2017-12-15 08:00] VITALS: BP 154/83
[2017-12-15 08:10] LABS: HEMATOCRIT 30.9 % (37.0-47.0); HEMOGLOBIN 9.7 G/DL (12.0-16.0); MEAN CORPUSCULAR VOLUME 83 FL (80-99); PLATELET COUNT 205 K/UL (150-450); RED BLOOD COUNT 3.71 M/UL (4.20-5.40); RED CELL DISTRIBUTION WIDTH 15.9 % (11.6-14.8); WHITE BLOOD COUNT 8.9 K/UL (4.8-10.8)
--- NOTE | 2017-12-15 08:19 | General Progress Note ---
Assessment/Plan Problem List: (1) Diabetes mellitus ICD Codes: E11.9 - Type 2 diabetes mellitus without complications SNOMED: 07961724 (2) Encephalopathy acute ICD Codes: G93.40 - Encephalopathy, unspecified SNOMED: 75205607, 101194626 (3) Renal insufficiency ICD Codes: N28.9 - Disorder of kidney and ureter, unspecified SNOMED: 250902054, 015595057 (4) CHF (congestive heart failure) ICD Codes: I50.9 - Heart failure, unspecified SNOMED: 96489378 Qualifiers: Qualified Codes: I50.9 - Heart failure, unspecified (5) Pleural effusion ICD Codes: J90 - Pleural effusion, not elsewhere classified SNOMED: 44742915 Assessment/Plan hypoglycemia due to Glipizide - resolved BG values improved - and on higher side now add Starlix 120 mg ac tid Subjective Allergies: Coded Allergies: LEVOFLOXACIN (Verified Allergy, Unknown, 12/09/17) SULFA (SULFONAMIDE ANTIBIOTICS) (Verified Allergy, Unknown, 12/09/17) All Systems: reviewed and negative except above Subjective events noted interval notes reviewed doing fine without complaint appetite is good BG values elevated after meal Objective Last 24 Hour Vital Signs Date Time Temp Pulse Resp B/P (MAP) Pulse Ox O2 Delivery O2 Flow Rate FiO2 12/15/17 04:00 97.7 87 20 157/83 96 Nasal Cannula 4.0 97.7 12/15/17 04:00 4.0 12/15/17 04:00 90 12/15/17 00:00 86 12/15/17 00:00 97.9 85 18 153/77 98 Nasal Cannula 4.0 97.9 12/14/17 20:00 97.5 83 18 144/77 98 Nasal Cannula 4.0 97.5 12/14/17 20:00 82 12/14/17 20:00 4.0 12/14/17 19:20 94 Nasal Cannula 5.0 40 12/14/17 19:20 Nasal Cannula 5.0 40 12/14/17 19:20 80 20 Nasal Cannula 5.0 40 12/14/17 17:00 96.8 103 20 156/77 96 Nasal Cannula 4.0 96.8 12/14/17 16:00 4.0 12/14/17 16:00 88 12/14/17 12:00 77 12/14/17 12:00 4.0 12/14/17 12:00 96.1 80 20 120/59 99 Nasal Cannula 4.0 96.1 12/14/17 11:50 93 Nasal Cannula 5.0 40 12/14/17 09:15 93 Venturi Mask 8.0 40 12/14/17 09:15 Venturi Mask 8.0 40 12/14/17 08:24 148 139/79 Intake and Output 12/14/17 12/15/17 19:00 07:00 Intake Total 912.833 ml 184.5 ml Output Total 550 ml 1275 ml Balance 362.833 ml -1090.5 ml Intake Oral 480 ml 100 ml IV Total 432.833 ml 84.5 ml Output Urine Total 550 ml 1275 ml Laboratory Tests 12/14/17 18:45: C-Reactive Protein, Quantitative 11.5H 12/15/17 06:30: White Blood Count [Pending], Red Blood Count [Pending], Hemoglobin [Pending], Hematocrit [Pending], Mean Corpuscular Volume [Pending], Mean Corpuscular Hemoglobin [Pending], Mean Corpuscular Hemoglobin Concent [Pending], Red Cell Distribution Width [Pending], Platelet Count [Pending], Mean Platelet Volume [ Pending], Neutrophils (%) (Auto) [Pending], Lymphocytes (%) (Auto) [Pending], Monocytes (%) (Auto) [Pending], Eosinophils (%) (Auto) [Pending], Basophils (%) (Auto) [Pending], Sodium Level [Pending], Potassium Level [Pending], Chloride Level [Pending], Carbon Dioxide Level [Pending], Blood Urea Nitrogen [Pending], Creatinine [Pending], Estimat Glomerular Filtration Rate [Pending], Glucose Level [Pending], Uric Acid [Pending], Calcium Level [Pending], Phosphorus Level [Pending], Magnesium Level [Pending], Total Bilirubin [Pending], Aspartate Amino Transf (AST/SGOT) [Pending], Alanine Aminotransferase (ALT/SGPT) [Pending] , Alkaline Phosphatase [Pending], Pro-B-Type Natriuretic Peptide [Pending], Total Protein [Pending], Albumin [Pending], Globulin [Pending] Height (Feet): 5 Height (Inches): 4.00 Weight (Pounds): 140 General Appearance: no apparent distress Neck: non-tender, normal alignment Cardiovascular: normal rate Respiratory/Chest: chest wall non-tender, lungs clear Abdomen: normal bowel sounds Pelvis: normal external exam Edema: no edema noted Arm (L), no edema noted Arm (R), no edema noted Leg (L), no edema noted Leg (R), no edema noted Pedal (L), no edema noted Pedal (R), no edema noted Generalized Objective Current Medications Medications (Trade) Dose Ordered Sig/Maribel Route PRN Reason Start Time Stop Time Status Last Admin Dose Admin Acetaminophen (Tylenol) 650 mg Q4H PRN ORAL T>100.5 12/14/17 17:30 01/06/18 17:29 Amoxicillin/ Clavulanate Potassium (Augmentin) 500 mg Q24HRS ORAL 12/15/17 17:30 12/16/17 17:29 Dextrose (Dextrose 50%) STAT PRN IV Hypoglycemia 12/15/17 17:30 01/08/18 17:29 Diltiazem HCl (Cardizem) 10 mg EVERY HOUR PRN IV heart rate more than 120 BPM 12/14/17 18:00 01/06/18 21:59 Furosemide 100 mg/ Dextrose 100 ml @ 10 mls/hr Q10H IV 12/14/17 19:00 01/12/18 18:59 12/15/17 06:24 Haloperidol Lactate (Haldol) 5 mg Q6H PRN IM Agitation 12/14/17 17:30 01/08/18 17:29 Insulin Aspart (NovoLOG) BEFORE MEALS AND HS SUBQ 12/14/17 21:00 01/07/18 06:29 12/15/17 06:23 Metolazone (Zaroxolyn) 5 mg DAILY ORAL 12/15/17 09:00 01/12/18 12:59 Morphine Sulfate (Morphine Sulfate) 1 mg Q4H PRN IVP PAIN 4-10 12/14/17 18:00 12/16/17 17:59 Nitroglycerin (Ntg) 0.4 mg Q5MIN X 3 DOSES PRN SL Prn Chest Pain 12/14/17 17:15 01/06/18 07:59 Olanzapine (ZyPREXA) 2.5 mg Q12HR ORAL 12/14/17 21:00 01/13/18 20:59 12/14/17 21:32 Ondansetron HCl (Zofran) 4 mg Q6H PRN IVP Nausea & Vomiting 12/14/17 17:30 01/06/18 17:29 Pantoprazole (Protonix) 40 mg DAILY ORAL 12/15/17 09:00 01/08/18 15:14 Polyethylene Glycol (Miralax) 17 gm DAILYPRN PRN ORAL Constipation 12/14/17 17:30 01/13/18 17:29 Promethazine HCl/ Codeine (Phenergan with Codeine) 5 ml Q4H PRN ORAL For Cough 12/14/17 17:30 01/07/18 17:29 Sevelamer Carbonate (Renvela) 1,600 mg THREE TIMES A DAY ORAL 12/14/17 18:00 01/13/18 17:59 12/14/17 18:44 Temazepam (Restoril) 15 mg HSPRN PRN ORAL Insomnia 12/14/17 21:00 12/16/17 20:59 Item Value Date Time Bedside Blood Glucose 110 mg/dl 12/14/17 0634 Bedside Blood Glucose 88 mg/dl 12/13/17 2100 Bedside Blood Glucose 79 mg/dl 12/13/17 1627 Bedside Blood Glucose 87 mg/dl 12/13/17 1130 Bedside Blood Glucose 88 mg/dl 12/13/17 0630 Bedside Blood Glucose 198 mg/dl H 12/15/17 0623 Bedside Blood Glucose 307 mg/dl H 12/14/17 2134 Bedside Blood Glucose 310 mg/dl H 12/14/17 1632 Bedside Blood Glucose 251 mg/dl H 12/14/17 1158 Current Medications Medications (Trade) Dose Ordered Sig/Maribel Route PRN Reason Start Time Stop Time Status Last Admin Dose Admin Acetaminophen (Tylenol) 650 mg Q4H PRN ORAL T>100.5 12/09/17 02:00 01/06/18 21:59 12/10/17 23:47 Albuterol/ Ipratropium (Albuterol/ Ipratropium) 3 ml Q4H PRN HHN Shortness of Breath 12/09/17 02:00 12/12/17 21:59 Ampicillin Sodium/ Sulbactam Sodium 3 gm/Sodium Chloride 110 ml @ 220 mls/hr Q12HR IVPB 12/09/17 13:00 12/16/17 12:59 12/10/17 21:53 Apixaban (Eliquis) 2.5 mg BID ORAL 12/09/17 09:00 01/07/18 14:29 12/10/17 17:30 Aspirin (ASA) 81 mg DAILY ORAL 12/09/17 09:00 01/08/18 08:59 Dextrose (Dextrose 50%) STAT PRN IV Hypoglycemia 12/09/17 12:55 01/08/18 12:54 12/10/17 05:40 Diltiazem HCl (Cardizem) 10 mg EVERY HOUR PRN IV heart rate more than 120, 12/09/17 00:00 01/06/18 21:59 Dopamine HCl/ Dextrose 250 ml @ 0 mls/hr Q24H IV 12/10/17 11:15 01/09/18 11:14 Furosemide 100 mg/ Dextrose 110 ml @ 11 mls/hr Q10H IV 12/10/17 12:30 01/09/18 12:29 12/10/17 22:56 Haloperidol Lactate (Haldol) 5 mg Q6H PRN IM Agitation 12/09/17 21:30 01/08/18 21:29 Insulin Aspart (NovoLOG) BEFORE MEALS AND HS SUBQ 12/09/17 06:30 01/07/18 06:29 12/11/17 05:09 Morphine Sulfate (Morphine Sulfate) 1 mg Q4H PRN IVP PAIN 4-10 12/09/17 15:15 12/16/17 15:14 12/09/17 15:27 Nitroglycerin (Ntg) 0.4 mg Q5MIN X 3 DOSES PRN SL Prn Chest Pain 12/08/17 23:30 01/06/18 21:59 Ondansetron HCl (Zofran) 4 mg Q6H PRN IVP Nausea & Vomiting 12/09/17 04:00 01/06/18 21:59 Pantoprazole (Protonix) 40 mg DAILY ORAL 12/09/17 15:15 01/08/18 15:14 12/10/17 08:35 Polyethylene Glycol (Miralax) 17 gm DAILYPRN PRN ORAL Constipation 12/09/17 22:00 01/06/18 21:59 Promethazine HCl/ Codeine (Phenergan with Codeine) 5 ml Q4H PRN ORAL For Cough 12/08/17 23:30 01/07/18 11:29 Quetiapine Fumarate (SEROquel) 25 mg Q4H PRN ORAL For Anxiety 12/09/17 21:30 01/08/18 21:29 Temazepam (Restoril) 15 mg HSPRN PRN ORAL Insomnia 12/09/17 22:00 12/14/17 21:59 Vancomycin HCl (Vanco rx to dose) 1 ea DAILY PRN MISC Per rx protocol 12/09/17 11:30 01/08/18 11:29 Item Value Date Time Bedside Blood Glucose 163 mg/dl H 12/11/17 0630 Bedside Blood Glucose 178 mg/dl H 12/10/17 2155 Bedside Blood Glucose 186 mg/dl H 12/10/17 1728 Bedside Blood Glucose 88 mg/dl 12/10/17 1200 Bedside Blood Glucose 58 mg/dl L 12/10/17 0630 GRAHAM CASE 20, 2018 08:19
[2017-12-15 08:32] LABS: PHOSPHORUS 5.9 MG/DL (2.5-4.9)
[2017-12-15 08:38] LABS: ALANINE AMINOTRANSFERASE 31 U/L (12-78); ALBUMIN 1.8 G/DL (3.4-5.0); ALBUMIN/GLOBULIN RATIO 0.4 (1.0-2.7); ALKALINE PHOSPHATASE 157 U/L (46-116); ANION GAP 9 mmol/L (5-15); ASPARTATE AMINO TRANSFERASE 24 U/L (15-37); BILIRUBIN,TOTAL 0.6 MG/DL (0.2-1.0); BLOOD UREA NITROGEN 84 mg/dL (7-18); CALCIUM 7.9 MG/DL (8.5-10.1); CARBON DIOXIDE 28 MMOL/L (21-32); CHLORIDE 104 MMOL/L (98-107); CREATININE 4.5 MG/DL (0.55-1.30); POTASSIUM 4.2 MMOL/L (3.5-5.1); SODIUM 141 MMOL/L (136-145)
[2017-12-15] MEDS: OLANZapine 2.5mg tab ORAL SCH ×2 (09:32→21:42)
--- NOTE | 2017-12-15 11:18 | Pulmonology Progress Note ---
Assessment/Plan Problems: (1) ATN (acute tubular necrosis) (2) Pleural effusion (3) Delirium (4) Pneumonia (5) Diabetes mellitus (6) Lung mass Assessment/Plan on t lasix drip of 10 mg/hour bun/creatinine stable awaiting family members to consent to HD access or comfort care. d/w best friend at the bed site d/w Dr. mora, pt lacks capacity Subjective ROS Limited/Unobtainable: No Constitutional: Reports: no symptoms HEENT: Repors: no symptoms, other Respiratory: Reports: no symptoms Allergies: Coded Allergies: LEVOFLOXACIN (Verified Allergy, Unknown, 12/09/17) SULFA (SULFONAMIDE ANTIBIOTICS) (Verified Allergy, Unknown, 12/09/17) Objective Last 24 Hour Vital Signs Date Time Temp Pulse Resp B/P (MAP) Pulse Ox O2 Delivery O2 Flow Rate FiO2 12/15/17 08:00 4.0 12/15/17 08:00 91 12/15/17 08:00 97.0 87 20 154/83 94 Nasal Cannula 4.0 97.0 12/15/17 04:00 97.7 87 20 157/83 96 Nasal Cannula 4.0 97.7 12/15/17 04:00 4.0 12/15/17 04:00 90 12/15/17 00:00 86 12/15/17 00:00 97.9 85 18 153/77 98 Nasal Cannula 4.0 97.9 12/14/17 20:00 97.5 83 18 144/77 98 Nasal Cannula 4.0 97.5 12/14/17 20:00 82 12/14/17 20:00 4.0 12/14/17 19:20 94 Nasal Cannula 5.0 40 12/14/17 19:20 Nasal Cannula 5.0 40 12/14/17 19:20 80 20 Nasal Cannula 5.0 40 12/14/17 17:00 96.8 103 20 156/77 96 Nasal Cannula 4.0 96.8 12/14/17 16:00 4.0 12/14/17 16:00 88 12/14/17 12:00 77 12/14/17 12:00 4.0 12/14/17 12:00 96.1 80 20 120/59 99 Nasal Cannula 4.0 96.1 12/14/17 11:50 93 Nasal Cannula 5.0 40 Intake and Output 3/19/18 3/20/18 19:00 07:00 Intake Total 912.833 ml 184.5 ml Output Total 550 ml 1275 ml Balance 362.833 ml -1090.5 ml Intake Oral 480 ml 100 ml IV Total 432.833 ml 84.5 ml Output Urine Total 550 ml 1275 ml Objective General Appearance: cachectic HEENT: normocephalic, atraumatic Respiratory/Chest: chest wall non-tender, + rhonchi ( loud) Cardiovascular: normal peripheral pulses, normal rate, regular rhythm Abdomen: normal bowel sounds, soft, non tender, no organomegaly Genitourinary: normal external genitalia Extremities: no clubbing Skin: no rash 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 Lymphatic: no neck adenopathy Laboratory Tests 12/14/17 18:45: C-Reactive Protein, Quantitative 11.5H 12/15/17 06:30: White Blood Count 8.9, Red Blood Count 3.71L, Hemoglobin 9.7L, Hematocrit 30.9L , Mean Corpuscular Volume 83, Mean Corpuscular Hemoglobin 26.2L, Mean Corpuscular Hemoglobin Concent 31.5L, Red Cell Distribution Width 15.9H, Platelet Count 205, Mean Platelet Volume 7.4, Neutrophils (%) (Auto) , Lymphocytes (%) (Auto) , Monocytes (%) (Auto) , Eosinophils (%) (Auto) , Basophils (%) (Auto) , Differential Total Cells Counted 100, Neutrophils % ( Manual) 94H, Lymphocytes % (Manual) 4L, Monocytes % (Manual) 1, Eosinophils % ( Manual) 1, Basophils % (Manual) 0, Band Neutrophils 0, Platelet Estimate Adequate, Platelet Morphology Normal, Hypochromasia 1+, Anisocytosis 1+, Sodium Level 141, Potassium Level 4.2, Chloride Level 104, Carbon Dioxide Level 28, Anion Gap 9, Blood Urea Nitrogen 84H, Creatinine 4.5H, Estimat Glomerular Filtration Rate , Glucose Level 186H, Uric Acid 11.4H, Calcium Level 7.9L, Phosphorus Level 5.9H, Magnesium Level 2.4, Total Bilirubin 0.6, Aspartate Amino Transf (AST/SGOT) 24, Alanine Aminotransferase (ALT/SGPT) 31, Alkaline Phosphatase 157H, Pro-B-Type Natriuretic Peptide > 12582Z, Total Protein 6.3L, Albumin 1.8L, Globulin 4.5, Albumin/Globulin Ratio 0.4L Current Medications Medications (Trade) Dose Ordered Sig/Maribel Route PRN Reason Start Time Stop Time Status Last Admin Dose Admin Acetaminophen (Tylenol) 650 mg Q4H PRN ORAL T>100.5 12/14/17 17:30 01/06/18 17:29 Amoxicillin/ Clavulanate Potassium (Augmentin) 500 mg Q24HRS ORAL 12/15/17 17:30 12/21/17 17:29 Dextrose (Dextrose 50%) STAT PRN IV Hypoglycemia 12/15/17 17:30 01/08/18 17:29 Diltiazem HCl (Cardizem) 10 mg EVERY HOUR PRN IV heart rate more than 120 BPM 12/14/17 18:00 01/06/18 21:59 Furosemide 100 mg/ Dextrose 100 ml @ 10 mls/hr Q10H IV 12/14/17 19:00 01/12/18 18:59 12/15/17 06:24 Haloperidol Lactate (Haldol) 5 mg Q6H PRN IM Agitation 12/14/17 17:30 01/08/18 17:29 Insulin Aspart (NovoLOG) BEFORE MEALS AND HS SUBQ 12/14/17 21:00 01/07/18 06:29 12/15/17 06:23 Metolazone (Zaroxolyn) 5 mg DAILY ORAL 12/15/17 09:00 01/12/18 12:59 12/15/17 09:32 Morphine Sulfate (Morphine Sulfate) 1 mg Q4H PRN IVP PAIN 4-10 12/14/17 18:00 12/16/17 17:59 Nateglinide (Starlix) 120 mg TIAC ORAL 12/15/17 11:30 01/14/18 11:29 Nitroglycerin (Ntg) 0.4 mg Q5MIN X 3 DOSES PRN SL Prn Chest Pain 12/14/17 17:15 01/06/18 07:59 Olanzapine (ZyPREXA) 2.5 mg Q12HR ORAL 12/14/17 21:00 01/13/18 20:59 12/15/17 09:32 Ondansetron HCl (Zofran) 4 mg Q6H PRN IVP Nausea & Vomiting 12/14/17 17:30 01/06/18 17:29 Pantoprazole (Protonix) 40 mg DAILY ORAL 12/15/17 09:00 01/08/18 15:14 12/15/17 09:32 Polyethylene Glycol (Miralax) 17 gm DAILYPRN PRN ORAL Constipation 12/14/17 17:30 01/13/18 17:29 Promethazine HCl/ Codeine (Phenergan with Codeine) 5 ml Q4H PRN ORAL For Cough 12/14/17 17:30 01/07/18 17:29 Sevelamer Carbonate (Renvela) 1,600 mg THREE TIMES A DAY ORAL 12/14/17 18:00 01/13/18 17:59 12/15/17 09:32 Temazepam (Restoril) 15 mg HSPRN PRN ORAL Insomnia 12/14/17 21:00 12/16/17 20:59 Jessica Peralta MD Dec 15, 2017 11:18
--- NOTE | 2017-12-15 11:22 | General Progress Note ---
Assessment/Plan Assessment/Plan encephalopathy dementia with behavioral disturbance the pt lacks capacity to make decisions the son should make all the decisions hospice vs dialysis -zyprexa 2.5 tid -haldol prn Subjective Date patient seen: Dec 15, 2017 Neurologic/Psychiatric: Reports: anxiety, depressed, emotional problems Allergies: Coded Allergies: LEVOFLOXACIN (Verified Allergy, Unknown, 12/09/17) SULFA (SULFONAMIDE ANTIBIOTICS) (Verified Allergy, Unknown, 12/09/17) Subjective the pt is calmer and less agitated. the pt confused and lacks capacity. the pts son should make all the decisions and the pt is unable to make any decisions Objective Last 24 Hour Vital Signs Date Time Temp Pulse Resp B/P (MAP) Pulse Ox O2 Delivery O2 Flow Rate FiO2 12/15/17 08:00 4.0 12/15/17 08:00 91 12/15/17 08:00 97.0 87 20 154/83 94 Nasal Cannula 4.0 97.0 12/15/17 04:00 97.7 87 20 157/83 96 Nasal Cannula 4.0 97.7 12/15/17 04:00 4.0 12/15/17 04:00 90 12/15/17 00:00 86 12/15/17 00:00 97.9 85 18 153/77 98 Nasal Cannula 4.0 97.9 12/14/17 20:00 97.5 83 18 144/77 98 Nasal Cannula 4.0 97.5 12/14/17 20:00 82 12/14/17 20:00 4.0 12/14/17 19:20 94 Nasal Cannula 5.0 40 12/14/17 19:20 Nasal Cannula 5.0 40 12/14/17 19:20 80 20 Nasal Cannula 5.0 40 12/14/17 17:00 96.8 103 20 156/77 96 Nasal Cannula 4.0 96.8 12/14/17 16:00 4.0 12/14/17 16:00 88 12/14/17 12:00 77 12/14/17 12:00 4.0 12/14/17 12:00 96.1 80 20 120/59 99 Nasal Cannula 4.0 96.1 12/14/17 11:50 93 Nasal Cannula 5.0 40 Intake and Output 12/14/17 12/15/17 19:00 07:00 Intake Total 912.833 ml 184.5 ml Output Total 550 ml 1275 ml Balance 362.833 ml -1090.5 ml Intake Oral 480 ml 100 ml IV Total 432.833 ml 84.5 ml Output Urine Total 550 ml 1275 ml Laboratory Tests 12/14/17 18:45: C-Reactive Protein, Quantitative 11.5H 12/15/17 06:30: White Blood Count 8.9, Red Blood Count 3.71L, Hemoglobin 9.7L, Hematocrit 30.9L , Mean Corpuscular Volume 83, Mean Corpuscular Hemoglobin 26.2L, Mean Corpuscular Hemoglobin Concent 31.5L, Red Cell Distribution Width 15.9H, Platelet Count 205, Mean Platelet Volume 7.4, Neutrophils (%) (Auto) , Lymphocytes (%) (Auto) , Monocytes (%) (Auto) , Eosinophils (%) (Auto) , Basophils (%) (Auto) , Differential Total Cells Counted 100, Neutrophils % ( Manual) 94H, Lymphocytes % (Manual) 4L, Monocytes % (Manual) 1, Eosinophils % ( Manual) 1, Basophils % (Manual) 0, Band Neutrophils 0, Platelet Estimate Adequate, Platelet Morphology Normal, Hypochromasia 1+, Anisocytosis 1+, Sodium Level 141, Potassium Level 4.2, Chloride Level 104, Carbon Dioxide Level 28, Anion Gap 9, Blood Urea Nitrogen 84H, Creatinine 4.5H, Estimat Glomerular Filtration Rate , Glucose Level 186H, Uric Acid 11.4H, Calcium Level 7.9L, Phosphorus Level 5.9H, Magnesium Level 2.4, Total Bilirubin 0.6, Aspartate Amino Transf (AST/SGOT) 24, Alanine Aminotransferase (ALT/SGPT) 31, Alkaline Phosphatase 157H, Pro-B-Type Natriuretic Peptide > 52197A, Total Protein 6.3L, Albumin 1.8L, Globulin 4.5, Albumin/Globulin Ratio 0.4L Height (Feet): 5 Height (Inches): 4.00 Weight (Pounds): 140 General Appearance: no apparent distress, alert, confused, agitated Zaynab Araya M.D. Dec 15, 2017 11:21
[2017-12-15 12:00] VITALS: BP 150/79
--- NOTE | 2017-12-15 12:18 | Diagnostic Imaging Report ---
Indication: Shortness of breath Technique: One view of the chest Comparison: 12/14/2017 Findings: Interim increase in right-sided pleural fluid. Large left-sided pleural effusion is again demonstrated, stable or perhaps slightly larger, now occupying half of the left hemithorax. Mixed interstitial and airspace, mostly the former, edema persists. The heart size is difficult to assess Impression: Increased right pleural effusion, over one day Stable or slightly increased large left pleural effusion Stable mostly interstitial edema
--- NOTE | 2017-12-15 13:35 | General Progress Note ---
Assessment/Plan Assessment/Plan #. Anemia due to underlying chronic disease. --> Continue to closely monitor for improvement. The patient may have evidence of iron deficiency and at this time --> Anemia workup reviewed. Iron 66, TIBC 306, Ferritin 131, Vit B12 637, Folate 13.2 --> Transfuse if hgb <7, prbc not needed at this time. --> Hemoglobin levels stable, blood transfusion not required at this time. #. Anemia of iron deficiency. --> TIBC is elevated. Begin the patient on ferrous sulfate. --> Monitor levels. #. Anemia due to gastrointestinal bleed consider GI Service as needed. --> Trend cbc. Hemoglobin has improved. #. Severe mitral regurgitation, status post mitral valve repair in 2016. --> Continue the patient on Eliquis. as well as Coreg as needed. #. Leukocytosis, likely secondary to infectious process. ESR 41. --> Continue to closely monitor. --> Improved #. Prothrombin time coagulopathy. --> Closely monitor for improvement and currently prothrombin time elevated, on Eliquis. Continue at this time. #. Hypoglycemia. Low blood sugar, found unresponsive at home. D10 given. #. Encephalopathy. Subjective Date patient seen: Dec 14, 2017 Constitutional: Denies: no symptoms, chills, diaphoresis, fever, malaise, weakness, other HEENT: Denies: no symptoms, eye pain, blurred vision, tearing, double vision, ear pain, ear discharge, nose pain, nose congestion, throat pain, throat swelling, mouth pain, mouth swelling, other Cardiovascular: Denies: no symptoms, chest pain, edema, irregular heart rate, lightheadedness, palpitations, syncope, other Respiratory: Denies: no symptoms, cough, orthopnea, shortness of breath, SOB with excertion, SOB at rest, sputum, stridor, wheezing, other Gastrointestinal/Abdominal: Denies: no symptoms, abdomen distended, abdominal pain, black stools, tarry stools, blood in stool, constipated, diarrhea, difficulty swallowing, nausea, poor appetite, poor fluid intake, rectal bleeding , vomiting, other Genitourinary: Denies: no symptoms, burning, discharge, frequency, flank pain, hematuria, incontinence, pain, urgency, other Neurologic/Psychiatric: Denies: no symptoms, anxiety, depressed, emotional problems, headache, numbness, paresthesia, pre-existing deficit, seizure, tingling, tremors, weakness, other Hematologic/Lymphatic: Reports: anemia Allergies: Coded Allergies: LEVOFLOXACIN (Verified Allergy, Unknown, 12/09/17) SULFA (SULFONAMIDE ANTIBIOTICS) (Verified Allergy, Unknown, 12/09/17) Subjective Encephalopathic. H/H stable. Objective Last 24 Hour Vital Signs Date Time Temp Pulse Resp B/P (MAP) Pulse Ox O2 Delivery O2 Flow Rate FiO2 12/15/17 12:00 4.0 12/15/17 12:00 97.7 97 22 150/79 94 Nasal Cannula 4.0 97.7 12/15/17 12:00 98 12/15/17 08:20 Nasal Cannula 5.0 40 12/15/17 08:20 82 20 Nasal Cannula 5.0 40 12/15/17 08:20 96 Nasal Cannula 5.0 40 12/15/17 08:00 4.0 12/15/17 08:00 91 12/15/17 08:00 97.0 87 20 154/83 94 Nasal Cannula 4.0 97.0 12/15/17 04:00 97.7 87 20 157/83 96 Nasal Cannula 4.0 97.7 12/15/17 04:00 4.0 12/15/17 04:00 90 12/15/17 00:00 86 12/15/17 00:00 97.9 85 18 153/77 98 Nasal Cannula 4.0 97.9 12/14/17 20:00 97.5 83 18 144/77 98 Nasal Cannula 4.0 97.5 12/14/17 20:00 82 12/14/17 20:00 4.0 12/14/17 19:20 94 Nasal Cannula 5.0 40 12/14/17 19:20 Nasal Cannula 5.0 40 12/14/17 19:20 80 20 Nasal Cannula 5.0 40 12/14/17 17:00 96.8 103 20 156/77 96 Nasal Cannula 4.0 96.8 12/14/17 16:00 4.0 12/14/17 16:00 88 Intake and Output 12/14/17 12/15/17 19:00 07:00 Intake Total 912.833 ml 184.5 ml Output Total 550 ml 1275 ml Balance 362.833 ml -1090.5 ml Intake Oral 480 ml 100 ml IV Total 432.833 ml 84.5 ml Output Urine Total 550 ml 1275 ml Laboratory Tests 12/14/17 18:45: C-Reactive Protein, Quantitative 11.5H 12/15/17 06:30: White Blood Count 8.9, Red Blood Count 3.71L, Hemoglobin 9.7L, Hematocrit 30.9L , Mean Corpuscular Volume 83, Mean Corpuscular Hemoglobin 26.2L, Mean Corpuscular Hemoglobin Concent 31.5L, Red Cell Distribution Width 15.9H, Platelet Count 205, Mean Platelet Volume 7.4, Neutrophils (%) (Auto) , Lymphocytes (%) (Auto) , Monocytes (%) (Auto) , Eosinophils (%) (Auto) , Basophils (%) (Auto) , Differential Total Cells Counted 100, Neutrophils % ( Manual) 94H, Lymphocytes % (Manual) 4L, Monocytes % (Manual) 1, Eosinophils % ( Manual) 1, Basophils % (Manual) 0, Band Neutrophils 0, Platelet Estimate Adequate, Platelet Morphology Normal, Hypochromasia 1+, Anisocytosis 1+, Sodium Level 141, Potassium Level 4.2, Chloride Level 104, Carbon Dioxide Level 28, Anion Gap 9, Blood Urea Nitrogen 84H, Creatinine 4.5H, Estimat Glomerular Filtration Rate , Glucose Level 186H, Uric Acid 11.4H, Calcium Level 7.9L, Phosphorus Level 5.9H, Magnesium Level 2.4, Total Bilirubin 0.6, Aspartate Amino Transf (AST/SGOT) 24, Alanine Aminotransferase (ALT/SGPT) 31, Alkaline Phosphatase 157H, Pro-B-Type Natriuretic Peptide > 21297G, Total Protein 6.3L, Albumin 1.8L, Globulin 4.5, Albumin/Globulin Ratio 0.4L Height (Feet): 5 Height (Inches): 4.00 Weight (Pounds): 140 General Appearance: no apparent distress Respiratory/Chest: decreased breath sounds Abdomen: soft Abdirashid Solorzano MD Dec 15, 2017 13:35
--- NOTE | 2017-12-15 15:00 | Infectious Diseases Prog Note ---
Assessment/Plan Assessment/Plan A: Acute hypoxic/hypercapenic respiratory failure- off Bipap now > NC R>L pleural effusion- possibly multifactorial due to CHF and possible PNA; ? lung mass -s/p Thoracentesis removal of 500cc blood tinge fluid, transudate , cx Neg -WBC 123 (L 10, M 78); cx NTD; LDH protien: 1.3, PH: 8 -CT chest: Large right pleural effusion. Resultant compressive atelectasis of much of the right lower lobe. Moderate left-sided pleural effusion, with compressive atelectasis of portions of the left lower lobe. There is also perihilar consolidation which may indicate pneumonia. There is also compressive atelectasis of much of the inferior lingula. Mild interstitial congestion in the left upper lobe. 7 mm masslike opacity in the left upper lobe at the level of the aortic arch. Most likely some focal edema or consolidation, but neoplasm also a possibility. Cardiomegaly. Evidence of prior CABG and mitral valve repair. Evidence of anasarca elsewhere, with chest and abdominal wall edema, small amount of ascites. T10 vertebral body compression fracture deformity. Age indeterminate. Consider MRI for further evaluation if this is considered clinically significant. Hepatomegaly -CXR 12/07: Dense left midlung consolidation and probable pleural fluid. Generalized interstitial congestion. Probable small right pleural effusion. Cardiomegaly -Influenza sc neg -Bcx NTD -sp cx normal malika -CRP 10.8 Volume overload Leukocytosis, resolved -afebrile Neg : CrAg, Renal insufficiency, worsening -REnal US: Negative for hydronephrosis. Echogenic lesion in the interpolar region of the right kidney. 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 Consider CT for further evaluation Prolonged QTc CVA HTN sarcoidosis severe MR s/p MVR w/ left atrial appendage closure 2010 liver disease GIB Aflutter on Eliquis Dm2 CAD s/p CABG x5 HLD Plan: -Continue PO Augmentin abx d#7/ for possible PNA -12/14 SP IV Vancomycin and Unasy #6 -12/08 SP Levaquin x1 -f/u pleural fluid cytology and cx -f/u COcci ab, 1,3b-d glucan, legionella ag urine //-Monitor CBC/CMP, temperatures Subjective Allergies: Coded Allergies: LEVOFLOXACIN (Verified Allergy, Unknown, 12/09/17) SULFA (SULFONAMIDE ANTIBIOTICS) (Verified Allergy, Unknown, 12/09/17) Subjective afebrile no leukocytosis on 4l NC sp cx and pleural fluid cx Neg worsenign L pleural effusion Objective Vital Signs Last 24 Hour Vital Signs Date Time Temp Pulse Resp B/P (MAP) Pulse Ox O2 Delivery O2 Flow Rate FiO2 12/15/17 12:00 4.0 12/15/17 12:00 97.7 97 22 150/79 94 Nasal Cannula 4.0 97.7 12/15/17 12:00 98 12/15/17 08:20 Nasal Cannula 5.0 40 12/15/17 08:20 82 20 Nasal Cannula 5.0 40 12/15/17 08:20 96 Nasal Cannula 5.0 40 12/15/17 08:00 4.0 12/15/17 08:00 91 12/15/17 08:00 97.0 87 20 154/83 94 Nasal Cannula 4.0 97.0 12/15/17 04:00 97.7 87 20 157/83 96 Nasal Cannula 4.0 97.7 12/15/17 04:00 4.0 12/15/17 04:00 90 12/15/17 00:00 86 12/15/17 00:00 97.9 85 18 153/77 98 Nasal Cannula 4.0 97.9 12/14/17 20:00 97.5 83 18 144/77 98 Nasal Cannula 4.0 97.5 12/14/17 20:00 82 12/14/17 20:00 4.0 12/14/17 19:20 94 Nasal Cannula 5.0 40 12/14/17 19:20 Nasal Cannula 5.0 40 12/14/17 19:20 80 20 Nasal Cannula 5.0 40 12/14/17 17:00 96.8 103 20 156/77 96 Nasal Cannula 4.0 96.8 12/14/17 16:00 4.0 12/14/17 16:00 88 Height (Feet): 5 Height (Inches): 4.00 Weight (Pounds): 140 Objective HEENT: atraumatic Lungs: rales, rhonchi Heart: HR/BP stable, HR/BP unstable Abdomen: non-tender, active bowel sounds Extremities: no C/C/E, edema Laboratory Tests Test 12/14/17 18:45 12/15/17 06:30 C-Reactive Protein, Quantitative 11.5 mg/dL (0.00-0.90) H White Blood Count 8.9 K/UL (4.8-10.8) Red Blood Count 3.71 M/UL (4.20-5.40) L Hemoglobin 9.7 G/DL (12.0-16.0) L Hematocrit 30.9 % (37.0-47.0) L Mean Corpuscular Volume 83 FL (80-99) Mean Corpuscular Hemoglobin 26.2 PG (27.0-31.0) L Mean Corpuscular Hemoglobin Concent 31.5 G/DL (32.0-36.0) L Red Cell Distribution Width 15.9 % (11.6-14.8) H Platelet Count 205 K/UL (150-450) Mean Platelet Volume 7.4 FL (6.5-10.1) Neutrophils (%) (Auto) % (45.0-75.0) Lymphocytes (%) (Auto) % (20.0-45.0) Monocytes (%) (Auto) % (1.0-10.0) Eosinophils (%) (Auto) % (0.0-3.0) Basophils (%) (Auto) % (0.0-2.0) Differential Total Cells Counted 100 Neutrophils % (Manual) 94 % (45-75) H Lymphocytes % (Manual) 4 % (20-45) L Monocytes % (Manual) 1 % (1-10) Eosinophils % (Manual) 1 % (0-3) Basophils % (Manual) 0 % (0-2) Band Neutrophils 0 % (0-8) Platelet Estimate Adequate Platelet Morphology Normal Hypochromasia 1+ Anisocytosis 1+ Sodium Level 141 MMOL/L (136-145) Potassium Level 4.2 MMOL/L (3.5-5.1) Chloride Level 104 MMOL/L (98-107) Carbon Dioxide Level 28 MMOL/L (21-32) Anion Gap 9 mmol/L (5-15) Blood Urea Nitrogen 84 mg/dL (7-18) H Creatinine 4.5 MG/DL (0.55-1.30) H Estimat Glomerular Filtration Rate mL/min (>60) Glucose Level 186 MG/DL (74-106) H Uric Acid 11.4 MG/DL (2.6-7.2) H Calcium Level 7.9 MG/DL (8.5-10.1) L Phosphorus Level 5.9 MG/DL (2.5-4.9) H Magnesium Level 2.4 MG/DL (1.8-2.4) Total Bilirubin 0.6 MG/DL (0.2-1.0) Aspartate Amino Transf (AST/SGOT) 24 U/L (15-37) Alanine Aminotransferase (ALT/SGPT) 31 U/L (12-78) Alkaline Phosphatase 157 U/L (46-116) H Pro-B-Type Natriuretic Peptide > 99487 pg/mL (0-125) H Total Protein 6.3 G/DL (6.4-8.2) L Albumin 1.8 G/DL (3.4-5.0) L Globulin 4.5 g/dL Albumin/Globulin Ratio 0.4 (1.0-2.7) L Current Medications Medications (Trade) Dose Ordered Sig/Maribel Route PRN Reason Start Time Stop Time Status Last Admin Dose Admin Acetaminophen (Tylenol) 650 mg Q4H PRN ORAL T>100.5 12/14/17 17:30 01/06/18 17:29 Amoxicillin/ Clavulanate Potassium (Augmentin) 500 mg Q24HRS ORAL 12/15/17 17:30 12/21/17 17:29 Dextrose (Dextrose 50%) STAT PRN IV Hypoglycemia 12/15/17 17:30 01/08/18 17:29 Diltiazem HCl (Cardizem) 10 mg EVERY HOUR PRN IV heart rate more than 120 BPM 12/14/17 18:00 01/06/18 21:59 Furosemide 100 mg/ Dextrose 100 ml @ 10 mls/hr Q10H IV 12/14/17 19:00 01/12/18 18:59 12/15/17 06:24 Haloperidol Lactate (Haldol) 5 mg Q6H PRN IM Agitation 12/14/17 17:30 01/08/18 17:29 Insulin Aspart (NovoLOG) BEFORE MEALS AND HS SUBQ 12/14/17 21:00 01/07/18 06:29 12/15/17 06:23 Metolazone (Zaroxolyn) 5 mg DAILY ORAL 12/15/17 09:00 01/12/18 12:59 12/15/17 09:32 Morphine Sulfate (Morphine Sulfate) 1 mg Q4H PRN IVP PAIN 4-10 12/14/17 18:00 12/16/17 17:59 Nateglinide (Starlix) 120 mg TIAC ORAL 12/15/17 11:30 01/14/18 11:29 12/15/17 12:30 Nitroglycerin (Ntg) 0.4 mg Q5MIN X 3 DOSES PRN SL Prn Chest Pain 12/14/17 17:15 01/06/18 07:59 Olanzapine (ZyPREXA) 2.5 mg Q12HR ORAL 12/14/17 21:00 01/13/18 20:59 12/15/17 09:32 Ondansetron HCl (Zofran) 4 mg Q6H PRN IVP Nausea & Vomiting 12/14/17 17:30 01/06/18 17:29 Pantoprazole (Protonix) 40 mg DAILY ORAL 12/15/17 09:00 01/08/18 15:14 12/15/17 09:32 Polyethylene Glycol (Miralax) 17 gm DAILYPRN PRN ORAL Constipation 12/14/17 17:30 01/13/18 17:29 Promethazine HCl/ Codeine (Phenergan with Codeine) 5 ml Q4H PRN ORAL For Cough 12/14/17 17:30 01/07/18 17:29 Sevelamer Carbonate (Renvela) 1,600 mg THREE TIMES A DAY ORAL 12/14/17 18:00 01/13/18 17:59 12/15/17 12:30 Temazepam (Restoril) 15 mg HSPRN PRN ORAL Insomnia 12/14/17 21:00 12/16/17 20:59 Leatha Sanchez M.D. Dec 15, 2017 15:00
[2017-12-15] MEDS ORDERED: OLANZAPINE2.5 MG ORAL (15:41)
[2017-12-15] MEDS ORDERED: STARLIX120 MG ORAL (15:41)
[2017-12-15] MEDS ORDERED: RENVELA800 MG ORAL (15:41)
--- NOTE | 2017-12-15 15:43 | Nephrology Progress Note ---
Assessment/Plan Problem List: (1) Acute respiratory failure (2) ATN (acute tubular necrosis) (3) CAD (coronary artery disease) (4) Pleural effusion (5) Diabetes mellitus Assessment CKD with acute component : Cr up to 4.7 now 4.5 ? 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 Cassidy Plan Plan: likely need dialysis soon will discuss with DPOA Avoid Nephrotoxics- Optimize cardiac & Pulmonary status Monitor renal parameters Urine for eos 24 h urine protein discussed with RN message left for Son [phone] Subjective ROS Limited/Unobtainable: No Constitutional: Reports: malaise, weakness Objective Objective Last 24 Hour Vital Signs Date Time Temp Pulse Resp B/P (MAP) Pulse Ox O2 Delivery O2 Flow Rate FiO2 12/15/17 12:00 4.0 12/15/17 12:00 97.7 97 22 150/79 94 Nasal Cannula 4.0 97.7 12/15/17 12:00 98 12/15/17 08:20 Nasal Cannula 5.0 40 12/15/17 08:20 82 20 Nasal Cannula 5.0 40 12/15/17 08:20 96 Nasal Cannula 5.0 40 12/15/17 08:00 4.0 12/15/17 08:00 91 12/15/17 08:00 97.0 87 20 154/83 94 Nasal Cannula 4.0 97.0 12/15/17 04:00 97.7 87 20 157/83 96 Nasal Cannula 4.0 97.7 12/15/17 04:00 4.0 12/15/17 04:00 90 12/15/17 00:00 86 12/15/17 00:00 97.9 85 18 153/77 98 Nasal Cannula 4.0 97.9 12/14/17 20:00 97.5 83 18 144/77 98 Nasal Cannula 4.0 97.5 12/14/17 20:00 82 12/14/17 20:00 4.0 12/14/17 19:20 94 Nasal Cannula 5.0 40 12/14/17 19:20 Nasal Cannula 5.0 40 12/14/17 19:20 80 20 Nasal Cannula 5.0 40 12/14/17 17:00 96.8 103 20 156/77 96 Nasal Cannula 4.0 96.8 12/14/17 16:00 4.0 12/14/17 16:00 88 Intake and Output 12/14/17 12/15/17 19:00 07:00 Intake Total 912.833 ml 184.5 ml Output Total 550 ml 1275 ml Balance 362.833 ml -1090.5 ml Intake Oral 480 ml 100 ml IV Total 432.833 ml 84.5 ml Output Urine Total 550 ml 1275 ml Laboratory Tests 12/14/17 18:45: C-Reactive Protein, Quantitative 11.5H 12/15/17 06:30: White Blood Count 8.9, Red Blood Count 3.71L, Hemoglobin 9.7L, Hematocrit 30.9L , Mean Corpuscular Volume 83, Mean Corpuscular Hemoglobin 26.2L, Mean Corpuscular Hemoglobin Concent 31.5L, Red Cell Distribution Width 15.9H, Platelet Count 205, Mean Platelet Volume 7.4, Neutrophils (%) (Auto) , Lymphocytes (%) (Auto) , Monocytes (%) (Auto) , Eosinophils (%) (Auto) , Basophils (%) (Auto) , Differential Total Cells Counted 100, Neutrophils % ( Manual) 94H, Lymphocytes % (Manual) 4L, Monocytes % (Manual) 1, Eosinophils % ( Manual) 1, Basophils % (Manual) 0, Band Neutrophils 0, Platelet Estimate Adequate, Platelet Morphology Normal, Hypochromasia 1+, Anisocytosis 1+, Sodium Level 141, Potassium Level 4.2, Chloride Level 104, Carbon Dioxide Level 28, Anion Gap 9, Blood Urea Nitrogen 84H, Creatinine 4.5H, Estimat Glomerular Filtration Rate , Glucose Level 186H, Uric Acid 11.4H, Calcium Level 7.9L, Phosphorus Level 5.9H, Magnesium Level 2.4, Total Bilirubin 0.6, Aspartate Amino Transf (AST/SGOT) 24, Alanine Aminotransferase (ALT/SGPT) 31, Alkaline Phosphatase 157H, Pro-B-Type Natriuretic Peptide > 48072A, Total Protein 6.3L, Albumin 1.8L, Globulin 4.5, Albumin/Globulin Ratio 0.4L Height (Feet): 5 Height (Inches): 4.00 Weight (Pounds): 140 General Appearance: moderate distress Cardiovascular: tachycardia Respiratory/Chest: decreased breath sounds Abdomen: distended DANIAL PA 20, 2018 15:43
[2017-12-15 16:00] VITALS: BP 159/74
--- NOTE | 2017-12-15 16:06 | Cardiology Progress Note ---
Assessment/Plan Assessment/Plan 1. Left lower lobe consolidation. 2. Chronic renal insufficiency. 3. Coronary artery disease status post coronary bypass grafting. 4. Diabetes mellitus. 5. Hypertension. 6. Hyperlipidemia. 7. History of cerebrovascular accident. 8. Reported history of sarcoidosis. 9. History of liver disease. 10. History of severe mitral regurgitation status post mitral valve repair and left atrial appendage closure by Dr. martinez in 2016. 11. Moderte mitral stenosis adn mitral regurgitation on recent echo 12. Moderate TR 13. Significant pulm htn 14. diastolic heart failure on tele diuretic lasix drip with metolazone bp stable off antihypertensive for now ef has been normal venous dupelx of le cxr personally reviewed looks worse tele reviewed seems ok cr improved slightly may need mroe diuretic or dialysis notation by dr mendoza noted Subjective Cardiovascular: Denies: chest pain, lightheadedness, palpitations Respiratory: Reports: shortness of breath Gastrointestinal/Abdominal: Denies: abdominal pain Genitourinary: Denies: burning Objective Current Medications Medications (Trade) Dose Ordered Sig/Maribel Route PRN Reason Start Time Stop Time Status Last Admin Dose Admin Acetaminophen (Tylenol) 650 mg Q4H PRN ORAL T>100.5 12/14/17 17:30 01/06/18 17:29 Amoxicillin/ Clavulanate Potassium (Augmentin) 500 mg Q24HRS ORAL 12/15/17 17:30 12/21/17 17:29 Dextrose (Dextrose 50%) STAT PRN IV Hypoglycemia 12/15/17 17:30 01/08/18 17:29 Diltiazem HCl (Cardizem) 10 mg EVERY HOUR PRN IV heart rate more than 120 BPM 12/14/17 18:00 01/06/18 21:59 Furosemide 100 mg/ Dextrose 100 ml @ 10 mls/hr Q10H IV 12/14/17 19:00 01/12/18 18:59 12/15/17 06:24 Haloperidol Lactate (Haldol) 5 mg Q6H PRN IM Agitation 12/14/17 17:30 01/08/18 17:29 Insulin Aspart (NovoLOG) BEFORE MEALS AND HS SUBQ 12/14/17 21:00 01/07/18 06:29 12/15/17 06:23 Metolazone (Zaroxolyn) 5 mg DAILY ORAL 12/15/17 09:00 01/12/18 12:59 12/15/17 09:32 Morphine Sulfate (Morphine Sulfate) 1 mg Q4H PRN IVP PAIN 4-10 12/14/17 18:00 12/16/17 17:59 Nateglinide (Starlix) 120 mg TIAC ORAL 12/15/17 11:30 01/14/18 11:29 12/15/17 12:30 Nitroglycerin (Ntg) 0.4 mg Q5MIN X 3 DOSES PRN SL Prn Chest Pain 12/14/17 17:15 01/06/18 07:59 Olanzapine (ZyPREXA) 2.5 mg Q12HR ORAL 12/14/17 21:00 01/13/18 20:59 12/15/17 09:32 Ondansetron HCl (Zofran) 4 mg Q6H PRN IVP Nausea & Vomiting 12/14/17 17:30 01/06/18 17:29 Pantoprazole (Protonix) 40 mg DAILY ORAL 12/15/17 09:00 01/08/18 15:14 12/15/17 09:32 Polyethylene Glycol (Miralax) 17 gm DAILYPRN PRN ORAL Constipation 12/14/17 17:30 01/13/18 17:29 Promethazine HCl/ Codeine (Phenergan with Codeine) 5 ml Q4H PRN ORAL For Cough 12/14/17 17:30 01/07/18 17:29 Sevelamer Carbonate (Renvela) 1,600 mg THREE TIMES A DAY ORAL 12/14/17 18:00 01/13/18 17:59 12/15/17 12:30 Temazepam (Restoril) 15 mg HSPRN PRN ORAL Insomnia 12/14/17 21:00 12/16/17 20:59 Last 24 Hour Vital Signs Date Time Temp Pulse Resp B/P (MAP) Pulse Ox O2 Delivery O2 Flow Rate FiO2 12/15/17 12:00 4.0 12/15/17 12:00 97.7 97 22 150/79 94 Nasal Cannula 4.0 97.7 12/15/17 12:00 98 12/15/17 08:20 Nasal Cannula 5.0 40 12/15/17 08:20 82 20 Nasal Cannula 5.0 40 12/15/17 08:20 96 Nasal Cannula 5.0 40 12/15/17 08:00 4.0 12/15/17 08:00 91 12/15/17 08:00 97.0 87 20 154/83 94 Nasal Cannula 4.0 97.0 12/15/17 04:00 97.7 87 20 157/83 96 Nasal Cannula 4.0 97.7 12/15/17 04:00 4.0 12/15/17 04:00 90 12/15/17 00:00 86 12/15/17 00:00 97.9 85 18 153/77 98 Nasal Cannula 4.0 97.9 12/14/17 20:00 97.5 83 18 144/77 98 Nasal Cannula 4.0 97.5 12/14/17 20:00 82 12/14/17 20:00 4.0 12/14/17 19:20 94 Nasal Cannula 5.0 40 12/14/17 19:20 Nasal Cannula 5.0 40 12/14/17 19:20 80 20 Nasal Cannula 5.0 40 12/14/17 17:00 96.8 103 20 156/77 96 Nasal Cannula 4.0 96.8 General Appearance: alert Neck: supple Cardiovascular: normal rate, regular rhythm Respiratory/Chest: decreased breath sounds Abdomen: normal bowel sounds, non tender, soft Extremities: no swelling Intake and Output 12/14/17 12/15/17 19:00 07:00 Intake Total 912.833 ml 184.5 ml Output Total 550 ml 1275 ml Balance 362.833 ml -1090.5 ml Intake Oral 480 ml 100 ml IV Total 432.833 ml 84.5 ml Output Urine Total 550 ml 1275 ml Laboratory Tests Test 12/14/17 18:45 12/15/17 06:30 C-Reactive Protein, Quantitative 11.5 mg/dL (0.00-0.90) H White Blood Count 8.9 K/UL (4.8-10.8) Red Blood Count 3.71 M/UL (4.20-5.40) L Hemoglobin 9.7 G/DL (12.0-16.0) L Hematocrit 30.9 % (37.0-47.0) L Mean Corpuscular Volume 83 FL (80-99) Mean Corpuscular Hemoglobin 26.2 PG (27.0-31.0) L Mean Corpuscular Hemoglobin Concent 31.5 G/DL (32.0-36.0) L Red Cell Distribution Width 15.9 % (11.6-14.8) H Platelet Count 205 K/UL (150-450) Mean Platelet Volume 7.4 FL (6.5-10.1) Neutrophils (%) (Auto) % (45.0-75.0) Lymphocytes (%) (Auto) % (20.0-45.0) Monocytes (%) (Auto) % (1.0-10.0) Eosinophils (%) (Auto) % (0.0-3.0) Basophils (%) (Auto) % (0.0-2.0) Differential Total Cells Counted 100 Neutrophils % (Manual) 94 % (45-75) H Lymphocytes % (Manual) 4 % (20-45) L Monocytes % (Manual) 1 % (1-10) Eosinophils % (Manual) 1 % (0-3) Basophils % (Manual) 0 % (0-2) Band Neutrophils 0 % (0-8) Platelet Estimate Adequate Platelet Morphology Normal Hypochromasia 1+ Anisocytosis 1+ Sodium Level 141 MMOL/L (136-145) Potassium Level 4.2 MMOL/L (3.5-5.1) Chloride Level 104 MMOL/L (98-107) Carbon Dioxide Level 28 MMOL/L (21-32) Anion Gap 9 mmol/L (5-15) Blood Urea Nitrogen 84 mg/dL (7-18) H Creatinine 4.5 MG/DL (0.55-1.30) H Estimat Glomerular Filtration Rate mL/min (>60) Glucose Level 186 MG/DL (74-106) H Uric Acid 11.4 MG/DL (2.6-7.2) H Calcium Level 7.9 MG/DL (8.5-10.1) L Phosphorus Level 5.9 MG/DL (2.5-4.9) H Magnesium Level 2.4 MG/DL (1.8-2.4) Total Bilirubin 0.6 MG/DL (0.2-1.0) Aspartate Amino Transf (AST/SGOT) 24 U/L (15-37) Alanine Aminotransferase (ALT/SGPT) 31 U/L (12-78) Alkaline Phosphatase 157 U/L (46-116) H Pro-B-Type Natriuretic Peptide > 15280 pg/mL (0-125) H Total Protein 6.3 G/DL (6.4-8.2) L Albumin 1.8 G/DL (3.4-5.0) L Globulin 4.5 g/dL Albumin/Globulin Ratio 0.4 (1.0-2.7) L YESICA MEDRANO Dec 15, 2017 16:06
[2017-12-15] MEDS ORDERED: Augmentin 250mg tab ORAL SCH (17:30)
[2017-12-15 20:00] VITALS: BP 164/82
[2017-12-16] VITALS: BP 171/88
[2017-12-16 04:00] VITALS: BP 146/85
[2017-12-16] MEDS: NovoLOG Insulin Flexpen SUBQ SCH ×2 (06:28→11:30)
--- NOTE | 2017-12-16 07:10 | General Progress Note ---
Assessment/Plan Problem List: (1) Diabetes mellitus ICD Codes: E11.9 - Type 2 diabetes mellitus without complications SNOMED: 60363402 (2) Encephalopathy acute ICD Codes: G93.40 - Encephalopathy, unspecified SNOMED: 76127149, 043188950 (3) Renal insufficiency ICD Codes: N28.9 - Disorder of kidney and ureter, unspecified SNOMED: 748327629, 883544215 (4) CHF (congestive heart failure) ICD Codes: I50.9 - Heart failure, unspecified SNOMED: 56209455 Qualifiers: Qualified Codes: I50.9 - Heart failure, unspecified (5) Pleural effusion ICD Codes: J90 - Pleural effusion, not elsewhere classified SNOMED: 83674321 Assessment/Plan hypoglycemia due to Glipizide - resolved continue Starlix 120 mg ac tid add Januvia 25 mg daily continue NISS Subjective ROS Limited/Unobtainable: Yes Allergies: Coded Allergies: LEVOFLOXACIN (Verified Allergy, Unknown, 12/09/17) SULFA (SULFONAMIDE ANTIBIOTICS) (Verified Allergy, Unknown, 12/09/17) Subjective events noted interval notes reviewed BG values remained elevated despite added Starlix with meals yesterday Objective Last 24 Hour Vital Signs Date Time Temp Pulse Resp B/P (MAP) Pulse Ox O2 Delivery O2 Flow Rate FiO2 12/16/17 04:00 88 12/16/17 04:00 97.7 94 20 146/85 95 Nasal Cannula 4.0 97.7 12/16/17 04:00 4.0 12/16/17 00:00 4.0 12/16/17 00:00 94 12/16/17 00:00 97.7 96 23 171/88 95 Nasal Cannula 4.0 97.7 12/15/17 20:00 4.0 12/15/17 20:00 97.3 95 18 164/82 98 Nasal Cannula 4.0 97.3 12/15/17 20:00 98 12/15/17 19:55 Nasal Cannula 4.0 36 12/15/17 19:55 95 Nasal Cannula 4.0 36 12/15/17 19:54 88 20 Nasal Cannula 4.0 36 12/15/17 16:00 95 12/15/17 16:00 97.0 92 22 159/74 94 Nasal Cannula 4.0 97.0 12/15/17 16:00 4.0 12/15/17 12:00 4.0 12/15/17 12:00 97.7 97 22 150/79 94 Nasal Cannula 4.0 97.7 12/15/17 12:00 98 12/15/17 08:20 Nasal Cannula 5.0 40 12/15/17 08:20 82 20 Nasal Cannula 5.0 40 12/15/17 08:20 96 Nasal Cannula 5.0 40 12/15/17 08:00 4.0 12/15/17 08:00 91 12/15/17 08:00 97.0 87 20 154/83 94 Nasal Cannula 4.0 97.0 Intake and Output 12/15/17 12/16/17 19:00 07:00 Intake Total 120 ml 50 ml Output Total 2000 ml 4450 ml Balance -1880 ml -4400 ml Intake Oral 120 ml 50 ml Output Urine Total 2000 ml 4450 ml Height (Feet): 5 Height (Inches): 4.00 Weight (Pounds): 140 General Appearance: no apparent distress EENT: pale conjunctivae Neck: normal alignment Cardiovascular: normal rate Respiratory/Chest: lungs clear Abdomen: normal bowel sounds Edema: 1+ Arm (L), 1+ Arm (R), 1+ Leg (L), 1+ Leg (R), 1+ Pedal (L), 1+ Pedal ( R), 1+ Generalized Objective Current Medications Medications (Trade) Dose Ordered Sig/Maribel Route PRN Reason Start Time Stop Time Status Last Admin Dose Admin Acetaminophen (Tylenol) 650 mg Q4H PRN ORAL T>100.5 12/14/17 17:30 01/06/18 17:29 Amoxicillin/ Clavulanate Potassium (Augmentin) 500 mg Q24HRS ORAL 12/15/17 17:30 12/21/17 17:29 12/15/17 17:35 Dextrose (Dextrose 50%) STAT PRN IV Hypoglycemia 12/15/17 17:30 01/08/18 17:29 Diltiazem HCl (Cardizem) 10 mg EVERY HOUR PRN IV heart rate more than 120 BPM 12/14/17 18:00 01/06/18 21:59 Furosemide 100 mg/ Dextrose 100 ml @ 10 mls/hr Q10H IV 12/14/17 19:00 01/12/18 18:59 12/16/17 00:30 Haloperidol Lactate (Haldol) 5 mg Q6H PRN IM Agitation 12/14/17 17:30 01/08/18 17:29 Insulin Aspart (NovoLOG) BEFORE MEALS AND HS SUBQ 12/14/17 21:00 01/07/18 06:29 12/16/17 06:28 Metolazone (Zaroxolyn) 5 mg DAILY ORAL 12/15/17 09:00 01/12/18 12:59 12/15/17 09:32 Morphine Sulfate (Morphine Sulfate) 1 mg Q4H PRN IVP PAIN 4-10 12/14/17 18:00 12/16/17 17:59 Nateglinide (Starlix) 120 mg TIAC ORAL 12/15/17 11:30 01/14/18 11:29 12/16/17 06:28 Nitroglycerin (Ntg) 0.4 mg Q5MIN X 3 DOSES PRN SL Prn Chest Pain 12/14/17 17:15 01/06/18 07:59 Olanzapine (ZyPREXA) 2.5 mg Q12HR ORAL 12/14/17 21:00 01/13/18 20:59 12/15/17 21:42 Ondansetron HCl (Zofran) 4 mg Q6H PRN IVP Nausea & Vomiting 12/14/17 17:30 01/06/18 17:29 Pantoprazole (Protonix) 40 mg DAILY ORAL 12/15/17 09:00 01/08/18 15:14 12/15/17 09:32 Polyethylene Glycol (Miralax) 17 gm DAILYPRN PRN ORAL Constipation 12/14/17 17:30 01/13/18 17:29 Promethazine HCl/ Codeine (Phenergan with Codeine) 5 ml Q4H PRN ORAL For Cough 12/14/17 17:30 01/07/18 17:29 Sevelamer Carbonate (Renvela) 1,600 mg THREE TIMES A DAY ORAL 12/14/17 18:00 01/13/18 17:59 12/15/17 17:35 Temazepam (Restoril) 15 mg HSPRN PRN ORAL Insomnia 12/14/17 21:00 12/16/17 20:59 Item Value Date Time Bedside Blood Glucose 169 mg/dl H 12/16/17 0644 Bedside Blood Glucose 246 mg/dl H 12/15/17 2151 Bedside Blood Glucose 287 mg/dl H 12/15/17 1741 Bedside Blood Glucose 269 mg/dl H 12/15/17 1130 Bedside Blood Glucose 198 mg/dl H 12/15/17 0623 GRAHAM CASE 21, 2018 07:09
[2017-12-16] MEDS ORDERED: sitaGLIPtin 25mg tab ORAL SCH (07:50)
[2017-12-16 08:00] VITALS: BP 153/66
[2017-12-16] MEDS: OLANZapine 2.5mg tab ORAL SCH (09:58)
[2017-12-16 10:17] VITALS: BP 141/72
--- NOTE | 2017-12-16 10:45 | Nephrology Progress Note ---
Assessment/Plan Problem List: (1) Acute respiratory failure (2) ATN (acute tubular necrosis) (3) CAD (coronary artery disease) (4) Pleural effusion (5) Diabetes mellitus Assessment CKD with acute component : Cr up to 4.7 now 4.5 ? 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 Cassidy Plan Plan: no lab today likely need dialysis soon will discuss with DPOA Avoid Nephrotoxics- Optimize cardiac & Pulmonary status Monitor renal parameters Urine for eos 24 h urine protein discussed with RN message left for Son [phone] Subjective ROS Limited/Unobtainable: No Constitutional: Reports: malaise, weakness Objective Objective Last 24 Hour Vital Signs Date Time Temp Pulse Resp B/P (MAP) Pulse Ox O2 Delivery O2 Flow Rate FiO2 12/16/17 10:17 150 141/72 12/16/17 08:00 87 12/16/17 08:00 97.7 91 20 153/66 96 Nasal Cannula 4.0 97.7 12/16/17 08:00 4.0 12/16/17 07:17 88 24 Nasal Cannula 4.0 36 12/16/17 07:17 Nasal Cannula 4.0 36 12/16/17 07:17 94 Nasal Cannula 4.0 36 12/16/17 04:00 88 12/16/17 04:00 97.7 94 20 146/85 95 Nasal Cannula 4.0 97.7 12/16/17 04:00 4.0 12/16/17 00:00 4.0 12/16/17 00:00 94 12/16/17 00:00 97.7 96 23 171/88 95 Nasal Cannula 4.0 97.7 12/15/17 20:00 4.0 12/15/17 20:00 97.3 95 18 164/82 98 Nasal Cannula 4.0 97.3 12/15/17 20:00 98 12/15/17 19:55 Nasal Cannula 4.0 36 12/15/17 19:55 95 Nasal Cannula 4.0 36 12/15/17 19:54 88 20 Nasal Cannula 4.0 36 12/15/17 16:00 95 12/15/17 16:00 97.0 92 22 159/74 94 Nasal Cannula 4.0 97.0 12/15/17 16:00 4.0 12/15/17 12:00 4.0 12/15/17 12:00 97.7 97 22 150/79 94 Nasal Cannula 4.0 97.7 12/15/17 12:00 98 Intake and Output 12/15/17 12/16/17 19:00 07:00 Intake Total 120 ml 50 ml Output Total 2000 ml 4450 ml Balance -1880 ml -4400 ml Intake Oral 120 ml 50 ml Output Urine Total 2000 ml 4450 ml Height (Feet): 5 Height (Inches): 4.00 Weight (Pounds): 130 General Appearance: lethargic, mild distress Cardiovascular: tachycardia Respiratory/Chest: decreased breath sounds Abdomen: distended DANIAL PA Dec 16, 2017 10:45
--- NOTE | 2017-12-16 11:43 | General Progress Note ---
Assessment/Plan Assessment/Plan #. Anemia due to underlying chronic disease. --> Continue to closely monitor for improvement. The patient may have evidence of iron deficiency and at this time --> Anemia workup reviewed. Iron 66, TIBC 306, Ferritin 131, Vit B12 637, Folate 13.2 --> Transfuse if hgb <7, prbc not needed at this time. --> Hemoglobin levels remain above goal. #. Anemia of iron deficiency. --> TIBC is elevated. Begin the patient on ferrous sulfate. --> Monitor levels. #. Anemia due to gastrointestinal bleed consider GI Service as needed. --> Trend cbc. Hemoglobin has improved. #. Severe mitral regurgitation, status post mitral valve repair in 2016. --> Continue the patient on Eliquis. as well as Coreg as needed. #. Leukocytosis, likely secondary to infectious process. ESR 41. --> Continue to closely monitor. --> Resolved. #. Prothrombin time coagulopathy. --> Closely monitor for improvement and currently prothrombin time elevated, on Eliquis. Continue at this time. #. Hypoglycemia. Low blood sugar, found unresponsive at home. D10 given. #. Encephalopathy. Subjective Date patient seen: Dec 15, 2017 Constitutional: Denies: no symptoms, chills, diaphoresis, fever, malaise, weakness, other HEENT: Denies: no symptoms, eye pain, blurred vision, tearing, double vision, ear pain, ear discharge, nose pain, nose congestion, throat pain, throat swelling, mouth pain, mouth swelling, other Cardiovascular: Denies: no symptoms, chest pain, edema, irregular heart rate, lightheadedness, palpitations, syncope, other Respiratory: Denies: no symptoms, cough, orthopnea, shortness of breath, SOB with excertion, SOB at rest, sputum, stridor, wheezing, other Gastrointestinal/Abdominal: Denies: no symptoms, abdomen distended, abdominal pain, black stools, tarry stools, blood in stool, constipated, diarrhea, difficulty swallowing, nausea, poor appetite, poor fluid intake, rectal bleeding , vomiting, other Genitourinary: Denies: no symptoms, burning, discharge, frequency, flank pain, hematuria, incontinence, pain, urgency, other Neurologic/Psychiatric: Denies: no symptoms, anxiety, depressed, emotional problems, headache, numbness, paresthesia, pre-existing deficit, seizure, tingling, tremors, weakness, other Allergies: Coded Allergies: LEVOFLOXACIN (Verified Allergy, Unknown, 12/09/17) SULFA (SULFONAMIDE ANTIBIOTICS) (Verified Allergy, Unknown, 12/09/17) Subjective Encephalopathic. No major events. Objective Last 24 Hour Vital Signs Date Time Temp Pulse Resp B/P (MAP) Pulse Ox O2 Delivery O2 Flow Rate FiO2 12/16/17 10:17 150 141/72 12/16/17 08:00 87 12/16/17 08:00 97.7 91 20 153/66 96 Nasal Cannula 4.0 97.7 12/16/17 08:00 4.0 12/16/17 07:17 88 24 Nasal Cannula 4.0 36 12/16/17 07:17 Nasal Cannula 4.0 36 12/16/17 07:17 94 Nasal Cannula 4.0 36 12/16/17 04:00 88 12/16/17 04:00 97.7 94 20 146/85 95 Nasal Cannula 4.0 97.7 12/16/17 04:00 4.0 12/16/17 00:00 4.0 12/16/17 00:00 94 12/16/17 00:00 97.7 96 23 171/88 95 Nasal Cannula 4.0 97.7 12/15/17 20:00 4.0 12/15/17 20:00 97.3 95 18 164/82 98 Nasal Cannula 4.0 97.3 12/15/17 20:00 98 12/15/17 19:55 Nasal Cannula 4.0 36 12/15/17 19:55 95 Nasal Cannula 4.0 36 12/15/17 19:54 88 20 Nasal Cannula 4.0 36 12/15/17 16:00 95 12/15/17 16:00 97.0 92 22 159/74 94 Nasal Cannula 4.0 97.0 12/15/17 16:00 4.0 12/15/17 12:00 4.0 12/15/17 12:00 97.7 97 22 150/79 94 Nasal Cannula 4.0 97.7 12/15/17 12:00 98 Intake and Output 12/15/17 12/16/17 19:00 07:00 Intake Total 120 ml 50 ml Output Total 2000 ml 4450 ml Balance -1880 ml -4400 ml Intake Oral 120 ml 50 ml Output Urine Total 2000 ml 4450 ml Height (Feet): 5 Height (Inches): 4.00 Weight (Pounds): 130 General Appearance: confused Respiratory/Chest: decreased breath sounds Edema: mild edema Abdirashid Solorzano MD Dec 16, 2017 11:43
--- NOTE | 2017-12-16 15:06 | Pulmonology Progress Note ---
Assessment/Plan Problems: (1) ATN (acute tubular necrosis) (2) Pleural effusion (3) Delirium (4) Pneumonia (5) Diabetes mellitus (6) Lung mass Assessment/Plan off drips pt is going home with the hospice choice of the patient d/w Dr. mora, pt lacks capacity Subjective ROS Limited/Unobtainable: No Interval Events: awake[facility] dusky lips Allergies: Coded Allergies: LEVOFLOXACIN (Verified Allergy, Unknown, 12/09/17) SULFA (SULFONAMIDE ANTIBIOTICS) (Verified Allergy, Unknown, 12/09/17) Objective Last 24 Hour Vital Signs Date Time Temp Pulse Resp B/P (MAP) Pulse Ox O2 Delivery O2 Flow Rate FiO2 12/16/17 12:00 4.0 12/16/17 10:17 150 141/72 12/16/17 08:00 87 12/16/17 08:00 97.7 91 20 153/66 96 Nasal Cannula 4.0 97.7 12/16/17 08:00 4.0 12/16/17 07:17 88 24 Nasal Cannula 4.0 36 12/16/17 07:17 Nasal Cannula 4.0 36 12/16/17 07:17 94 Nasal Cannula 4.0 36 12/16/17 04:00 88 12/16/17 04:00 97.7 94 20 146/85 95 Nasal Cannula 4.0 97.7 12/16/17 04:00 4.0 12/16/17 00:00 4.0 12/16/17 00:00 94 12/16/17 00:00 97.7 96 23 171/88 95 Nasal Cannula 4.0 97.7 12/15/17 20:00 4.0 12/15/17 20:00 97.3 95 18 164/82 98 Nasal Cannula 4.0 97.3 12/15/17 20:00 98 12/15/17 19:55 Nasal Cannula 4.0 36 12/15/17 19:55 95 Nasal Cannula 4.0 36 12/15/17 19:54 88 20 Nasal Cannula 4.0 36 12/15/17 16:00 95 12/15/17 16:00 97.0 92 22 159/74 94 Nasal Cannula 4.0 97.0 12/15/17 16:00 4.0 Intake and Output 12/15/17 12/16/17 19:00 07:00 Intake Total 120 ml 50 ml Output Total 2000 ml 4450 ml Balance -1880 ml -4400 ml Intake Oral 120 ml 50 ml Output Urine Total 2000 ml 4450 ml Objective General Appearance: cachectic HEENT: normocephalic, atraumatic Respiratory/Chest: chest wall non-tender, + rhonchi ( loud) Cardiovascular: normal peripheral pulses, normal rate, regular rhythm Abdomen: normal bowel sounds, soft, non tender, no organomegaly Genitourinary: normal external genitalia Extremities: no clubbing Skin: no rash Neurologic/Psychiatric: doctor of naturopathic medicine II-XII grossly normal Lymphatic: no neck adenopathy Jessica Peralta MD Dec 16, 2017 15:06
--- NOTE | 2017-12-16 22:53 | General Progress Note ---
Assessment/Plan Assessment/Plan encephalopathy dementia with behavioral disturbance the pt lacks capacity to make decisions the son should make all the decisions hospice vs dialysis -zyprexa 2.5 tid -haldol prn Subjective Date patient seen: Dec 16, 2017 Allergies: Coded Allergies: LEVOFLOXACIN (Verified Allergy, Unknown, 12/09/17) SULFA (SULFONAMIDE ANTIBIOTICS) (Verified Allergy, Unknown, 12/09/17) Subjective the pt is calmer and less agitated. the pt confused and lacks capacity. the pts son should make all the decisions and the pt is unable to make any decisions Objective Last 24 Hour Vital Signs Date Time Temp Pulse Resp B/P (MAP) Pulse Ox O2 Delivery O2 Flow Rate FiO2 12/16/17 12:00 4.0 12/16/17 10:17 150 141/72 12/16/17 08:00 87 12/16/17 08:00 97.7 91 20 153/66 96 Nasal Cannula 4.0 97.7 12/16/17 08:00 4.0 12/16/17 07:17 88 24 Nasal Cannula 4.0 36 12/16/17 07:17 Nasal Cannula 4.0 36 12/16/17 07:17 94 Nasal Cannula 4.0 36 12/16/17 04:00 88 12/16/17 04:00 97.7 94 20 146/85 95 Nasal Cannula 4.0 97.7 12/16/17 04:00 4.0 12/16/17 00:00 4.0 12/16/17 00:00 94 12/16/17 00:00 97.7 96 23 171/88 95 Nasal Cannula 4.0 97.7 Intake and Output 12/15/17 12/16/17 19:00 07:00 Intake Total 120 ml 50 ml Output Total 2000 ml 4450 ml Balance -1880 ml -4400 ml Intake Oral 120 ml 50 ml Output Urine Total 2000 ml 4450 ml Height (Feet): 5 Height (Inches): 4.00 Weight (Pounds): 130 Zaynab Araya M.D. Dec 16, 2017 22:53
--- NOTE | 2017-12-17 13:00 | General Progress Note ---
Assessment/Plan Assessment/Plan #. Anemia due to underlying chronic disease. --> Continue to closely monitor for improvement. The patient may have evidence of iron deficiency and at this time --> Anemia workup reviewed. Iron 66, TIBC 306, Ferritin 131, Vit B12 637, Folate 13.2 --> Transfuse if hgb <7, prbc not needed at this time. --> Hemoglobin levels remain above goal. #. Anemia of iron deficiency. --> TIBC is elevated. Begin the patient on ferrous sulfate. --> Monitor levels. #. Anemia due to gastrointestinal bleed consider GI Service as needed. --> Trend cbc. Hemoglobin has improved. #. Severe mitral regurgitation, status post mitral valve repair in 2016. --> Continue the patient on Eliquis. as well as Coreg as needed. #. Leukocytosis, likely secondary to infectious process. ESR 41. --> Continue to closely monitor. --> Resolved. #. Prothrombin time coagulopathy. --> Closely monitor for improvement and currently prothrombin time elevated, on Eliquis. Continue at this time. #. Hypoglycemia. Low blood sugar, found unresponsive at home. D10 given. #. Encephalopathy. Subjective Date patient seen: Dec 16, 2017 Constitutional: Denies: no symptoms, chills, diaphoresis, fever, malaise, weakness, other HEENT: Denies: no symptoms, eye pain, blurred vision, tearing, double vision, ear pain, ear discharge, nose pain, nose congestion, throat pain, throat swelling, mouth pain, mouth swelling, other Cardiovascular: Denies: no symptoms, chest pain, edema, irregular heart rate, lightheadedness, palpitations, syncope, other Respiratory: Denies: no symptoms, cough, orthopnea, shortness of breath, SOB with excertion, SOB at rest, sputum, stridor, wheezing, other Gastrointestinal/Abdominal: Denies: no symptoms, abdomen distended, abdominal pain, black stools, tarry stools, blood in stool, constipated, diarrhea, difficulty swallowing, nausea, poor appetite, poor fluid intake, rectal bleeding , vomiting, other Genitourinary: Denies: no symptoms, burning, discharge, frequency, flank pain, hematuria, incontinence, pain, urgency, other Neurologic/Psychiatric: Denies: no symptoms, anxiety, depressed, emotional problems, headache, numbness, paresthesia, pre-existing deficit, seizure, tingling, tremors, weakness, other Hematologic/Lymphatic: Reports: anemia Allergies: Coded Allergies: LEVOFLOXACIN (Verified Allergy, Unknown, 12/09/17) SULFA (SULFONAMIDE ANTIBIOTICS) (Verified Allergy, Unknown, 12/09/17) Subjective Confused. No fever or chills. H/H stable. Objective Height (Feet): 5 Height (Inches): 4.00 Weight (Pounds): 130 General Appearance: no apparent distress Respiratory/Chest: decreased breath sounds Abdirashid Solorzano MD Dec 17, 2017 13:00
--- NOTE | 2017-12-17 15:24 | Discharge Summary ---
Discharge Summary Hospital Course Date of Admission Dec 07, 2017 at 20:38 Date of Discharge Dec 16, 2017 at 14:30 Admitting Diagnosis hypoglycemia/ CHF/ PNA HPI Janina Griffiths is a 77 year old female who was admitted on Dec 07, 2017 at 20: 38 for Hypoglycemia,Congestive Heart Failure,Pneumonia Hospital Course [id number] Discharge Discharge Disposition Patient was discharged to home with hospice Joslyn Orellana NP Dec 17, 2017 15:24
--- NOTE | 2017-12-18 02:46 | Discharge Summary 2 SIG ---
DATE OF ADMISSION: 12/07/2017 DATE OF DISCHARGE: 12/16/2017 CONSULTANTS: 1. Abdirashid Solorzano M.D. 2. Zaynab Araya M.D. 3. Sulaiman Carlson M.D. 4. Ruben Rios M.D. 5. Elliott Vasquez M.D. 6. Leatha Sanchez M.D. BRIEF HOSPITAL COURSE: The patient is a 77-year-old female with history of coronary artery disease, dementia, and diabetes, who presented to ED for evaluation of altered level of consciousness for one day. The patient's Accu-Chek was low and was given glucose in the field. She was also noted to have crackles and rales during evaluation at ED and was having cough productive with yellowish sputum. Evaluation at ED showed no leukocytosis with stable hemoglobin and hematocrit. Creatinine was elevated to 2.2 and BUN was 48. Potassium was 5.8. Troponin was elevated to 0.154. He had a chest x-ray done that showed cardiomegaly, CHF, and left lung infiltrate. Urine was with bacteria, 5 to 10 rbc, 2 to 4 wbc, 2+ leukocyte esterase, and positive nitrites. Glucose was 112. She was then started on IV fluids. She was given Kayexalate, Lasix, and was started on antibiotic. She was admitted to telemetry. She was followed by Infectious Disease specialist and was started empirically on IV vancomycin and Unasyn. The patient deteriorated and was transferred to ICU. The patient was placed on BiPAP. Chest CT showed large right pleural effusion with moderate left pleural effusion. There was presence of a 7 mm mass-like opacity on the left upper lobe at the level of aortic arch. She underwent thoracentesis on 12/09/2017 yielding 500 mL of fluid. Creatinine went up. Renal parameters were monitored. She had anemia, hemoglobin of 9.2. Anemia workup showed iron of 66, ferritin 131. TIBC was elevated. She was started on ferrous sulfate. She was continued on Eliquis. The patient was agitated and was disorganized and confused and attempting to come out of bed. She was provided a sitter. Psychiatric consult was done. The patient lacks capacity to make decisions. She was started on Seroquel and Haldol as needed. She came in with left posterior lower leg and right lower leg necrotic open wounds of unknown etiology. She was given wound care. She continued to be dyspneic. She was started on Lasix drip. Venous duplex of lower extremity was negative. Blood sugars were monitored. The patient had hypoglycemia due to glipizide. Blood sugars were monitored without insulin coverage. She was eventually started on Starlix 120 mg before meals t.i.d. and Januvia 25 mg daily. Creatinine was going up. The patient will eventually need dialysis soon. She was tapered off of BiPAP and was eventually tapered to nasal cannula. Pleural fluid cytology showed no malignant cells, however, due to poor preservation of specimen, repeat specimen was recommended. Influenza screening was negative. Sputum culture showed normal respiratory malika and body fluid culture did not isolate any growth. She was eventually discharged home with hospice. FINAL DIAGNOSES: 1. Pneumonia. 2. Lung mass. 3. Acute tubular necrosis. 4. Acute renal failure with underlying chronic kidney disease. 5. Diabetes mellitus. 6. Anemia due to chronic disease. 7. Anemia due to iron deficiency. 8. Severe mitral regurgitation, status post mitral valve repair in 2015. 9. Hypoglycemia. 10. Encephalopathy. 11. Dementia with behavioral disturbance. 12. Hyperlipidemia. 13. Sarcoidosis. 14. Hypoalbuminemia. 15. Pleural effusion, status post thoracentesis. 16. Acute diastolic heart failure. 17. Significant pulmonary hypertension. 18. Moderate tricuspid regurgitation. 19. Moderate mitral stenosis and mitral regurgitation. 20. Left posterior lower leg and right lateral lower leg necrotic open wound, present on admission. 21. Hospice care/palliative care. DISPOSITION: The patient was discharged home with hospice. DISCHARGE MEDICATIONS: Refer to medication list. Jessica Peralta M.D. I have been assigned to dictate discharge summary on this account and I was not involved in the patient's management. Joslyn Orlelana N.P. DR: PAYTON JOB#: [id number] CC: [email or web address]
== END 2017-12-16 14:30 | disposition hospice, home (50) | DRG 193 ==
LOC: EDBD 19:03 → EMR 19:50 → 2E 20:38 → EDBEDREQSVC 21:06 → EDBEDREQ 21:06 → 2E 12-08 17:30 → ICU 12-08 23:02 → 2W 12-11 07:33 → 2E 12-14 16:56
PROC: 5A09457 Assistance with Respiratory Ventilation, 24-96 Consecutive Hours, Continuous Positive Airway Pressure (ICD-10-PCS; principal; 2017-12-09)
PROC: 0W993ZX Drainage of Right Pleural Cavity, Percutaneous Approach, Diagnostic (ICD-10-PCS; principal; 2017-12-09)
DX: J18.9 Pneumonia, unspecified organism (principal); G93.40 Encephalopathy, unspecified; N17.0 Acute kidney failure with tubular necrosis; J96.02 Acute respiratory failure with hypercapnia; J96.01 Acute respiratory failure with hypoxia; J90 Pleural effusion, not elsewhere classified; I48.92 Unspecified atrial flutter; D68.9 Coagulation defect, unspecified; I50.30 Unspecified diastolic (congestive) heart failure; E11.649 Type 2 diabetes mellitus with hypoglycemia without coma; E11.9 Type 2 diabetes mellitus without complications; I25.10 Atherosclerotic heart disease of native coronary artery without angina pectoris; Z95.1 Presence of aortocoronary bypass graft; I10 Essential (primary) hypertension; E78.5 Hyperlipidemia, unspecified; D86.9 Sarcoidosis, unspecified; Z79.01 Long term (current) use of anticoagulants; Z95.2 Presence of prosthetic heart valve; Z88.2 Allergy status to sulfonamides; Z88.8 Allergy status to other drugs, medicaments and biological substances; Z86.73 Personal history of transient ischemic attack (TIA), and cerebral infarction without residual deficits; D63.8 Anemia in other chronic diseases classified elsewhere; D50.0 Iron deficiency anemia secondary to blood loss (chronic); E88.09 Other disorders of plasma-protein metabolism, not elsewhere classified; I34.2 Nonrheumatic mitral (valve) stenosis; I34.0 Nonrheumatic mitral (valve) insufficiency; I27.20 Pulmonary hypertension, unspecified; R41.0 Disorientation, unspecified; K76.9 Liver disease, unspecified; R91.8 Other nonspecific abnormal finding of lung field
CPT/HCPCS: 36415; 36600; 71045; 71250; 76770; 76942; 80048; 80053; 80061; 80202; 81003; 82009; 82248; 82270; 82378; 82550; 82553; 82607; 82728; 82746; 82803; 82962; 82977; 83036; 83540; 83550; 83605; 83615; 83735; 83880; 83986; 84100; 84133; 84300; 84443; 84484; 84550; 85007; 85025; 85044; 85060; 85610; 85651; 85730; 86140; 86635; 86710; 87040; 87070; 87205; 87449; 89050; 89051; 93005; 93306; 94660; 94664; 94760; 99285; J1815; J2405